=== PATIENT | male | born 1945 | race Caucasian/White ===

== ENCOUNTER 2017-07-06 18:38 | Inpatient (IN) | payer OTHER, MEDICARE ==
[~2017-07-06] VITALS: Ht 167.6 cm; Wt 49.0 kg
[~2017-07-06 18:38] MED LIST: ALBU25IPRN INH; CARV12.5 PO; ENAL2.5 PO; FURO20 PO; KCL20 PO; LEVA750T PO; MAGN400 PO; NEBUMIS6 INH; RIVA15 PO; THIA100T PO; Z.0.OXYGENDME NC
[2017-07-06 19:00] VITALS: BP 96/52; PULSE 116; RESP 20; TEMP 98.1; O2SAT 89
[2017-07-06] MEDS ORDERED: RESP: BUDESONIDE 0.5 MG/2 ML NEB NEB ONE (19:00)
[2017-07-06] MEDS ORDERED: SODIUM CHLORIDE 0.9% FLUSH 10 ML FLUSH IVF PRN (19:00)
[2017-07-06] MEDS ORDERED: RESP: ALBUTEROL 2.5 MG/IPRATROPIUM 0.5 MG NEB (SCH) INH ONE (19:00)
--- NOTE | 2017-07-06 19:01 | PD ---
HPI Chief Complaint: Respiratory Symptoms Time Seen by Provider: 18:51 Travel History International Travel<30 days: No Contact w/Intl Traveler<30days: No History of Present Illness HPI Patient is a 71-year-old male presenting to emergency department evaluation of shortness of breath. Patient states he's felt this way for approximately one week, he reports a productive cough with hemoptysis. He denies any fever, chills, nausea, vomiting, abdominal pain, chest pain. Patient reports a history of COPD and hypertension, congestive heart failure. Patient continues to smoke tobacco daily. He is not on any medications for COPD. He denies any pain at this time. Patient arrived to the emergency department via ENT exam as. He was given 2 albuterol nebulizer treatments as well as 125 mg of Solu- Medrol en route. [facility] Past Medical History Asthma: Yes ( CHILD) Cancer: No Cardiovascular Problems: No Congestive Heart Failure: Yes COPD: Yes Diminished Hearing: No Endocrine: No Genitourinary: No Hypertension: Yes Immune Disorder: No Musculoskeletal: No Neurologic: No Psychiatric: No Reproductive: No Social History Alcohol Use: No Tobacco Use: Yes (1.5PPD) Substance Use: Yes (MARIJUANA OCCASSIONALLY) Allergies-Medications (Allergen,Severity, Reaction): Coded Allergies: penicillin G (Unverified Allergy, Unknown, 04/14/17) Reported Meds & Prescriptions Reported Meds & Active Scripts Active Reported Methimazole 5 Mg Tab 10 Mg PO EVERY OTHER DAY Magnesium Oxide 400 Mg Tab 400 Mg PO DAILY Potassium Chloride ER (Potassium Chloride) 20 Meq Tab 20 Meq PO BID Coreg (Carvedilol) 12.5 Mg Tab 12.5 Mg PO BID Enalapril (Enalapril Maleate) 2.5 Mg Tab 2.5 Mg PO DAILY Lasix (Furosemide) 20 Mg Tab 20 Mg PO DAILY Xarelto (Rivaroxaban) 20 Mg Tab 20 Mg PO DAILY Review of Systems Except as stated in HPI: all other systems reviewed are Neg Cardiovascular: Positive: Tachycardia, Dyspnea on exertion Respiratory: Positive: Cough, Shortness of Breath, Wheezing, Orthopnea Gastrointestinal: No: Nausea, Abdominal Pain Musculoskeletal: No: Myalgias Neurologic: No: Weakness, Dizziness, Syncope Physical Exam Narrative GENERAL: Cachectic, alert male. Resting in no acute distress. SKIN: Warm and dry. HEAD: Atraumatic. Normocephalic. EYES: Pupils equal and round. No scleral icterus. No injection or drainage. ENT: No nasal bleeding or discharge. Mucous membranes pink and moist. NECK: Trachea midline. No JVD. CARDIOVASCULAR: Tachycardic RESPIRATORY: Tachypneic, coarse breath sounds throughout. GASTROINTESTINAL: Abdomen soft, non-tender, nondistended. Hepatic and splenic margins not palpable. MUSCULOSKELETAL: Extremities without clubbing, cyanosis, or edema. No obvious deformities. NEUROLOGICAL: Awake and alert. No obvious cranial nerve deficits. Motor grossly within normal limits. Five out of 5 muscle strength in the arms and legs. Normal speech. PSYCHIATRIC: Appropriate mood and affect; insight and judgment normal. Data Data Last Documented VS Vital Signs Date Time Temp Pulse Resp B/P (MAP) Pulse Ox O2 Delivery O2 Flow Rate FiO2 07/06/17 22:13 107 22 120/57 (78) 96 BiPAP 50 07/06/17 19:09 5.00 07/06/17 19:00 98.1 Orders Orders Complete Blood Count With Diff (07/06/17 18:51) Comprehensive Metabolic Panel (07/06/17 18:51) B-Type Natriuretic Peptide (07/06/17 18:51) Magnesium (Mg) (07/06/17 18:51) Ckmb (Isoenzyme) Profile (07/06/17 18:51) Troponin I (07/06/17 18:51) Arterial Blood Gas (Abg) (07/06/17 18:51) Iv Access Insert/Monitor (07/06/17 18:51) Electrocardiogram (07/06/17 18:51) Ecg Monitoring (07/06/17 18:51) Oximetry (07/06/17 18:51) Oxygen Administration (07/06/17 18:51) Chest, Single Ap (07/06/17 18:51) Sodium Chloride 0.9% Flush (Ns Flush) (07/06/17 19:00) Albuterol-Ipratropium Neb (Duoneb Neb) (07/06/17 19:00) Budesonide Neb (Pulmicort Respule Neb) (07/06/17 19:00) Resp Bipap / Cpap Non Invas Vt (07/06/17 ) Ct Pulmonary Angiogram (07/06/17 ) Iohexol 350 Inj (Omnipaque 350 Inj) (07/06/17 20:41) Aztreonam Inj (Azactam Inj) (07/06/17 21:36) Levofloxacin 750 Mg Premix Inj (Levaquin (07/06/17 21:36) Lactic Acid (07/06/17 21:36) Blood Culture (07/06/17 21:36) Sodium Chlorid 0.9% 500 Ml Inj (Ns 500 M (07/06/17 21:45) Admit Order (Ed Use Only) (07/06/17 22:33) Labs Laboratory Tests Test 07/06/17 19:20 07/06/17 21:40 07/06/17 21:53 White Blood Count 11.7 TH/MM3 Red Blood Count 3.51 MIL/MM3 Hemoglobin 10.5 GM/DL Hematocrit 32.3 % Mean Corpuscular Volume 92.0 FL Mean Corpuscular Hemoglobin 30.0 PG Mean Corpuscular Hemoglobin Concent 32.6 % Red Cell Distribution Width 15.0 % Platelet Count 471 TH/MM3 Mean Platelet Volume 8.1 FL Neutrophils (%) (Auto) 83.2 % Lymphocytes (%) (Auto) 13.3 % Monocytes (%) (Auto) 3.1 % Eosinophils (%) (Auto) 0.1 % Basophils (%) (Auto) 0.3 % Neutrophils # (Auto) 9.7 TH/MM3 Lymphocytes # (Auto) 1.6 TH/MM3 Monocytes # (Auto) 0.4 TH/MM3 Eosinophils # (Auto) 0.0 TH/MM3 Basophils # (Auto) 0.0 TH/MM3 CBC Comment DIFF FINAL Differential Comment Blood Urea Nitrogen 40 MG/DL Creatinine 1.03 MG/DL Random Glucose 185 MG/DL Total Protein 7.5 GM/DL Albumin 1.5 GM/DL Calcium Level 8.7 MG/DL Magnesium Level 2.1 MG/DL Alkaline Phosphatase 165 U/L Aspartate Amino Transf (AST/SGOT) 21 U/L Alanine Aminotransferase (ALT/SGPT) 27 U/L Total Bilirubin 0.4 MG/DL Sodium Level 132 MEQ/L Potassium Level 4.6 MEQ/L Chloride Level 94 MEQ/L Carbon Dioxide Level 29.6 MEQ/L Anion Gap 8 MEQ/L Estimat Glomerular Filtration Rate 71 ML/MIN Total Creatine Kinase 21 U/L Troponin I LESS THAN 0.02 NG/ML B-Type Natriuretic Peptide 62 PG/ML Blood Gas Puncture Site RT BRACHIAL Blood Gas Patient Temperature 98.6 Blood Gas HCO3 30 mmol/L Blood Gas Base Excess 6.5 mmol/L Blood Gas Oxygen Saturation 94 % Arterial Blood pH 7.47 Arterial Blood Partial Pressure CO2 42 mmHg Arterial Blood Partial Pressure O2 76 mmHG Arterial Blood Oxygen Content 13.6 Vol % Arterial Blood Carboxyhemoglobin 1.7 % Arterial Blood Methemoglobin 0.4 % Blood Gas Hemoglobin 10.3 G/DL Oxygen Delivery Device BIPAP Blood Gas Ventilator Setting IPAP10 EPAP5 Blood Gas Inspired Oxygen 50 % Lactic Acid Level 1.6 mmol/L MDM Medical Decision Making Medical Screen Exam Complete: Yes Emergency Medical Condition: Yes Interpretation(s) Last Impressions Chest X-Ray 07/06/17 1851 Signed Impressions: Service Date/Time: Thursday, July 06, 2017 18:53 - CONCLUSION: Volume loss in the left lung with left basilar opacity, possibly representing left lower lobe collapse. Holden Myers MD CT Angiography 07/06/17 0000 Signed Impressions: Service Date/Time: Thursday, July 06, 2017 20:36 - CONCLUSION: 1. No PE is identified. 2. As expected from the chest x-ray there is a pleural-parenchymal process for the cause of the shortness of breath and cough. There are findings indicating aspiration with partially cavitary consolidation in the left lower lobe. There is a moderate size loculated left pleural effusion with adjacent compressive atelectasis. Holden Myers MD Laboratory Tests Test 07/06/17 19:20 07/06/17 21:40 07/06/17 21:53 White Blood Count 11.7 TH/MM3 Red Blood Count 3.51 MIL/MM3 Hemoglobin 10.5 GM/DL Hematocrit 32.3 % Mean Corpuscular Volume 92.0 FL Mean Corpuscular Hemoglobin 30.0 PG Mean Corpuscular Hemoglobin Concent 32.6 % Red Cell Distribution Width 15.0 % Platelet Count 471 TH/MM3 Mean Platelet Volume 8.1 FL Neutrophils (%) (Auto) 83.2 % Lymphocytes (%) (Auto) 13.3 % Monocytes (%) (Auto) 3.1 % Eosinophils (%) (Auto) 0.1 % Basophils (%) (Auto) 0.3 % Neutrophils # (Auto) 9.7 TH/MM3 Lymphocytes # (Auto) 1.6 TH/MM3 Monocytes # (Auto) 0.4 TH/MM3 Eosinophils # (Auto) 0.0 TH/MM3 Basophils # (Auto) 0.0 TH/MM3 CBC Comment DIFF FINAL Differential Comment Blood Urea Nitrogen 40 MG/DL Creatinine 1.03 MG/DL Random Glucose 185 MG/DL Total Protein 7.5 GM/DL Albumin 1.5 GM/DL Calcium Level 8.7 MG/DL Magnesium Level 2.1 MG/DL Alkaline Phosphatase 165 U/L Aspartate Amino Transf (AST/SGOT) 21 U/L Alanine Aminotransferase (ALT/SGPT) 27 U/L Total Bilirubin 0.4 MG/DL Sodium Level 132 MEQ/L Potassium Level 4.6 MEQ/L Chloride Level 94 MEQ/L Carbon Dioxide Level 29.6 MEQ/L Anion Gap 8 MEQ/L Estimat Glomerular Filtration Rate 71 ML/MIN Total Creatine Kinase 21 U/L Troponin I LESS THAN 0.02 NG/ML B-Type Natriuretic Peptide 62 PG/ML Blood Gas Puncture Site RT BRACHIAL Blood Gas Patient Temperature 98.6 Blood Gas HCO3 30 mmol/L Blood Gas Base Excess 6.5 mmol/L Blood Gas Oxygen Saturation 94 % Arterial Blood pH 7.47 Arterial Blood Partial Pressure CO2 42 mmHg Arterial Blood Partial Pressure O2 76 mmHG Arterial Blood Oxygen Content 13.6 Vol % Arterial Blood Carboxyhemoglobin 1.7 % Arterial Blood Methemoglobin 0.4 % Blood Gas Hemoglobin 10.3 G/DL Oxygen Delivery Device BIPAP Blood Gas Ventilator Setting IPAP10 EPAP5 Blood Gas Inspired Oxygen 50 % Lactic Acid Level 1.6 mmol/L Vital Signs Date Time Temp Pulse Resp B/P (MAP) Pulse Ox O2 Delivery O2 Flow Rate FiO2 07/06/17 19:09 89 Nasal Cannula 5.00 07/06/17 19:09 20 89 Nasal Cannula 20.00 07/06/17 19:07 111 20 89 Nasal Cannula 5.00 07/06/17 19:00 98.1 116 20 96/52 (06) 86 Differential Diagnosis COPD exacerbation versus pneumonia versus bronchitis versus CHF versus metabolic abnormality versus other Narrative Course Patient's 71-year-old male presenting to the emergency department evaluation shortness of breath. Patient oxygen saturation was in the low 80s on EMS arrival, he trended up to 88-89% on 4 L and after administration of albuterol nebulizer. Patient is tachypneic on arrival, sats continued to be in the mid upper 80s. Labs and imaging ordered and pending. Patient placed on electronic device monitor and continuous pulse oximetry. IV access was established. Due to increased work of breathing patient placed on BiPAP. Chest x-ray which is read by radiologist shows volume loss in the left lung with left basilar opacity, possibly representing left lower lobe collapse. CT ordered. CBC with white count 11.7 with left shift Chemistry with a sodium of 132 and 40, cardiac enzymes negative 1 set. BNP 62 , lactic acid 1.6 CT pulmonary angiogram shows findings indicating aspiration a partial cavitary consolidation in the left lower lobe. Moderate size loculated left pleural effusion with adjacent compressive atelectasis. CT was read by the radiologist. Patient was given a 500 cc fluid bolus. Levaquin and Aztreonam ordered empirically after blood cultures are obtained. Discussed with Dr. Thurston, patient will be admitted to the ICU. Admitting orders placed with diagnosis of pneumonia, respiratory distress. Patient and girlfriend aware of plan. Vital signs have improved, heart rate is down to 107, blood pressure improved to 120/57. Diagnosis Primary Impression: Pneumonia Qualified Codes: J69.0 - Pneumonitis due to inhalation of food and vomit Additional Impressions: Hypoxia Respiratory distress determined by examination Pleural effusion Admitting Information Admitting Physician Requests: Admit Condition: Stable Rajani Campos Jul 06, 2017 19:00
[2017-07-06 19:09] VITALS: RESP 20; O2SAT 89
--- NOTE | 2017-07-06 19:16 | RADRPT ---
EXAM DATE/TIME: 07/06/2017 18:53 [facility] COMPARISON: CT PULMONARY ANGIOGRAM, December 12, 2015, 11:39. CHEST SINGLE AP, December 18, 2015, 8:36. INDICATIONS : Short of breath MEDICAL HISTORY : Congestive heart failure. SURGICAL HISTORY : None. ENCOUNTER: Initial ACUITY: 1 day PAIN SCORE: 0/10 LOCATION: chest FINDINGS: Portable AP view of the chest demonstrates a normal-sized cardiac silhouette. There is volume loss in the left hemithorax with elevation of the left hemidiaphragm. There is a left basilar opacity. No pn eumothorax is visualized. Right lung is hyperinflated. No pneumothorax is identified. Bones demonstra te no acute finding. CONCLUSION: Volume loss in the left lung with left basilar opacity, possibly representing left lower lobe collaps e. Holden Myers MD on July 06, 2017 at 19:12 Board Certified Radiologist. This report was verified electronically.
[2017-07-06] MEDS ORDERED: METH5TAB4 PO (19:17)
[2017-07-06] MEDS ORDERED: MAGN400T2 PO (19:17)
[2017-07-06] MEDS ORDERED: CARV12.5 PO (19:17)
[2017-07-06] MEDS ORDERED: ENAL2.5T PO (19:17)
[2017-07-06] MEDS ORDERED: FURO1TAB62 PO (19:17)
[2017-07-06] MEDS ORDERED: POTA-163 PO (19:17)
[2017-07-06] MEDS ORDERED: XARE20TA PO (19:17)
[2017-07-06 19:45] VITALS: O2SAT 94
[2017-07-06 19:53] LABS: AUTOMATED NEUTROPHIL # 9.7 TH/MM3 (1.8-7.7); BASOPHIL % 0.3 % (0.0-2.0); EOSINOPHIL % 0.1 % (0.0-4.0); HEMATOCRIT 32.3 % (39.0-51.0); HEMO FLAGS DIFF FINAL; LYMPH % 13.3 % (9.0-44.0); LYMPHOCYTE # 1.6 TH/MM3 (1.0-4.8); MEAN CORPUSCULAR HGB CONC 32.6 % (32.0-36.0); MONO % 3.1 % (0.0-8.0); NEUT % 83.2 % (16.0-70.0); PLATELET COUNT 471 TH/MM3 (150-450); RED BLOOD COUNT 3.51 MIL/MM3 (4.50-5.90); WHITE BLOOD COUNT 11.7 TH/MM3 (4.0-11.0)
[2017-07-06 20:15] LABS: ANION GAP 8 MEQ/L (5-15); AST (GOT) 21 U/L (15-37); BICARBONATE 29.6 MEQ/L (21.0-32.0); BLOOD UREA NITROGEN 40 MG/DL (7-18); CHLORIDE 94 MEQ/L (98-107); GLOMERULAR FILTRATION RATE 71 ML/MIN (>89); MAGNESIUM 2.1 MG/DL (1.5-2.5); POTASSIUM 4.6 MEQ/L (3.5-5.1); SODIUM (NA) 132 MEQ/L (136-145)
[2017-07-06 20:16] LABS: ALT (GPT) 27 U/L (12-78)
[2017-07-06 20:20] LABS: ALKALINE PHOSPHATASE 165 U/L (45-117); TOTAL BILIRUBIN ADULT 0.4 MG/DL (0.2-1.0)
[2017-07-06 20:25] LABS: CREATINE KINASE 21 U/L (39-308)
[2017-07-06] MEDS ORDERED: IOHEXOL 350 MG/ML 10 ML VIAL (for RAD DIAG) IVCONTRAST ONE (20:41)
--- NOTE | 2017-07-06 21:01 | RADRPT ---
EXAM DATE/TIME: 07/06/2017 20:36 [facility] COMPARISON: CHEST SINGLE AP, July 06, 2017, 18:53. CT PULMONARY ANGIOGRAM, December 12, 2015, 11:39. INDICATIONS : Short of breath with cough x1 week. IV CONTRAST: 50 cc Omnipaque 350 (iohexol) IV RADIATION DOSE: 17.62 CTDIvol (mGy) MEDICAL HISTORY : Chronic obstructive pulmonary disease. Hypertension. Congestive heart failure. SURGICAL HISTORY : None. ENCOUNTER: Initial ACUITY: 1 day PAIN SCALE: 3/10 LOCATION: chest TECHNIQUE: Volumetric scanning of the chest was performed using a pulmonary embolism protocol MIP images were re constructed. Using automated exposure control and adjustment of the mA and/or kV according to patien t size, radiation dose was kept as low as reasonably achievable to obtain optimal diagnostic quality images. DICOM format image data is available electronically for review and comparison. Follow-up recommendations for detected pulmonary nodules are based at a minimum on nodule size and pa tient risk factors according to Fleischner Society Guidelines. FINDINGS: PULMONARY ARTERIES: No filling defects are seen in the pulmonary arteries through the segmental level. LUNGS: There is fluid/secretions within the distal trachea and main bronchi, left greater than right. There is consolidation in the left lower lobe with partial cavitation of a segment. Compressive atelectasis is present in the left upper and left lower lobe secondary to the loculated pleural effusion. PLEURAE: There is a loculated moderate size left pleural effusion in the inferior left hemithorax. MEDIASTINUM: Heart and great vessels demonstrate no acute finding. There is atherosclerotic disease of the aorta. An enlarged subcarinal lymph node is present. MUSCULOSKELETAL: There are degenerative changes of the lumbar spine. MISCELLANEOUS: The visualized upper abdominal organs demonstrate no acute abnormality. CONCLUSION: 1. No PE is identified. 2. As expected from the chest x-ray there is a pleural-parenchymal process for the cause of the short ness of breath and cough. There are findings indicating aspiration with partially cavitary consolidat ion in the left lower lobe. There is a moderate size loculated left pleural effusion with adjacent co mpressive atelectasis. Holden Myers MD on July 06, 2017 at 20:53 Board Certified Radiologist. This report was verified electronically.
[2017-07-06] MEDS ORDERED: LEVOFLOXACIN 750 MG PREMIX INJ 150 ML IV STA (21:36)
[2017-07-06] MEDS ORDERED: AZTREONAM INJ 2,000 MG in SODIUM CHLORIDE 0.9% INJ 100 ML IV STA (21:36)
[2017-07-06] MEDS ORDERED: SODIUM CHLORID 0.9% 500 ML INJ 500 ML IV ONE (21:45)
[2017-07-06 21:51] LABS: BLOOD GAS BASE EXCESS 6.5 mmol/L (-2-2); BLOOD GAS CARBOXYHEMOGLOBIN 1.7 % (0-4); BLOOD GAS HCO3 30 mmol/L (22-26); BLOOD GAS METHEMOGLOBIN 0.4 % (0-2); BLOOD GAS O2 HGB SATURATION 94 % (90-100); BLOOD GAS OXYGEN CONTENT 13.6 Vol % (12.0-20.0); BLOOD GAS PCO2 42 mmHg (38-42); BLOOD GAS PO2 76 mmHG (61-120); BLOOD GAS TOTAL HGB 10.3 G/DL (12.0-16.0); CRITICAL VALUE NO; OXYGEN DEVICE BIPAP; TEMP CORR TO 98.6; VENT SETTINGS IPAP10 EPAP5
[2017-07-06 21:52] LABS: DRAW SITE RT BRACHIAL; FIO2 50 %; NUMBER OF ARTERIAL PUNCTURES 1; STAT NO
[2017-07-06 22:13] VITALS: BP 120/57; PULSE 107; RESP 22; O2SAT 96
[2017-07-06 22:40] VITALS: O2SAT 97
--- NOTE | 2017-07-06 23:55 | HHI.HP ---
[facility] Unknown Admission Diagnosis PNA, RESPIRATORY DISTRESS, COPD Diagnoses: Travel History International Travel<30 Days: No Contact w/Intl Traveler <30 Da: No Traveled to Known Affected Are: No History of Present Illness 71-year-old male with a past medical history significant for CHF, atrial fibrillation, COPD, hypertension and Graves' disease presents to the emergency department with a 5 day history of progressive shortness of breath. The patient reports that he initially had a fever that has since resolved. He states he has been having increasing dyspnea despite wearing his home oxygen. He endorses a productive cough. His friend was with him this evening when she noticed an episode of hemoptysis and increasing respiratory distress at which time she brought him to the emergency department. CTA was negative for PE but significant for a partially cavitary consolidation in the left lower lobe indicative of aspiration. There is also a moderate sized loculated left pleural effusion. The patient denies coughing with eating or drinking. He is currently on BiPAP with an ABG of 7.47/42/76/30. Review of Systems Fever 4 days ago Denies blurry vision, otorrhea, rhinorrhea Denies sore throat, productive cough with hemoptysis No chest pain, palpitations, positive shortness of breath No abdominal pain Denies constipation/diarrhea/nausea/vomiting Denies muscle pain/weakness No rashes Past Family Social History Past Medical History CHF COPD with intermittent home oxygen use Hypertension A. fib anticoagulated on Xarelto Graves' disease Past Surgical History None Reported Medications Reported Meds & Active Scripts Active Reported Methimazole 5 Mg Tab 10 Mg PO EVERY OTHER DAY Magnesium Oxide 400 Mg Tab 400 Mg PO DAILY Potassium Chloride ER (Potassium Chloride) 20 Meq Tab 20 Meq PO BID Coreg (Carvedilol) 12.5 Mg Tab 12.5 Mg PO BID Enalapril (Enalapril Maleate) 2.5 Mg Tab 2.5 Mg PO DAILY Lasix (Furosemide) 20 Mg Tab 20 Mg PO DAILY Xarelto (Rivaroxaban) 20 Mg Tab 20 Mg PO DAILY Allergies: Coded Allergies: penicillin G (Unverified Allergy, Unknown, 04/14/17) Family History Dad with CAD, mom at age 99 of an [place]. Social History Patient reports that he quit smoking 6 months ago however is still a daily cigarette smoker. He reports smoking for most of his life. Denies alcohol positive endorses occasional marijuana use. Denies all other illicit drugs. Physical Exam Vital Signs Vital Signs Date Time Temp Pulse Resp B/P (MAP) Pulse Ox O2 Delivery O2 Flow Rate FiO2 07/06/17 22:40 97 50 07/06/17 22:13 107 22 120/57 (78) 96 BiPAP 50 07/06/17 19:45 94 45 07/06/17 19:09 89 Nasal Cannula 5.00 07/06/17 19:09 20 89 Nasal Cannula 20.00 07/06/17 19:07 111 20 89 Nasal Cannula 5.00 07/06/17 19:00 98.1 116 20 96/52 (67) 89 Physical Exam GENERAL: Cachectic appearing male with BiPAP SKIN: No rashes, ecchymoses or lesions. Cool and dry. Tobacco stained fingers. HEAD: Atraumatic. Normocephalic. No temporal or scalp tenderness. EYES: Pupils equal round and reactive. Extraocular motions intact. No scleral icterus. No injection or drainage. ENT: Nose without bleeding, purulent drainage or septal hematoma. Throat without erythema, tonsillar hypertrophy or exudate. Uvula midline. Airway patent. NECK: Trachea midline. No JVD or lymphadenopathy. Supple, nontender, no meningeal signs. CARDIOVASCULAR: Regular rate and rhythm without murmurs, gallops, or rubs. RESPIRATORY: Pattern rhonchi throughout. Left lower lobe with absent breath sounds. GASTROINTESTINAL: Abdomen soft, non-tender, nondistended. No hepato-splenomegaly , or palpable masses. No guarding. MUSCULOSKELETAL: Extremities without clubbing, cyanosis, or edema. No joint tenderness, effusion, or edema noted. No calf tenderness. Negative Homans sign bilaterally. NEUROLOGICAL: Awake and alert. Cranial nerves II through XII intact. Motor and sensory grossly within normal limits. Normal speech. Laboratory Laboratory Tests Test 07/06/17 19:20 07/06/17 21:40 07/06/17 21:53 White Blood Count 11.7 Red Blood Count 3.51 Hemoglobin 10.5 Hematocrit 32.3 Mean Corpuscular Volume 92.0 Mean Corpuscular Hemoglobin 30.0 Mean Corpuscular Hemoglobin Concent 32.6 Red Cell Distribution Width 15.0 Platelet Count 471 Mean Platelet Volume 8.1 Neutrophils (%) (Auto) 83.2 Lymphocytes (%) (Auto) 13.3 Monocytes (%) (Auto) 3.1 Eosinophils (%) (Auto) 0.1 Basophils (%) (Auto) 0.3 Neutrophils # (Auto) 9.7 Lymphocytes # (Auto) 1.6 Monocytes # (Auto) 0.4 Eosinophils # (Auto) 0.0 Basophils # (Auto) 0.0 CBC Comment DIFF FINAL Differential Comment Blood Urea Nitrogen 40 Creatinine 1.03 Random Glucose 185 Total Protein 7.5 Albumin 1.5 Calcium Level 8.7 Magnesium Level 2.1 Alkaline Phosphatase 165 Aspartate Amino Transf (AST/SGOT) 21 Alanine Aminotransferase (ALT/SGPT) 27 Total Bilirubin 0.4 Sodium Level 132 Potassium Level 4.6 Chloride Level 94 Carbon Dioxide Level 29.6 Anion Gap 8 Estimat Glomerular Filtration Rate 71 Total Creatine Kinase 21 Troponin I LESS THAN 0.02 B-Type Natriuretic Peptide 62 Blood Gas Puncture Site RT BRACHIAL Blood Gas Patient Temperature 98.6 Blood Gas HCO3 30 Blood Gas Base Excess 6.5 Blood Gas Oxygen Saturation 94 Arterial Blood pH 7.47 Arterial Blood Partial Pressure CO2 42 Arterial Blood Partial Pressure O2 76 Arterial Blood Oxygen Content 13.6 Arterial Blood Carboxyhemoglobin 1.7 Arterial Blood Methemoglobin 0.4 Blood Gas Hemoglobin 10.3 Oxygen Delivery Device BIPAP Blood Gas Ventilator Setting [id number] [id number] Blood Gas Inspired Oxygen 50 Lactic Acid Level 1.6 Date/Time Source Procedure Growth Status 07/06/17 21:53 Blood Peripheral Aerobic Blood Culture Pending Received 07/06/17 21:53 Blood Peripheral Anaerobic Blood Culture Pending Received Result Diagram: 07/06/17191907/06/171919 Caprini VTE Risk Assessment Caprini VTE Risk Assessment: Mod/High Risk (score >= 2) Caprini Risk Assessment Model Point Value = 1 Point Value = 2 Point Value = 3 Point Value = 5 Age 41-60 Minor surgery BMI > 25 kg/m2 Swollen legs Varicose veins or History of unexplained or recurrent spontaneous Oral contraceptives or hormone replacement Sepsis (< 1 month) Serious lung disease, including pneumonia (< 1 month) Abnormal pulmonary function Acute myocardial infarction Congestive heart failure (< 1 month) History of inflammatory bowel disease Medical patient at bed rest Age 61-74 Arthroscopic surgery Major open surgery (> 45 min) Laparoscopic surgery (> 45 min) Malignancy Confined to bed (> 72 hours) Immobilizing plaster cast Central venous access Age >= 75 History of VTE Family history of VTE Factor V Leiden Prothrombin [id number] Lupus anticoagulant Anticardiolipin antibodies Elevated serum homocysteine Heparin-induced thrombocytopenia Other congenital or acquired thrombophilia Stroke (< 1 month) Elective arthroplasty Hip, pelvis, or leg fracture Acute spinal cord injury (< 1 month) Prophylaxis Regimen Total Risk Factor Score Risk Level Prophylaxis Regimen 0-1 Low Early ambulation 2 Moderate Order ONE of the following: *Sequential Compression Device (SCD) *Heparin 5000 units SQ BID 3-4 Higher Order ONE of the following medications: *Heparin 5000 units SQ TID *Enoxaparin/Lovenox 40 mg SQ daily (WT < 150 kg, CrCl > 30 mL/min) *Enoxaparin/Lovenox 30 mg SQ daily (WT < 150 kg, CrCl > 10-29 mL/min) *Enoxaparin/Lovenox 30 mg SQ BID (WT < 150 kg, CrCl > 30 mL/min) AND/OR *Sequential Compression Device (SCD) 5 or more Highest Order ONE of the following medications: *Heparin 5000 units SQ TID (Preferred with Epidurals) *Enoxaparin/Lovenox 40 mg SQ daily (WT < 150 kg, CrCl > 30 mL/min) *Enoxaparin/Lovenox 30 mg SQ daily (WT < 150 kg, CrCl > 10-29 mL/min) *Enoxaparin/Lovenox 30 mg SQ BID (WT < 150 kg, CrCl > 30 mL/min) AND *Sequential Compression Device (SCD) Assessment and Plan Assessment and Plan 78-year-old male with a past medical history significant for A. fib, hypertension, COPD, CHF and Graves' disease presents to the emergency department with a 5 day history of worsening dyspnea, productive cough and one episode of hemoptysis. 1. Aspiration pneumonia/Hypoxia CT of the chest revealed aspiration pneumonia with partially cavitary consolidation in left lower lobe and moderate sized loculated pleural effusion, images reviewed by me Broad spectrum antibiotic coverage with Levaquin and aztreonam Infectious disease consulted, appreciate assistance Interventional radiology consulted for possible drainage of loculated pleural effusion Patient currently requiring BiPAP Continuous pulse ox monitoring - ABG 7.47/42/76/30 Nothing by mouth until evaluated by speech therapy Lactic acid 1.6, mild leukocytosis of 11.7, blood cultures pending - monitor for signs of sepsis 2. CHF Monitor for signs of volume overload Continue Lasix Gentle fluid hydration 3. COPD Patient currently on BiPAP Duo nebs Does not take any home medications Patient is a lifelong smoker, continues to smoke daily 4. Atrial fibrillation Anticoagulated on Xarelto Hold Xarelto for possible thoracentesis 5. Hypertension Continue carvedilol, enalapril 6. Graves' disease Continue Methimazole Thyroid studies pending FEN: Nothing by mouth until evaluated by speech therapy NS at 50 cc/hour Electrolytes: Patient mildly hyponatremic at 132, fluids as above, monitor Holding pharmacologic anticoagulation for possible thoracentesis Case management consult Physician Certification 2 Midnight Certification Type: Admission for Inpatient Services Order for Inpatient Services The services are ordered in accordance with Medicare regulations or non- Medicare payer requirements, as applicable. In the case of services not specified as inpatient-only, they are appropriately provided as inpatient services in accordance with the 2-midnight benchmark. Estimated LOS (days): 2 2 days is the estimated time the patient will need to remain in the hospital, assuming treatment plan goals are met and no additional complications. Post-Hospital Plan: Not yet determined Camryn Thurston MD Jul 06, 2017 23:55
[2017-07-07] VITALS (51 sets, daily range): BP systolic 62–163; BP diastolic 41–95; PULSE 99–145; RESP 16–85; TEMP 97.5–98.4; O2SAT 82–100
[2017-07-07] MEDS ORDERED: SODIUM CHLORIDE 0.9% FLUSH 10 ML FLUSH IV FLUSH PRN ×2 (00:15→18:45)
[2017-07-07] MEDS ORDERED: ACETAMINOPHEN 325 MG TAB PO PRN (00:15)
[2017-07-07] MEDS ORDERED: NALOXONE HCL 0.4 MG/ML AMP IV PUSH PRN (00:15)
[2017-07-07] MEDS ORDERED: ONDANSETRON HCL 4 MG/2 ML VIAL IVP PRN (00:15)
[2017-07-07] MEDS ORDERED: LACTULOSE SYRUP 20 GM/30 ML CUP PO PRN (00:15)
[2017-07-07] MEDS ORDERED: BISACODYL 10 MG SUPP RECTAL PRN (00:15)
[2017-07-07] MEDS ORDERED: MAGNESIUM HYDROXIDE SUSP 30 ML CUP PO PRN (00:15)
[2017-07-07] MEDS ORDERED: SENNOSIDES 8.6 MG TAB PO PRN (00:15)
[2017-07-07] MEDS: SODIUM CHLOR 0.9% 1000 ML INJ 1,000 ML IV SCH (01:22)
[2017-07-07] MEDS: CHLORHEXIDINE GLUCONATE 2 % 1 PACK (2 CLOTHS)(taper/protocol) TOPICAL SCH (02:26)
[2017-07-07] MEDS ORDERED: CHLORHEXIDINE GLUCONATE 2 % 1 PACK (2 CLOTHS)(extra cloths) TOPICAL PRN (02:30)
[2017-07-07] MEDS: RESP: ALBUTEROL 2.5 MG/IPRATROPIUM 0.5 MG NEB (SCH) NEB ×5 (03:21→21:53)
[2017-07-07 04:24] LABS: AUTOMATED NEUTROPHIL # 10.9 TH/MM3 (1.8-7.7); BASOPHIL % 0.2 % (0.0-2.0); HEMATOCRIT 28.9 % (39.0-51.0); HEMO FLAGS DIFF FINAL; LYMPH % 9.3 % (9.0-44.0); LYMPHOCYTE # 1.1 TH/MM3 (1.0-4.8); MEAN CELL VOLUME 92.4 FL (80.0-100.0); MEAN CORPUSCULAR HGB CONC 32.4 % (32.0-36.0); NEUT % 88.5 % (16.0-70.0); PLATELET COUNT 421 TH/MM3 (150-450); RED BLOOD COUNT 3.13 MIL/MM3 (4.50-5.90); WHITE BLOOD COUNT 12.3 TH/MM3 (4.0-11.0)
[2017-07-07 04:54] LABS: ANION GAP 10 MEQ/L (5-15); AST (GOT) 19 U/L (15-37); BLOOD UREA NITROGEN 37 MG/DL (7-18); CHLORIDE 98 MEQ/L (98-107); GLOMERULAR FILTRATION RATE 108 ML/MIN (>89); POTASSIUM 4.3 MEQ/L (3.5-5.1); SODIUM (NA) 135 MEQ/L (136-145)
[2017-07-07 05:05] LABS: ALKALINE PHOSPHATASE 146 U/L (45-117); ALT (GPT) 24 U/L (12-78); FREE T4 2.24 NG/DL (0.76-1.46); TOTAL BILIRUBIN ADULT 0.3 MG/DL (0.2-1.0)
[2017-07-07] MEDS: AZTREONAM INJ 2,000 MG in SODIUM CHLORIDE 0.9% INJ 100 ML IV SCH ×2 (08:03→16:00)
[2017-07-07] MEDS: DOCUSATE SODIUM 50 MG/SENNA 8.6 MG TAB PO SCH ×2 (08:04→21:00)
[2017-07-07] MEDS: MAGNESIUM OXIDE 400 MG TAB PO SCH (08:04)
[2017-07-07] MEDS ORDERED: FUROSEMIDE 20 MG TAB PO SCH (09:00)
[2017-07-07] MEDS ORDERED: CARVEDILOL 12.5 MG TAB PO SCH (09:00)
[2017-07-07] MEDS: SODIUM CHLORIDE 0.9% FLUSH 10 ML FLUSH IV FLUSH SCH ×2 (09:00→21:12)
[2017-07-07] MEDS ORDERED: ENALAPRIL MALEATE 2.5 MG TAB PO SCH (09:00)
[2017-07-07] MEDS ORDERED: POTASSIUM CHLORIDE 20 MEQ CONTROLLED RELEASE TAB PO SCH (09:00)
[2017-07-07] MEDS: NICOTINE 14 MG/24 HR PATCH T-DERMAL SCH (10:35)
[2017-07-07] MEDS: REMOVE OLD PATCH T-DERMAL SCH (10:35)
[2017-07-07 12:03] LABS: INTERNATIONAL NORMALIZED RATIO 1.3 RATIO; PROTHROMBIN TIME - PATIENT 14.2 SEC (9.8-11.6)
[2017-07-07] MEDS ORDERED: LIDOCAINE 1%/EPINEPHrine 1:100,000 SOLN 20 ML VIAL ONE ×2 (13:38→14:37)
[2017-07-07] MEDS ORDERED: MIDAZOLAM HCL 2 MG/2 ML VIAL ONE (14:08)
--- NOTE | 2017-07-07 15:07 | PD.RAD ---
Post CT Procedure Prog Note Pre Procedure Diagnosis: (1) Pneumonia (2) Pleural effusion Post Procedure Diagnosis: (1) Pleural effusion (2) Pneumonia Procedure Date: Jul 07, 2017 Supervising Radiologist: Fernando Diaz Anesthesia: Conscious Sedation Plan of Activity Patient to Unit: Nursing Unit Patient Condition: Good See PACS Report for procedural detail/treatment Fernando Diaz MD Jul 07, 2017 15:07
--- NOTE | 2017-07-07 16:08 | RADRPT ---
EXAM DATE/TIME: 07/07/2017 14:24 INDICATIONS : History of pneumonia/sepsis with loculated pleural effusion and suspected empyema. Chest tube placeme nt has been requested. Anticipate separate chest replacement due to 2 significant loculation anterior ly which does not appear to communicate with the posterior collection. SEDATION TIME: 20 minutes MEDICATION(S): 1.) 2 mg midazolam (Versed) IV 2.) 100 mcg fentanyl (Sublimaze) IV DEVICE(S): 1.) 18 gauge Hernandez blunt needle 2.) 16 Fr Skater Total volume of240 cc of cloudy, green fluid was remoted. Fluid was sent for laboratory ordered studies. MEDICAL HISTORY : Congestive heart failure. Chronic obstructive pulmonary disease. Hypertension. SURGICAL HISTORY : None. ENCOUNTER: Initial ACUITY: 1 day PAIN SCORE: 09/09 LOCATION: Left chest PROCEDURE: PROCEDURE : 1. CT guided chest tube placement. 2. Conscious sedation with continuous EKG and oximetry monitoring. The risks, benefits and alternatives to the procedure were explained and verbal and written consent w as obtained. The site was prepped in sterile fashion. Full sterile technique was used, including ca p, mask, sterile gloves and gown and a large sterile sheet. Hand hygiene and 2% chlorhexidine and/or betadine/alcohol prep was utilized per protocol for cutaneous antisepsis. The skin and subcutaneous tissues were infiltrated with local anesthetic solution. Using automated exposure control and adjus tment of the mA and/or kV according to patient size, radiation dose was kept as low as reasonably ach ievable to obtain optimal diagnostic quality images. DICOM format image data is available electronic ally for review and comparison. CT examination was performed and the 2 loculations in the inferior left hemithorax anteriorly and pos teriorly where marked. 16 Azeri pigtail drainage catheters were placed separately into each collecti on utilizing al new sterile equipment for each chest tube. Purulent fluid was aspirated from the ante rior collection and serosanguineous pleural fluid was aspirated from the posterior collection. Both c hest tubes were connected to Pleur-evac suction and sutured into place. Conscious sedation was performed with the prescribed dosages and duration as above. The patient tino ated the procedure well and there were no complications. EKG and oximetry remained stable throughout the procedure. The patient was sent to post anesthesia recovery in stable condition. CONCLUSION: 1. Uncomplicated chest tube placement for loculated empyemas in the anterior and posterior inferior l eft hemithorax, as above. Fernando Diaz MD on July 07, 2017 at 16:03 Board Certified Radiologist. This report was verified electronically.
--- NOTE | 2017-07-07 16:10 | RADRPT ---
EXAM DATE/TIME: 07/07/2017 14:24 INDICATIONS : Suspected loculated left-sided empyemas. SEDATION TIME: 20 minutes MEDICATION(S): 1.) 2 mg midazolam (Versed) IV 2.) 100 mcg fentanyl (Sublimaze) IV DEVICE(S): 1.) 18 gauge Hernandez blunt needle 2.) 16 Fr Skater Total volume of240 cc of cloudy, red fluid was remoted. Fluid was sent for laboratory ordered studies. MEDICAL HISTORY : Chronic obstructive pulmonary disease. Hypertension. Congestive heart failure. SURGICAL HISTORY : None. ENCOUNTER: Initial ACUITY: 1 day PAIN SCORE: 09/09 LOCATION: Left chest PROCEDURE: PROCEDURE : 1. CT guided chest tube placement. 2. Conscious sedation with continuous EKG and oximetry monitoring. The risks, benefits and alternatives to the procedure were explained and verbal and written consent w as obtained. The site was prepped in sterile fashion. Full sterile technique was used, including ca p, mask, sterile gloves and gown and a large sterile sheet. Hand hygiene and 2% chlorhexidine and/or betadine/alcohol prep was utilized per protocol for cutaneous antisepsis. The skin and subcutaneous tissues were infiltrated with local anesthetic solution. Using automated exposure control and adjus tment of the mA and/or kV according to patient size, radiation dose was kept as low as reasonably ach ievable to obtain optimal diagnostic quality images. DICOM format image data is available electronic ally for review and comparison. With CT guidance chest tube was placed in the anterior and posterior loculated empyemas in the left i nferior hemithorax. Please see previous report for details. Conscious sedation was performed with the prescribed dosages and duration as above. The patient tino ated the procedure well and there were no complications. EKG and oximetry remained stable throughout the procedure. The patient was sent to post anesthesia recovery in stable condition. CONCLUSION: 1. Uncomplicated CT-guided placement of 16 Sinhala pigtail chest tubes for treatment of loculated empy emas in the anterior and posterior inferior left hemithorax. Please see prior CT report for additiona l srinivasan. Fernando Diaz MD on July 07, 2017 at 16:07 Board Certified Radiologist. This report was verified electronically.
--- NOTE | 2017-07-07 16:41 | HHI.PR ---
Subjective Remarks 71-year-old male with a past medical history significant for CHF, atrial fibrillation, COPD, hypertension and Graves' disease presents to the emergency department with a 5 day history of progressive shortness of breath. The patient reports that he initially had a fever that has since resolved. He states he has been having increasing dyspnea despite wearing his home oxygen. He endorses a productive cough. His friend was with him this evening when she noticed an episode of hemoptysis and increasing respiratory distress at which time she brought him to the emergency department. CTA was negative for PE but significant for a partially cavitary consolidation in the left lower lobe indicative of aspiration. There is also a moderate sized loculated left pleural effusion. The patient denies coughing with eating or drinking. He is currently on BiPAP with an ABG of 7.47/42/76/30. 11-7 SP CHEST TUBES ON THE LEFT BY INTERVENTIONAL RADIOLOGY STILL VERY SOB WILL NEED BIPAP AGAIN PULMONARY HAS BEEN CONSULTED- ST, OT, PT POSSIBLE ASPIRATION ISSUES WILL CONSULT SPEECH DW RN AND PT AND FAMILY Objective Vitals Vital Signs Date Time Temp Pulse Resp B/P (MAP) Pulse Ox O2 Delivery O2 Flow Rate FiO2 07/07/17 14:00 108 07/07/17 12:00 109 07/07/17 11:45 107 24 105/59 (74) 85 07/07/17 11:00 107 32 89 07/07/17 10:00 106 07/07/17 10:00 106 47 88 07/07/17 08:00 103 33 84 07/07/17 08:00 107 07/07/17 07:43 91 Nasal Cannula 3.00 07/07/17 06:00 99 07/07/17 04:00 100 07/07/17 03:22 94 Nasal Cannula 2.00 07/07/17 03:00 102 37 111/59 (76) 89 07/07/17 02:31 07/07/17 02:00 103 07/07/17 01:59 97.5 99 20 122/71 (88) 07/07/17 01:05 102 18 116/67 (83) 92 Nasal Cannula 3.00 07/07/17 00:45 94 Nasal Cannula 3.00 07/06/17 22:40 97 50 07/06/17 22:13 107 22 120/57 (78) 96 BiPAP 50 07/06/17 19:45 94 45 07/06/17 19:09 89 Nasal Cannula 5.00 07/06/17 19:09 20 89 Nasal Cannula 20.00 07/06/17 19:07 111 20 89 Nasal Cannula 5.00 07/06/17 19:00 98.1 116 20 96/52 (67) 89 I/O 07/06/17 07/06/17 07/06/17 07/07/17 07/07/17 07/07/17 07:00 15:00 23:00 07:00 15:00 23:00 Intake Total 750 ml Output Total 400 ml 200 ml Balance 350 ml -200 ml Intake Oral 0 ml IV Total 750 ml Output Urine Total 400 ml 200 ml # Bowel Movements 0 1 Result Diagram: 07/07/17 0330 07/07/17 0330 Other Results Laboratory Tests Test 07/06/17 19:20 07/06/17 21:40 07/06/17 21:53 07/07/17 02:19 White Blood Count 11.7 TH/MM3 Red Blood Count 3.51 MIL/MM3 Hemoglobin 10.5 GM/DL Hematocrit 32.3 % Mean Corpuscular Volume 92.0 FL Mean Corpuscular Hemoglobin 30.0 PG Mean Corpuscular Hemoglobin Concent 32.6 % Red Cell Distribution Width 15.0 % Platelet Count 471 TH/MM3 Mean Platelet Volume 8.1 FL Neutrophils (%) (Auto) 83.2 % Lymphocytes (%) (Auto) 13.3 % Monocytes (%) (Auto) 3.1 % Eosinophils (%) (Auto) 0.1 % Basophils (%) (Auto) 0.3 % Neutrophils # (Auto) 9.7 TH/MM3 Lymphocytes # (Auto) 1.6 TH/MM3 Monocytes # (Auto) 0.4 TH/MM3 Eosinophils # (Auto) 0.0 TH/MM3 Basophils # (Auto) 0.0 TH/MM3 CBC Comment DIFF FINAL Differential Comment Blood Urea Nitrogen 40 MG/DL Creatinine 1.03 MG/DL Random Glucose 185 MG/DL Total Protein 7.5 GM/DL Albumin 1.5 GM/DL Calcium Level 8.7 MG/DL Magnesium Level 2.1 MG/DL Alkaline Phosphatase 165 U/L Aspartate Amino Transf (AST/SGOT) 21 U/L Alanine Aminotransferase (ALT/SGPT) 27 U/L Total Bilirubin 0.4 MG/DL Sodium Level 132 MEQ/L Potassium Level 4.6 MEQ/L Chloride Level 94 MEQ/L Carbon Dioxide Level 29.6 MEQ/L Anion Gap 8 MEQ/L Estimat Glomerular Filtration Rate 71 ML/MIN Total Creatine Kinase 21 U/L Troponin I LESS THAN 0.02 NG/ML B-Type Natriuretic Peptide 62 PG/ML Blood Gas Puncture Site RT BRACHIAL Blood Gas Patient Temperature 98.6 Blood Gas HCO3 30 mmol/L Blood Gas Base Excess 6.5 mmol/L Blood Gas Oxygen Saturation 94 % Arterial Blood pH 7.47 Arterial Blood Partial Pressure CO2 42 mmHg Arterial Blood Partial Pressure O2 76 mmHG Arterial Blood Oxygen Content 13.6 Vol % Arterial Blood Carboxyhemoglobin 1.7 % Arterial Blood Methemoglobin 0.4 % Blood Gas Hemoglobin 10.3 G/DL Oxygen Delivery Device BIPAP Blood Gas Ventilator Setting [id number] Blood Gas Inspired Oxygen 50 % Lactic Acid Level 1.6 mmol/L Nasal Screen MRSA (PCR) MRSA DETECTED Test 07/07/17 03:30 07/07/17 10:50 White Blood Count 12.3 TH/MM3 Red Blood Count 3.13 MIL/MM3 Hemoglobin 9.4 GM/DL Hematocrit 28.9 % Mean Corpuscular Volume 92.4 FL Mean Corpuscular Hemoglobin 30.0 PG Mean Corpuscular Hemoglobin Concent 32.4 % Red Cell Distribution Width 15.0 % Platelet Count 421 TH/MM3 Mean Platelet Volume 8.2 FL Neutrophils (%) (Auto) 88.5 % Lymphocytes (%) (Auto) 9.3 % Monocytes (%) (Auto) 2.0 % Eosinophils (%) (Auto) 0.0 % Basophils (%) (Auto) 0.2 % Neutrophils # (Auto) 10.9 TH/MM3 Lymphocytes # (Auto) 1.1 TH/MM3 Monocytes # (Auto) 0.3 TH/MM3 Eosinophils # (Auto) 0.0 TH/MM3 Basophils # (Auto) 0.0 TH/MM3 CBC Comment DIFF FINAL Differential Comment Blood Urea Nitrogen 37 MG/DL Creatinine 0.72 MG/DL Random Glucose 98 MG/DL Total Protein 7.1 GM/DL Albumin 1.4 GM/DL Calcium Level 8.2 MG/DL Alkaline Phosphatase 146 U/L Aspartate Amino Transf (AST/SGOT) 19 U/L Alanine Aminotransferase (ALT/SGPT) 24 U/L Total Bilirubin 0.3 MG/DL Sodium Level 135 MEQ/L Potassium Level 4.3 MEQ/L Chloride Level 98 MEQ/L Carbon Dioxide Level 27.0 MEQ/L Anion Gap 10 MEQ/L Estimat Glomerular Filtration Rate 108 ML/MIN Free Thyroxine 2.24 NG/DL Free Triiodothyronine (T3) pg/dL 1.80 PG/ML Thyroid Stimulating Hormone 3rd Gen LESS THAN 0.005 uIU/ML Prothrombin Time 14.2 SEC Prothromb Time International Ratio 1.3 RATIO Imaging Last Impressions Chest Tube Insertion 07/07/17 0000 Signed Impressions: Service Date/Time: Friday, July 07, 2017 14:24 - CONCLUSION: 1. Uncomplicated CT-guided placement of 16 Lithuanian pigtail chest tubes for treatment of loculated empyemas in the anterior and posterior inferior left hemithorax. Please see prior CT report for additional details. Fernando Diaz MD Chest X-Ray 07/06/17 185 Signed Impressions: Service Date/Time: Thursday, July 06, 2017 18:53 - CONCLUSION: Volume loss in the left lung with left basilar opacity, possibly representing left lower lobe collapse. Holden Myers MD CT Angiography 07/06/17 0000 Signed Impressions: Service Date/Time: Thursday, July 06, 2017 20:36 - CONCLUSION: 1. No PE is identified. 2. As expected from the chest x-ray there is a pleural-parenchymal process for the cause of the shortness of breath and cough. There are findings indicating aspiration with partially cavitary consolidation in the left lower lobe. There is a moderate size loculated left pleural effusion with adjacent compressive atelectasis. Holden Myers MD Objective Remarks GENERAL: VERY CACHECTIC- SKIN AND BONES ONLY-IN SOME DISTRESS- NEEDS BIPAP SKIN: Warm and dry. HEAD: Atraumatic. Normocephalic. EYES: Pupils equal and round. No scleral icterus. No injection or drainage. EOMI ENT: No nasal bleeding or discharge. Mucous membranes pink and moist.TONGUE MIDLINE NECK: Trachea midline. No JVD. SUPPLE CARDIOVASCULAR: Regular rate and rhythm. S1,S2, NO S3 OR S4 RESPIRATORY: No accessory muscle use. Breath sounds equal bilaterally. COARSE BS BL LEFT SIDE CHEST TUBES GASTROINTESTINAL: Abdomen soft, non-tender, nondistended. Hepatic and splenic margins not palpable. MUSCULOSKELETAL: Extremities without clubbing, cyanosis, or edema. No obvious deformities. NEUROLOGICAL: Awake and alert. No obvious cranial nerve deficits. Motor grossly within normal limits. 4 out of 5 muscle strength in the arms and legs. Normal speech. PSYCHIATRIC: Appropriate mood and affect; insight and judgment normal. VERY THIN AND PALE AND CACHECTIC Procedures LEFT SIDE CHEST TUBES FOR EMPYEMA AND FLUID 07-07 Medications and IVs Current Medications Sodium Chloride (NS Flush) 2 ml UNSCH PRN IVF FLUSH AFTER USING IV ACCESS; Start 07/06/17 at 19:00; Stop 07/07/17 at 00:35; Status DC Albuterol/ Ipratropium (Duoneb Neb) 1 ampule ONCE ONCE INH Last administered on 07/06/17 19:49; Start 07/06/17 at 19:00; Stop 07/06/17 at 19:01; Status DC Budesonide (Pulmicort Respule Neb) 0.5 mg ONCE ONCE NEB Last administered on 07/06/17 19:49; Start 07/06/17 at 19:00; Stop 07/06/17 at 19:01; Status DC Iohexol (Omnipaque 350 Inj) 50 ml STK-MED ONCE IVCONTRAST Last administered on 07/06/17 20:41; Start 07/06/17 at 20:41; Stop 07/06/17 at 20:42; Status DC Aztreonam 2000 mg/ Sodium Chloride 100 ml @ 200 mls/hr ONCE STAT IV Last administered on 07/06/17 23:40; Start 07/06/17 at 21:36; Stop 07/06/17 at 22:05 ; Status DC Levofloxacin/ Dextrose 150 ml @ 100 mls/hr ONCE STAT IV Last administered on 07/06/17 22:12; Start 07/06/17 at 21:36; Stop 07/06/17 at 23:05; Status DC Sodium Chloride 500 ml @ 500 mls/hr BOLUS ONCE IV Last administered on 22:12; Start 07/06/17 at 21:45; Stop 07/06/17 at 22:44; Status DC Carvedilol (Coreg) 12.5 mg BID PO Last administered on 07/07/17 08:03; Start 07/07/17 at 09:00 Enalapril Maleate (Vasotec) 2.5 mg DAILY PO Last administered on 07/07/17 08: 03; Start 07/07/17 at 09:00 Furosemide (Lasix) 20 mg DAILY PO Last administered on 07/07/17 08:04; Start 07/07/17 at 09:00 Magnesium Oxide (Mag-Ox) 400 mg DAILY PO Last administered on 07/07/17 08:04; Start 07/07/17 at 09:00 Methimazole (Tapazole) 10 mg EVERY OTHER DAY PO ; Start 07/08/17 at 09:00 Potassium Chloride (KCl) 20 meq BID PO Last administered on 07/07/17 08:04; Start 07/07/17 at 09:00 Aztreonam 2000 mg/ Sodium Chloride 100 ml @ 200 mls/hr Q8H IV Last administered on 07/07/17 08:03; Start 07/07/17 at 08:00 Levofloxacin/ Dextrose 150 ml @ 100 mls/hr Q24H IV ; Start 07/07/17 at 22:00 Sodium Chloride 1,000 ml @ 50 mls/hr Q20H IV Last administered on 07/07/17 01 :22; Start 07/07/17 at 00:04 Sodium Chloride (NS Flush) 2 ml UNSCH PRN IV FLUSH FLUSH AFTER USING IV ACCESS ; Start 07/07/17 at 00:15 Sodium Chloride (NS Flush) 2 ml BID IV FLUSH Last administered on 07/07/17 09: 00; Start 07/07/17 at 09:00 Acetaminophen (Tylenol) 650 mg Q4H PRN PO TEMP > 100.4; Start 07/07/17 at 00:15 Ondansetron HCl (Zofran Inj) 4 mg Q6H PRN IVP NAUSEA OR VOMITING; Start at 00:15 Naloxone HCl (Narcan Inj) 0.4 mg UNSCH PRN IV PUSH SEE LABEL COMMENTS; Start 07/07/17 at 00:15 Senna/Docusate Sodium (Brenda-Colace) 1 tab BID PO Last administered on 08:04; Start 07/07/17 at 09:00 Magnesium Hydroxide (Milk Of Magnesia Liq) 30 ml Q12H PRN PO Mild constipation ; Start 07/07/17 at 00:15 Sennosides (Senokot) 17.2 mg Q12H PRN PO Moderate constipation; Start 07/07/17 at 00:15 Bisacodyl (Dulcolax Supp) 10 mg DAILY PRN RECTAL SEVERE CONSITIPATION; Start 07/07/17 at 00:15 Lactulose (Lactulose Liq) 30 ml DAILY PRN PO SEVERE CONSITIPATION; Start at 00:15 Albuterol/ Ipratropium (Duoneb Neb) 1 ampule Q4HR NEB NEB Last administered on 07/07/17 16:00; Start 07/07/17 at 04:00 Miscellaneous Information Patient in critical care unit? Ass... [id number] .[id number] ; Start 07/07/17 at 02:30 Chlorhexidine Gluconate (Chlorhexidine 2% Cloth) 3 pack DAILY@04 TOPICAL Last administered on 07/07/17 02:26; Start 07/07/17 at 04:00; Stop 07/11/17 at 04: 01 Chlorhexidine Gluconate (Chlorhexidine 2% Cloth) 3 pack UNSCH PRN TOPICAL HYGIENIC CARE; Start 07/07/17 at 02:30; Stop 07/12/17 at 02:18 Nicotine (Habitrol 14 Mg Patch.24 Hr) 1 patch DAILY T-DERMAL Last administered on 07/07/17 10:35; Start 07/07/17 at 10:00 Miscellaneous Information 1 DAILY T-DERMAL ; Start 07/08/17 at 09:00 Lidocaine/ Epinephrine (Xylocaine-Epi 1%-1:100,000 Inj) 20 ml STK-MED ONCE .ROUTE Last administered on 07/07/17 13:38; Start 07/07/17 at 13:38; Stop 07/07/17 at 13:39; Status DC Fentanyl Citrate (fentaNYL INJ) 200 mcg STK-MED ONCE .ROUTE ; Start 07/07/17 at 14:08; Stop 07/07/17 at 14:09; Status DC Midazolam HCl (Versed Inj) 2 mg STK-MED ONCE .ROUTE ; Start 07/07/17 at 14:08; Stop 07/07/17 at 14:09; Status DC Lidocaine/ Epinephrine (Xylocaine-Epi 1%-1:100,000 Inj) 20 ml STK-MED ONCE .ROUTE ; Start 07/07/17 at 14:37; Stop 07/07/17 at 14:38; Status DC A/P Assessment and Plan 78-year-old male with a past medical history significant for A. fib, hypertension, COPD, CHF and Graves' disease presents to the emergency department with a 5 day history of worsening dyspnea, productive cough and one episode of hemoptysis. 1. Aspiration pneumonia/Hypoxia CT of the chest revealed aspiration pneumonia with partially cavitary consolidation in left lower lobe and moderate sized loculated pleural effusion, images reviewed by me Broad spectrum antibiotic coverage with Levaquin and aztreonam Infectious disease consulted, appreciate assistance Interventional radiology consulted for possible drainage of loculated pleural effusion HAD LEFT SIDE CHEST TUBE PLACED 07-07 Patient currently requiring BiPAP Continuous pulse ox monitoring - ABG 7.47///30 Nothing by mouth until evaluated by speech therapy Lactic acid 1.6, mild leukocytosis of 11.7, blood cultures pending - monitor for signs of sepsis PLACE ON BIPAP HAS CHEST TUBES ON LEFT 2. CHF Monitor for signs of volume overload Continue Lasix Gentle fluid hydration 3. COPD Patient currently on BiPAP Duo nebs Does not take any home medications Patient is a lifelong smoker, continues to smoke daily 4. Atrial fibrillation Anticoagulated on Xarelto Hold Xarelto for possible thoracentesis 5. Hypertension Continue carvedilol, enalapril 6. Graves' disease Continue Methimazole Thyroid studies pending FEN: Nothing by mouth until evaluated by speech therapy- APPEARS TO BE ASPIRATING NS at 50 cc/hour Electrolytes: Patient mildly hyponatremic at 132, fluids as above, monitor Holding pharmacologic anticoagulation for possible thoracentesis Case management consult POSSIBLE ASPIRATION CONSULT SPEECH DW RN AND PT AND FAMILY Discharge Planning WILL NEED TO BREATH BETTER PRIOR TO DC KEEP IN ICU Williams Rey DO Jul 07, 2017 16:41
--- NOTE | 2017-07-07 17:09 | MB ---
cc: HARLEY SOUZA DATE OF CONSULTATION: 07/07/2017 REASON FOR CONSULTATION: Pneumonia. HISTORY OF PRESENT ILLNESS Mr. Alvarenga is a 71 year-old male with known history of COPD, atrial fibrillation, congestive heart failure, and Graves disease, with over a week history of fever, chills, poor appetite. He does have chronic respiratory failure normally on oxygen therapy, worsening shortness of breath, and developed hemoptysis after which he was brought to the emergency room. CT scan of the chest revealed pneumonia, left lower lung, associated effusion. Chest tubes were inserted this afternoon with evidence of empyema. PAST MEDICAL HISTORY: 1. COPD. 2. Chronic respiratory failure on oxygen therapy. 3. Congestive heart failure. 4. Hypertension. 5. Atrial fibrillation. 6. Graves disease. The patient has empyema. Chest tubes have been inserted. Obviously will need antibiotic therapy, oxygen therapy, bronchodilator therapy. The chest tubes will be left in place until complete drainage is obtained. Given the patient's hemoptysis one should be concerned of underlying malignancy, obviously could be simply pneumonia, cavitation, empyema. On the other hand underlying malignancy should be entertained. I do thank you for asking me to partake in Mr. Alvarenga's care. Will be happy to follow as needed. Harley Souza MD WWW/ANTHONY /4:09 PM /4:43 PM
--- NOTE | 2017-07-07 17:26 | RADRPT ---
EXAM DATE/TIME: 07/07/2017 17:02 [facility] COMPARISON: CT GUIDED CHEST TUBE PLACEMENT LEFT, July 07, 2017, 14:24. CT GUIDED CHEST TUBE PLACEMENT LEFT, July 07, 2017, 14:24. INDICATIONS : Chest tube placement. MEDICAL HISTORY : Congestive heart failure. SURGICAL HISTORY : None. ENCOUNTER: Subsequent ACUITY: 2 days PAIN SCORE: 0/10 LOCATION: Bilateral chest FINDINGS: Portable AP upright expiratory views of the chest demonstrate normal-sized cardiac silhouette with le ftward shift of the mediastinum. 2 chest tubes overlie the inferior left hemithorax and have been rec ently placed. No pneumothorax is identified. There is persistent airspace opacity/consolidation in th e left lower lung zone. Right lung demonstrates no acute finding. CONCLUSION: 1. 2 left chest tubes are present. No pneumothorax is visualized. 2. Persistent left lung volume loss with left lower lung zone airspace consolidation. Holden Myers MD on July 07, 2017 at 17:22 Board Certified Radiologist. This report was verified electronically.
[2017-07-07] MEDS ORDERED: ETOMIDATE 40 MG/20 ML VIAL ONE (17:38)
[2017-07-07] MEDS ORDERED: fentaNYL DRIP 250 ML IV PRN (17:45)
--- NOTE | 2017-07-07 18:09 | MB ---
cc: ELLEN SANCHEZ MD DATE OF CONSULTATION 07/07/[address] Thurston REASON FOR CONSULTATION Apparent aspiration pneumonia. Please assist with treatment. HISTORY OF THE PRESENT ILLNESS This is a 71-year-old white male who presented to the emergency department with respiratory symptoms. The patient developed shortness of breath and reportedly had productive cough with hemoptysis. The patient had a heart rate of 107 on presentation and white count of 11.7 and he had a PO2 of 76. He had a chest x-ray which showed volume loss in the left lung with left basilar opacity probably representing left lower lobe collapse. A CT scan of the chest was performed and reportedly the findings indicate aspiration with partial cavitary consolidation in the left lower lobe. The patient is currently on 100% FIO2 via BiPAP. He is in no acute distress currently. The patient went for a chest tube placement to the left lung. He now has two chest tubes on the left side. One has chylous appearing drainage. The other one has light brown drainage. PAST MEDICAL HISTORY 1. Chronic obstructive pulmonary disease. 2. Congestive heart failure. 3. Hypertension. 4. Graves disease. 5. Atrial fibrillation. ALLERGIES PENICILLIN. MEDICATIONS 1. Azactam. 2. Levaquin. 3. Coreg. 4. Vasotec. 5. Lasix. 6. Potassium. 7. Brenda-Colace. SOCIAL HISTORY Notable for tobacco use 1-1/2 packs a day. Occasional marijuana use. No alcohol. FAMILY HISTORY Noncontributory. REVIEW OF SYSTEMS Limited because of the patient being on the BiPAP machine at 100% FIO2. Prior review of symptoms has been noted. PHYSICAL EXAMINATION GENERAL: This is a cachectic, frail male who is in no acute distress. He is on oxygen via BiPAP mask. VITAL SIGNS: Include temperature of 97.8, blood pressure 100/56, respiratory rate 24, heart rate 119. HEENT: Head is atraumatic. Extraocular movements grossly intact. Pupils reactive to light. Oropharynx cannot be evaluated at this time because the patient has BiPAP mask in place. NECK: Supple without adenopathy. LUNGS: Has decreased breath sounds throughout. HEART: Normal S1-S2. No audible murmurs or rubs or gallops. ABDOMEN: Flat. Soft. Nontender. RECTAL: Not performed. EXTREMITIES: Diffuse muscle wasting. No clubbing or cyanosis or edema. LABORATORY DATA WBC 12.3, platelet count 421, 88% neutrophils. Hemoglobin 9.4. Creatinine 0.72. BUN 37. Sodium 135. Liver function tests are normal. IMPRESSION 1. Aspiration pneumonia. 2. Impending respiratory failure. 3. Cachexia. RECOMMENDATIONS 1. Continue aztreonam. 2. Continue Levaquin. 3. Obtain sputum culture if the patient eventually becomes intubated. 4. Monitor clinical status. The patient may also need bronchoscopy as well. Thank you for this consultation. I will monitor his progress. Ellen Sanchze MD FD/KK /5:23 PM /5:38 PM
[2017-07-07] MEDS ORDERED: TERBUTALINE INJ 1 MG/ML AMP SQ PRN (18:30)
[2017-07-07] MEDS ORDERED: PHENYLEPHRINE 40 MG in D5W 500 ML IV PRN (18:30)
[2017-07-07 18:36] LABS: GLUCOSE,PLEURAL FLUID 1 MG/DL
--- NOTE | 2017-07-07 18:37 | PD.CONS ---
[facility] Service Critical Care Medicine Consult [place] [facility] [place] Reason for Consult Acute hypercapnic hypoxemic respiratory failure Primary Care Physician Unknown History of Present Illness This is a 71-year-old male. Date of admission 07/06/2017. Date of consultation 07/07/2017. Past medical history includes chronic systolic heart failure ejection fraction 15%, moderate to severe pulmonary hypertension, ongoing tobaccoism, COPD, hypertension, Graves' disease on methimazole, chronic revaroxaban use. Patient is in the health source of breath. CT pulmonary angiography revealed a loculated left-sided pleural effusion. Patient has been in the hospital service with consultation to infectious disease and pulmonology. Today, patient had 2 chest tubes placed in the left lung for moderate empyema. Glucose is currently 1 and pleural fluid. Postprocedure, patient became more short of breath. Follow chest x-ray revealed no obvious pneumothorax on the left. In discussion with patient, stated that he needed to be intubated and he agreed at that time. Patient was intubated using 20 mg etomidate and 50 milligrams rocuronium and a central line was placed Review of Systems ROS Limitations: Altered Mental Status Past Family Social History Allergies: Coded Allergies: penicillin G (Unverified Allergy, Unknown, 04/14/17) Past Medical History Chronic systolic heart failure ejection fraction 15% Chronic rivaroxaban use Chronic atrial fibrillation COPD Hypertension Graves' disease Past Surgical History None Reported Medications Methimazole 5 Mg Tab 10 Mg PO EVERY OTHER DAY Magnesium Oxide 400 Mg Tab 400 Mg PO DAILY Potassium Chloride ER (Potassium Chloride) 20 Meq Tab 20 Meq PO BID Coreg (Carvedilol) 12.5 Mg Tab 12.5 Mg PO BID Enalapril (Enalapril Maleate) 2.5 Mg Tab 2.5 Mg PO DAILY Lasix (Furosemide) 20 Mg Tab 20 Mg PO DAILY Xarelto (Rivaroxaban) 20 Mg Tab 20 Mg PO DAILY Active Ordered Medications Reviewed in EMR Family History Mother age 99 from [place]. Father had coronary artery disease. Social History 0.5 pack years documented since childhood. No alcohol use. Occasional THC use. Physical Exam Vital Signs Vital Signs Date Time Temp Pulse Resp B/P (MAP) Pulse Ox O2 Delivery O2 Flow Rate FiO2 07/07/17 18:00 91 100 07/07/17 16:30 119 24 100/56 (71) 88 07/07/17 16:15 114 47 84 11/7/17 16:09 117 32 128/58 (81) 86 07/07/17 16:00 108 07/07/17 16:00 111 42 116/58 (77) 82 07/07/17 16:00 97.8 119 28 100/56 (71) 86 07/07/17 15:54 114 32 134/68 (90) 87 07/07/17 15:45 110 25 112/59 (76) 89 07/07/17 15:40 109 24 115/59 (77) 89 07/07/17 15:36 110 26 108/58 (75) 88 07/07/17 15:35 110 29 135/85 (102) 88 07/07/17 15:30 109 24 91 07/07/17 15:15 113 40 85 07/07/17 15:00 110 32 99 07/07/17 14:45 111 49 100 07/07/17 14:30 114 35 100 07/07/17 14:15 116 41 89 07/07/17 14:00 113 30 88 07/07/17 14:00 108 07/07/17 12:00 109 07/07/17 11:45 107 24 105/59 (74) 85 07/07/17 11:00 107 32 89 07/07/17 10:00 106 07/07/17 10:00 106 47 88 07/07/17 08:00 103 33 84 07/07/17 08:00 107 07/07/17 07:43 91 Nasal Cannula 3.00 07/07/17 06:00 99 07/07/17 04:00 100 07/07/17 03:22 94 Nasal Cannula 2.00 07/07/17 03:00 102 37 111/59 (76) 89 07/07/17 02:31 07/07/17 02:00 103 07/07/17 01:59 97.5 99 20 122/71 (88) 07/07/17 01:05 102 18 116/67 (83) 92 Nasal Cannula 3.00 07/07/17 00:45 94 Nasal Cannula 3.00 07/06/17 22:40 97 50 07/06/17 22:13 107 22 120/57 (78) 96 BiPAP 50 07/06/17 19:45 94 45 07/06/17 19:09 89 Nasal Cannula 5.00 07/06/17 19:09 20 89 Nasal Cannula 20.00 07/06/17 19:07 111 20 89 Nasal Cannula 5.00 07/06/17 19:00 98.1 116 20 96/52 (94) 89 Physical Exam GENERAL: 71-year-old male, resting in bed in moderate respiratory distress on BiPAP SKIN: Warm and dry. No rash HEAD: Atraumatic. Normocephalic. Large almanza EYES: Pupils equal and round about 3 mm bilaterally and reactive. No scleral icterus. No injection or drainage. ENT: No nasal bleeding or discharge. Mucous membranes pink and moist. NECK: Trachea midline. No JVD. CARDIOVASCULAR: Regular rate and rhythm. S1, S2. No S4. 2/6 pansystolic murmur RESPIRATORY: No accessory muscle use. Clear to auscultation. Breath sounds equal bilaterally. 2 chest left-sided -40 cm H2O minimal sinus output GASTROINTESTINAL: Abdomen soft, non-tender, nondistended. Hepatic and splenic margins not palpable. MUSCULOSKELETAL: Extremities with no peripheral edema NEUROLOGICAL: Currently orotracheally intubated. Intubation was following commands very anxious. Cranial nerve II through XII are most intact. Moves to command all 4 extremities spontaneously. Laboratory Laboratory Tests Test 07/06/17 19:20 07/06/17 21:40 07/06/17 21:53 07/07/17 02:19 White Blood Count 11.7 Red Blood Count 3.51 Hemoglobin 10.5 Hematocrit 32.3 Mean Corpuscular Volume 92.0 Mean Corpuscular Hemoglobin 30.0 Mean Corpuscular Hemoglobin Concent 32.6 Red Cell Distribution Width 15.0 Platelet Count 471 Mean Platelet Volume 8.1 Neutrophils (%) (Auto) 83.2 Lymphocytes (%) (Auto) 13.3 Monocytes (%) (Auto) 3.1 Eosinophils (%) (Auto) 0.1 Basophils (%) (Auto) 0.3 Neutrophils # (Auto) 9.7 Lymphocytes # (Auto) 1.6 Monocytes # (Auto) 0.4 Eosinophils # (Auto) 0.0 Basophils # (Auto) 0.0 CBC Comment DIFF FINAL Differential Comment Blood Urea Nitrogen 40 Creatinine 1.03 Random Glucose 185 Total Protein 7.5 Albumin 1.5 Calcium Level 8.7 Magnesium Level 2.1 Alkaline Phosphatase 165 Aspartate Amino Transf (AST/SGOT) 21 Alanine Aminotransferase (ALT/SGPT) 27 Total Bilirubin 0.4 Sodium Level 132 Potassium Level 4.6 Chloride Level 94 Carbon Dioxide Level 29.6 Anion Gap 8 Estimat Glomerular Filtration Rate 71 Total Creatine Kinase 21 Troponin I LESS THAN 0.02 B-Type Natriuretic Peptide 62 Blood Gas Puncture Site RT BRACHIAL Blood Gas Patient Temperature 98.6 Blood Gas HCO3 30 Blood Gas Base Excess 6.5 Blood Gas Oxygen Saturation 94 Arterial Blood pH 7.47 Arterial Blood Partial Pressure CO2 42 Arterial Blood Partial Pressure O2 76 Arterial Blood Oxygen Content 13.6 Arterial Blood Carboxyhemoglobin 1.7 Arterial Blood Methemoglobin 0.4 Blood Gas Hemoglobin 10.3 Oxygen Delivery Device BIPAP Blood Gas Ventilator Setting IPAP10 EPAP5 Blood Gas Inspired Oxygen 50 Lactic Acid Level 1.6 Nasal Screen MRSA (PCR) MRSA DETECTED Test 07/07/17 03:30 07/07/17 10:50 07/07/17 15:05 White Blood Count 12.3 Red Blood Count 3.13 Hemoglobin 9.4 Hematocrit 28.9 Mean Corpuscular Volume 92.4 Mean Corpuscular Hemoglobin 30.0 Mean Corpuscular Hemoglobin Concent 32.4 Red Cell Distribution Width 15.0 Platelet Count 421 Mean Platelet Volume 8.2 Neutrophils (%) (Auto) 88.5 Lymphocytes (%) (Auto) 9.3 Monocytes (%) (Auto) 2.0 Eosinophils (%) (Auto) 0.0 Basophils (%) (Auto) 0.2 Neutrophils # (Auto) 10.9 Lymphocytes # (Auto) 1.1 Monocytes # (Auto) 0.3 Eosinophils # (Auto) 0.0 Basophils # (Auto) 0.0 CBC Comment DIFF FINAL Differential Comment Blood Urea Nitrogen 37 Creatinine 0.72 Random Glucose 98 Total Protein 7.1 Albumin 1.4 Calcium Level 8.2 Alkaline Phosphatase 146 Aspartate Amino Transf (AST/SGOT) 19 Alanine Aminotransferase (ALT/SGPT) 24 Total Bilirubin 0.3 Sodium Level 135 Potassium Level 4.3 Chloride Level 98 Carbon Dioxide Level 27.0 Anion Gap 10 Estimat Glomerular Filtration Rate 108 Free Thyroxine 2.24 Free Triiodothyronine (T3) pg/dL 1.80 Thyroid Stimulating Hormone 3rd Gen LESS THAN 0.005 Prothrombin Time 14.2 Prothromb Time International Ratio 1.3 Pleural Fluid Glucose 1 Date/Time Source Procedure Growth Status 07/06/17 21:53 Blood Peripheral Aerobic Blood Culture - Preliminary NO GROWTH IN 1 DAY Resulted 07/06/17 21:53 Blood Peripheral Anaerobic Blood Culture - Preliminary NO GROWTH IN 1 DAY Resulted 07/07/17 15:05 Fluid Pleural Fluid Fungal Smear Pending Received 07/07/17 15:05 Fluid Pleural Fluid Fungal Culture Pending Received Result Diagram: 07/07/17 0330 07/07/17 0330 Imaging Last Impressions Chest X-Ray 07/07/17 0000 Signed Impressions: Service Date/Time: Friday, July 07, 2017 17:02 - CONCLUSION: 1. 2 left chest tubes are present. No pneumothorax is visualized. 2. Persistent left lung volume loss with left lower lung zone airspace consolidation. Holden Myers MD Chest Tube Insertion 07/07/17 0000 Signed Impressions: Service Date/Time: Friday, July 07, 2017 14:24 - CONCLUSION: 1. Uncomplicated CT-guided placement of 16 Nigerien pigtail chest tubes for treatment of loculated empyemas in the anterior and posterior inferior left hemithorax. Please see prior CT report for additional details. Fernando Diaz MD CT Angiography 07/06/17 0000 Signed Impressions: Service Date/Time: Thursday, July 06, 2017 20:36 - CONCLUSION: 1. No PE is identified. 2. As expected from the chest x-ray there is a pleural-parenchymal process for the cause of the shortness of breath and cough. There are findings indicating aspiration with partially cavitary consolidation in the left lower lobe. There is a moderate size loculated left pleural effusion with adjacent compressive atelectasis. Holden Myers MD Assessment and Plan Assessment and Plan Neuro/Psych: Patient is currently on propofol/fentanyl drips for sedation/analgesia while intubated Goal of RA SS -2 Daily sedation vacation CV: History of atrial fibrillation currently normal sinus rhythm Congestive heart failure/chronic systolic ejection fraction 15% 2016 Hypertension Patient is currently on phenylephrine drip at 40 per minute to maintain mean arterial pressure 65 Home medications include carvedilol 12.5 mg twice a day Home medications furosemide 20 mg daily will be held. Resp: Acute hypoxemic respiratory failure COPD Left empyema PRVC 20/500/ Ventilator bundle Albuterol/ipratropium aerosol every 4 hours with albuterol aerosols every 2 hours. Dyspnea Follow-up chest x-ray and ABG post intubation Add budesonide 0.5/2 1 inhalation twice a day Pulmonary and ID following for empyema Maintain chest tubes is -40 cm H2O GI: Hypoalbuminemia NGT to LIWS Pantoprazole for GI prophylaxis Docusate sodium/senna for bowel regimen : Norton will be placed for accurate I's and O's in a critically ill patient Endo: Graves' disease/hyperthyroidism Continue methimazole 10 mg daily. TSH 0.005. T3 and T4 both elevated. Sliding-scale insulin with Accu-Cheks to maintain euglycemia Renal: Creatinine currently within normal limits Monitor urine output Accurate I's and O's Heme: Leukocytosis Normocytic anemia Chronic rivaroxaban use Anticoagulation currently on hold. Recent chest 2. Resume when clinically indicated Monitor CBC daily. Follow trends ID: Blood cultures 07/06 no growth Cultures from left empyema currently pending Infectious disease following Currently on levofloxacin and aztreonam day #1 MSK: PT evaluate and treat FEN: Hyponatremia Replace electrolytes as clinically indicated Access - Right IJ CVL day 1 placed 07/07 Prophylaxis - GI - pantoprazole - DVT - SCD/pharmacological prophylaxis likely resume in a.m. Critical Care: The total critical care time was 35 minutes. Time to perform other separately billable procedures was not included in the critical care time. Code Status Full code full code Discussed Condition With [facility] RN. Patient prior to intubation. No family available. Care plan discussed and all questions answered. Alejandro Telles MD Jul 07, 2017 18:37
--- NOTE | 2017-07-07 18:39 | PD.PROCEDR ---
Central Line Procedure REASON FOR PROCEDURE Central venous access PROCEDURE PERFORMED Central line placement: Right IJ CVL CONSENT Informed consent for procedure was not obtained due to emergent hemodynamic instability ANESTHESIA Local injection of 1% Lidocaine DESCRIPTION OF THE PROCEDURE The patient was placed in supine, mild Trendelenburg position. The area was exposed and cleansed with ChloraPrep, times two. Large sterile drape was used to cover the patient, with the site exposed, under sterile conditions including cap, face mask, sterile gown, and sterile gloves. On single attempt, the introducer needle was inserted with negative pressure in syringe and venous flash was obtained. The guide wire was then advanced without any restriction and the needle was removed. The dilator was used without any complications. Using Seldinger technique the antibiotic-coated triple-lumen catheter was advanced over the guide wire to a depth of 15 centimeters. The guide wire was removed. All ports were aspirated with dark venous blood return and flushed easily with sterile saline. All ports were capped. Antibiotic disc was placed around central line at puncture site. The central line was secured to the skin with two interrupted 2.0 silk sutures. The area was bandaged with sterile see- through central line bandage. RADIOLOGICAL DATA Ultrasound guidance was used to locate right internal jugular vein. Doppler/ color flow was used to confirm venous flow. COMPLICATIONS: No apparent complications ESTIMATED BLOOD LOSS: Less than 1 cc. Alejandro Telles MD Jul 07, 2017 18:39
--- NOTE | 2017-07-07 18:40 | PD.PROCEDR ---
Procedure Note Procedure DATE: 07/07/2017 PROCEDURE: Orotracheal intubation INDICATION: Acute hypoxemic respiratory failure DETAILS OF PROCEDURE The patient was placed in optimal position and preoxygenated with 100% FiO2 via bag valve mask. At the start oxygen saturation was 95%. The patient was administered 20 mg etomidate IV and 50 mg rocuronium IV. I entered the oropharynx with a size 4 GVL glidescope blade and obtained a grade 3 view of the airway. On single attempt a size 8.0 cuffed endotracheal tube was passed through the vocal cords. Correct tube location was confirmed with end tidal CO2 detector and by auscultating over bilateral lung xiao. The endotracheal tube was secured with adhesive tape at a depth of 24 cm at the lips. The patient was connected to the ventilator. The patient tolerated the procedure well without any apparent complications. Oxygen saturations were maintained greater than 85% all times. STAT chest x-ray pending at time of dictation. Alejandro Telles MD Jul 07, 2017 18:40
--- NOTE | 2017-07-07 18:55 | EKG ---
Date Performed: 07/06/2017 Time Performed: 19:17:14 PTAGE: 71 years EKG: SINUS TACHYCARDIA ANTEROSEPTAL MYOCARDIAL INFARCTION ABNORMAL ECG Compared to prior tracing no significant change PREVIOUS TRACING : 12/12/2015 10.32.17 DOCTOR: Mariaelena Tucker Interpretating Date/Time 07/07/2017 18:54:44
--- NOTE | 2017-07-07 19:16 | RADRPT ---
EXAM DATE/TIME: 07/07/2017 18:49 [facility] COMPARISON: CHEST EXPIRATION ONLY, July 07, 2017, 17:02. CHEST SINGLE AP, July 06, 2017, 18:53. INDICATIONS : Central line placement. MEDICAL HISTORY : Congestive heart failure. SURGICAL HISTORY : None. ENCOUNTER: Subsequent ACUITY: 1 day PAIN SCORE: Non-responsive. LOCATION: Bilateral chest FINDINGS: 2 portable frontal views of the chest show 2 small caliber thoracostomy tubes within the left lung ba se. An endotracheal tube is seen with the tip 7 cm cephalad to the nils. Right sided central line n oted. No pneumothorax. Volume loss involving the left hemithorax is unchanged. Developing consolidati on within the left upper lobe. This is new from the prior study. Consolidation within the left lower lobe is unchanged. CONCLUSION: 1. Lines and tubes without pneumothorax. 2. Worsening consolidation involving the left lung as detailed above. Mohan Portillo Jr., MD on July 07, 2017 at 19:12 Board Certified Radiologist. This report was verified electronically.
[2017-07-07 19:17] LABS: TOTAL PROTEIN,PLEURAL FLUID 2.1 GM/DL
[2017-07-07] MEDS ORDERED: RESP: ALBUTEROL 2.5 MG/3 ML NEB (PRN) NEB (19:30)
[2017-07-07 19:35] LABS: BLOOD GAS BASE EXCESS -1.7 mmol/L (-2-2); BLOOD GAS CARBOXYHEMOGLOBIN 0.3 % (0-4); BLOOD GAS HCO3 23 mmol/L (22-26); BLOOD GAS METHEMOGLOBIN 1.1 % (0-2); BLOOD GAS O2 HGB SATURATION 83 % (90-100); BLOOD GAS OXYGEN CONTENT 20.2 Vol % (12.0-20.0); BLOOD GAS PCO2 40 mmHg (38-42); BLOOD GAS PO2 55 mmHg (61-120); BLOOD GAS TOTAL HGB 17.3 G/DL (12.0-16.0); CRITICAL VALUE YES; DRAW SITE RT RADIAL; FIO2 100 %; NUMBER OF ARTERIAL PUNCTURES 1; OXYGEN DEVICE VENTILATOR; TEMP CORR TO 98.6; ULNAR PULSE PRESENT; VENT SETTINGS 20/500/IT1.0/8PEEP
[2017-07-07 19:36] LABS: STAT YES
[2017-07-07 19:36] LABS: BLOOD GAS VENOUS HCO3 24 mmol/L (22-26); BLOOD GAS VENOUS O2 CONTENT 7.9 Vol % (9.0-17.0); BLOOD GAS VENOUS O2 HGB SAT 56 % (70-76); BLOOD GAS VENOUS PCO2 45 mmHg (44-48); BLOOD GAS VENOUS PO2 36 mmHg (35-40); BLOOD GAS VENOUS pH 7.35 (7.360-7.400); CRITICAL VALUE NO; DRAW SITE CENTRAL LINE; FIO2 100 %; OXYGEN DEVICE VENTILATOR; STAT NO; TEMP CORR TO 98.6; VENT SETTINGS 20/500/IT1.0/8PEEP
[2017-07-07] MEDS: PROPOFOL 1000 MG/100 ML INJ 100 ML IV PRN (19:58)
[2017-07-07] MEDS: fentaNYL 2,500 MCG/NS 250 ML IV PRN (19:59)
[2017-07-07] MEDS: CHLORHEXIDINE 0.12% (ORAL KIT) 15 ML CUP MT SCH (20:00)
[2017-07-07] MEDS ORDERED: ROCURONIUM INJ 50 MG/5 ML VIAL IV ONE (20:15)
[2017-07-07] MEDS ORDERED: MIDAZOLAM HCL 5 MG/ML VIAL (1 ML) ONE (20:26)
[2017-07-07] MEDS: EPOPROSTENOL NEB SOLUTION 50 NG/KG/MIN 100 ML NEB SCH ×2 (21:00)
--- NOTE | 2017-07-07 21:06 | PD.PROCEDR ---
Procedure Note Procedure Procedure DATE: 07/07/2017 Bronchoscopy INDICATION: Fiberoptic bronchoscopy CONSENT Informed consent for procedure was obtained. DESCRIPTION OF THE PROCEDURE The patient was placed in supine position. Patient placed on ACV ventilation at 100%. On propofol at 50 mg/kg per minute, fentanyl and 50 mg an hour. Received 2 mg Versed and 50 mg rocuronium. Saturations were started at 89%. I entered into 8.0 ET tube with fiberoptic bronchoscopy. The nils was sharp. Left main bronchus, large thrombus is noted extending to the left lower lobe. This was suctioned to clear with copious amounts of sterile saline. The remainder of the lung was examined with blood clots noted in the lingula/left lower lobes. Mucosa was normal. No masses. A repeat examination with no obvious source of bleeding was identified. The right upper middle lower lobe were examined as well were suctioned clear with no obvious source of bleeding. Follow-up chest x-ray is pending. ESTIMATED BLOOD LOSS: Minimal COMPLICATIONS: No apparent complications. STAT chest x-ray pending at time of dictation Alejandro Telles MD Jul 07, 2017 21:06
--- NOTE | 2017-07-07 21:32 | RADRPT ---
EXAM DATE/TIME: 07/07/2017 21:15 [facility] COMPARISON: CHEST SINGLE AP, July 07, 2017, 18:49. INDICATIONS : Post bronchoscopy. MEDICAL HISTORY : Congestive heart failure. SURGICAL HISTORY : None. ENCOUNTER: Initial ACUITY: 1 day PAIN SCORE: Non-responsive. LOCATION: Bilateral chest FINDINGS: A single portable frontal view of the chest shows an endotracheal tube with the tip approximately 5 c m from the nils. Right-sided central line. 2 small caliber thoracostomy tubes within the left base. Better aeration seen involving the left lung relative to the prior study. Still some volume loss as well as scattered parenchymal opacities particularly involving the left lower lobe. No discernible pn eumothorax. The patient is obliqued towards the left. Right lung is clear. Heart is normal in size. CONCLUSION: 1. Better aeration involving the left lung with persistent consolidation involving the lower lobe. Vo lume loss involving the left hemithorax remains but is less pronounced. Mohan Portillo Jr., MD on July 07, 2017 at 21:28 Board Certified Radiologist. This report was verified electronically.
[2017-07-07] MEDS: RESP: BUDESONIDE 0.5 MG/2 ML NEB NEB SCH (21:53)
[2017-07-07] MEDS: PHENYLEPHRINE 40 MG in D5W 500 ML IV PRN (22:57)
[2017-07-07] MEDS: methylPREDNISolone SOD SUCC 40 MG/1 ML VIAL IV PUSH SCH (23:48)
[2017-07-07] MEDS: LEVOFLOXACIN 750 MG PREMIX INJ 150 ML IV SCH (23:49)
[2017-07-08] VITALS (130 sets, daily range): BP systolic 52–117; BP diastolic 32–67; PULSE 110–137; RESP 13–25; TEMP 98.5–99.5; O2SAT 89–100
[2017-07-08] MEDS ORDERED: TERBUTALINE INJ 1 MG/ML AMP SQ PRN
[2017-07-08] MEDS: RESP: ALBUTEROL 2.5 MG/IPRATROPIUM 0.5 MG NEB (SCH) NEB ×6 (00:04→19:58)
[2017-07-08] MEDS ORDERED: DEXTROSE 50% IN WATER 50 ML VIAL(D50) IV PUSH PRN ×2 (00:15→11:00)
[2017-07-08] MEDS ORDERED: MISC INFORMATION OTHER ONE (00:15)
[2017-07-08] MEDS ORDERED: INSULIN REGULAR (IV INFUSION) 100 UNITS in SODIUM CHLORIDE 0.9% INJ 99 ML IV PRN (00:15)
[2017-07-08] MEDS: AZTREONAM INJ 2,000 MG in SODIUM CHLORIDE 0.9% INJ 100 ML IV SCH ×3 (00:24→14:35)
[2017-07-08] MEDS: NOREPINEPHRINE-DEXTROSE DRIP 250 ML IV PRN ×4 (01:07→23:45)
[2017-07-08] MEDS: PHENYLEPHRINE 40 MG in D5W 500 ML IV PRN ×3 (01:09→20:54)
[2017-07-08] MEDS: EPOPROSTENOL NEB SOLUTION 50 NG/KG/MIN 100 ML NEB SCH ×2 (03:52)
[2017-07-08] MEDS: CHLORHEXIDINE GLUCONATE 2 % 1 PACK (2 CLOTHS)(taper/protocol) TOPICAL SCH (04:00)
[2017-07-08 04:46] LABS: APTT (PATIENT) 26.4 SEC (24.3-30.1); INTERNATIONAL NORMALIZED RATIO 1.1 RATIO
[2017-07-08] MEDS: PROPOFOL 1000 MG/100 ML INJ 100 ML IV PRN (04:56)
[2017-07-08] MEDS: fentaNYL 2,500 MCG/NS 250 ML IV PRN (04:57)
[2017-07-08] MEDS: methylPREDNISolone SOD SUCC 40 MG/1 ML VIAL IV PUSH SCH ×3 (05:22→22:16)
[2017-07-08 06:59] LABS: AUTOMATED NEUTROPHIL # 14.5 TH/MM3 (1.8-7.7); BASOPHIL % 0.1 % (0.0-2.0); HEMATOCRIT 27.5 % (39.0-51.0); HEMO FLAGS DIFF FINAL; LYMPH % 7.9 % (9.0-44.0); LYMPHOCYTE # 1.3 TH/MM3 (1.0-4.8); MEAN CELL VOLUME 93.2 FL (80.0-100.0); MEAN CORPUSCULAR HEMOGLOBIN 30.1 PG (27.0-34.0); MEAN CORPUSCULAR HGB CONC 32.2 % (32.0-36.0); PLATELET COUNT 539 TH/MM3 (150-450); RED BLOOD COUNT 2.95 MIL/MM3 (4.50-5.90); RED CELL DISTRIBUTION WIDTH 15.2 % (11.6-17.2); WHITE BLOOD COUNT 16.2 TH/MM3 (4.0-11.0)
[2017-07-08] MEDS: RESP: BUDESONIDE 0.5 MG/2 ML NEB NEB SCH ×2 (07:49→19:58)
[2017-07-08] MEDS: SODIUM CHLORIDE 0.9% FLUSH 10 ML FLUSH IV FLUSH SCH ×3 (09:00→20:18)
[2017-07-08] MEDS: MAGNESIUM OXIDE 400 MG TAB PO SCH (09:00)
[2017-07-08] MEDS: DOCUSATE SODIUM 50 MG/SENNA 8.6 MG TAB PO SCH ×2 (09:00→20:18)
[2017-07-08] MEDS ORDERED: METHIMAZOLE 5 MG TAB PO SCH (09:00)
[2017-07-08] MEDS: DEXMEDETOMIDINE INJ 200 MCG in SODIUM CHLORIDE 0.9% INJ 50 ML IV PRN (09:22)
[2017-07-08 09:36] LABS: AMYLASE 37 U/L (25-115); ANION GAP 6 MEQ/L (5-15); BLOOD UREA NITROGEN 30 MG/DL (7-18); CHLORIDE 102 MEQ/L (98-107); MAGNESIUM 1.9 MG/DL (1.5-2.5); SODIUM (NA) 133 MEQ/L (136-145)
[2017-07-08 09:45] LABS: ALKALINE PHOSPHATASE 117 U/L (45-117); ALT (GPT) 21 U/L (12-78); AST (GOT) 27 U/L (15-37); FREE T4 1.52 NG/DL (0.76-1.46); GLOMERULAR FILTRATION RATE 106 ML/MIN (>89); TOTAL BILIRUBIN ADULT 0.2 MG/DL (0.2-1.0)
[2017-07-08 09:53] LABS: CREATINE KINASE 60 U/L (39-308)
--- NOTE | 2017-07-08 10:09 | RADRPT ---
EXAM DATE/TIME: 07/08/2017 09:23 [facility] COMPARISON: CT PULMONARY ANGIOGRAM, July 06, 2017, 20:36. CHEST EXPIRATION ONLY, July 07, 2017, 17:02. INDICATIONS : Pneumothorax MEDICAL HISTORY : Congestive heart failure. Chronic obstructive pulmonary disease. Hypertension. SURGICAL HISTORY : None. ENCOUNTER: Initial ACUITY: 2 days PAIN SCORE: Non-responsive. LOCATION: Bilateral chest FINDINGS: Patient has been intubated with ET tube approximately 5 cm above the nils. Interval placement of ri ght IJ central line with tip in the SVC. No pneumothorax on the right. The 2 chest tubes are noted in the inferior left hemithorax. Significant interval improvement in loculated left pleural effusion wi th residual airspace disease in the left lower lobe. Cavitary lesion noted in the left lower lobe on CT is not as well-demonstrated. Cardiomediastinal contours are within normal limits. Remainder of the exam is unchanged. CONCLUSION: 1. ETT in good position. Right IJ central line in good position. No significant pneumothorax. 2. 2 left-sided chest tubes in place with significant interval improvement in loculated left pleural effusion 3. Residual airspace consolidation in the left lower lobe. Fernando Diaz MD on July 08, 2017 at 10:03 Board Certified Radiologist. This report was verified electronically.
--- NOTE | 2017-07-08 10:33 | HHI.CCPN ---
Subjective Remarks/Hospital Course This is a 71-year-old male. Date of admission 07/06/2017. Date of consultation 07/07/2017. Past medical history includes chronic systolic heart failure ejection fraction 15%, moderate to severe pulmonary hypertension, ongoing tobaccoism, COPD, hypertension, Graves' disease on methimazole, chronic rivaroxaban use. Patient is in the [facility] source of breath. CT pulmonary angiography revealed a loculated left-sided pleural effusion. Patient has been in the hospital service with consultation to infectious disease and pulmonology. Today, patient had 2 chest tubes placed in the left lung for moderate empyema. Glucose is currently 1 and LDH greater than 10,000 in sample pleural fluid. Postprocedure, patient became more short of breath. Follow chest x-ray revealed no obvious pneumothorax on the left. In discussion with patient, stated that he needed to be intubated and he agreed at that time. Patient was intubated using 20 mg etomidate and 50 milligrams rocuronium and a central line was placed Subjective 07/08: Remains on the ventilator and tachycardic. Noted elevated troponin. Not a candidate for anticoagulation due to large clots removed from left main bronchus overnight. We'll start on baby aspirin events see if tolerates. EKG follow-up pending. Noted Q waves in anteroseptal leads on admission. Repeat pending. Objective Vital Signs Date Time Temp Pulse Resp B/P (MAP) Pulse Ox O2 Delivery O2 Flow Rate FiO2 07/08/17 09:04 127 07/08/17 07:49 100 100 07/08/17 04:59 96/57 07/08/17 04:00 98.6 16 07/07/17 07:43 Nasal Cannula 3.00 Intake and Output 07/08/17 07/08/17 07/09/17 08:00 16:00 00:00 Intake Total 0 ml Output Total 440 ml Balance -440 ml Result Diagram: 07/08/17 0549 07/08/17 0800 Other Results Microbiology Date/Time Source Procedure Growth Status 07/06/17 21:53 Blood Peripheral Aerobic Blood Culture - Preliminary NO GROWTH IN 1 DAY Resulted 07/06/17 21:53 Blood Peripheral Anaerobic Blood Culture - Preliminary NO GROWTH IN 1 DAY Resulted 07/07/17 15:05 Fluid Pleural Fluid Fungal Smear Pending Received 07/07/17 15:05 Fluid Pleural Fluid Fungal Culture Pending Received Imaging Last Impressions Chest X-Ray 07/08/17 0000 Signed Impressions: Service Date/Time: Saturday, July 08, 2017 09:23 - CONCLUSION: 1. ETT in good position. Right IJ central line in good position. No significant pneumothorax. 2. 2 left-sided chest tubes in place with significant interval improvement in loculated left pleural effusion 3. Residual airspace consolidation in the left lower lobe. Fernando Diaz MD Chest Tube Insertion 07/07/17 0000 Signed Impressions: Service Date/Time: Friday, July 07, 2017 14:24 - CONCLUSION: 1. Uncomplicated CT-guided placement of 16 Japanese pigtail chest tubes for treatment of loculated empyemas in the anterior and posterior inferior left hemithorax. Please see prior CT report for additional details. Fernando Diaz MD CT Angiography 07/06/17 0000 Signed Impressions: Service Date/Time: Thursday, July 06, 2017 20:36 - CONCLUSION: 1. No PE is identified. 2. As expected from the chest x-ray there is a pleural-parenchymal process for the cause of the shortness of breath and cough. There are findings indicating aspiration with partially cavitary consolidation in the left lower lobe. There is a moderate size loculated left pleural effusion with adjacent compressive atelectasis. Holden Myers MD Objective Remarks GENERAL: 71-year-old male, resting in bed in currently orotracheally intubated SKIN: Warm and dry. No rash HEAD: Atraumatic. Normocephalic. Large almanza EYES: Pupils equal and round about 3 mm bilaterally and reactive. No scleral icterus. No injection or drainage. ENT: No nasal bleeding or discharge. Mucous membranes pink and moist. NECK: Trachea midline. No JVD. CARDIOVASCULAR: Tachycardic, RR.. S1, S2. No S4. 2/6 pansystolic murmur RESPIRATORY: Diminished breath sounds left lower lobe.. 2 chest left-sided - 40 cm H2O minimal sinus output GASTROINTESTINAL: Abdomen soft, non-tender, nondistended. Cachectic. MUSCULOSKELETAL: Extremities with no peripheral edema NEUROLOGICAL: Currently orotracheally intubated. Prior to intubation was following commands very anxious. Cranial nerve II through XII are most intact. Moves to command all 4 extremities spontaneously. Procedures LEFT SIDE CHEST TUBES FOR EMPYEMA AND FLUID 07-07 A/P Assessment and Plan Neuro/Psych: Patient is currently on propofol/fentanyl drips for sedation/analgesia while intubated. We'll change to dexmedetomidine drip Goal of RASS -2 Daily sedation vacation CV: History of atrial fibrillation currently normal sinus rhythm Congestive heart failure/chronic systolic ejection fraction 15% 2016 Hypertension Elevated troponin Patient is currently on phenylephrine drip at 40 per minute and norepinephrine drip at 4 g per minute to maintain mean arterial pressure 65 Home medications include carvedilol 12.5 mg twice a day currently on hold Home medications furosemide 20 mg daily will be held. EKG admission revealed Q waves in anteroseptal leads. Will repeat check EKG today. Routine 2-D echocardiogram ordered. Cycle troponins. Consulted Dr. Munoz's, cardiology. Initiate baby aspirin 81 mg daily. Not a chronic for systemic anticoagulation due to large thrombus/clot in left main bronchus removed yesterday Resp: Acute hypoxemic respiratory failure COPD Left empyema PRVC 20/500/09/07/49 Ventilator bundle Albuterol/ipratropium aerosol every 4 hours with albuterol aerosols every 2 hours. Dyspnea Follow-up chest x-ray and ABG post intubation Add budesonide 0.5/2 1 inhalation twice a day Pulmonary and ID following for empyema Maintain chest tubes is -40 cm H2O GI: Hypoalbuminemia NGT to LIWS Pantoprazole for GI prophylaxis Docusate sodium/senna for bowel regimen : Norton will be placed for accurate I's and O's in a critically ill patient Endo: Graves' disease/hyperthyroidism Continue methimazole 10 mg daily. TSH 0.005. T3 and T4 both elevated. Sliding-scale insulin with Accu-Cheks to maintain euglycemia Renal: Creatinine currently within normal limits Monitor urine output Accurate I's and O's Heme: Leukocytosis Normocytic anemia Chronic rivaroxaban use Anticoagulation currently on hold. Recent chest 2. Resume when clinically indicated Monitor CBC daily. Follow trends ID: Blood cultures 07/06 no growth Cultures from left empyema currently pending Infectious disease following Currently on levofloxacin and aztreonam day #1 MSK: PT evaluate and treat FEN: Hyponatremia Replace electrolytes as clinically indicated Access - Right IJ CVL day 1 placed 07/07 Prophylaxis - GI - pantoprazole - DVT - SCD/pharmacological prophylaxis likely resume in a.m. Critical Care: The total critical care time was 35 minutes. Time to perform other separately billable procedures was not included in the critical care time. Alejandro Telles MD Jul 08, 2017 10:33
[2017-07-08] MEDS ORDERED: GLUCAGON 1 MG/ML VIAL OTHER PRN (11:00)
[2017-07-08 11:27] LABS: HDL CHOLESTEROL 29.4 MG/DL (40.0-60.0)
[2017-07-08] MEDS ORDERED: ASPIRIN 81 MG CHEW TAB CHEW ONE (11:45)
--- NOTE | 2017-07-08 11:49 | PD.CONS ---
Consult Service Palliative Care Consult Requested By Dr. Telles . Primary Care Physician Unknown . Reason for Consultation a. To assist with evaluation and management of symptoms including: Dyspnea , pain b. To assist medical decision maker(s) with: better understanding of current medical conditions; weighing benefits/burdens of medical treatment options; making medical treatment decisions. . HPI History of Present Illness This 71-year-old male, with a past history of COPD, CHF, and chronic atrial fibrillation, has been declining over the past 1.5 years. In November 2015, the patient was admitted with shortness of breath and new onset CHF. He had some underlying COPD noted at that time, and also was found to have bilateral pleural effusions, BNP 3816, albumin 3.0, and a scan consistent with multiple small pulmonary emboli. An echocardiogram revealed an ejection fraction of 15- 20% at that time, and he was sent home with supplemental oxygen. The patient's longtime girlfriend does not believe that he followed up with a doctor after that. He gradually became weaker over that past year or so, losing some weight , eating less, and having more difficulty with shortness of breath and dyspnea with even exertion involving a couple steps. Over the past 2 weeks, the patient has become weaker and more dyspneic, and he was able to only take a step or 2 with assistance prior to being brought to the hospital on 07/06/17. He had been having a worsening cough and dyspnea, and had developed hemoptysis in the couple days prior to this admission. The patient's girlfriend said he had temp of 101.52 days prior to the admission. When the paramedics picked him up, his oxygen saturations were in the low 80s, and he was brought to the hospital. Findings in the emergency department included: * Moderate dyspnea, cachexia, alert * Temp 98.1, pulse 107, respirations about 30, blood pressure 100/57, initial oxygen saturation in the 80s at home, then 96% on BiPAP in the ED * White count 11.7, hemoglobin 10.5 * Sodium 132, creatinine 1.03, albumin 1.5 * Lactic acid 1.6, troponin 0.03 * BNP 62 * CT angiography of the chest did not reveal obvious pulmonary emboli, but did have findings consistent with aspiration, and there were loculated effusions and some cavitary consolidation on the left. Cultures were obtained, antibiotics were initiated, and the patient was admitted. Over the subsequent 24 hours, the patient's dyspnea worsened, and he was INTUBATED on 07/07/17. He was brought to interventional radiology where 2 chest tubes were placed into the loculations, one returning chylous/purulent material and the other returning brown fluid. Bronchoscopy was undertaken in the intensive medical care unit, and multiple areas of clot were found in the airways. No obvious sources of bleeding were found. On 07/08/17, the date of this consultation, his white count is 16.2, hemoglobin 8.9, and the troponin is 2.22. His albumin now is down to 1.3. The patient's longtime girlfriend Lidia tells me that the patient had discussions with her within the past month about his health, realizing that he was declining rapidly, and telling her that he would not want to be kept alive on machines or life support, asking her to let him go peacefully. Palliative Care was consulted to assist with symptom management, and to enter into discussions with the patient and family/friends regarding the current illnesses, prognosis, and the benefits and burdens of the various treatment choices. . Function/Cognitive Trajectory The patient has been declining for more than a year, and in the past couple weeks was so weak that he could only take a couple steps. His dyspnea was also worsening and he was becoming hypoxic at the time of this admission. He was eating very little, and had apparently lost weight, but the girlfriend says he had remained cognitively sharp until his further decline here at the hospital. . Review of Systems ROS Limitations: Clinical Condition (unresponsive, critically ill, history per girlfriend Lidia), Intubated Constitutional: COMPLAINS OF: Fever (in recent days) Endocrine: DENIES: Polyuria Eyes: DENIES: Eye inflammation Ears, nose, mouth, throat: DENIES: Epistaxis Respiratory: COMPLAINS OF: Cough, Hemoptysis, Shortness of breath Cardiovascular: COMPLAINS OF: Dyspnea on Exertion, DENIES: Chest pain, Lower Extremity Edema Gastrointestinal: DENIES: Black stools, Bloody stools, Diarrhea, Vomiting, Vomiting blood Genitourinary: DENIES: Hematuria Integumentary: DENIES: Rash Hematologic/Lymphatics: DENIES: Bruising Immunologic/Allergic: DENIES: Urticaria Neurologic: DENIES: Seizures Psychiatric: DENIES: Confusion, Hallucinations, Agitation Past Family Social History Coded Allergies: penicillin G (Unverified Allergy, Unknown, 04/14/17) Past Medical History * CHF, first diagnosed November 2015 * Ejection fraction 15-20% in November 2015 * COPD with intermittent home oxygen use * History of Hypertension * Chronic A. fib, anticoagulated on Xarelto * History of Graves' disease * Anemia Past Surgical History Recent bronchoscopy No reported prior surgeries . Current Medications Medications (Trade) Dose Ordered Sig/Jessi Route Start Time Stop Time Status Last Admin (Coreg) 12.5 mg BID PO 07/07/17 09:00 Future Hold 07/07/17 08:03 (Vasotec) 2.5 mg DAILY PO 07/07/17 09:00 Future Hold 07/07/17 08:03 (Lasix) 20 mg DAILY PO 07/07/17 09:00 Future Hold 07/07/17 08:04 (Mag-Ox) 400 mg DAILY PO 07/07/17 09:00 07/07/17 08:04 (KCl) 20 meq BID PO 07/07/17 09:00 Future Hold 07/07/17 08:04 Aztreonam 2000 mg/ Sodium Chloride 100 ml @ 200 mls/hr Q8H IV 07/07/17 08:00 07/08/17 09:03 Levofloxacin/ Dextrose 150 ml @ 100 mls/hr Q24H IV 07/07/17 22:00 07/07/17 23:49 Sodium Chloride 1,000 ml @ 50 mls/hr Q20H IV 07/07/17 00:04 07/07/17 01:22 (NS Flush) 2 ml UNSCH PRN IV FLUSH 07/07/17 00:15 (NS Flush) 2 ml BID IV FLUSH 07/07/17 09:00 07/07/17 21:12 (Tylenol) 650 mg Q4H PRN PO 07/07/17 00:15 (Zofran Inj) 4 mg Q6H PRN IVP 07/07/17 00:15 (Narcan Inj) 0.4 mg UNSCH PRN IV PUSH 07/07/17 00:15 (Brenda-Colace) 1 tab BID PO 07/07/17 09:00 07/07/17 08:04 (Milk Of Magnesia Liq) 30 ml Q12H PRN PO 07/07/17 00:15 (Senokot) 17.2 mg Q12H PRN PO 07/07/17 00:15 (Dulcolax Supp) 10 mg DAILY PRN RECTAL 07/07/17 00:15 (Lactulose Liq) 30 ml DAILY PRN PO 07/07/17 00:15 (Duoneb Neb) 1 ampule Q4HR NEB NEB 07/07/17 04:00 07/08/17 11:09 Miscellaneous Information Patient in critical care unit? Ass... [id number] .XX 07/07/17 02:30 (Chlorhexidine 2% Cloth) 3 pack DAILY@04 TOPICAL 07/07/17 04:00 07/11/17 04:01 07/08/17 04:00 (Chlorhexidine 2% Cloth) 3 pack UNSCH PRN TOPICAL 07/07/17 02:30 07/12/17 02:18 (Habitrol 14 Mg Patch.24 Hr) 1 patch DAILY T-DERMAL 07/07/17 10:00 07/07/17 10:35 Miscellaneous Information 1 DAILY T-DERMAL 07/08/17 09:00 (Peridex 0.12% Liq) 15 ml BID@08,20 MT 07/07/17 20:00 Fentanyl Citrate 250 ml @ 5 mls/hr TITRATE PRN IV 07/07/17 18:30 07/08/17 04:57 (Brethine Inj) 1 mg UNSCH PRN SQ 07/07/17 18:30 (NS Flush) DAILY IV FLUSH 07/08/17 09:00 (NS Flush) UNSCH PRN IV FLUSH 07/07/17 18:45 (Albuterol Neb) 2.5 mg Q2HR NEB PRN NEB 07/07/17 19:30 (Pulmicort Respule Neb) 0.5 mg Q12HR NEB NEB 07/07/17 20:00 07/08/17 07:49 (SoluMEDROL INJ) 40 mg Q8HR IV PUSH 07/07/17 22:00 07/08/17 05:22 Phenylephrine HCl 40 mg/Dextrose 500 ml @ 30 mls/hr TITRATE PRN IV 07/07/17 20:45 07/08/17 04:59 Norepinephrine Bitartrate 250 ml @ 7.5 mls/hr TITRATE PRN IV 07/08/17 00:00 07/08/17 09:04 (Brethine Inj) 1 mg UNSCH PRN SQ 07/08/17 00:00 (D50w (Vial) Inj) 50 ml UNSCH PRN IV PUSH 07/08/17 00:15 Dexmedetomidine HCl 200 mcg/ Sodium Chloride 52 ml @ 2.1 mls/hr TITRATE PRN IV 07/08/17 08:45 07/08/17 09:22 (Tapazole) 10 mg DAILY PO 07/09/17 09:00 (Aspirin Chew) 81 mg ONCE ONCE CHEW 07/08/17 11:45 07/08/17 11:46 (Aspirin Chew) 81 mg DAILY CHEW 07/09/17 09:00 (Tears Naturale Opth Soln) 1 drop Q8HR EACH EYE 07/08/17 14:00 (Beneprotein Powder) 1 pack TID G-TUBE 07/08/17 13:00 (D50w (Vial) Inj) 50 ml UNSCH PRN IV PUSH 07/08/17 11:00 (Glucagon Inj) 1 mg UNSCH PRN OTHER 07/08/17 11:00 (NovoLIN R SUPPLEMENTAL SCALE) 1 Q4HR SQ 07/08/17 12:00 Family History Dad with CAD, mom at age 99 of an [place]. Substance Use Tobacco: Alcohol: Prescription med abuse: Illicits: Psychosocial History The patient was originally from [place], but has lived in [place] for many years. He has lived with his girlfriend Lidia His girlfriend says she thinks he worked with the [employer] when he was younger, but he has been on disability since he was in his 40s. She believes that disability is due to his COPD. Living Will: Copy in medical record Health Care Surrogate: Copy in medical record Date completed: 07/04/17 . Health Care Surrogate(s): Longtime girlfriend Lidia Cowan . Documented care wishes: The patient's living will that he executed last week says that he would not want to be kept alive artificially if he had a terminal or end-stage condition, and that he would not want artificial nutrition and hydration in that situation. . Family/friends goals: The patient's longtime girlfriend Lidia (who is the healthcare surrogate) tells me that the patient had discussions with her within the past month about his health, realizing that he was declining rapidly, and telling her that he would not want to be kept alive on machines or life support, asking her to let him go peacefully. However, Lidia tells me that she wants to postpone possible withdrawal of life support, allowing time for a miracle to occur. . Ethical and Legal Issues There are no ethical issues that would impact her care or decision-making at this time. The patient lacks capacity for decision-making, and it is very unlikely that he will regain capacity. He has designated his longtime girlfriend Lidia as healthcare surrogate in a living will and HCS form that appears to be properly executed about a week ago. . Physical Exam Vital Signs Date Time Temp Pulse Resp B/P (MAP) Pulse Ox O2 Delivery O2 Flow Rate FiO2 07/08/17 11:11 99 50 07/08/17 09:04 127 07/08/17 07:49 100 100 07/08/17 06:37 91 100 07/08/17 06:00 125 07/08/17 04:59 128 96/57 07/08/17 04:15 94 50 07/08/17 04:00 98.6 120 16 113/67 (82) 97 07/08/17 04:00 50 07/08/17 04:00 120 07/08/17 02:00 116 07/08/17 01:09 114 116/70 07/08/17 01:07 113 115/99 07/08/17 00:00 110 16 117/63 (81) 99 07/08/17 00:00 80 07/08/17 00:00 110 07/07/17 23:00 98.4 116 16 112/61 (78) 99 07/07/17 22:57 118 110/62 07/07/17 22:00 133 07/07/17 21:54 100 100 07/07/17 20:00 118 07/07/17 20:00 100 99 07/07/17 19:00 131 21 131/65 (87) 89 07/07/17 18:13 141 20 163/81 (108) 89 07/07/17 18:10 141 23 158/89 (112) 90 07/07/17 18:07 145 36 163/90 (114) 93 07/07/17 18:05 145 54 162/95 (117) 91 07/07/17 18:03 145 85 139/71 (93) 87 07/07/17 18:00 91 100 07/07/17 18:00 122 21 96/52 (67) 83 07/07/17 18:00 137 07/07/17 17:58 120 23 62/41 (48) 07/07/17 17:54 123 56 79/42 (54) 07/07/17 17:50 126 32 117/58 (77) 96 07/07/17 17:48 123 40 122/58 (79) 97 07/07/17 17:45 124 38 96 07/07/17 17:30 124 37 91 07/07/17 17:30 124 37 91 07/07/17 17:15 122 35 91 07/07/17 17:15 122 35 91 07/07/17 17:00 119 31 105/56 (72) 89 07/07/17 17:00 119 31 105/56 (72) 89 07/07/17 16:45 120 36 85 07/07/17 16:45 120 36 85 07/07/17 16:30 119 24 100/56 (71) 88 07/07/17 16:30 119 24 100/56 (71) 88 07/07/17 16:30 119 24 100/56 (71) 88 07/07/17 16:15 114 47 84 07/07/17 16:15 114 47 84 07/07/17 16:15 114 47 84 07/07/17 16:09 117 32 128/58 (81) 86 07/07/17 16:09 117 32 128/58 (81) 86 07/07/17 16:09 117 32 128/58 (81) 86 07/07/17 16:00 108 07/07/17 16:00 111 42 116/58 (77) 82 07/07/17 16:00 111 42 116/58 (77) 82 07/07/17 16:00 97.8 119 28 100/56 (71) 86 07/07/17 16:00 111 42 116/58 (77) 82 07/07/17 15:54 114 32 134/68 (90) 87 07/07/17 15:54 114 32 134/68 (90) 87 07/07/17 15:45 110 25 112/59 (76) 89 07/07/17 15:45 110 25 112/59 (76) 89 07/07/17 15:40 109 24 115/59 (77) 89 07/07/17 15:40 109 24 115/59 (77) 89 07/07/17 15:36 110 26 108/58 (75) 88 07/07/17 15:36 110 26 108/58 (75) 88 07/07/17 15:35 110 29 135/85 (102) 88 07/07/17 15:35 110 29 135/85 (102) 88 07/07/17 15:30 109 24 91 07/07/17 15:30 109 24 91 07/07/17 15:15 113 40 85 07/07/17 15:15 113 40 85 07/07/17 15:00 110 32 99 07/07/17 15:00 110 32 99 07/07/17 14:45 111 49 100 07/07/17 14:45 111 49 100 07/07/17 14:30 114 35 100 07/07/17 14:30 114 35 100 07/07/17 14:15 116 41 89 07/07/17 14:15 116 41 89 07/07/17 14:00 113 30 88 07/07/17 14:00 113 30 88 07/07/17 14:00 108 07/07/17 12:00 109 07/07/17 11:45 107 24 105/59 (74) 85 Exam CONSTITUTIONAL/GENERAL: This is a weak, cachectic patient, in no apparent distress. TUBES/LINES/DRAINS: ET tube, right IJ line, Norton catheter, chest tubes from the left chest SKIN: No jaundice, rashes, or lesions. Ecchymoses on upper extremities. No wounds seen anteriorly. Skin temperature appropriate. Not diaphoretic. HEAD: Atraumatic. Normocephalic. EYES: Pupils equal and round and reactive. No scleral icterus. No injection or drainage. Fundi not examined. ENT: Hearing grossly normal. Nose without bleeding or purulent drainage. NECK: Trachea midline. Supple, nontender. No palpable thyroid enlargement or nodularity. CARDIOVASCULAR: Irregular rhythm, without murmurs, gallops, or rubs. No JVD. Peripheral pulses quite diminished. RESPIRATORY/CHEST: Symmetric, unlabored respirations on the ventilator. Diminished breath sounds on the left, scattered rhonchi. GASTROINTESTINAL: Abdomen soft, non-tender, nondistended. No hepato-splenomegaly , or palpable masses. No guarding. Bowel sounds present. GENITOURINARY: Without palpable bladder distension. Norton catheter in place. MUSCULOSKELETAL: Extremities without clubbing, cyanosis, or edema. No joint tenderness or effusion noted. No calf tenderness. No mottling or clubbing. LYMPHATICS: No palpable cervical or supraclavicular adenopathy. NEUROLOGICAL: Opens eyes when stimulated, does not follow simple commands PSYCHIATRIC: Appears fearful when he opens his eyes, and he becomes somewhat restless when . Diagnostic Tests Laboratory Laboratory Tests Test 07/06/17 19:20 07/06/17 21:40 07/06/17 21:53 07/07/17 02:19 White Blood Count 11.7 TH/MM3 (4.0-11.0) Red Blood Count 3.51 MIL/MM3 (4.50-5.90) Hemoglobin 10.5 GM/DL (13.0-17.0) Hematocrit 32.3 % (39.0-51.0) Mean Corpuscular Volume 92.0 FL (80.0-100.0) Mean Corpuscular Hemoglobin 30.0 PG (27.0-34.0) Mean Corpuscular Hemoglobin Concent 32.6 % (32.0-36.0) Red Cell Distribution Width 15.0 % (11.6-17.2) Platelet Count 471 TH/MM3 (150-450) Mean Platelet Volume 8.1 FL (7.0-11.0) Neutrophils (%) (Auto) 83.2 % (16.0-70.0) Lymphocytes (%) (Auto) 13.3 % (9.0-44.0) Monocytes (%) (Auto) 3.1 % (0.0-8.0) Eosinophils (%) (Auto) 0.1 % (0.0-4.0) Basophils (%) (Auto) 0.3 % (0.0-2.0) Neutrophils # (Auto) 9.7 TH/MM3 (1.8-7.7) Lymphocytes # (Auto) 1.6 TH/MM3 (1.0-4.8) Monocytes # (Auto) 0.4 TH/MM3 (0-0.9) Eosinophils # (Auto) 0.0 TH/MM3 (0-0.4) Basophils # (Auto) 0.0 TH/MM3 (0-0.2) CBC Comment DIFF FINAL Differential Comment Blood Urea Nitrogen 40 MG/DL (7-18) Creatinine 1.03 MG/DL (0.60-1.30) Random Glucose 185 MG/DL (74-106) Total Protein 7.5 GM/DL (6.4-8.2) Albumin 1.5 GM/DL (3.4-5.0) Calcium Level 8.7 MG/DL (8.5-10.1) Magnesium Level 2.1 MG/DL (1.5-2.5) Alkaline Phosphatase 165 U/L (45-117) Aspartate Amino Transf (AST/SGOT) 21 U/L (15-37) Alanine Aminotransferase (ALT/SGPT) 27 U/L (12-78) Total Bilirubin 0.4 MG/DL (0.2-1.0) Sodium Level 132 MEQ/L (136-145) Potassium Level 4.6 MEQ/L (3.5-5.1) Chloride Level 94 MEQ/L (98-107) Carbon Dioxide Level 29.6 MEQ/L (21.0-32.0) Anion Gap 8 MEQ/L (5-15) Estimat Glomerular Filtration Rate 71 ML/MIN (>89) Total Creatine Kinase 21 U/L (39-308) Troponin I LESS THAN 0.02 NG/ML B-Type Natriuretic Peptide 62 PG/ML (0-100) Blood Gas Puncture Site RT BRACHIAL Blood Gas Patient Temperature 98.6 Blood Gas HCO3 30 mmol/L (22-26) Blood Gas Base Excess 6.5 mmol/L (-2-2) Blood Gas Oxygen Saturation 94 % (90-100) Arterial Blood pH 7.47 (7.380-7.420) Arterial Blood Partial Pressure CO2 42 mmHg (38-42) Arterial Blood Partial Pressure O2 76 mmHG (61-120) Arterial Blood Oxygen Content 13.6 Vol % (12.0-20.0) Arterial Blood Carboxyhemoglobin 1.7 % (0-4) Arterial Blood Methemoglobin 0.4 % (0-2) Blood Gas Hemoglobin 10.3 G/DL (12.0-16.0) Oxygen Delivery Device BIPAP Blood Gas Ventilator Setting IPAP10 [id number] Blood Gas Inspired Oxygen 50 % Lactic Acid Level 1.6 mmol/L (0.4-2.0) Nasal Screen MRSA (PCR) MRSA DETECTED (NOT DETECT) Test 07/07/17 03:30 07/07/17 10:50 07/07/17 15:05 07/07/17 19:20 White Blood Count 12.3 TH/MM3 (4.0-11.0) Red Blood Count 3.13 MIL/MM3 (4.50-5.90) Hemoglobin 9.4 GM/DL (13.0-17.0) Hematocrit 28.9 % (39.0-51.0) Mean Corpuscular Volume 92.4 FL (80.0-100.0) Mean Corpuscular Hemoglobin 30.0 PG (27.0-34.0) Mean Corpuscular Hemoglobin Concent 32.4 % (32.0-36.0) Red Cell Distribution Width 15.0 % (11.6-17.2) Platelet Count 421 TH/MM3 (150-450) Mean Platelet Volume 8.2 FL (7.0-11.0) Neutrophils (%) (Auto) 88.5 % (16.0-70.0) Lymphocytes (%) (Auto) 9.3 % (9.0-44.0) Monocytes (%) (Auto) 2.0 % (0.0-8.0) Eosinophils (%) (Auto) 0.0 % (0.0-4.0) Basophils (%) (Auto) 0.2 % (0.0-2.0) Neutrophils # (Auto) 10.9 TH/MM3 (1.8-7.7) Lymphocytes # (Auto) 1.1 TH/MM3 (1.0-4.8) Monocytes # (Auto) 0.3 TH/MM3 (0-0.9) Eosinophils # (Auto) 0.0 TH/MM3 (0-0.4) Basophils # (Auto) 0.0 TH/MM3 (0-0.2) CBC Comment DIFF FINAL Differential Comment Blood Urea Nitrogen 37 MG/DL (7-18) Creatinine 0.72 MG/DL (0.60-1.30) Random Glucose 98 MG/DL (74-106) Total Protein 7.1 GM/DL (6.4-8.2) Albumin 1.4 GM/DL (3.4-5.0) Calcium Level 8.2 MG/DL (8.5-10.1) Alkaline Phosphatase 146 U/L (45-117) Aspartate Amino Transf (AST/SGOT) 19 U/L (15-37) Alanine Aminotransferase (ALT/SGPT) 24 U/L (12-78) Total Bilirubin 0.3 MG/DL (0.2-1.0) Sodium Level 135 MEQ/L (136-145) Potassium Level 4.3 MEQ/L (3.5-5.1) Chloride Level 98 MEQ/L (98-107) Carbon Dioxide Level 27.0 MEQ/L (21.0-32.0) Anion Gap 10 MEQ/L (5-15) Estimat Glomerular Filtration Rate 108 ML/MIN (>89) Free Thyroxine 2.24 NG/DL (0.76-1.46) Free Triiodothyronine (T3) pg/dL 1.80 PG/ML (2.18-3.98) Thyroid Stimulating Hormone 3rd Gen LESS THAN 0.005 uIU/ML Prothrombin Time 14.2 SEC (9.8-11.6) Prothromb Time International Ratio 1.3 RATIO Pleural Fluid pH 8.0 Pleural Fluid WBC 162631 /MM3 (0-10) Pleural Fluid RBC 064749 /MM3 (0-0) Pleural Fluid Neutrophils 100 % Pleural Fluid Total Protein 2.1 GM/DL Pleural Fluid LDH GREATER THAN 57784 U/L Pleural Fluid Glucose 1 MG/DL Blood Gas Puncture Site RT RADIAL Blood Gas Patient Temperature 98.6 Blood Gas HCO3 23 mmol/L (22-26) Blood Gas Base Excess -1.7 mmol/L (-2-2) Blood Gas Oxygen Saturation 83 % (90-100) Arterial Blood pH 7.38 (7.380-7.420) Arterial Blood Partial Pressure CO2 40 mmHg (38-42) Arterial Blood Partial Pressure O2 55 mmHg (61-120) Arterial Blood Oxygen Content 20.2 Vol % (12.0-20.0) Arterial Blood Carboxyhemoglobin 0.3 % (0-4) Arterial Blood Methemoglobin 1.1 % (0-2) Blood Gas Hemoglobin 17.3 G/DL (12.0-16.0) Oxygen Delivery Device VENTILATOR Blood Gas Ventilator Setting 20/500/IT1.0/8PEEP Blood Gas Inspired Oxygen 100 % Test 07/07/17 19:25 07/08/17 04:15 07/08/17 05:49 07/08/17 08:00 Blood Gas Puncture Site CENTRAL LINE Blood Gas Patient Temperature 98.6 Venous Blood pH 7.35 (7.360-7.400) Venous Blood Partial Pressure CO2 45 mmHg (44-48) Venous Blood Partial Pressure O2 36 mmHg (35-40) Venous Blood HCO3 24 mmol/L (22-26) Venous Blood Oxygen Saturation 56 % (70-76) Venous Blood Oxygen Content 7.9 Vol % (9.0-17.0) Venous Blood Base Excess -1.0 mmol/L (-2-2) Oxygen Delivery Device VENTILATOR Blood Gas Ventilator Setting 20/500/IT1.0/8PEEP Blood Gas Inspired Oxygen 100 % Prothrombin Time 12.0 SEC (9.8-11.6) Prothromb Time International Ratio 1.1 RATIO Activated Partial Thromboplast Time 26.4 SEC (24.3-30.1) Fibrinogen 123 mg/dL (227-377) Lactic Acid Level 1.1 mmol/L (0.4-2.0) Ammonia 13 MCMOL/L (11-32) White Blood Count 16.2 TH/MM3 (4.0-11.0) Red Blood Count 2.95 MIL/MM3 (4.50-5.90) Hemoglobin 8.9 GM/DL (13.0-17.0) Hematocrit 27.5 % (39.0-51.0) Mean Corpuscular Volume 93.2 FL (80.0-100.0) Mean Corpuscular Hemoglobin 30.1 PG (27.0-34.0) Mean Corpuscular Hemoglobin Concent 32.2 % (32.0-36.0) Red Cell Distribution Width 15.2 % (11.6-17.2) Platelet Count 539 TH/MM3 (150-450) Mean Platelet Volume 8.4 FL (7.0-11.0) Neutrophils (%) (Auto) 89.0 % (16.0-70.0) Lymphocytes (%) (Auto) 7.9 % (9.0-44.0) Monocytes (%) (Auto) 3.0 % (0.0-8.0) Eosinophils (%) (Auto) 0.0 % (0.0-4.0) Basophils (%) (Auto) 0.1 % (0.0-2.0) Neutrophils # (Auto) 14.5 TH/MM3 (1.8-7.7) Lymphocytes # (Auto) 1.3 TH/MM3 (1.0-4.8) Monocytes # (Auto) 0.5 TH/MM3 (0-0.9) Eosinophils # (Auto) 0.0 TH/MM3 (0-0.4) Basophils # (Auto) 0.0 TH/MM3 (0-0.2) CBC Comment DIFF FINAL Differential Comment Blood Urea Nitrogen MG/DL (7-18) 30 MG/DL (7-18) Creatinine MG/DL (0.60-1.30) 0.73 MG/DL (0.60-1.30) Random Glucose MG/DL (74-106) 80 MG/DL (74-106) Total Protein GM/DL (6.4-8.2) 6.2 GM/DL (6.4-8.2) Albumin GM/DL (3.4-5.0) 1.3 GM/DL (3.4-5.0) Calcium Level MG/DL (8.5-10.1) 7.8 MG/DL (8.5-10.1) Phosphorus Level MG/DL (2.5-4.9) 2.5 MG/DL (2.5-4.9) Magnesium Level MG/DL (1.5-2.5) 1.9 MG/DL (1.5-2.5) Alkaline Phosphatase U/L (45-117) 117 U/L (45-117) Aspartate Amino Transf (AST/SGOT) U/L (15-37) 27 U/L (15-37) Alanine Aminotransferase (ALT/SGPT) U/L (12-78) 21 U/L (12-78) Total Bilirubin MG/DL (0.2-1.0) 0.2 MG/DL (0.2-1.0) Direct Bilirubin MG/DL (0.0-0.2) 0.2 MG/DL (0.0-0.2) Sodium Level MEQ/L (136-145) 133 MEQ/L (136-145) Potassium Level MEQ/L (3.5-5.1) 4.0 MEQ/L (3.5-5.1) Chloride Level MEQ/L (98-107) 102 MEQ/L (98-107) Carbon Dioxide Level MEQ/L (21.0-32.0) 25.0 MEQ/L (21.0-32.0) Anion Gap MEQ/L (5-15) 6 MEQ/L (5-15) Estimat Glomerular Filtration Rate ML/MIN (>89) 106 ML/MIN (>89) Total Creatine Kinase U/L (39-308) 60 U/L (39-308) Troponin I NG/ML (0.02-0.05) 2.22 NG/ML (0.02-0.05) Amylase Level 12 U/L (25-115) 37 U/L (25-115) Lipase 61 U/L (73-393) 87 U/L (73-393) Free Thyroxine 0.84 NG/DL (0.76-1.46) 1.52 NG/DL (0.76-1.46) Thyroid Stimulating Hormone 3rd Gen 2.050 uIU/ML (0.358-3.740) LESS THAN 0.005 uIU/ML Triglycerides Level 125 MG/DL (42-150) Cholesterol Level 81 MG/DL (120-200) LDL Cholesterol 27 MG/DL (0-99) HDL Cholesterol 29.4 MG/DL (40.0-60.0) Cholesterol/HDL Ratio 2.75 RATIO Result Diagram: 07/08/17 0549 07/08/17 0800 Microbiology Microbiology Date/Time Source Procedure Growth Status 07/06/17 21:53 Blood Peripheral Aerobic Blood Culture - Preliminary NO GROWTH IN 2 DAYS Resulted 07/06/17 21:53 Blood Peripheral Anaerobic Blood Culture - Preliminary NO GROWTH IN 2 DAYS Resulted 07/06/17 21:47 Blood Peripheral Aerobic Blood Culture - Preliminary NO GROWTH IN 2 DAYS Resulted 07/06/17 21:47 Blood Peripheral Anaerobic Blood Culture - Preliminary NO GROWTH IN 2 DAYS Resulted 07/07/17 15:05 Fluid Pleural Fluid Fungal Smear Pending Received 07/07/17 15:05 Fluid Pleural Fluid Fungal Culture Pending Received 07/07/17 15:05 Fluid Pleural Fluid Acid Fast Stain Pending Received 07/07/17 15:05 Fluid Pleural Fluid Mycobacterial Culture Pending Received 07/07/17 15:05 Fluid Pleural Fluid Gram Stain - Final Resulted 07/07/17 15:05 Fluid Pleural Fluid Body Fluid Culture Pending Resulted Imaging Last Impressions Chest X-Ray 07/08/17 0000 Signed Impressions: Service Date/Time: Saturday, July 08, 2017 09:23 - CONCLUSION: 1. ETT in good position. Right IJ central line in good position. No significant pneumothorax. 2. 2 left-sided chest tubes in place with significant interval improvement in loculated left pleural effusion 3. Residual airspace consolidation in the left lower lobe. Fernando Diaz MD Chest Tube Insertion 07/07/17 0000 Signed Impressions: Service Date/Time: Friday, July 07, 2017 14:24 - CONCLUSION: 1. Uncomplicated CT-guided placement of 16 [place] pigtail chest tubes for treatment of loculated empyemas in the anterior and posterior inferior left hemithorax. Please see prior CT report for additional details. Fernando Diaz MD CT Angiography 07/06/17 0000 Signed Impressions: Service Date/Time: Thursday, July 06, 2017 20:36 - CONCLUSION: 1. No PE is identified. 2. As expected from the chest x-ray there is a pleural-parenchymal process for the cause of the shortness of breath and cough. There are findings indicating aspiration with partially cavitary consolidation in the left lower lobe. There is a moderate size loculated left pleural effusion with adjacent compressive atelectasis. Holden Myers MD Procedures BiPAP 07/06/17 INTUBATION 07/07/17 Right IJ line 07/07/17 Bronchoscopy 07/07/17 . Patient/Family Conference Present at Family Conference: Patient's longtime girlfriend Lidia in the conference room, and patient's brother Jac by telephone . Family Conference Time (mins): 58 Family Conference Location: Bedside, Consult Room, Telephone Issues Discussed: * Palliative care role, purpose, approach * Hospice care role, purpose, approach * Additional medical, psychosocial, and spiritual history * Patients general health, functional status, and cognitive changes in the months leading up to the current hospitalization * Patient/family understanding of the current medical problems * Patient/family understanding of prognosis * Patients goals of care as best understood from advance directives and/or conversations and/or values * Current medical treatment options and benefits/burdens of those options * Likely scenarios comparing ongoing aggressive care with a transition to comfort measures only * Questions answered to the best of my ability * Palliative care contact information provided The patient's longtime girlfriend Lidia (who is the healthcare surrogate) tells me that the patient had discussions with her within the past month about his health, realizing that he was declining rapidly, and telling her that he would not want to be kept alive on machines or life support, asking her to let him go peacefully; he then executed a living will just a few days prior to this hospitalization. However, Lidia tells me that she wants to postpone possible withdrawal of life support, allowing time for a miracle to occur, and she wants to continue aggressive care for now.. The patient's brother Jac Alvarenga tells me by telephone that he would withdraw life support and allow the patient to peacefully and comfortably. . Assessment and Plan Disease Oriented Problem List: (1) respiratory failure (2) end-stage COPD (3) cachexia/malnutrition (4) CHF, with EF 15-20% in November 2015 (5) s/p suctioning of clots from bronchi 07/07/17 (6) empyema left chest (7) chronic atrial fibrillation, anticoagulated on Route of (8) history of Graves' disease (9) anemia (10) hypertension Symptom Scale: (1) pain 0-10 Scale: Unable to quantify (2) dyspnea 0-10 Scale: Unable to quantify Pertinent Non-Medical Issues Psychosocial: Never , disabled for 30 years due to COPD, girlfriend Lidia 9 years, 2 children that he has not seen since they were very young, and he has had no knowledge of their names or locations. Spiritual: He has not been spiritual or episcopal, the girlfriend would like a service and repair supervisor to visit Legal: The patient lacks capacity for decision-making, and it is very unlikely that he will regain capacity. He has designated his longtime girlfriend Lidia as healthcare surrogate in a living will and HCS form that appears to be properly executed about a week ago. Ethical issues impacting care: None . Important Contacts HCS/girlfriend Lidia Cowan [phone], and [phone] Brother: Jac Alvarenga: Home [phone], cell: [phone] . Prognosis This patient is terminal. He has underlying end-stage heart and end-stage lung conditions in the face of cachexia/malnutrition, and now with pneumonia, respiratory failure, and empyema/sepsis. He is appropriate for hospice services if the goals become comfort oriented. . Code Status: Full Code Plan * FULL CODE * DECISION-MAKING: The patient lacks capacity for decision-making, and it is very unlikely that he will regain capacity. He has designated his longtime girlfriend Lidia as healthcare surrogate in a living will and HCS form that appears to be properly executed about a week ago. * GOALS: The patient's longtime girlfriend Lidia (who is the healthcare surrogate ) tells me that the patient had discussions with her within the past month about his health, realizing that he was declining rapidly, and telling her that he would not want to be kept alive on machines or life support, asking her to let him go peacefully; he then executed a living will just a few days prior to this hospitalization. However, Lidia tells me that she wants to postpone possible withdrawal of life support, allowing time for a miracle to occur, and she wants to continue aggressive care for now.. The patient's brother Jac Alvarenga tells me by telephone that he would withdraw life support and allow the patient to peacefully and comfortably. * SYMPTOMS: Patient's dyspnea has been fairly profound, and he is now mechanically ventilated and on some fentanyl. He does still seem to have some fearfulness Center restlessness when he is disturbed and opens his eyes, and it would be helpful for him if the fentanyl and Precedex can be titrated up. * Cheesemaking Laborer visit requested. * Palliative Care will continue to follow the patient during this hospitalization. . Time Spent Total Floor Time (mins): 95 Face to Face Time (mins): 26 >50% Counseling/Coord of Care: Yes (d/w RN and with Drs. Telles and Alejandra) Thank you for the opportunity to participate in the care of Mr. Alvarenga. Attestation To help prompt me to consider important information that might be impacting today's encounter and assessment, information from prior notes written by myself or my colleagues may have been "brought forward" into today's note. My signature on this note, however, is an attestation that I personally performed the exam, history, and/or decision-making noted today, and, unless otherwise indicated, the interactions with patient, family, and staff as well as the review of records all occurred today. I also attest that the listed assessment and stated plan reflect my best clinical judgment today based on the combination of historical information, prior notes, and today's exam/ interactions. When time spent is documented, it refers only to time spent today by the signer, or if indicated, combined time spent today by collaborating physician/nurse practitioner. Effie Harvey MD Jul 08, 2017 11:49
[2017-07-08] MEDS ORDERED: SODIUM CHLORIDE 0.9% 10 ML VIAL ONE (12:30)
[2017-07-08] MEDS: BENEPROTEIN POWDER 1 PACK G-TUBE SCH ×2 (13:00→16:53)
--- NOTE | 2017-07-08 13:15 | EKG ---
Date Performed: 07/08/2017 Time Performed: 12:49:56 PTAGE: 71 years EKG: Baseline artifact present SINUS TACHYCARDIA LOW QRS VOLTAGE IN PRECORDIAL LEADS ANTEROSEPTA L MYOCARDIAL INFARCTION , OF INDETERMINATE AGE ABNORMAL ECG No significant change from prior electroc ardiogram. PREVIOUS TRACING : 07/06/2017 19.17 DOCTOR: Pineda Celis Interpretating Date/Time 07/08/2017 13:14:53
--- NOTE | 2017-07-08 13:32 | HHI.IDPN ---
Note Infectious Disease Note Patient is on the vent. On sedation. On Levophed high dose. SBP 113. Presented to the emergency department with respiratory symptoms. The patient developed shortness of breath and reportedly had productive cough with hemoptysis. PAST MEDICAL HISTORY 1. Chronic obstructive pulmonary disease. 2. Congestive heart failure. 3. Hypertension. 4. Graves disease. 5. Atrial fibrillation. ALLERGIES PENICILLIN. MEDICATIONS 1. Azactam. 2. Levaquin. SOCIAL HISTORY Notable for tobacco use 1-1/2 packs a day. Occasional marijuana use. No alcohol. FAMILY HISTORY Noncontributory. OBJECTIVE: Vital Signs Date Time Temp Pulse Resp B/P (MAP) Pulse Ox O2 Delivery O2 Flow Rate FiO2 07/08/17 11:11 99 50 07/08/17 09:04 127 07/08/17 08:44 128 07/08/17 08:42 129 07/08/17 08:42 129 16 88/54 (65) 89 07/08/17 08:40 130 16 86/53 (64) 90 07/08/17 08:40 130 07/08/17 08:38 130 16 89/58 (68) 91 07/08/17 08:38 130 07/08/17 08:36 134 16 105/63 (77) 92 07/08/17 08:36 134 07/08/17 08:34 134 07/08/17 08:34 134 15 102/60 (74) 92 07/08/17 08:32 132 07/08/17 08:32 132 16 100/57 (71) 92 07/08/17 08:30 132 16 98/56 (70) 93 07/08/17 08:30 132 07/08/17 08:28 129 07/08/17 08:28 129 16 97/55 (69) 93 07/08/17 08:26 129 16 97/53 (68) 93 07/08/17 08:26 129 07/08/17 08:24 129 07/08/17 08:24 129 16 95/50 (65) 94 07/08/17 08:22 129 16 93/52 (66) 94 07/08/17 08:22 129 07/08/17 08:20 128 16 92/57 (69) 95 07/08/17 08:20 128 07/08/17 08:18 127 16 93/57 (69) 96 07/08/17 08:18 127 07/08/17 08:09 126 07/08/17 08:09 126 16 86/52 (63) 99 07/08/17 08:08 119 07/08/17 08:08 119 16 52/32 (39) 97 07/08/17 08:06 124 16 60/41 (47) 98 07/08/17 08:06 124 07/08/17 08:04 123 16 93/55 (68) 100 07/08/17 08:04 123 07/08/17 08:02 124 16 91/56 (68) 99 07/08/17 08:02 124 07/08/17 08:00 124 07/08/17 08:00 100 07/08/17 08:00 124 16 90/56 (67) 100 07/08/17 07:49 100 100 07/08/17 06:37 91 100 07/08/17 06:00 125 07/08/17 04:59 128 96/57 07/08/17 04:15 94 50 07/08/17 04:00 98.6 120 16 113/67 (82) 97 07/08/17 04:00 50 07/08/17 04:00 120 07/08/17 02:00 116 07/08/17 01:09 114 116/70 07/08/17 01:07 113 115/99 07/08/17 00:00 110 16 117/63 (81) 99 07/08/17 00:00 80 07/08/17 00:00 110 07/07/17 23:00 98.4 116 16 112/61 (78) 99 07/07/17 22:57 118 110/62 07/07/17 22:00 133 07/07/17 21:54 100 100 07/07/17 20:00 118 07/07/17 20:00 100 99 07/07/17 19:00 131 21 131/65 (87) 89 07/07/17 18:13 141 20 163/81 (108) 89 07/07/17 18:10 141 23 158/89 (112) 90 07/07/17 18:07 145 36 163/90 (114) 93 07/07/17 18:05 145 54 162/95 (117) 91 07/07/17 18:03 145 85 139/71 (93) 87 07/07/17 18:00 91 100 07/07/17 18:00 122 21 96/52 (67) 83 07/07/17 18:00 137 07/07/17 17:58 120 23 62/41 (48) 07/07/17 17:54 123 56 79/42 (54) 07/07/17 17:50 126 32 117/58 (77) 96 07/07/17 17:48 123 40 122/58 (79) 97 07/07/17 17:45 124 38 96 07/07/17 17:30 124 37 91 07/07/17 17:30 124 37 91 07/07/17 17:15 122 35 91 07/07/17 17:15 122 35 91 07/07/17 17:00 119 31 105/56 (72) 89 07/07/17 17:00 119 31 105/56 (72) 89 07/07/17 16:45 120 36 85 07/07/17 16:45 120 36 85 07/07/17 16:30 119 24 100/56 (71) 88 07/07/17 16:30 119 24 100/56 (71) 88 07/07/17 16:30 119 24 100/56 (71) 88 07/07/17 16:15 114 47 84 07/07/17 16:15 114 47 84 07/07/17 16:15 114 47 84 07/07/17 16:09 117 32 128/58 (81) 86 07/07/17 16:09 117 32 128/58 (81) 86 07/07/17 16:09 117 32 128/58 (81) 86 07/07/17 16:00 108 07/07/17 16:00 111 42 116/58 (77) 82 07/07/17 16:00 111 42 116/58 (77) 82 07/07/17 16:00 97.8 119 28 100/56 (71) 86 07/07/17 16:00 111 42 116/58 (77) 82 07/07/17 15:54 114 32 134/68 (90) 87 07/07/17 15:54 114 32 134/68 (90) 87 07/07/17 15:45 110 25 112/59 (76) 89 07/07/17 15:45 110 25 112/59 (76) 89 07/07/17 15:40 109 24 115/59 (77) 89 07/07/17 15:40 109 24 115/59 (77) 89 07/07/17 15:36 110 26 108/58 (75) 88 07/07/17 15:36 110 26 108/58 (75) 88 07/07/17 15:35 110 29 135/85 (102) 88 07/07/17 15:35 110 29 135/85 (102) 88 07/07/17 15:30 109 24 91 07/07/17 15:30 109 24 91 07/07/17 15:15 113 40 85 07/07/17 15:15 113 40 85 07/07/17 15:00 110 32 99 07/07/17 15:00 110 32 99 07/07/17 14:45 111 49 100 07/07/17 14:45 111 49 100 07/07/17 14:30 114 35 100 07/07/17 14:30 114 35 100 07/07/17 14:15 116 41 89 07/07/17 14:15 116 41 89 07/07/17 14:00 113 30 88 07/07/17 14:00 113 30 88 07/07/17 14:00 108 Laboratory Tests Test 07/06/17 19:20 07/07/17 03:30 07/08/17 05:49 White Blood Count 11.7 TH/MM3 12.3 TH/MM3 16.2 TH/MM3 Red Blood Count 3.51 MIL/MM3 3.13 MIL/MM3 2.95 MIL/MM3 Hemoglobin 10.5 GM/DL 9.4 GM/DL 8.9 GM/DL Hematocrit 32.3 % 28.9 % 27.5 % Mean Corpuscular Volume 92.0 FL 92.4 FL 93.2 FL Mean Corpuscular Hemoglobin 30.0 PG 30.0 PG 30.1 PG Mean Corpuscular Hemoglobin Concent 32.6 % 32.4 % 32.2 % Red Cell Distribution Width 15.0 % 15.0 % 15.2 % Platelet Count 471 TH/MM3 421 TH/MM3 539 TH/MM3 Mean Platelet Volume 8.1 FL 8.2 FL 8.4 FL Neutrophils (%) (Auto) 83.2 % 88.5 % 89.0 % Lymphocytes (%) (Auto) 13.3 % 9.3 % 7.9 % Monocytes (%) (Auto) 3.1 % 2.0 % 3.0 % Eosinophils (%) (Auto) 0.1 % 0.0 % 0.0 % Basophils (%) (Auto) 0.3 % 0.2 % 0.1 % Neutrophils # (Auto) 9.7 TH/MM3 10.9 TH/MM3 14.5 TH/MM3 Lymphocytes # (Auto) 1.6 TH/MM3 1.1 TH/MM3 1.3 TH/MM3 Monocytes # (Auto) 0.4 TH/MM3 0.3 TH/MM3 0.5 TH/MM3 Eosinophils # (Auto) 0.0 TH/MM3 0.0 TH/MM3 0.0 TH/MM3 Basophils # (Auto) 0.0 TH/MM3 0.0 TH/MM3 0.0 TH/MM3 CBC Comment DIFF FINAL DIFF FINAL DIFF FINAL Differential Comment Laboratory Tests Test 07/06/17 19:20 07/06/17 21:53 07/07/17 03:30 07/08/17 04:15 Blood Urea Nitrogen 40 MG/DL 37 MG/DL Creatinine 1.03 MG/DL 0.72 MG/DL Random Glucose 185 MG/DL 98 MG/DL Total Protein 7.5 GM/DL 7.1 GM/DL Albumin 1.5 GM/DL 1.4 GM/DL Calcium Level 8.7 MG/DL 8.2 MG/DL Magnesium Level 2.1 MG/DL Alkaline Phosphatase 165 U/L 146 U/L Aspartate Amino Transf (AST/SGOT) 21 U/L 19 U/L Alanine Aminotransferase (ALT/SGPT) 27 U/L 24 U/L Total Bilirubin 0.4 MG/DL 0.3 MG/DL Sodium Level 132 MEQ/L 135 MEQ/L Potassium Level 4.6 MEQ/L 4.3 MEQ/L Chloride Level 94 MEQ/L 98 MEQ/L Carbon Dioxide Level 29.6 MEQ/L 27.0 MEQ/L Anion Gap 8 MEQ/L 10 MEQ/L Estimat Glomerular Filtration Rate 71 ML/MIN 108 ML/MIN Total Creatine Kinase 21 U/L Troponin I LESS THAN 0.02 NG/ML B-Type Natriuretic Peptide 62 PG/ML Lactic Acid Level 1.6 mmol/L 1.1 mmol/L Free Thyroxine 2.24 NG/DL Free Triiodothyronine (T3) pg/dL 1.80 PG/ML Thyroid Stimulating Hormone 3rd Gen LESS THAN 0.005 uIU/ML Ammonia 13 MCMOL/L Test 07/08/17 05:49 07/08/17 08:00 Blood Urea Nitrogen MG/DL 30 MG/DL Creatinine MG/DL 0.73 MG/DL Random Glucose MG/DL 80 MG/DL Total Protein GM/DL 6.2 GM/DL Albumin GM/DL 1.3 GM/DL Calcium Level MG/DL 7.8 MG/DL Phosphorus Level MG/DL 2.5 MG/DL Magnesium Level MG/DL 1.9 MG/DL Alkaline Phosphatase U/L 117 U/L Aspartate Amino Transf (AST/SGOT) U/L 27 U/L Alanine Aminotransferase (ALT/SGPT) U/L 21 U/L Total Bilirubin MG/DL 0.2 MG/DL Direct Bilirubin MG/DL 0.2 MG/DL Sodium Level MEQ/L 133 MEQ/L Potassium Level MEQ/L 4.0 MEQ/L Chloride Level MEQ/L 102 MEQ/L Carbon Dioxide Level MEQ/L 25.0 MEQ/L Anion Gap MEQ/L 6 MEQ/L Estimat Glomerular Filtration Rate ML/MIN 106 ML/MIN Total Creatine Kinase U/L 60 U/L Troponin I NG/ML 2.22 NG/ML Amylase Level 12 U/L 37 U/L Lipase 61 U/L 87 U/L Free Thyroxine 0.84 NG/DL 1.52 NG/DL Thyroid Stimulating Hormone 3rd Gen 2.050 uIU/ML LESS THAN 0.005 uIU/ML Triglycerides Level 125 MG/DL Cholesterol Level 81 MG/DL LDL Cholesterol 27 MG/DL HDL Cholesterol 29.4 MG/DL Cholesterol/HDL Ratio 2.75 RATIO Microbiology Date/Time Source Procedure Growth Status 07/06/17 21:53 Blood Peripheral Aerobic Blood Culture - Preliminary NO GROWTH IN 2 DAYS Resulted 07/06/17 21:53 Blood Peripheral Anaerobic Blood Culture - Preliminary NO GROWTH IN 2 DAYS Resulted 07/06/17 21:47 Blood Peripheral Aerobic Blood Culture - Preliminary NO GROWTH IN 2 DAYS Resulted 07/06/17 21:47 Blood Peripheral Anaerobic Blood Culture - Preliminary NO GROWTH IN 2 DAYS Resulted 07/07/17 15:05 Fluid Pleural Fluid Fungal Smear - Final NO FUNGAL ELEMENTS SEEN. Resulted 07/07/17 15:05 Fluid Pleural Fluid Fungal Culture Pending Resulted 07/07/17 15:05 Fluid Pleural Fluid Acid Fast Stain Pending Received 07/07/17 15:05 Fluid Pleural Fluid Mycobacterial Culture Pending Received 07/07/17 15:05 Fluid Pleural Fluid Gram Stain - Final Resulted 07/07/17 15:05 Fluid Pleural Fluid Body Fluid Culture Pending Resulted PHYSICAL EXAMINATION GENERAL: On the vent. HEENT: Head is atraumatic. Extraocular movements grossly intact. Pupils reactive to light. NECK: Supple without adenopathy. LUNGS: Bilateral rhonchi. HEART: Normal S1-S2. No audible murmurs or rubs or gallops. ABDOMEN: Soft. Nontender. EXTREMITIES: Diffuse muscle wasting. No clubbing or cyanosis or edema. SKIN: No rash. IMPRESSION 1. Aspiration pneumonia. culture pending. 2. Acute Respiratory failure. 3. Cachexia. RECOMMENDATIONS 1. Continue aztreonam. 2. Continue Levaquin. 3. Add Vancomycin. 4. Monitor pleural fluid culture. 5. Monitor clinical status. Koby Roberts MD Jul 08, 2017 13:32
[2017-07-08] MEDS: NICOTINE 14 MG/24 HR PATCH T-DERMAL SCH (14:23)
[2017-07-08] MEDS: CHLORHEXIDINE 0.12% (ORAL KIT) 15 ML CUP MT SCH ×2 (14:23→20:18)
[2017-07-08] MEDS: ARTIFICIAL TEARS OPTH SOLN 15 ML BTL EACH EYE SCH ×2 (14:34→22:14)
[2017-07-08] MEDS: INSULIN NovoLIN REGULAR SUPPLEMENTAL SCALE SQ SCH ×2 (14:35→20:00)
[2017-07-08] MEDS ORDERED: Vancomycin Consult Pharmacy 1 EA OTHER SCH (15:00)
[2017-07-08] MEDS: SODIUM CHLOR 0.9% 1000 ML INJ 1,000 ML IV SCH ×2 (16:04→17:55)
--- NOTE | 2017-07-08 16:10 | HHI.CCPN ---
Subjective Remarks/Hospital Course This is a 71-year-old male. Date of admission 07/06/2017. Date of consultation 07/07/2017. Past medical history includes chronic systolic heart failure ejection fraction 15%, moderate to severe pulmonary hypertension, ongoing tobaccoism, COPD, hypertension, Graves' disease on methimazole, chronic rivaroxaban use. Patient is in the health source of breath. CT pulmonary angiography revealed a loculated left-sided pleural effusion. Patient has been in the hospital service with consultation to infectious disease and pulmonology. Today, patient had 2 chest tubes placed in the left lung for moderate empyema. Glucose is currently 1 and LDH greater than 10,000 in sample pleural fluid. Postprocedure, patient became more short of breath. Follow chest x-ray revealed no obvious pneumothorax on the left. In discussion with patient, stated that he needed to be intubated and he agreed at that time. Patient was intubated using 20 mg etomidate and 50 milligrams rocuronium and a central line was placed Subjective 07/08: Remains on the ventilator and tachycardic. Noted elevated troponin. Not a candidate for anticoagulation due to large clots removed from left main bronchus overnight. We'll start on baby aspirin events see if tolerates. EKG follow-up pending. Noted Q waves in anteroseptal leads on admission. Repeat pending. Objective Vital Signs Date Time Temp Pulse Resp B/P (MAP) Pulse Ox O2 Delivery O2 Flow Rate FiO2 07/08/17 14:34 128 07/08/17 11:11 99 50 07/08/17 09:22 106/60 07/08/17 08:42 16 07/08/17 04:00 98.6 07/07/17 07:43 Nasal Cannula 3.00 Intake and Output 07/08/17 07/08/17 07/09/17 08:00 16:00 00:00 Intake Total 0 ml Output Total 440 ml Balance -440 ml Result Diagram: 07/08/17 0549 07/08/17 0800 Other Results Laboratory Tests Test 07/07/17 19:20 07/07/17 19:25 Blood Gas Puncture Site RT RADIAL CENTRAL LINE Blood Gas Patient Temperature 98.6 98.6 Blood Gas HCO3 23 mmol/L (22-26) Blood Gas Base Excess -1.7 mmol/L (-2-2) Blood Gas Oxygen Saturation 83 % (90-100) Arterial Blood pH 7.38 (7.380-7.420) Arterial Blood Partial Pressure CO2 40 mmHg (38-42) Arterial Blood Partial Pressure O2 55 mmHg (61-120) Arterial Blood Oxygen Content 20.2 Vol % (12.0-20.0) Arterial Blood Carboxyhemoglobin 0.3 % (0-4) Arterial Blood Methemoglobin 1.1 % (0-2) Blood Gas Hemoglobin 17.3 G/DL (12.0-16.0) Oxygen Delivery Device VENTILATOR VENTILATOR Blood Gas Ventilator Setting 20/500/IT1.0/8PEEP 20/500/IT1.0/8PEEP Blood Gas Inspired Oxygen 100 % 100 % Venous Blood pH 7.35 (7.360-7.400) Venous Blood Partial Pressure CO2 45 mmHg (44-48) Venous Blood Partial Pressure O2 36 mmHg (35-40) Venous Blood HCO3 24 mmol/L (22-26) Venous Blood Oxygen Saturation 56 % (70-76) Venous Blood Oxygen Content 7.9 Vol % (9.0-17.0) Venous Blood Base Excess -1.0 mmol/L (-2-2) Imaging Last Impressions Chest X-Ray 07/08/17 0000 Signed Impressions: Service Date/Time: Saturday, July 08, 2017 09:23 - CONCLUSION: 1. ETT in good position. Right IJ central line in good position. No significant pneumothorax. 2. 2 left-sided chest tubes in place with significant interval improvement in loculated left pleural effusion 3. Residual airspace consolidation in the left lower lobe. Fernando Diaz MD Chest Tube Insertion 07/07/17 0000 Signed Impressions: Service Date/Time: Friday, July 07, 2017 14:24 - CONCLUSION: 1. Uncomplicated CT-guided placement of 16 [place] pigtail chest tubes for treatment of loculated empyemas in the anterior and posterior inferior left hemithorax. Please see prior CT report for additional details. Fernando Diaz MD CT Angiography 07/06/17 0000 Signed Impressions: Service Date/Time: Thursday, July 06, 2017 20:36 - CONCLUSION: 1. No PE is identified. 2. As expected from the chest x-ray there is a pleural-parenchymal process for the cause of the shortness of breath and cough. There are findings indicating aspiration with partially cavitary consolidation in the left lower lobe. There is a moderate size loculated left pleural effusion with adjacent compressive atelectasis. Holden Myers MD Objective Remarks GENERAL: 71-year-old male, resting in bed in currently orotracheally intubated SKIN: Warm and dry. No rash HEAD: Atraumatic. Normocephalic. Large almanza EYES: Pupils equal and round about 3 mm bilaterally and reactive. No scleral icterus. No injection or drainage. ENT: No nasal bleeding or discharge. Mucous membranes pink and moist. NECK: Trachea midline. No JVD. CARDIOVASCULAR: Tachycardic, RR.. S1, S2. No S4. 2/6 pansystolic murmur RESPIRATORY: Diminished breath sounds left lower lobe.. 2 chest left-sided - 40 cm H2O minimal sinus output GASTROINTESTINAL: Abdomen soft, non-tender, nondistended. Cachectic. MUSCULOSKELETAL: Extremities with no peripheral edema NEUROLOGICAL: Currently orotracheally intubated. Prior to intubation was following commands very anxious. Cranial nerve II through XII are most intact. Moves to command all 4 extremities spontaneously. Procedures LEFT SIDE CHEST TUBES FOR EMPYEMA AND FLUID 11-7 A/P Assessment and Plan Neuro/Psych: Patient is currently on propofol/fentanyl drips for sedation/analgesia while intubated. We'll change to dexmedetomidine drip Goal of RASS -2 Daily sedation vacation CV: History of atrial fibrillation currently normal sinus rhythm Congestive heart failure/chronic systolic ejection fraction 15% 2016 Hypertension Elevated troponin Patient is currently on phenylephrine drip at 40 per minute and norepinephrine drip at 4 g per minute to maintain mean arterial pressure 65 Home medications include carvedilol 12.5 mg twice a day currently on hold Home medications furosemide 20 mg daily will be held. EKG admission revealed Q waves in anteroseptal leads. Will repeat check EKG today. Routine 2-D echocardiogram ordered. Cycle troponins. Consulted Dr. Mottas, cardiology. Initiate baby aspirin 81 mg daily. Not a chronic for systemic anticoagulation due to large thrombus/clot in left main bronchus removed yesterday Resp: Acute hypoxemic respiratory failure COPD Left empyema PRVC 20/500/09/07/49 Ventilator bundle Albuterol/ipratropium aerosol every 4 hours with albuterol aerosols every 2 hours. Dyspnea Follow-up chest x-ray and ABG post intubation Add budesonide 0.5/2 1 inhalation twice a day Pulmonary and ID following for empyema Maintain chest tubes is -40 cm H2O GI: Hypoalbuminemia NGT to LIWS Pantoprazole for GI prophylaxis Docusate sodium/senna for bowel regimen : [place] will be placed for accurate I's and O's in a critically ill patient Endo: Graves' disease/hyperthyroidism Continue methimazole 10 mg daily. TSH 0.005. T3 and T4 both elevated. Sliding-scale insulin with Accu-Cheks to maintain euglycemia Renal: Creatinine currently within normal limits Monitor urine output Accurate I's and O's Heme: Leukocytosis Normocytic anemia Chronic rivaroxaban use Anticoagulation currently on hold. Recent chest 2. Resume when clinically indicated Monitor CBC daily. Follow trends ID: Blood cultures 07/06 no growth Cultures from left empyema currently pending Infectious disease following Currently on levofloxacin and aztreonam day #1 MSK: PT evaluate and treat FEN: Hyponatremia Replace electrolytes as clinically indicated Access - Right IJ CVL day 1 placed 07/07 Prophylaxis - GI - pantoprazole - DVT - SCD/pharmacological prophylaxis likely resume in a.m. Critical Care: The total critical care time was 35 minutes. Time to perform other separately billable procedures was not included in the critical care time. Alejandro Telles MD Jul 08, 2017 16:10
--- NOTE | 2017-07-08 16:11 | PD.PROCEDR ---
Central Line Procedure REASON FOR PROCEDURE Central venous access PROCEDURE PERFORMED Central line placement: Right IJ CVL CONSENT Informed consent for procedure was obtained. The risks and benefits of the procedure were discussed to include but limited to bleeding, clot formation, infection, and even . ANESTHESIA Local injection of 1% Lidocaine DESCRIPTION OF THE PROCEDURE The patient was placed in supine, mild Trendelenburg position. The area was exposed and cleansed with ChloraPrep, times two. Large sterile drape was used to cover the patient, with the site exposed, under sterile conditions including cap, face mask, sterile gown, and sterile gloves. On single attempt, the introducer needle was inserted with negative pressure in syringe and venous flash was obtained. The guide wire was then advanced without any restriction and the needle was removed. The dilator was used without any complications. Using Seldinger technique the antibiotic triple lumen catheter was advanced over the guide wire to a depth of 15 centimeters. The guide wire was removed. All ports were aspirated with dark venous blood return and flushed easily with sterile saline. All ports were capped. Antibiotic disc was placed around central line at puncture site. The central line was secured to the skin with two interrupted 2.0 silk sutures. The area was bandaged with sterile see- through central line bandage. RADIOLOGICAL DATA Ultrasound guidance was used to locate the right internal jugular vein. Doppler /color flow was used to confirm venous flow. COMPLICATIONS: No apparent complications ESTIMATED BLOOD LOSS: Less than 1 cc. Alejandro Telles MD Jul 08, 2017 16:11
[2017-07-08] MEDS ORDERED: SODIUM CHLORIDE 0.9% FLUSH 10 ML FLUSH IV FLUSH PRN (16:15)
[2017-07-08] MEDS: VANCOMYCIN INJ 750 MG in SODIUM CHLOR 0.9% 250 ML INJ 250 ML IV SCH (16:53)
--- NOTE | 2017-07-08 16:55 | MB ---
cc: RAY CARPENTER M.D. DATE OF CONSULTATION: 07/08/2017 REASON FOR CONSULTATION: Severe cardiomyopathy, respiratory failure. HISTORY OF PRESENT ILLNESS History is obtained from the electronic medical records. The patient is currently intubated and sedated. He is a 71-year-old white male with a history of severe dilated cardiomyopathy initially diagnosed November 2015, although with improvement of the cardiomyopathy over the next few months, history of bilateral pulmonary emboli November 2015 who presented to the hospital with increasing shortness of breath. Apparently he has also been having hemoptysis. The patient subsequently has been intubated and placed on mechanical ventilation. Echocardiogram is currently pending but reportedly shows severely reduced ejection fraction. PAST MEDICAL HISTORY 1. Severe dilated cardiomyopathy initially diagnosed November 2015 at which time his ejection fraction was 15-20% by echo. He did have another echo June 11, 2016 showing improvement in his ejection fraction of 50%. 2. History of bilateral small pulmonary emboli November 2015. 3. COPD. CARDIAC MEDICATIONS AT HOME: 1. Xarelto 20 mg daily. 2. Lasix 20 mg daily. 3. Enalapril 2.5 mg daily. 4. Carvedilol 12.5 mg b.i.d. 5. Potassium chloride 20 milliequivalents b.i.d. 6. Magnesium oxide 400 mg daily. ALLERGIES Penicillin FAMILY HISTORY Noncontributory. SOCIAL HISTORY The patient smokes about a [id number] of cigarettes per day. There is no history of alcohol abuse. REVIEW OF SYSTEMS Currently unobtainable. PHYSICAL EXAMINATION: On physical examination his blood pressure is 106/60 with a pulse of 130, respirations 16. GENERAL: the patient is a well-developed, emaciated white male currently intubated and sedated. HEENT: Jugular venous pressure is hard to assess, it appears to be normal. Carotid pulses are 2+ bilaterally. CHEST: Examination of the chest reveals clear lung xiao anteriorly. CARDIAC: On cardiac examination he has a tachycardiac regular rhythm without S3-S4 or murmur. ABDOMEN: On abdominal examination he has a soft abdomen. Bowel sounds are present. There is no definite hepatosplenomegaly. EXTREMITIES: Examination of the extremities reveals no clubbing, cyanosis or edema. LABORATORY DATA: Laboratory data includes WBC 16.2, hemoglobin 8.9, platelets 539, potassium 4.0, BUN 30, creatinine 0.73, CK 60, troponin 2.22, total cholesterol 81, LDL 27, HDL 29, triglycerides 125. IMPRESSION Pneumonia, respiratory failure in this 71-year-old white male with a history of COPD, pulmonary emboli, dilated cardiomyopathy which had for the most part resolved last year, initially with an ejection fraction of 20% in November and then 50% in May of last year. At this time echocardiogram report is pending. His blood pressures are low, necessitating pressor support. There is no definitive evidence for acute congestive heart failure. His respiratory failure appears to be more pulmonary and infectious in etiology. The Xarelto he had been taking at home was not being used for cardiac purposes. He has no documented history of atrial fibrillation. He was on Xarelto for history of pulmonary emboli. RECOMMENDATIONS 1. Continue ventilatory support and pulmonary therapy. 2. Will await his 2-D echo. 3. When his blood pressures have improved would resume his usual home cardiac medications. MD FLORES Kellogg/ANTHONY /3:48 PM /4:44 PM KIM
--- NOTE | 2017-07-08 17:25 | RADRPT ---
EXAM DATE/TIME: 07/08/2017 16:47 [facility] COMPARISON: CHEST SINGLE AP, July 07, 2017, 21:15. INDICATIONS : Central line placement. MEDICAL HISTORY : Hypertension. Congestive heart failure. Chronic obstructive pulmonary disease. SURGICAL HISTORY : None. ENCOUNTER: Initial ACUITY: 1 day PAIN SCORE: Non-responsive. LOCATION: Bilateral chest FINDINGS: There is a right IJ central line with tip in the proximal SVC. There is a stable ETT. Interval placem ent of nasogastric catheter with tip just within the stomach. Stable chest tubes in the left lower he mithorax with stable airspace consolidation and loculated pneumothoraces in the inferior left hemitho rax. Cardiomediastinal are stable. Remainder of the exam is unchanged. CONCLUSION: 1. Right IJ central line in the SVC. No pneumothorax. 2. ETT in good position. NGT just within the stomach. 3. Stable left-sided chest tubes. 4. Remainder of the exam is unchanged. Fernando Diaz MD on July 08, 2017 at 17:22 Board Certified Radiologist. This report was verified electronically.
[2017-07-08 17:53] LABS: HEMOGLOBIN A1a 0.9 %; HEMOGLOBIN A1b 2.2 %; HEMOGLOBIN Ao 82.8 %; HEMOGLOBIN LA1C 2.4 %; HEMOGLOBIN P3 6.4 %
--- NOTE | 2017-07-08 18:45 | HHI.PR ---
Subjective Remarks worsening respiratory failure now on vent support left chest tubes in place Objective Laboratory Tests Test 07/06/17 19:20 07/06/17 21:40 07/06/17 21:53 07/07/17 02:19 White Blood Count 11.7 TH/MM3 (4.0-11.0) Red Blood Count 3.51 MIL/MM3 (4.50-5.90) Hemoglobin 10.5 GM/DL (13.0-17.0) Hematocrit 32.3 % (39.0-51.0) Platelet Count 471 TH/MM3 (150-450) Neutrophils (%) (Auto) 83.2 % (16.0-70.0) Neutrophils # (Auto) 9.7 TH/MM3 (1.8-7.7) Blood Urea Nitrogen 40 MG/DL (7-18) Random Glucose 185 MG/DL (74-106) Albumin 1.5 GM/DL (3.4-5.0) Alkaline Phosphatase 165 U/L (45-117) Sodium Level 132 MEQ/L (136-145) Chloride Level 94 MEQ/L (98-107) Estimat Glomerular Filtration Rate 71 ML/MIN (>89) Total Creatine Kinase 21 U/L (39-308) Troponin I LESS THAN 0.02 NG/ML Blood Gas HCO3 30 mmol/L (22-26) Blood Gas Base Excess 6.5 mmol/L (-2-2) Arterial Blood pH 7.47 (7.380-7.420) Blood Gas Hemoglobin 10.3 G/DL (12.0-16.0) Test 07/07/17 03:30 07/07/17 10:50 07/07/17 15:05 07/07/17 19:20 White Blood Count 12.3 TH/MM3 (4.0-11.0) Red Blood Count 3.13 MIL/MM3 (4.50-5.90) Hemoglobin 9.4 GM/DL (13.0-17.0) Hematocrit 28.9 % (39.0-51.0) Neutrophils (%) (Auto) 88.5 % (16.0-70.0) Neutrophils # (Auto) 10.9 TH/MM3 (1.8-7.7) Blood Urea Nitrogen 37 MG/DL (7-18) Albumin 1.4 GM/DL (3.4-5.0) Calcium Level 8.2 MG/DL (8.5-10.1) Alkaline Phosphatase 146 U/L (45-117) Sodium Level 135 MEQ/L (136-145) Free Thyroxine 2.24 NG/DL (0.76-1.46) Free Triiodothyronine (T3) pg/dL 1.80 PG/ML (2.18-3.98) Thyroid Stimulating Hormone 3rd Gen LESS THAN 0.005 uIU/ML Prothrombin Time 14.2 SEC (9.8-11.6) Pleural Fluid WBC 625352 /MM3 (0-10) Pleural Fluid RBC 783102 /MM3 (0-0) Blood Gas Oxygen Saturation 83 % (90-100) Arterial Blood Partial Pressure O2 55 mmHg (61-120) Arterial Blood Oxygen Content 20.2 Vol % (12.0-20.0) Blood Gas Hemoglobin 17.3 G/DL (12.0-16.0) Test 07/07/17 19:25 07/08/17 04:15 07/08/17 05:49 07/08/17 08:00 Venous Blood pH 7.35 (7.360-7.400) Venous Blood Oxygen Saturation 56 % (70-76) Venous Blood Oxygen Content 7.9 Vol % (9.0-17.0) Prothrombin Time 12.0 SEC (9.8-11.6) Fibrinogen 123 mg/dL (227-377) White Blood Count 16.2 TH/MM3 (4.0-11.0) Red Blood Count 2.95 MIL/MM3 (4.50-5.90) Hemoglobin 8.9 GM/DL (13.0-17.0) Hematocrit 27.5 % (39.0-51.0) Platelet Count 539 TH/MM3 (150-450) Neutrophils (%) (Auto) 89.0 % (16.0-70.0) Lymphocytes (%) (Auto) 7.9 % (9.0-44.0) Neutrophils # (Auto) 14.5 TH/MM3 (1.8-7.7) Blood Urea Nitrogen 30 MG/DL (7-18) Total Protein 6.2 GM/DL (6.4-8.2) Albumin 1.3 GM/DL (3.4-5.0) Calcium Level 7.8 MG/DL (8.5-10.1) Sodium Level 133 MEQ/L (136-145) Troponin I 2.22 NG/ML (0.02-0.05) Cholesterol Level 81 MG/DL (120-200) HDL Cholesterol 29.4 MG/DL (40.0-60.0) Free Thyroxine 1.52 NG/DL (0.76-1.46) Thyroid Stimulating Hormone 3rd Gen LESS THAN 0.005 uIU/ML Vital Signs Date Time Temp Pulse Resp B/P (MAP) Pulse Ox O2 Delivery O2 Flow Rate FiO2 07/08/17 18:26 123 07/08/17 18:24 123 07/08/17 18:22 124 07/08/17 18:20 123 07/08/17 18:18 125 07/08/17 18:16 125 07/08/17 18:14 124 07/08/17 18:12 126 07/08/17 18:10 127 07/08/17 18:08 128 07/08/17 18:06 130 07/08/17 18:04 133 07/08/17 18:02 135 07/08/17 18:00 125 07/08/17 17:10 98 50 07/08/17 16:38 121 07/08/17 16:38 121 13 100/57 (71) 97 07/08/17 16:36 122 07/08/17 16:36 122 15 98/54 (69) 97 07/08/17 16:34 121 07/08/17 16:34 121 14 95/54 (68) 97 07/08/17 16:32 122 07/08/17 16:32 122 19 90/52 (65) 97 07/08/17 16:30 122 18 95/52 (66) 97 07/08/17 16:30 122 07/08/17 16:28 124 07/08/17 16:28 124 19 90/53 (65) 96 07/08/17 16:26 125 07/08/17 16:26 125 17 90/53 (65) 96 07/08/17 16:24 124 19 88/50 (63) 96 07/08/17 16:24 124 07/08/17 16:22 126 07/08/17 16:22 126 19 87/52 (64) 96 07/08/17 16:20 128 07/08/17 16:20 128 18 96/57 (70) 96 07/08/17 16:18 129 07/08/17 16:18 129 19 104/65 (78) 98 07/08/17 16:16 127 17 100/59 (73) 97 07/08/17 16:16 127 07/08/17 16:14 127 07/08/17 16:14 127 16 99/59 (72) 97 07/08/17 16:12 127 16 98/54 (69) 97 07/08/17 16:12 127 07/08/17 16:10 125 07/08/17 16:10 125 18 97/55 (69) 98 07/08/17 16:08 124 16 99/57 (71) 98 07/08/17 16:08 124 07/08/17 16:06 127 17 96/55 (69) 97 07/08/17 16:06 127 07/08/17 16:04 125 07/08/17 16:04 125 25 100/59 (73) 97 07/08/17 16:02 125 07/08/17 16:02 125 19 100/60 (73) 97 07/08/17 16:00 125 18 91/54 (66) 97 07/08/17 16:00 125 07/08/17 16:00 50 07/08/17 14:34 128 07/08/17 14:00 133 07/08/17 12:39 135 07/08/17 12:36 137 07/08/17 12:34 125 07/08/17 12:32 123 07/08/17 12:30 123 07/08/17 12:28 124 07/08/17 12:26 124 07/08/17 12:24 123 07/08/17 12:22 123 07/08/17 12:20 124 07/08/17 12:18 123 07/08/17 12:16 123 07/08/17 12:14 123 07/08/17 12:12 123 07/08/17 12:10 125 07/08/17 12:08 124 07/08/17 12:06 124 07/08/17 12:04 125 07/08/17 12:02 124 07/08/17 12:00 124 07/08/17 12:00 98.5 07/08/17 12:00 50 07/08/17 11:11 99 50 07/08/17 10:38 126 07/08/17 10:36 126 07/08/17 10:34 127 07/08/17 10:32 125 07/08/17 10:30 125 07/08/17 10:28 126 07/08/17 10:26 126 07/08/17 10:24 126 07/08/17 10:22 127 07/08/17 10:20 128 07/08/17 10:18 128 07/08/17 10:16 128 07/08/17 10:14 129 07/08/17 10:12 130 07/08/17 10:10 133 07/08/17 10:08 134 07/08/17 10:06 134 07/08/17 10:04 134 07/08/17 10:02 134 07/08/17 10:00 134 07/08/17 09:22 133 106/60 07/08/17 09:22 133 106/60 07/08/17 09:04 127 07/08/17 08:44 128 07/08/17 08:42 129 07/08/17 08:42 129 16 88/54 (65) 89 07/08/17 08:40 130 16 86/53 (64) 90 07/08/17 08:40 130 07/08/17 08:38 130 16 89/58 (68) 91 07/08/17 08:38 130 07/08/17 08:36 134 16 105/63 (77) 92 07/08/17 08:36 134 07/08/17 08:34 134 07/08/17 08:34 134 15 102/60 (74) 92 07/08/17 08:32 132 07/08/17 08:32 132 16 100/57 (71) 92 07/08/17 08:30 132 16 98/56 (70) 93 07/08/17 08:30 132 07/08/17 08:28 129 07/08/17 08:28 129 16 97/55 (69) 93 07/08/17 08:26 129 16 97/53 (68) 93 07/08/17 08:26 129 07/08/17 08:24 129 07/08/17 08:24 129 16 95/50 (65) 94 07/08/17 08:22 129 16 93/52 (66) 94 07/08/17 08:22 129 07/08/17 08:20 128 16 92/57 (69) 95 07/08/17 08:20 128 07/08/17 08:18 127 16 93/57 (69) 96 07/08/17 08:18 127 07/08/17 08:09 126 07/08/17 08:09 126 16 86/52 (63) 99 07/08/17 08:08 119 07/08/17 08:08 119 16 52/32 (39) 97 07/08/17 08:06 124 16 60/41 (47) 98 07/08/17 08:06 124 07/08/17 08:04 123 16 93/55 (68) 100 07/08/17 08:04 123 07/08/17 08:02 124 16 91/56 (68) 99 07/08/17 08:02 124 07/08/17 08:00 124 07/08/17 08:00 100 07/08/17 08:00 124 16 90/56 (67) 100 07/08/17 07:49 100 100 07/08/17 06:37 91 100 07/08/17 06:00 125 07/08/17 04:59 128 96/57 07/08/17 04:15 94 50 07/08/17 04:00 98.6 120 16 113/67 (82) 97 07/08/17 04:00 50 07/08/17 04:00 120 07/08/17 02:00 116 07/08/17 01:09 114 116/70 07/08/17 01:07 113 115/99 07/08/17 00:00 110 16 117/63 (81) 99 07/08/17 00:00 80 07/08/17 00:00 110 07/07/17 23:00 98.4 116 16 112/61 (78) 99 07/07/17 22:57 118 110/62 07/07/17 22:00 133 07/07/17 21:54 100 100 07/07/17 20:00 118 07/07/17 20:00 100 99 07/07/17 19:00 131 21 131/65 (87) 89 I/O 07/07/17 07/07/17 07/07/17 07/08/17 07/08/17 07/08/17 07:00 15:00 23:00 07:00 15:00 23:00 Intake Total 750 ml 100 ml 0 ml 1219 ml Output Total 400 ml 200 ml 902 ml 440 ml 263 ml Balance 350 ml -200 ml -802 ml -440 ml 956 ml Intake Oral 0 ml 0 ml 0 ml IV Total 750 ml 100 ml 990 ml Tube Feeding 109 ml Other 120 ml Output Urine Total 400 ml 200 ml 900 ml 400 ml 3 ml Stool Total 2 ml 0 ml Chest Tube Drainage Total 40 ml 260 ml # Bowel Movements 0 1 Result Diagram: 07/08/17 0549 07/08/17 0800 Assessment and Plan Assessment and Plan respiratory failure empyema chf ef 15% severe cachexia plan VENT SUPPORT ANTIBIOTICS THERAPY FOR CHF CT DRAINAGE OUTLOOK POOR Harley Souza MD Jul 08, 2017 18:45
--- NOTE | 2017-07-08 18:48 | ECHRPT ---
Indication: EF assessment of CHF CONCLUSIONS Normal left ventricular size. Wall thickness is normal. The left ventricular systolic function is severely reduced with an estimated ejection fraction less than 20%. There is diffuse global hypokinesis. BP: 113 / 67 HR: Rhythm: Sinus MEASUREMENTS (Male / Female) Normal Values Technical Quality:Poor 2D ECHO LV Diastolic Diameter PLAX 4.9 cm 4.2 - 5.9 / 3.9 - 5.3 cm LV Systolic Diameter PLAX 4.7 cm IVS Diastolic Thickness 0.6 cm 0.6 - 1.0 / 0.6 - 0.9 cm LVPW Diastolic Thickness 0.6 cm 0.6 - 1.0 / 0.6 - 0.9 cm LV Relative Wall Thickness 0.2 LVOT Diameter 2.0 cm Aortic Root Diameter 3.0 cm LA Systolic Diameter LX 2.3 cm 3.0 - 4.0 / 2.7 - 3.8 cm M-MODE AV Cusp Separation MM 1.8 cm DOPPLER LV E' Lateral Velocity 9.9 cm/s LV E' Septal Velocity 5.2 cm/s FINDINGS LEFT VENTRICLE Normal left ventricular size. Wall thickness is normal. The left ventricular systolic function is severely reduced with an estimated ejection fraction less than 20%. There is diffuse global hypokinesis. Brittney Kovacs MD, FACC (Electronically Signed) Final Date:08 July 2017 18:48
[2017-07-08] MEDS: LEVOFLOXACIN 750 MG PREMIX INJ 150 ML IV SCH (22:15)
[2017-07-09] VITALS (45 sets, daily range): BP systolic 69–121; BP diastolic 46–70; PULSE 93–152; RESP 15–26; TEMP 98.1–99.3; O2SAT 91–97
[2017-07-09] MEDS: RESP: ALBUTEROL 2.5 MG/IPRATROPIUM 0.5 MG NEB (SCH) NEB ×7 (00:15→23:42)
[2017-07-09] MEDS: AZTREONAM INJ 2,000 MG in SODIUM CHLORIDE 0.9% INJ 100 ML IV SCH ×4 (00:24→23:51)
[2017-07-09] MEDS: fentaNYL 2,500 MCG/NS 250 ML IV PRN ×2 (01:50→14:00)
[2017-07-09] MEDS: DEXMEDETOMIDINE INJ 200 MCG in SODIUM CHLORIDE 0.9% INJ 50 ML IV PRN (02:49)
[2017-07-09] MEDS: CHLORHEXIDINE GLUCONATE 2 % 1 PACK (2 CLOTHS)(taper/protocol) TOPICAL SCH (04:00)
[2017-07-09] MEDS: INSULIN NovoLIN REGULAR SUPPLEMENTAL SCALE SQ SCH ×7 (04:00→23:51)
[2017-07-09 04:20] LABS: AUTOMATED NEUTROPHIL # 20.3 TH/MM3 (1.8-7.7); BASOPHIL % 0.1 % (0.0-2.0); HEMATOCRIT 28.1 % (39.0-51.0); LYMPH % 6.7 % (9.0-44.0); LYMPHOCYTE # 1.5 TH/MM3 (1.0-4.8); MEAN CELL VOLUME 91.4 FL (80.0-100.0); MEAN CORPUSCULAR HEMOGLOBIN 30.7 PG (27.0-34.0); MEAN CORPUSCULAR HGB CONC 33.7 % (32.0-36.0); MONO % 2.4 % (0.0-8.0); NEUT % 90.8 % (16.0-70.0); PLATELET COUNT 486 TH/MM3 (150-450); RED BLOOD COUNT 3.07 MIL/MM3 (4.50-5.90); WHITE BLOOD COUNT 22.4 TH/MM3 (4.0-11.0)
[2017-07-09 04:21] LABS: HEMO FLAGS AUTO DIFF
[2017-07-09 04:31] LABS: ANION GAP 9 MEQ/L (5-15); AST (GOT) 23 U/L (15-37); BICARBONATE 22.4 MEQ/L (21.0-32.0); BLOOD UREA NITROGEN 37 MG/DL (7-18); CHLORIDE 96 MEQ/L (98-107); GLOMERULAR FILTRATION RATE 79 ML/MIN (>89); MAGNESIUM 1.6 MG/DL (1.5-2.5); SODIUM (NA) 127 MEQ/L (136-145)
[2017-07-09 04:37] LABS: ALKALINE PHOSPHATASE 110 U/L (45-117); ALT (GPT) 22 U/L (12-78); TOTAL BILIRUBIN ADULT 0.2 MG/DL (0.2-1.0)
--- NOTE | 2017-07-09 06:04 | RADRPT ---
EXAM DATE/TIME: 07/09/2017 03:50 [facility] COMPARISON: CHEST SINGLE AP, July 08, 2017, 16:47. INDICATIONS : Shortness of breath, possible pulmonary disease. MEDICAL HISTORY : Hypertension. Congestive heart failure. Chronic obstructive pulmonary disease. SURGICAL HISTORY : None. ENCOUNTER: Subsequent ACUITY: 3 days PAIN SCORE: Non-responsive. LOCATION: Bilateral chest FINDINGS: The cardiac silhouette is enlarged in transverse diameter. The right lung is free of acute parenchyma l opacity. There is patchy alveolar disease on the left compatible with edema or pneumonia. 2 left-si ded chest tubes are in place. There is no evidence of pneumothorax. CONCLUSION: 1. Left-sided edema versus pneumonia. There has been no significant change when compared to the prior exam. 2. Nasogastric tube at the gastroesophageal junction this could be advanced 5-10 cm Alessio Singh MD on July 09, 2017 at 6:01 Board Certified Radiologist. This report was verified electronically.
[2017-07-09] MEDS: methylPREDNISolone SOD SUCC 40 MG/1 ML VIAL IV PUSH SCH (06:11)
[2017-07-09] MEDS: VANCOMYCIN INJ 750 MG in SODIUM CHLOR 0.9% 250 ML INJ 250 ML IV SCH ×2 (06:11→18:25)
[2017-07-09] MEDS: ARTIFICIAL TEARS OPTH SOLN 15 ML BTL EACH EYE SCH ×3 (06:12→22:07)
[2017-07-09] MEDS: PHENYLEPHRINE 40 MG in D5W 500 ML IV PRN (06:14)
[2017-07-09 07:03] LABS: BANDS 15 % (0-6); NEUTROPHIL # MANUAL DIFF 19.3 TH/MM3 (1.8-7.7); PLATELET ESTIMATE SMEAR HIGH (NORMAL); PLATELET MORPHOLOGY NORMAL (NORMAL); POLYS (SEG NEUTROPHILS) 71 % (16-70); SCAN/DIFF FINAL DIFF MANUAL; WBC DIFF SAMPLE 100
[2017-07-09 07:04] LABS: TOXIC GRANULATION 1+ (NORMAL)
--- NOTE | 2017-07-09 08:07 | PD.CARD.PN ---
Subjective Subjective Remarks Intubated. Sedated. Objective Medications Item Value Date Time Aspirin 81 mg 07/09/17 0900 (Aspirin Chew) DAILY/CHEW Norepinephrine 250 ml @ 7.5 mls/hr 07/08/17 0000 Bitartrate TITRATE PRN/IV 07/08/17 2345 Phenylephrine HCl 500 ml @ 30 mls/hr 07/07/17 2045 40 mg/Dextrose TITRATE PRN/IV 07/09/17 0614 Current Medications Medications (Trade) Dose Ordered Sig/Jessi Route Start Time Stop Time Status Last Admin (Coreg) 12.5 mg BID PO 07/07/17 09:00 Future Hold 07/07/17 08:03 (Vasotec) 2.5 mg DAILY PO 07/07/17 09:00 Future Hold 07/07/17 08:03 (Lasix) 20 mg DAILY PO 07/07/17 09:00 Future Hold 07/07/17 08:04 (Mag-Ox) 400 mg DAILY PO 07/07/17 09:00 07/07/17 08:04 (KCl) 20 meq BID PO 07/07/17 09:00 Future Hold 07/07/17 08:04 Aztreonam 2000 mg/ Sodium Chloride 100 ml @ 200 mls/hr Q8H IV 07/07/17 08:00 07/09/17 00:24 Levofloxacin/ Dextrose 150 ml @ 100 mls/hr Q24H IV 07/07/17 22:00 07/08/17 22:15 Sodium Chloride 1,000 ml @ 50 mls/hr Q20H IV 07/07/17 00:04 07/08/17 17:55 (NS Flush) 2 ml UNSCH PRN IV FLUSH 07/07/17 00:15 (NS Flush) 2 ml BID IV FLUSH 07/07/17 09:00 07/08/17 20:18 (Tylenol) 650 mg Q4H PRN PO 07/07/17 00:15 (Zofran Inj) 4 mg Q6H PRN IVP 07/07/17 00:15 (Narcan Inj) 0.4 mg UNSCH PRN IV PUSH 07/07/17 00:15 (Brenda-Colace) 1 tab BID PO 07/07/17 09:00 07/08/17 20:18 (Milk Of Magnesia Liq) 30 ml Q12H PRN PO 07/07/17 00:15 (Senokot) 17.2 mg Q12H PRN PO 07/07/17 00:15 (Dulcolax Supp) 10 mg DAILY PRN RECTAL 07/07/17 00:15 (Lactulose Liq) 30 ml DAILY PRN PO 07/07/17 00:15 (Duoneb Neb) 1 ampule Q4HR NEB NEB 07/07/17 04:00 07/09/17 04:03 Miscellaneous Information Patient in critical care unit? Ass... Q361D .XX 07/07/17 02:30 (Chlorhexidine 2% Cloth) 3 pack DAILY@04 TOPICAL 07/07/17 04:00 07/11/17 04:01 07/09/17 04:00 (Chlorhexidine 2% Cloth) 3 pack UNSCH PRN TOPICAL 07/07/17 02:30 07/12/17 02:18 (Habitrol 14 Mg Patch.24 Hr) 1 patch DAILY T-DERMAL 07/07/17 10:00 07/08/17 14:23 Miscellaneous Information 1 DAILY T-DERMAL 07/08/17 09:00 (Peridex 0.12% Liq) 15 ml BID@08,20 MT 07/07/17 20:00 07/08/17 20:18 Fentanyl Citrate 250 ml @ 5 mls/hr TITRATE PRN IV 07/07/17 18:30 07/09/17 01:50 (Brethine Inj) 1 mg UNSCH PRN SQ 07/07/17 18:30 (NS Flush) DAILY IV FLUSH 07/08/17 09:00 (NS Flush) UNSCH PRN IV FLUSH 07/07/17 18:45 (Albuterol Neb) 2.5 mg Q2HR NEB PRN NEB 07/07/17 19:30 (Pulmicort Respule Neb) 0.5 mg Q12HR NEB NEB 07/07/17 20:00 07/08/17 19:58 (SoluMEDROL INJ) 40 mg Q8HR IV PUSH 07/07/17 22:00 07/09/17 06:11 Phenylephrine HCl 40 mg/Dextrose 500 ml @ 30 mls/hr TITRATE PRN IV 07/07/17 20:45 07/09/17 06:14 Norepinephrine Bitartrate 250 ml @ 7.5 mls/hr TITRATE PRN IV 07/08/17 00:00 07/08/17 23:45 (Brethine Inj) 1 mg UNSCH PRN SQ 07/08/17 00:00 Dexmedetomidine HCl 200 mcg/ Sodium Chloride 52 ml @ 2.1 mls/hr TITRATE PRN IV 07/08/17 08:45 07/09/17 02:49 (Tapazole) 10 mg DAILY PO 07/09/17 09:00 (Aspirin Chew) 81 mg DAILY CHEW 07/09/17 09:00 (Tears Naturale Opth Soln) 1 drop Q8HR EACH EYE 07/08/17 14:00 07/09/17 06:12 (Beneprotein Powder) 1 pack TID G-TUBE 07/08/17 13:00 07/08/17 16:53 (D50w (Vial) Inj) 50 ml UNSCH PRN IV PUSH 07/08/17 11:00 (Glucagon Inj) 1 mg UNSCH PRN OTHER 07/08/17 11:00 (NovoLIN R SUPPLEMENTAL SCALE) 1 Q4HR SQ 07/08/17 12:00 07/09/17 04:00 Pharmacy Profile Note 0 ml @ 0 mls/hr UNSCH OTHER 07/08/17 15:00 Vancomycin HCl 750 mg/Sodium Chloride 257.5 ml @ 250 mls/hr Q12H IV 07/08/17 18:00 07/09/17 06:11 Miscellaneous Information SPECIFIC LAB TO BE DRAWN:VANCOMYCIN TROUGH DATE TO... ONCE ONCE .XX 07/10/17 05:45 07/10/17 05:46 Vital Signs / I&O Vital Signs Date Time Temp Pulse Resp B/P (MAP) Pulse Ox O2 Delivery O2 Flow Rate FiO2 07/09/17 06:14 108 99/58 07/09/17 06:00 109 07/09/17 04:03 97 40 07/09/17 04:00 126 07/09/17 04:00 40 07/09/17 04:00 98.1 126 16 119/65 (83) 97 07/09/17 02:00 120 07/09/17 01:07 125 103/62 07/09/17 00:06 96 40 07/09/17 00:00 99.3 125 16 87/54 (65) 95 07/09/17 00:00 125 07/09/17 00:00 40 07/08/17 23:45 123 86/57 07/08/17 23:00 125 17 90/54 (66) 93 07/08/17 22:17 96 40 07/08/17 22:00 99.5 126 17 88/52 (64) 97 07/08/17 22:00 126 07/08/17 21:00 122 17 106/57 (73) 97 07/08/17 20:54 122 89/52 07/08/17 20:38 117 07/08/17 20:36 118 07/08/17 20:34 118 07/08/17 20:32 121 07/08/17 20:30 118 07/08/17 20:28 119 07/08/17 20:26 116 07/08/17 20:24 119 07/08/17 20:22 120 07/08/17 20:20 121 07/08/17 20:18 119 07/08/17 20:16 116 07/08/17 20:14 117 07/08/17 20:12 116 07/08/17 20:10 116 07/08/17 20:08 117 07/08/17 20:06 117 07/08/17 20:04 118 07/08/17 20:02 118 07/08/17 20:00 40 07/08/17 20:00 121 17 91/53 (66) 94 07/08/17 20:00 121 07/08/17 19:50 100 50 07/08/17 19:15 112 80/52 07/08/17 19:00 116 17 98/55 (69) 98 07/08/17 19:00 116 98/55 07/08/17 18:26 123 07/08/17 18:24 123 07/08/17 18:22 124 07/08/17 18:20 123 07/08/17 18:18 125 07/08/17 18:16 125 07/08/17 18:14 124 07/08/17 18:12 126 07/08/17 18:10 127 07/08/17 18:08 128 07/08/17 18:06 130 07/08/17 18:04 133 07/08/17 18:02 135 07/08/17 18:00 125 07/08/17 17:10 98 50 07/08/17 16:38 121 07/08/17 16:38 121 13 100/57 (71) 97 07/08/17 16:36 122 07/08/17 16:36 122 15 98/54 (69) 97 07/08/17 16:34 121 07/08/17 16:34 121 14 95/54 (68) 97 07/08/17 16:32 122 07/08/17 16:32 122 19 90/52 (65) 97 07/08/17 16:30 122 18 95/52 (66) 97 07/08/17 16:30 122 07/08/17 16:28 124 07/08/17 16:28 124 19 90/53 (65) 96 07/08/17 16:26 125 07/08/17 16:26 125 17 90/53 (65) 96 07/08/17 16:24 124 19 88/50 (63) 96 07/08/17 16:24 124 07/08/17 16:22 126 07/08/17 16:22 126 19 87/52 (64) 96 07/08/17 16:20 128 07/08/17 16:20 128 18 96/57 (70) 96 07/08/17 16:18 129 07/08/17 16:18 129 19 104/65 (78) 98 07/08/17 16:16 127 17 100/59 (73) 97 07/08/17 16:16 127 07/08/17 16:14 127 07/08/17 16:14 127 16 99/59 (72) 97 07/08/17 16:12 127 16 98/54 (69) 97 07/08/17 16:12 127 07/08/17 16:10 125 07/08/17 16:10 125 18 97/55 (69) 98 07/08/17 16:08 124 16 99/57 (71) 98 07/08/17 16:08 124 07/08/17 16:06 127 17 96/55 (69) 97 07/08/17 16:06 127 07/08/17 16:04 125 07/08/17 16:04 125 25 100/59 (73) 97 07/08/17 16:02 125 07/08/17 16:02 125 19 100/60 (73) 97 07/08/17 16:00 125 18 91/54 (66) 97 07/08/17 16:00 125 07/08/17 16:00 50 07/08/17 14:34 128 07/08/17 14:00 133 07/08/17 12:39 135 07/08/17 12:36 137 07/08/17 12:34 125 07/08/17 12:32 123 07/08/17 12:30 123 07/08/17 12:28 124 07/08/17 12:26 124 07/08/17 12:24 123 07/08/17 12:22 123 07/08/17 12:20 124 07/08/17 12:18 123 07/08/17 12:16 123 07/08/17 12:14 123 07/08/17 12:12 123 07/08/17 12:10 125 07/08/17 12:08 124 07/08/17 12:06 124 07/08/17 12:04 125 07/08/17 12:02 124 07/08/17 12:00 124 07/08/17 12:00 98.5 07/08/17 12:00 50 07/08/17 11:11 99 50 07/08/17 10:38 126 07/08/17 10:36 126 07/08/17 10:34 127 07/08/17 10:32 125 07/08/17 10:30 125 07/08/17 10:28 126 07/08/17 10:26 126 07/08/17 10:24 126 07/08/17 10:22 127 07/08/17 10:20 128 07/08/17 10:18 128 07/08/17 10:16 128 07/08/17 10:14 129 07/08/17 10:12 130 07/08/17 10:10 133 07/08/17 10:08 134 07/08/17 10:06 134 07/08/17 10:04 134 07/08/17 10:02 134 07/08/17 10:00 134 07/08/17 09:22 133 106/60 07/08/17 09:22 133 106/60 07/08/17 09:04 127 07/08/17 08:44 128 07/08/17 08:42 129 07/08/17 08:42 129 16 88/54 (65) 89 07/08/17 08:40 130 16 86/53 (64) 90 07/08/17 08:40 130 07/08/17 08:38 130 16 89/58 (68) 91 07/08/17 08:38 130 07/08/17 08:36 134 16 105/63 (77) 92 07/08/17 08:36 134 07/08/17 08:34 134 07/08/17 08:34 134 15 102/60 (74) 92 07/08/17 08:32 132 07/08/17 08:32 132 16 100/57 (71) 92 07/08/17 08:30 132 16 98/56 (70) 93 07/08/17 08:30 132 07/08/17 08:28 129 07/08/17 08:28 129 16 97/55 (69) 93 07/08/17 08:26 129 16 97/53 (68) 93 07/08/17 08:26 129 07/08/17 08:24 129 07/08/17 08:24 129 16 95/50 (65) 94 07/08/17 08:22 129 16 93/52 (66) 94 07/08/17 08:22 129 07/08/17 08:20 128 16 92/57 (69) 95 07/08/17 08:20 128 07/08/17 08:18 127 16 93/57 (69) 96 07/08/17 08:18 127 07/08/17 08:09 126 07/08/17 08:09 126 16 86/52 (63) 99 07/08/17 08:08 119 07/08/17 08:08 119 16 52/32 (39) 97 07/08/17 08:06 124 16 60/41 (47) 98 07/08/17 08:06 124 07/08/17 08:04 123 16 93/55 (68) 100 07/08/17 08:04 123 07/08/17 08:02 124 16 91/56 (68) 99 07/08/17 08:02 124 I/O 07/08/17 07/08/17 07/08/17 07/09/17 07/09/17 07/09/17 07:00 15:00 23:00 07:00 15:00 23:00 Intake Total 0 ml 1219 ml 2263 ml Output Total 440 ml 263 ml 70 ml Balance -440 ml 956 ml 2193 ml Intake Oral 0 ml 0 ml 0 ml IV Total 990 ml 1764 ml Tube Feeding 109 ml 409 ml Tube Irrigant 90 ml Other 120 ml Output Urine Total 400 ml 3 ml Stool Total 0 ml 0 ml Chest Tube Drainage Total 40 ml 260 ml 70 ml # Voids 4 Physical Exam GENERAL: Well developed, very thin. Intubated. Sedated. HEENT: Jugular venous pressure is normal. CHEST: Lungs clear to auscultation anteriorly. CARDIAC: Regular rate and rhythm without S3, S4, or murmur. ABDOMEN: Soft, no hepatosplenomegaly. Bowel sounds present. EXTREMITIES: No clubbing, cyanosis, or edema. Laboratory Laboratory Tests Test 07/08/17 23:42 07/09/17 03:52 Troponin I 1.98 NG/ML 1.79 NG/ML White Blood Count 22.4 TH/MM3 Red Blood Count 3.07 MIL/MM3 Hemoglobin 9.4 GM/DL Hematocrit 28.1 % Mean Corpuscular Volume 91.4 FL Mean Corpuscular Hemoglobin 30.7 PG Mean Corpuscular Hemoglobin Concent 33.7 % Red Cell Distribution Width 15.0 % Platelet Count 486 TH/MM3 Mean Platelet Volume 8.4 FL Neutrophils (%) (Auto) 90.8 % Lymphocytes (%) (Auto) 6.7 % Monocytes (%) (Auto) 2.4 % Eosinophils (%) (Auto) 0.0 % Basophils (%) (Auto) 0.1 % Neutrophils # (Auto) 20.3 TH/MM3 Lymphocytes # (Auto) 1.5 TH/MM3 Monocytes # (Auto) 0.5 TH/MM3 Eosinophils # (Auto) 0.0 TH/MM3 Basophils # (Auto) 0.0 TH/MM3 CBC Comment AUTO DIFF Differential Total Cells Counted 100 Neutrophils % (Manual) 71 % Band Neutrophils % 15 % Lymphocytes % 8 % Monocytes % 6 % Neutrophils # (Manual) 19.3 TH/MM3 Differential Comment FINAL DIFF MANUAL Toxic Granulation 1+ Platelet Estimate HIGH Platelet Morphology Comment NORMAL Blood Urea Nitrogen 37 MG/DL Creatinine 0.94 MG/DL Random Glucose 168 MG/DL Total Protein 5.8 GM/DL Albumin 1.1 GM/DL Calcium Level 8.0 MG/DL Phosphorus Level 2.3 MG/DL Magnesium Level 1.6 MG/DL Alkaline Phosphatase 110 U/L Aspartate Amino Transf (AST/SGOT) 23 U/L Alanine Aminotransferase (ALT/SGPT) 22 U/L Total Bilirubin 0.2 MG/DL Sodium Level 127 MEQ/L Potassium Level 4.0 MEQ/L Chloride Level 96 MEQ/L Carbon Dioxide Level 22.4 MEQ/L Anion Gap 9 MEQ/L Estimat Glomerular Filtration Rate 79 ML/MIN Ammonia 31 MCMOL/L Imaging Last 24 hours Impressions Chest X-Ray 07/09/17 0600 Signed Impressions: Service Date/Time: July 03:50 - CONCLUSION: 1. Left-sided edema versus pneumonia. There has been no significant change when compared to the prior exam. 2. Nasogastric tube at the gastroesophageal junction this could be advanced 5-10 cm Alessio Singh MD Chest X-Ray 07/08/17 1609 Signed Impressions: Service Date/Time: Saturday, July 08, 2017 16:47 - CONCLUSION: 1. Right IJ central line in the SVC. No pneumothorax. 2. ETT in good position. NGT just within the stomach. 3. Stable left-sided chest tubes. 4. Remainder of the exam is unchanged. Fernando Diaz MD Assessment and Plan Problem List: (1) Dilated cardiomyopathy ICD Codes: I42.0 - Dilated cardiomyopathy Status: Acute Plan: EF on echo back down to 15-20% with global hypokinesis. EF had improved to 50% last year. Suspect etiology of his recurrent cardiomyopathy is non-ischemic. Respiratory failure appears more due to pneumonia than CHF. REC continue pressor support resume beta quynh, OLIVER-I when hemodynamically stable continue daily aspirin (2) Elevated troponin ICD Codes: R74.8 - Abnormal levels of other serum enzymes Status: Acute Plan: Small rises in troponin. Overall doubt due to severe CAD, but difficult to rule out. Patient seen in office recently, without any angina-like complaints. No acute ST/T changes on EKG. REC consider nuclear stress test when pulmonary/hemodynamic status stabilized continue daily aspirin Code Status full code Tima Lanza MD Jul 09, 2017 08:07
[2017-07-09] MEDS: NICOTINE 14 MG/24 HR PATCH T-DERMAL SCH (08:41)
--- NOTE | 2017-07-09 08:47 | HHI.CCPN ---
Subjective Remarks/Hospital Course This is a 71-year-old male. Date of admission 07/06/2017. Date of consultation 07/07/2017. Past medical history includes chronic systolic heart failure ejection fraction 15%, moderate to severe pulmonary hypertension, ongoing tobaccoism, COPD, hypertension, Graves' disease on methimazole, chronic rivaroxaban use. Patient is in the [facility] source of breath. CT pulmonary angiography revealed a loculated left-sided pleural effusion. Patient has been in the hospital service with consultation to infectious disease and pulmonology. Today, patient had 2 chest tubes placed in the left lung for moderate empyema. Glucose is currently 1 and LDH greater than 10,000 in sample pleural fluid. Postprocedure, patient became more short of breath. Follow chest x-ray revealed no obvious pneumothorax on the left. In discussion with patient, stated that he needed to be intubated and he agreed at that time. Patient was intubated using 20 mg etomidate and 50 milligrams rocuronium and a central line was placed 07/08: Remains on the ventilator and tachycardic. Noted elevated troponin. Not a candidate for anticoagulation due to large clots removed from left main bronchus overnight. We'll start on baby aspirin events see if tolerates. EKG follow-up pending. Noted Q waves in anteroseptal leads on admission. Repeat pending. Subjective 07/09: Remains on the ventilator. Currently full code. Tolerating tube feeds. Remains tachycardic. Switch methimazole to propylthiouracil and added hydrocortisone. Not a candidate for propranolol secondary to EF of 10%. Objective Vital Signs Date Time Temp Pulse Resp B/P (MAP) Pulse Ox O2 Delivery O2 Flow Rate FiO2 07/09/17 06:14 108 99/58 07/09/17 04:03 97 40 07/09/17 04:00 98.1 16 07/07/17 07:43 Nasal Cannula 3.00 Intake and Output 07/09/17 07/09/17 07/10/17 08:00 16:00 00:00 Intake Total 1863 ml Output Total 70 ml Balance 1793 ml Result Diagram: 07/09/17 0352 07/09/17 0352 Other Results Microbiology Date/Time Source Procedure Growth Status 07/06/17 21:53 Blood Peripheral Aerobic Blood Culture - Preliminary NO GROWTH IN 2 DAYS Resulted 07/06/17 21:53 Blood Peripheral Anaerobic Blood Culture - Preliminary NO GROWTH IN 2 DAYS Resulted 07/07/17 15:05 Fluid Pleural Fluid Fungal Smear - Final NO FUNGAL ELEMENTS SEEN. Resulted 07/07/17 15:05 Fluid Pleural Fluid Fungal Culture Pending Resulted Imaging Last Impressions Chest X-Ray 07/09/17 0600 Signed Impressions: Service Date/Time: July 03:50 - CONCLUSION: 1. Left-sided edema versus pneumonia. There has been no significant change when compared to the prior exam. 2. Nasogastric tube at the gastroesophageal junction this could be advanced 5-10 cm Alessio Singh MD Chest Tube Insertion 07/07/17 0000 Signed Impressions: Service Date/Time: Friday, July 07, 2017 14:24 - CONCLUSION: 1. Uncomplicated CT-guided placement of 16 Hebrew pigtail chest tubes for treatment of loculated empyemas in the anterior and posterior inferior left hemithorax. Please see prior CT report for additional details. Fernando Diaz MD CT Angiography 07/06/17 0000 Signed Impressions: Service Date/Time: Thursday, July 06, 2017 20:36 - CONCLUSION: 1. No PE is identified. 2. As expected from the chest x-ray there is a pleural-parenchymal process for the cause of the shortness of breath and cough. There are findings indicating aspiration with partially cavitary consolidation in the left lower lobe. There is a moderate size loculated left pleural effusion with adjacent compressive atelectasis. Holden Myers MD Objective Remarks GENERAL: 71-year-old male, resting in bed in currently orotracheally intubated SKIN: Warm and dry. No rash HEAD: Atraumatic. Normocephalic. Large almanza EYES: Pupils equal and round about 3 mm bilaterally and reactive. No scleral icterus. No injection or drainage. ENT: No nasal bleeding or discharge. Mucous membranes pink and moist. NECK: Trachea midline. No JVD. CARDIOVASCULAR: Tachycardic, RR.. S1, S2. No S4. 2/6 pansystolic murmur RESPIRATORY: Diminished breath sounds left lower lobe.. 2 chest left-sided - 40 cm H2O minimal sinus output GASTROINTESTINAL: Abdomen soft, non-tender, nondistended. Cachectic. MUSCULOSKELETAL: Extremities with no peripheral edema NEUROLOGICAL: Currently orotracheally intubated. Prior to intubation was following commands very anxious. Cranial nerve II through XII are most intact. Moves to command all 4 extremities spontaneously. Procedures LEFT SIDE CHEST TUBES FOR EMPYEMA AND FLUID 11- Vascular Central Line Catheter: Yes Assessment to: Continue Date of Insertion: Jul 08, 2017 Line: Central Venous Catheter Side: Right Location: Internal, Jugular A/P Assessment and Plan Neuro/Psych: Patient is currently on dexmedetomidine at 0.6 g per kilo per hour/fentanyl drips at 150 mg an hour for sedation/analgesia while intubated. Goal of RASS -2 Daily sedation vacation CV: History of atrial fibrillation currently normal sinus rhythm Congestive heart failure/chronic systolic ejection fraction 15% 2015 Hypertension Elevated troponin Patient is currently on phenylephrine drip at 80 per minute and norepinephrine drip at 12 g per minute to maintain mean arterial pressure 65 Home medications include carvedilol 12.5 mg twice a day currently on hold Home medications furosemide 20 mg daily will be held. EKG admission revealed Q waves in anteroseptal leads. Will repeat check EKG today. 07/08 2-D echocardiogram EF less than 20%. Global hypokinesis. Cycle troponins. Consulted Dr. Munoz's, cardiology. Appreciate Initiate baby aspirin 81 mg daily. Not a chronic for systemic anticoagulation due to large thrombus/clot in left main bronchus removed yesterday Resp: Acute hypoxemic respiratory failure COPD Left empyema PRVC 20/500///50 Ventilator bundle Albuterol/ipratropium aerosol every 4 hours with albuterol aerosols every 2 hours. Dyspnea Follow-up chest x-ray and ABG post intubation Continue budesonide 0.5/2 1 inhalation twice a day Pulmonary and ID following for empyema - gram-positive cocci Maintain chest tubes is -40 cm H2O GI: Hypoalbuminemia Started on tube feedings Jevity 1.5 goal 50 cc an hour Pantoprazole for GI prophylaxis Docusate sodium/senna for bowel regimen : Norton will be placed for accurate I's and O's in a critically ill patient Endo: Graves' disease/hyperthyroidism - early thyroid storm? Switch methimazole 10 mg daily. Propylthiouracil 100 mg every 4 hours daily and add HC 100 mg every 8 hours. - Not a candidate for propranolol secondary to EF of around 10% TSH 0.005. T3 and T4 both elevated. Sliding-scale insulin with Accu-Cheks to maintain euglycemia Renal: Creatinine currently within normal limits Monitor urine output Accurate I's and O's Heme: Leukocytosis Normocytic anemia Chronic rivaroxaban use Anticoagulation currently on hold. Recent chest 2. Resume when clinically indicated Monitor CBC daily. Follow trends ID: Blood cultures 07/06 no growth Cultures from left empyema gram-positive cocci Infectious disease following Currently on levofloxacin and aztreonam day #3 vancomycin day #2 MSK: PT evaluate and treat FEN: Hyponatremia Replace electrolytes as clinically indicated Access - Right IJ CVL day 2 placed 07/08 Prophylaxis - GI - pantoprazole - DVT - SCD/pharmacological prophylaxis held secondary to bleeding Critical Care: The total critical care time was 35 minutes. Time to perform other separately billable procedures was not included in the critical care time. Alejandro Tellse MD Jul 09, 2017 08:47
[2017-07-09] MEDS: RESP: BUDESONIDE 0.5 MG/2 ML NEB NEB SCH ×2 (08:52→20:01)
[2017-07-09] MEDS ORDERED: MAGNESIUM SULFATE 1 GM PREMIX 100 ML IV SCH (09:00)
[2017-07-09] MEDS: BENEPROTEIN POWDER 1 PACK G-TUBE SCH ×3 (09:00→17:54)
[2017-07-09] MEDS ORDERED: SODIUM CHLORIDE 0.9% FLUSH 10 ML FLUSH IV FLUSH SCH (09:00)
[2017-07-09] MEDS ORDERED: METHIMAZOLE 5 MG TAB PO SCH ×2 (09:00→12:00)
[2017-07-09] MEDS: REMOVE OLD PATCH T-DERMAL SCH (09:00)
[2017-07-09] MEDS ORDERED: SODIUM CHLORIDE 1 GRAM TAB PO ONE (09:00)
[2017-07-09] MEDS: SODIUM CHLORIDE 0.9% FLUSH 10 ML FLUSH IV FLUSH SCH ×3 (09:19→20:04)
[2017-07-09] MEDS: DOCUSATE SODIUM 50 MG/SENNA 8.6 MG TAB PO SCH ×2 (09:20→20:17)
[2017-07-09] MEDS: CHLORHEXIDINE 0.12% (ORAL KIT) 15 ML CUP MT SCH ×2 (09:20→20:03)
[2017-07-09] MEDS: MAGNESIUM OXIDE 400 MG TAB PO SCH (09:20)
[2017-07-09] MEDS: ASPIRIN 81 MG CHEW TAB CHEW SCH (09:21)
[2017-07-09] MEDS ORDERED: SODIUM PHOSPHATE INJ 15 MMOL in SODIUM CHLORIDE 0.9% INJ 150 ML IV ONE (10:00)
--- NOTE | 2017-07-09 10:41 | HHI.IDPN ---
Note Infectious Disease Note Patient is on the vent. Sedation. (+) secretions. On Levophed. Also on Neosynephrine. Has warming blanket in place. Opens eyes. Pleural fluid culture has strep viridans. Presented to the emergency department with respiratory symptoms. The patient developed shortness of breath and reportedly had productive cough with hemoptysis. PAST MEDICAL HISTORY 1. Chronic obstructive pulmonary disease. 2. Congestive heart failure. 3. Hypertension. 4. Graves disease. 5. Atrial fibrillation. ALLERGIES PENICILLIN. MEDICATIONS 1. Azactam. 2. Levaquin. 3. vancomycin. SOCIAL HISTORY Notable for tobacco use 1-1/2 packs a day. Occasional marijuana use. No alcohol. FAMILY HISTORY Noncontributory. OBJECTIVE: Vital Signs Date Time Temp Pulse Resp B/P (MAP) Pulse Ox O2 Delivery O2 Flow Rate FiO2 07/09/17 09:14 Nasal Cannula 4.00 07/09/17 08:54 96 40 07/09/17 06:14 108 99/58 07/09/17 06:00 109 07/09/17 04:03 97 40 07/09/17 04:00 126 07/09/17 04:00 40 07/09/17 04:00 98.1 126 16 119/65 (83) 97 07/09/17 02:00 120 07/09/17 01:07 125 103/62 07/09/17 00:06 96 40 07/09/17 00:00 99.3 125 16 87/54 (65) 95 07/09/17 00:00 125 07/09/17 00:00 40 07/08/17 23:45 123 86/57 07/08/17 23:00 125 17 90/54 (66) 93 07/08/17 22:17 96 40 07/08/17 22:00 99.5 126 17 88/52 (64) 97 07/08/17 22:00 126 07/08/17 21:00 122 17 106/57 (73) 97 07/08/17 20:54 122 89/52 07/08/17 20:38 117 07/08/17 20:36 118 07/08/17 20:34 118 07/08/17 20:32 121 07/08/17 20:30 118 07/08/17 20:28 119 07/08/17 20:26 116 07/08/17 20:24 119 07/08/17 20:22 120 07/08/17 20:20 121 07/08/17 20:18 119 07/08/17 20:16 116 07/08/17 20:14 117 07/08/17 20:12 116 07/08/17 20:10 116 07/08/17 20:08 117 07/08/17 20:06 117 07/08/17 20:04 118 07/08/17 20:02 118 07/08/17 20:00 40 07/08/17 20:00 121 17 91/53 (66) 94 07/08/17 20:00 121 07/08/17 19:50 100 50 07/08/17 19:15 112 80/52 07/08/17 19:00 116 17 98/55 (69) 98 07/08/17 19:00 116 98/55 07/08/17 18:26 123 07/08/17 18:24 123 07/08/17 18:22 124 07/08/17 18:20 123 07/08/17 18:18 125 07/08/17 18:16 125 07/08/17 18:14 124 07/08/17 18:12 126 07/08/17 18:10 127 07/08/17 18:08 128 07/08/17 18:06 130 07/08/17 18:04 133 07/08/17 18:02 135 07/08/17 18:00 125 07/08/17 17:10 98 50 07/08/17 16:38 121 07/08/17 16:38 121 13 100/57 (71) 97 07/08/17 16:36 122 07/08/17 16:36 122 15 98/54 (69) 97 07/08/17 16:34 121 07/08/17 16:34 121 14 95/54 (68) 97 07/08/17 16:32 122 07/08/17 16:32 122 19 90/52 (65) 97 07/08/17 16:30 122 18 95/52 (66) 97 07/08/17 16:30 122 07/08/17 16:28 124 07/08/17 16:28 124 19 90/53 (65) 96 07/08/17 16:26 125 07/08/17 16:26 125 17 90/53 (65) 96 07/08/17 16:24 124 19 88/50 (63) 96 07/08/17 16:24 124 07/08/17 16:22 126 07/08/17 16:22 126 19 87/52 (64) 96 07/08/17 16:20 128 07/08/17 16:20 128 18 96/57 (70) 96 07/08/17 16:18 129 07/08/17 16:18 129 19 104/65 (78) 98 07/08/17 16:16 127 17 100/59 (73) 97 07/08/17 16:16 127 07/08/17 16:14 127 07/08/17 16:14 127 16 99/59 (72) 97 07/08/17 16:12 127 16 98/54 (69) 97 07/08/17 16:12 127 07/08/17 16:10 125 07/08/17 16:10 125 18 97/55 (69) 98 07/08/17 16:08 124 16 99/57 (71) 98 07/08/17 16:08 124 07/08/17 16:06 127 17 96/55 (69) 97 07/08/17 16:06 127 07/08/17 16:04 125 07/08/17 16:04 125 25 100/59 (73) 97 07/08/17 16:02 125 07/08/17 16:02 125 19 100/60 (73) 97 07/08/17 16:00 125 18 91/54 (66) 97 07/08/17 16:00 125 07/08/17 16:00 50 07/08/17 14:34 128 07/08/17 14:00 133 07/08/17 12:39 135 07/08/17 12:36 137 07/08/17 12:34 125 07/08/17 12:32 123 07/08/17 12:30 123 07/08/17 12:28 124 07/08/17 12:26 124 07/08/17 12:24 123 07/08/17 12:22 123 07/08/17 12:20 124 07/08/17 12:18 123 07/08/17 12:16 123 07/08/17 12:14 123 07/08/17 12:12 123 07/08/17 12:10 125 07/08/17 12:08 124 07/08/17 12:06 124 07/08/17 12:04 125 07/08/17 12:02 124 07/08/17 12:00 124 07/08/17 12:00 98.5 07/08/17 12:00 50 07/08/17 11:11 99 50 07/08/17 10:38 126 07/08/17 10:36 126 07/08/17 10:34 127 Laboratory Tests Test 07/08/17 05:49 07/09/17 03:52 White Blood Count 16.2 TH/MM3 22.4 TH/MM3 Red Blood Count 2.95 MIL/MM3 3.07 MIL/MM3 Hemoglobin 8.9 GM/DL 9.4 GM/DL Hematocrit 27.5 % 28.1 % Mean Corpuscular Volume 93.2 FL 91.4 FL Mean Corpuscular Hemoglobin 30.1 PG 30.7 PG Mean Corpuscular Hemoglobin Concent 32.2 % 33.7 % Red Cell Distribution Width 15.2 % 15.0 % Platelet Count 539 TH/MM3 486 TH/MM3 Mean Platelet Volume 8.4 FL 8.4 FL Neutrophils (%) (Auto) 89.0 % 90.8 % Lymphocytes (%) (Auto) 7.9 % 6.7 % Monocytes (%) (Auto) 3.0 % 2.4 % Eosinophils (%) (Auto) 0.0 % 0.0 % Basophils (%) (Auto) 0.1 % 0.1 % Neutrophils # (Auto) 14.5 TH/MM3 20.3 TH/MM3 Lymphocytes # (Auto) 1.3 TH/MM3 1.5 TH/MM3 Monocytes # (Auto) 0.5 TH/MM3 0.5 TH/MM3 Eosinophils # (Auto) 0.0 TH/MM3 0.0 TH/MM3 Basophils # (Auto) 0.0 TH/MM3 0.0 TH/MM3 CBC Comment DIFF FINAL AUTO DIFF Differential Comment FINAL DIFF MANUAL Differential Total Cells Counted 100 Neutrophils % (Manual) 71 % Band Neutrophils % 15 % Lymphocytes % 8 % Monocytes % 6 % Neutrophils # (Manual) 19.3 TH/MM3 Toxic Granulation 1+ Platelet Estimate HIGH Platelet Morphology Comment NORMAL Laboratory Tests Test 07/08/17 04:15 07/08/17 05:49 07/08/17 08:00 07/08/17 23:42 Lactic Acid Level 1.1 mmol/L Ammonia 13 MCMOL/L Blood Urea Nitrogen MG/DL 30 MG/DL Creatinine MG/DL 0.73 MG/DL Random Glucose MG/DL 80 MG/DL Total Protein GM/DL 6.2 GM/DL Albumin GM/DL 1.3 GM/DL Calcium Level MG/DL 7.8 MG/DL Phosphorus Level MG/DL 2.5 MG/DL Magnesium Level MG/DL 1.9 MG/DL Alkaline Phosphatase U/L 117 U/L Aspartate Amino Transf (AST/SGOT) U/L 27 U/L Alanine Aminotransferase (ALT/SGPT) U/L 21 U/L Total Bilirubin MG/DL 0.2 MG/DL Direct Bilirubin MG/DL 0.2 MG/DL Sodium Level MEQ/L 133 MEQ/L Potassium Level MEQ/L 4.0 MEQ/L Chloride Level MEQ/L 102 MEQ/L Carbon Dioxide Level MEQ/L 25.0 MEQ/L Anion Gap MEQ/L 6 MEQ/L Estimat Glomerular Filtration Rate ML/MIN 106 ML/MIN Hemoglobin A1c 6.1 % Total Creatine Kinase U/L 60 U/L Troponin I NG/ML 2.22 NG/ML 1.98 NG/ML Amylase Level U/L 37 U/L Lipase U/L 87 U/L Free Thyroxine NG/DL 1.52 NG/DL Thyroid Stimulating Hormone 3rd Gen uIU/ML LESS THAN 0.005 uIU/ML Triglycerides Level 125 MG/DL Cholesterol Level 81 MG/DL LDL Cholesterol 27 MG/DL HDL Cholesterol 29.4 MG/DL Cholesterol/HDL Ratio 2.75 RATIO Test 07/09/17 03:52 Blood Urea Nitrogen 37 MG/DL Creatinine 0.94 MG/DL Random Glucose 168 MG/DL Total Protein 5.8 GM/DL Albumin 1.1 GM/DL Calcium Level 8.0 MG/DL Phosphorus Level 2.3 MG/DL Magnesium Level 1.6 MG/DL Alkaline Phosphatase 110 U/L Aspartate Amino Transf (AST/SGOT) 23 U/L Alanine Aminotransferase (ALT/SGPT) 22 U/L Total Bilirubin 0.2 MG/DL Sodium Level 127 MEQ/L Potassium Level 4.0 MEQ/L Chloride Level 96 MEQ/L Carbon Dioxide Level 22.4 MEQ/L Anion Gap 9 MEQ/L Estimat Glomerular Filtration Rate 79 ML/MIN Ammonia 31 MCMOL/L Troponin I 1.79 NG/ML Microbiology Date/Time Source Procedure Growth Status 07/06/17 21:53 Blood Peripheral Aerobic Blood Culture - Preliminary NO GROWTH IN 2 DAYS Resulted 07/06/17 21:53 Blood Peripheral Anaerobic Blood Culture - Preliminary NO GROWTH IN 2 DAYS Resulted 07/06/17 21:47 Blood Peripheral Aerobic Blood Culture - Preliminary NO GROWTH IN 2 DAYS Resulted 07/06/17 21:47 Blood Peripheral Anaerobic Blood Culture - Preliminary NO GROWTH IN 2 DAYS Resulted 07/07/17 15:05 Fluid Pleural Fluid Fungal Smear - Final NO FUNGAL ELEMENTS SEEN. Resulted 07/07/17 15:05 Fluid Pleural Fluid Fungal Culture Pending Resulted 07/07/17 15:05 Fluid Pleural Fluid Acid Fast Stain - Final NO ACID FAST BACILLI SEEN Resulted 07/07/17 15:05 Fluid Pleural Fluid Mycobacterial Culture Pending Resulted 07/07/17 15:05 Fluid Pleural Fluid Gram Stain - Final Resulted 07/07/17 15:05 Body Fluid Culture - Preliminary Viridans Streptococcus Grp Resulted IMAGING: Chest X-Ray 07/09/17 0600 Signed Impressions: Service Date/Time: July 03:50 - CONCLUSION: 1. Left-sided edema versus pneumonia. There has been no significant change when compared to the prior exam. 2. Nasogastric tube at the gastroesophageal junction this could be advanced 5-10 cm Alessio Singh MD Chest Tube Insertion 07/07/17 0000 Signed Impressions: Service Date/Time: Friday, July 07, 2017 14:24 - CONCLUSION: 1. Uncomplicated CT-guided placement of 16 Turkish pigtail chest tubes for treatment of loculated empyemas in the anterior and posterior inferior left hemithorax. Please see prior CT report for additional details. Fernando Diaz MD CT Angiography 07/06/17 0000 Signed Impressions: Service Date/Time: Thursday, July 06, 2017 20:36 - CONCLUSION: 1. No PE is identified. 2. As expected from the chest x-ray there is a pleural-parenchymal process for the cause of the shortness of breath and cough. There are findings indicating aspiration with partially cavitary consolidation in the left lower lobe. There is a moderate size loculated left pleural effusion with adjacent compressive atelectasis. Holden Myers MD PHYSICAL EXAMINATION GENERAL: On the vent. HEENT: Head is atraumatic. Pupils reactive to light. No icterus. NECK: Supple without adenopathy. LUNGS: Coarse bilateral rhonchi. HEART: Normal S1-S2. No audible murmurs or rubs or gallops. ABDOMEN: Soft. Nontender. EXTREMITIES: Diffuse muscle wasting. No clubbing or cyanosis or edema. SKIN: No rash. Warm and dry. PSYCH: Unable to asses. IMPRESSION 1. Aspiration pneumonia/ Empyema. Strep viridans group. 2. Acute Respiratory failure. 3. Cachexia. RECOMMENDATIONS 1. Stop aztreonam. 2. Continue Levaquin. 3. Continue Vancomycin. 4. Follow blood cultures. 5. Monitor clinical status. Koby Roberts MD Jul 09, 2017 10:41
--- NOTE | 2017-07-09 10:58 | RADRPT ---
EXAM DATE/TIME: 07/09/2017 10:35 [facility] COMPARISON: No previous studies available for comparison. INDICATIONS : Dobhoff placement. MEDICAL HISTORY : Hypertension. Chronic obstructive pulmonary disease. Congestive heart failure. SURGICAL HISTORY : None. ENCOUNTER: Initial ACUITY: 3 days PAIN SCORE: Non-responsive. LOCATION: Bilateral chest FINDINGS: Weighted feeding tube extends into the right lower lobe airways pigtail tubes are seen in the left omari ng base. CONCLUSION: Weighted feeding tube extends into right lower lobe airways. Holden Bob MD on July 09, 2017 at 10:56 Board Certified Radiologist. This report was verified electronically.
[2017-07-09] MEDS ORDERED: PHENYLEPHRINE INJ 40 MG in SODIUM CHLORID 0.9% 500 ML INJ 496 ML IV PRN (12:00)
[2017-07-09] MEDS ORDERED: NOREPINEPHRINE INJ 4 MG in SODIUM CHLOR 0.9% 250 ML INJ 246 ML IV PRN (12:00)
[2017-07-09] MEDS ORDERED: NOREPINEPHRINE INJ 4 MG in SODIUM CHLOR 0.9% 250 ML INJ 250 ML IV PRN (12:00)
[2017-07-09] MEDS: PROPYLTHIOURACIL 50 MG TAB PO SCH ×5 (12:00→23:51)
--- NOTE | 2017-07-09 12:04 | RADRPT ---
EXAM DATE/TIME: 07/09/2017 11:00 [facility] COMPARISON: CHEST SINGLE AP, July 09, 2017, 10:35. INDICATIONS : Verify dobhoff tube placement. MEDICAL HISTORY : Congestive heart failure. SURGICAL HISTORY : None. ENCOUNTER: Subsequent ACUITY: 4 - 6 days PAIN SCORE: Non-responsive. LOCATION: Bilateral chest FINDINGS: Portable AP views of the chest demonstrate a normal-sized cardiac silhouette. Endotracheal tube and r ight IJ line remain present. The feeding tube now extends into the left lower lobe airway with distal tip overlying the left lower lung zone. No pneumothorax is identified. There is airspace consolidati on at the left lung base and to left chest tubes are present. CONCLUSION: 1. Feeding tube should be removed and repositioned. It extends into the left lower lobe airway and omari ng. 2. Stable left lung base consolidation and left chest tubes. The above findings concerning feeding tube location [place] [facility] [place] Holden Myers MD on July 09, 2017 at 12:00 Board Certified Radiologist. This report was verified electronically.
[2017-07-09] MEDS ORDERED: METOPROLOL TARTRATE 5 MG/5 ML VIAL IV PUSH ONE (13:00)
[2017-07-09] MEDS: HYDROCORTISONE SOD SUCCINATE 100 MG VIAL IV PUSH SCH ×2 (13:30→22:08)
[2017-07-09] MEDS: PROPRANOLOL HCL 10 MG TAB PO SCH ×2 (14:00→22:00)
--- NOTE | 2017-07-09 14:56 | HHI.HCPN ---
Reason for visit a. To assist with evaluation and management of symptoms including: Dyspnea , pain b. To assist medical decision maker(s) with: better understanding of current medical conditions; weighing benefits/burdens of medical treatment options; making medical treatment decisions. . Subjective/Interval History INTERVAL NOTE: The patient remains tachycardic, hypotensive, requiring increasing doses of fentanyl for comfort. White count is up to 22. S.O. Lidia has been present much of the day, and I have met with her twice, see below. . Family/friend interactions I met with the patient's long time significant other Lidia once this morning and again this afternoon. She has struggled with trying to honor the wishes that the patient has expressed to her and to other friends over the past month, particularly that he did not want to be on life support machines, and that he wanted to at home peacefully. We have consulted hospice to see if it may be possible to get this patient home on the vent for a withdrawal to allow natural there. . Advance Directives Living Will: Copy in medical record Health Care Surrogate: Copy in medical record Advance Directive Specifics Date completed: 07/04/17 . Health Care Surrogate(s): Longtime girlfriend Lidia Cowan . Documented care wishes: The patient's living will that he executed last week says that he would not want to be kept alive artificially if he had a terminal or end-stage condition, and that he would not want artificial nutrition and hydration in that situation. . Significant change in goals: Lidia does not want us to resuscitate him when his heart stops, and she is planning withdrawal of life support; it is just a matter of whether we can get him home with hospice to do it there or whether it will be done here. . Objective Vital Signs Date Time Temp Pulse Resp B/P (MAP) Pulse Ox O2 Delivery O2 Flow Rate FiO2 07/09/17 14:00 152 117/70 07/09/17 11:22 96 50 07/09/17 09:14 Nasal Cannula 4.00 07/09/17 08:54 96 40 07/09/17 08:40 125 07/09/17 06:14 108 99/58 07/09/17 06:00 109 07/09/17 04:03 97 40 07/09/17 04:00 126 07/09/17 04:00 40 07/09/17 04:00 98.1 126 16 119/65 (83) 97 07/09/17 02:00 120 07/09/17 01:07 125 103/62 07/09/17 00:06 96 40 07/09/17 00:00 99.3 125 16 87/54 (65) 95 07/09/17 00:00 125 07/09/17 00:00 40 07/08/17 23:45 123 86/57 07/08/17 23:00 125 17 90/54 (66) 93 07/08/17 22:17 96 40 07/08/17 22:00 99.5 126 17 88/52 (64) 97 07/08/17 22:00 126 07/08/17 21:00 122 17 106/57 (73) 97 07/08/17 20:54 122 89/52 07/08/17 20:38 117 07/08/17 20:36 118 07/08/17 20:34 118 07/08/17 20:32 121 07/08/17 20:30 118 07/08/17 20:28 119 07/08/17 20:26 116 07/08/17 20:24 119 07/08/17 20:22 120 07/08/17 20:20 121 07/08/17 20:18 119 07/08/17 20:16 116 07/08/17 20:14 117 07/08/17 20:12 116 07/08/17 20:10 116 07/08/17 20:08 117 07/08/17 20:06 117 07/08/17 20:04 118 07/08/17 20:02 118 07/08/17 20:00 40 07/08/17 20:00 121 17 91/53 (66) 94 07/08/17 20:00 121 07/08/17 19:50 100 50 07/08/17 19:15 112 80/52 07/08/17 19:00 116 17 98/55 (69) 98 07/08/17 19:00 116 98/55 07/08/17 18:26 123 07/08/17 18:24 123 07/08/17 18:22 124 07/08/17 18:20 123 07/08/17 18:18 125 07/08/17 18:16 125 07/08/17 18:14 124 07/08/17 18:12 126 07/08/17 18:10 127 07/08/17 18:08 128 07/08/17 18:06 130 07/08/17 18:04 133 07/08/17 18:02 135 07/08/17 18:00 125 07/08/17 17:10 98 50 07/08/17 16:38 121 07/08/17 16:38 121 13 100/57 (71) 97 07/08/17 16:36 122 07/08/17 16:36 122 15 98/54 (69) 97 07/08/17 16:34 121 07/08/17 16:34 121 14 95/54 (68) 97 07/08/17 16:32 122 07/08/17 16:32 122 19 90/52 (65) 97 07/08/17 16:30 122 18 95/52 (66) 97 07/08/17 16:30 122 07/08/17 16:28 124 07/08/17 16:28 124 19 90/53 (65) 96 07/08/17 16:26 125 07/08/17 16:26 125 17 90/53 (65) 96 07/08/17 16:24 124 19 88/50 (63) 96 07/08/17 16:24 124 07/08/17 16:22 126 07/08/17 16:22 126 19 87/52 (64) 96 07/08/17 16:20 128 07/08/17 16:20 128 18 96/57 (70) 96 07/08/17 16:18 129 07/08/17 16:18 129 19 104/65 (78) 98 07/08/17 16:16 127 17 100/59 (73) 97 07/08/17 16:16 127 07/08/17 16:14 127 07/08/17 16:14 127 16 99/59 (72) 97 07/08/17 16:12 127 16 98/54 (69) 97 07/08/17 16:12 127 07/08/17 16:10 125 07/08/17 16:10 125 18 97/55 (69) 98 07/08/17 16:08 124 16 99/57 (71) 98 07/08/17 16:08 124 07/08/17 16:06 127 17 96/55 (69) 97 07/08/17 16:06 127 07/08/17 16:04 125 07/08/17 16:04 125 25 100/59 (73) 97 07/08/17 16:02 125 07/08/17 16:02 125 19 100/60 (73) 97 07/08/17 16:00 125 18 91/54 (66) 97 07/08/17 16:00 125 07/08/17 16:00 50 Intake & Output 07/09/17 07/09/17 07:00 19:00 Intake Total 2263 ml 500 ml Output Total 70 ml Balance 2193 ml 500 ml Intake Oral 0 ml IV Total 1764 ml 500 ml Tube Feeding 409 ml Tube Irrigant 90 ml Stool Total 0 ml Chest Tube Drainage Total 70 ml # Voids 4 Physical Exam CONSTITUTIONAL/GENERAL: This is a weak, cachectic patient, in no apparent distress. TUBES/LINES/DRAINS: ET tube, right IJ line, Norton catheter, chest tubes from the left chest SKIN: No jaundice, rashes, or lesions. Ecchymoses on upper extremities. No wounds seen anteriorly. Skin temperature appropriate. Not diaphoretic. NECK: Trachea midline. Supple, nontender. No palpable thyroid enlargement or nodularity. CARDIOVASCULAR: Irregular rhythm, without murmurs, gallops, or rubs. No JVD. Peripheral pulses quite diminished. RESPIRATORY/CHEST: Symmetric, unlabored respirations on the ventilator. Diminished breath sounds on the left, scattered rhonchi. GASTROINTESTINAL: Abdomen soft, non-tender, nondistended. No hepato-splenomegaly , or palpable masses. No guarding. Bowel sounds present. MUSCULOSKELETAL: Extremities without clubbing, cyanosis, or edema. No joint tenderness or effusion noted. No calf tenderness. No mottling or clubbing. LYMPHATICS: No palpable cervical or supraclavicular adenopathy. NEUROLOGICAL: Minimally responsive PSYCHIATRIC: Appears fearful when he opens his eyes . Diagnostic Tests Laboratory Laboratory Tests Test 07/06/17 19:20 07/06/17 21:40 07/06/17 21:53 07/07/17 02:19 White Blood Count 11.7 TH/MM3 (4.0-11.0) Red Blood Count 3.51 MIL/MM3 (4.50-5.90) Hemoglobin 10.5 GM/DL (13.0-17.0) Hematocrit 32.3 % (39.0-51.0) Mean Corpuscular Volume 92.0 FL (80.0-100.0) Mean Corpuscular Hemoglobin 30.0 PG (27.0-34.0) Mean Corpuscular Hemoglobin Concent 32.6 % (32.0-36.0) Red Cell Distribution Width 15.0 % (11.6-17.2) Platelet Count 471 TH/MM3 (150-450) Mean Platelet Volume 8.1 FL (7.0-11.0) Neutrophils (%) (Auto) 83.2 % (16.0-70.0) Lymphocytes (%) (Auto) 13.3 % (9.0-44.0) Monocytes (%) (Auto) 3.1 % (0.0-8.0) Eosinophils (%) (Auto) 0.1 % (0.0-4.0) Basophils (%) (Auto) 0.3 % (0.0-2.0) Neutrophils # (Auto) 9.7 TH/MM3 (1.8-7.7) Lymphocytes # (Auto) 1.6 TH/MM3 (1.0-4.8) Monocytes # (Auto) 0.4 TH/MM3 (0-0.9) Eosinophils # (Auto) 0.0 TH/MM3 (0-0.4) Basophils # (Auto) 0.0 TH/MM3 (0-0.2) CBC Comment DIFF FINAL Differential Comment Blood Urea Nitrogen 40 MG/DL (7-18) Creatinine 1.03 MG/DL (0.60-1.30) Random Glucose 185 MG/DL (74-106) Total Protein 7.5 GM/DL (6.4-8.2) Albumin 1.5 GM/DL (3.4-5.0) Calcium Level 8.7 MG/DL (8.5-10.1) Magnesium Level 2.1 MG/DL (1.5-2.5) Alkaline Phosphatase 165 U/L (45-117) Aspartate Amino Transf (AST/SGOT) 21 U/L (15-37) Alanine Aminotransferase (ALT/SGPT) 27 U/L (12-78) Total Bilirubin 0.4 MG/DL (0.2-1.0) Sodium Level 132 MEQ/L (136-145) Potassium Level 4.6 MEQ/L (3.5-5.1) Chloride Level 94 MEQ/L (98-107) Carbon Dioxide Level 29.6 MEQ/L (21.0-32.0) Anion Gap 8 MEQ/L (5-15) Estimat Glomerular Filtration Rate 71 ML/MIN (>89) Total Creatine Kinase 21 U/L (39-308) Troponin I LESS THAN 0.02 NG/ML B-Type Natriuretic Peptide 62 PG/ML (0-100) Blood Gas Puncture Site RT BRACHIAL Blood Gas Patient Temperature 98.6 Blood Gas HCO3 30 mmol/L (22-26) Blood Gas Base Excess 6.5 mmol/L (-2-2) Blood Gas Oxygen Saturation 94 % (90-100) Arterial Blood pH 7.47 (7.380-7.420) Arterial Blood Partial Pressure CO2 42 mmHg (38-42) Arterial Blood Partial Pressure O2 76 mmHG (61-120) Arterial Blood Oxygen Content 13.6 Vol % (12.0-20.0) Arterial Blood Carboxyhemoglobin 1.7 % (0-4) Arterial Blood Methemoglobin 0.4 % (0-2) Blood Gas Hemoglobin 10.3 G/DL (12.0-16.0) Oxygen Delivery Device BIPAP Blood Gas Ventilator Setting IPAP10 [id number] Blood Gas Inspired Oxygen 50 % Lactic Acid Level 1.6 mmol/L (0.4-2.0) Nasal Screen MRSA (PCR) MRSA DETECTED (NOT DETECT) Test 07/07/17 03:30 07/07/17 10:50 07/07/17 15:05 07/07/17 19:20 White Blood Count 12.3 TH/MM3 (4.0-11.0) Red Blood Count 3.13 MIL/MM3 (4.50-5.90) Hemoglobin 9.4 GM/DL (13.0-17.0) Hematocrit 28.9 % (39.0-51.0) Mean Corpuscular Volume 92.4 FL (80.0-100.0) Mean Corpuscular Hemoglobin 30.0 PG (27.0-34.0) Mean Corpuscular Hemoglobin Concent 32.4 % (32.0-36.0) Red Cell Distribution Width 15.0 % (11.6-17.2) Platelet Count 421 TH/MM3 (150-450) Mean Platelet Volume 8.2 FL (7.0-11.0) Neutrophils (%) (Auto) 88.5 % (16.0-70.0) Lymphocytes (%) (Auto) 9.3 % (9.0-44.0) Monocytes (%) (Auto) 2.0 % (0.0-8.0) Eosinophils (%) (Auto) 0.0 % (0.0-4.0) Basophils (%) (Auto) 0.2 % (0.0-2.0) Neutrophils # (Auto) 10.9 TH/MM3 (1.8-7.7) Lymphocytes # (Auto) 1.1 TH/MM3 (1.0-4.8) Monocytes # (Auto) 0.3 TH/MM3 (0-0.9) Eosinophils # (Auto) 0.0 TH/MM3 (0-0.4) Basophils # (Auto) 0.0 TH/MM3 (0-0.2) CBC Comment DIFF FINAL Differential Comment Blood Urea Nitrogen 37 MG/DL (7-18) Creatinine 0.72 MG/DL (0.60-1.30) Random Glucose 98 MG/DL (74-106) Total Protein 7.1 GM/DL (6.4-8.2) Albumin 1.4 GM/DL (3.4-5.0) Calcium Level 8.2 MG/DL (8.5-10.1) Alkaline Phosphatase 146 U/L (45-117) Aspartate Amino Transf (AST/SGOT) 19 U/L (15-37) Alanine Aminotransferase (ALT/SGPT) 24 U/L (12-78) Total Bilirubin 0.3 MG/DL (0.2-1.0) Sodium Level 135 MEQ/L (136-145) Potassium Level 4.3 MEQ/L (3.5-5.1) Chloride Level 98 MEQ/L (98-107) Carbon Dioxide Level 27.0 MEQ/L (21.0-32.0) Anion Gap 10 MEQ/L (5-15) Estimat Glomerular Filtration Rate 108 ML/MIN (>89) Free Thyroxine 2.24 NG/DL (0.76-1.46) Free Triiodothyronine (T3) pg/dL 1.80 PG/ML (2.18-3.98) Thyroid Stimulating Hormone 3rd Gen LESS THAN 0.005 uIU/ML Prothrombin Time 14.2 SEC (9.8-11.6) Prothromb Time International Ratio 1.3 RATIO Pleural Fluid pH 8.0 Pleural Fluid WBC 251392 /MM3 (0-10) Pleural Fluid RBC 265852 /MM3 (0-0) Pleural Fluid Neutrophils 100 % Pleural Fluid Total Protein 2.1 GM/DL Pleural Fluid LDH GREATER THAN 09924 U/L Pleural Fluid Glucose 1 MG/DL Blood Gas Puncture Site RT RADIAL Blood Gas Patient Temperature 98.6 Blood Gas HCO3 23 mmol/L (22-26) Blood Gas Base Excess -1.7 mmol/L (-2-2) Blood Gas Oxygen Saturation 83 % (90-100) Arterial Blood pH 7.38 (7.380-7.420) Arterial Blood Partial Pressure CO2 40 mmHg (38-42) Arterial Blood Partial Pressure O2 55 mmHg (61-120) Arterial Blood Oxygen Content 20.2 Vol % (12.0-20.0) Arterial Blood Carboxyhemoglobin 0.3 % (0-4) Arterial Blood Methemoglobin 1.1 % (0-2) Blood Gas Hemoglobin 17.3 G/DL (12.0-16.0) Oxygen Delivery Device VENTILATOR Blood Gas Ventilator Setting 20/500/IT1.0/8PEEP Blood Gas Inspired Oxygen 100 % Test 07/07/17 19:25 07/08/17 04:15 07/08/17 05:49 07/08/17 08:00 Blood Gas Puncture Site CENTRAL LINE Blood Gas Patient Temperature 98.6 Venous Blood pH 7.35 (7.360-7.400) Venous Blood Partial Pressure CO2 45 mmHg (44-48) Venous Blood Partial Pressure O2 36 mmHg (35-40) Venous Blood HCO3 24 mmol/L (22-26) Venous Blood Oxygen Saturation 56 % (70-76) Venous Blood Oxygen Content 7.9 Vol % (9.0-17.0) Venous Blood Base Excess -1.0 mmol/L (-2-2) Oxygen Delivery Device VENTILATOR Blood Gas Ventilator Setting 20/500/IT1.0/8PEEP Blood Gas Inspired Oxygen 100 % Prothrombin Time 12.0 SEC (9.8-11.6) Prothromb Time International Ratio 1.1 RATIO Activated Partial Thromboplast Time 26.4 SEC (24.3-30.1) Fibrinogen 123 mg/dL (227-377) Lactic Acid Level 1.1 mmol/L (0.4-2.0) Ammonia 13 MCMOL/L (11-32) White Blood Count 16.2 TH/MM3 (4.0-11.0) Red Blood Count 2.95 MIL/MM3 (4.50-5.90) Hemoglobin 8.9 GM/DL (13.0-17.0) Hematocrit 27.5 % (39.0-51.0) Mean Corpuscular Volume 93.2 FL (80.0-100.0) Mean Corpuscular Hemoglobin 30.1 PG (27.0-34.0) Mean Corpuscular Hemoglobin Concent 32.2 % (32.0-36.0) Red Cell Distribution Width 15.2 % (11.6-17.2) Platelet Count 539 TH/MM3 (150-450) Mean Platelet Volume 8.4 FL (7.0-11.0) Neutrophils (%) (Auto) 89.0 % (16.0-70.0) Lymphocytes (%) (Auto) 7.9 % (9.0-44.0) Monocytes (%) (Auto) 3.0 % (0.0-8.0) Eosinophils (%) (Auto) 0.0 % (0.0-4.0) Basophils (%) (Auto) 0.1 % (0.0-2.0) Neutrophils # (Auto) 14.5 TH/MM3 (1.8-7.7) Lymphocytes # (Auto) 1.3 TH/MM3 (1.0-4.8) Monocytes # (Auto) 0.5 TH/MM3 (0-0.9) Eosinophils # (Auto) 0.0 TH/MM3 (0-0.4) Basophils # (Auto) 0.0 TH/MM3 (0-0.2) CBC Comment DIFF FINAL Differential Comment Blood Urea Nitrogen MG/DL (7-18) 30 MG/DL (7-18) Creatinine MG/DL (0.60-1.30) 0.73 MG/DL (0.60-1.30) Random Glucose MG/DL (74-106) 80 MG/DL (74-106) Total Protein GM/DL (6.4-8.2) 6.2 GM/DL (6.4-8.2) Albumin GM/DL (3.4-5.0) 1.3 GM/DL (3.4-5.0) Calcium Level MG/DL (8.5-10.1) 7.8 MG/DL (8.5-10.1) Phosphorus Level MG/DL (2.5-4.9) 2.5 MG/DL (2.5-4.9) Magnesium Level MG/DL (1.5-2.5) 1.9 MG/DL (1.5-2.5) Alkaline Phosphatase U/L (45-117) 117 U/L (45-117) Aspartate Amino Transf (AST/SGOT) U/L (15-37) 27 U/L (15-37) Alanine Aminotransferase (ALT/SGPT) U/L (12-78) 21 U/L (12-78) Total Bilirubin MG/DL (0.2-1.0) 0.2 MG/DL (0.2-1.0) Direct Bilirubin MG/DL (0.0-0.2) 0.2 MG/DL (0.0-0.2) Sodium Level MEQ/L (136-145) 133 MEQ/L (136-145) Potassium Level MEQ/L (3.5-5.1) 4.0 MEQ/L (3.5-5.1) Chloride Level MEQ/L (98-107) 102 MEQ/L (98-107) Carbon Dioxide Level MEQ/L (21.0-32.0) 25.0 MEQ/L (21.0-32.0) Anion Gap MEQ/L (5-15) 6 MEQ/L (5-15) Estimat Glomerular Filtration Rate ML/MIN (>89) 106 ML/MIN (>89) Hemoglobin A1c 6.1 % (4.3-6.0) Total Creatine Kinase U/L (39-308) 60 U/L (39-308) Troponin I NG/ML (0.02-0.05) 2.22 NG/ML (0.02-0.05) Amylase Level U/L (25-115) 37 U/L (25-115) Lipase U/L (73-393) 87 U/L (73-393) Free Thyroxine NG/DL (0.76-1.46) 1.52 NG/DL (0.76-1.46) Thyroid Stimulating Hormone 3rd Gen uIU/ML (0.358-3.740) LESS THAN 0.005 uIU/ML Triglycerides Level 125 MG/DL (42-150) Cholesterol Level 81 MG/DL (120-200) LDL Cholesterol 27 MG/DL (0-99) HDL Cholesterol 29.4 MG/DL (40.0-60.0) Cholesterol/HDL Ratio 2.75 RATIO Test 07/08/17 23:42 07/09/17 03:52 07/09/17 10:40 Troponin I 1.98 NG/ML (0.02-0.05) 1.79 NG/ML (0.02-0.05) White Blood Count 22.4 TH/MM3 (4.0-11.0) Red Blood Count 3.07 MIL/MM3 (4.50-5.90) Hemoglobin 9.4 GM/DL (13.0-17.0) Hematocrit 28.1 % (39.0-51.0) Mean Corpuscular Volume 91.4 FL (80.0-100.0) Mean Corpuscular Hemoglobin 30.7 PG (27.0-34.0) Mean Corpuscular Hemoglobin Concent 33.7 % (32.0-36.0) Red Cell Distribution Width 15.0 % (11.6-17.2) Platelet Count 486 TH/MM3 (150-450) Mean Platelet Volume 8.4 FL (7.0-11.0) Neutrophils (%) (Auto) 90.8 % (16.0-70.0) Lymphocytes (%) (Auto) 6.7 % (9.0-44.0) Monocytes (%) (Auto) 2.4 % (0.0-8.0) Eosinophils (%) (Auto) 0.0 % (0.0-4.0) Basophils (%) (Auto) 0.1 % (0.0-2.0) Neutrophils # (Auto) 20.3 TH/MM3 (1.8-7.7) Lymphocytes # (Auto) 1.5 TH/MM3 (1.0-4.8) Monocytes # (Auto) 0.5 TH/MM3 (0-0.9) Eosinophils # (Auto) 0.0 TH/MM3 (0-0.4) Basophils # (Auto) 0.0 TH/MM3 (0-0.2) CBC Comment AUTO DIFF Differential Total Cells Counted 100 Neutrophils % (Manual) 71 % (16-70) Band Neutrophils % 15 % (0-6) Lymphocytes % 8 % (9-44) Monocytes % 6 % (0-8) Neutrophils # (Manual) 19.3 TH/MM3 (1.8-7.7) Differential Comment FINAL DIFF MANUAL Toxic Granulation 1+ (NORMAL) Platelet Estimate HIGH (NORMAL) Platelet Morphology Comment NORMAL (NORMAL) Blood Urea Nitrogen 37 MG/DL (7-18) Creatinine 0.94 MG/DL (0.60-1.30) Random Glucose 168 MG/DL (74-106) Total Protein 5.8 GM/DL (6.4-8.2) Albumin 1.1 GM/DL (3.4-5.0) Calcium Level 8.0 MG/DL (8.5-10.1) Phosphorus Level 2.3 MG/DL (2.5-4.9) Magnesium Level 1.6 MG/DL (1.5-2.5) Alkaline Phosphatase 110 U/L (45-117) Aspartate Amino Transf (AST/SGOT) 23 U/L (15-37) Alanine Aminotransferase (ALT/SGPT) 22 U/L (12-78) Total Bilirubin 0.2 MG/DL (0.2-1.0) Sodium Level 127 MEQ/L (136-145) Potassium Level 4.0 MEQ/L (3.5-5.1) Chloride Level 96 MEQ/L (98-107) Carbon Dioxide Level 22.4 MEQ/L (21.0-32.0) Anion Gap 9 MEQ/L (5-15) Estimat Glomerular Filtration Rate 79 ML/MIN (>89) Ammonia 31 MCMOL/L (11-32) Serum Osmolality 284 MOSM/KG (275-295) Uric Acid 4.7 MG/DL (2.6-7.2) Random Cortisol 32.2 MCG/DL Result Diagram: 07/09/1735107/09/17351 Microbiology Microbiology Date/Time Source Procedure Growth Status 07/06/17 21:53 Blood Peripheral Aerobic Blood Culture - Preliminary NO GROWTH IN 3 DAYS Resulted 07/06/17 21:53 Blood Peripheral Anaerobic Blood Culture - Preliminary NO GROWTH IN 3 DAYS Resulted 07/06/17 21:47 Blood Peripheral Aerobic Blood Culture - Preliminary NO GROWTH IN 3 DAYS Resulted 07/06/17 21:47 Blood Peripheral Anaerobic Blood Culture - Preliminary NO GROWTH IN 3 DAYS Resulted 07/07/17 15:05 Fluid Pleural Fluid Fungal Smear - Final NO FUNGAL ELEMENTS SEEN. Resulted 07/07/17 15:05 Fluid Pleural Fluid Fungal Culture Pending Resulted 07/07/17 15:05 Fluid Pleural Fluid Acid Fast Stain - Final NO ACID FAST BACILLI SEEN Resulted 07/07/17 15:05 Fluid Pleural Fluid Mycobacterial Culture Pending Resulted 07/07/17 15:05 Fluid Pleural Fluid Gram Stain - Final Resulted 07/07/17 15:05 Body Fluid Culture - Preliminary Viridans Streptococcus Grp Resulted Imaging Last Impressions Chest X-Ray 07/09/17 0600 Signed Impressions: Service Date/Time: July 03:50 - CONCLUSION: 1. Left-sided edema versus pneumonia. There has been no significant change when compared to the prior exam. 2. Nasogastric tube at the gastroesophageal junction this could be advanced 5-10 cm Alessio Singh MD Chest Tube Insertion 07/07/17 0000 Signed Impressions: Service Date/Time: Friday, July 07, 2017 14:24 - CONCLUSION: 1. Uncomplicated CT-guided placement of 16 Yi pigtail chest tubes for treatment of loculated empyemas in the anterior and posterior inferior left hemithorax. Please see prior CT report for additional details. Fernando Diaz MD CT Angiography 07/06/17 0000 Signed Impressions: Service Date/Time: Thursday, July 06, 2017 20:36 - CONCLUSION: 1. No PE is identified. 2. As expected from the chest x-ray there is a pleural-parenchymal process for the cause of the shortness of breath and cough. There are findings indicating aspiration with partially cavitary consolidation in the left lower lobe. There is a moderate size loculated left pleural effusion with adjacent compressive atelectasis. Holden Myers MD Procedures BiPAP 07/06/17 INTUBATION 07/07/17 Right IJ line 07/07/17 Bronchoscopy 07/07/17 . Assessment and Plan Disease Oriented Problem List: (1) respiratory failure (2) end-stage COPD (3) cachexia/malnutrition (4) CHF, with EF 15-20% in November 2015 (5) s/p suctioning of clots from bronchi 07/07/17 (6) empyema left chest (7) chronic atrial fibrillation, anticoagulated on Route of (8) history of Graves' disease (9) anemia (10) hypertension Symptom Scale: (1) pain 0-10 Scale: Unable to quantify (2) dyspnea 0-10 Scale: Unable to quantify Pertinent Non-Medical Issues Psychosocial: Never , disabled for 30 years due to COPD, girlfriend Lidia 9 years, 2 children that he has not seen since they were very young, and he has had no knowledge of their names or locations. Spiritual: He has not been spiritual or alevism, the girlfriend would like a director radio to visit Legal: The patient lacks capacity for decision-making, and it is very unlikely that he will regain capacity. He has designated his longtime girlfriend Lidia as healthcare surrogate in a living will and HCS form that appears to be properly executed about a week ago. Ethical issues impacting care: None . Important Contacts [facility]/girlfriend Lidia Cowan [phone], and [phone] Brother: Jac Alvarenga: Home [phone], cell: [phone] . Prognosis This patient is terminal. He has underlying end-stage heart and end-stage lung conditions in the face of cachexia/malnutrition, and now with pneumonia, respiratory failure, and empyema/sepsis. He is appropriate for hospice services if the goals become comfort oriented. . Code Status: Alternative Code (intubation only) Plan * ALTERNATE CODE - intubation only * DECISION-MAKING: The patient lacks capacity for decision-making, and he will not regain capacity. He has designated his longtime girlfriend Lidia as healthcare surrogate in a living will and HCS form that appears to be properly executed about a week ago. * GOALS: The patient's longtime girlfriend Lidia (who is the healthcare surrogate ) tells me that the patient had discussions with her within the past month about his health, realizing that he was declining rapidly, and telling her that he would not want to be kept alive on machines or life support, asking her to let him go peacefully; he then executed a living will just a few days prior to this hospitalization. The patient's brother Jac Alvarenga previously told me by telephone that he would withdraw life support and allow the patient to peacefully and comfortably. Now, Lidia wants to withdraw the life support and allow the patient to peacefully, but she is still hoping that hospice may be able to move him home prior to the withdrawal and allow him to there. * SYMPTOMS: Patient's dyspnea has been fairly profound, and he is now mechanically ventilated and on some fentanyl. With adequate doses of fentanyl and Precedex, the patient does not seem to be suffering as much. * Palliative Care will continue to follow the patient during this hospitalization. . Time Spent Total Floor Time (mins): 44 Face to Face Time (mins): 13 >50% Counseling/Coord of Care: Yes (d/w Dr. Telles and with RN) Attestation To help prompt me to consider important information that might be impacting today's encounter and assessment, information from prior notes written by myself or my colleagues may have been "brought forward" into today's note. My signature on this note, however, is an attestation that I personally performed the exam, history, and/or decision-making noted today, and, unless otherwise indicated, the interactions with patient, family, and staff as well as the review of records all occurred today. I also attest that the listed assessment and stated plan reflect my best clinical judgment today based on the combination of historical information, prior notes, and today's exam/ interactions. When time spent is documented, it refers only to time spent today by the signer, or if indicated, combined time spent today by collaborating physician/nurse practitioner. Effie Harvey MD Jul 09, 2017 14:56
[2017-07-09] MEDS: LEVOFLOXACIN 750 MG PREMIX INJ 150 ML IV SCH (22:08)
[2017-07-10] VITALS (30 sets, daily range): BP systolic 86–104; BP diastolic 50–60; PULSE 93–127; RESP 16–22; TEMP 97.8–99.1; O2SAT 92–100
[2017-07-10] MEDS: DEXMEDETOMIDINE INJ 200 MCG in SODIUM CHLORIDE 0.9% INJ 50 ML IV PRN ×4 (00:22→19:40)
[2017-07-10] MEDS: fentaNYL 2,500 MCG/NS 250 ML IV PRN ×3 (00:53→20:38)
[2017-07-10] MEDS: INSULIN NovoLIN REGULAR SUPPLEMENTAL SCALE SQ SCH ×5 (03:54→19:25)
[2017-07-10] MEDS: PROPYLTHIOURACIL 50 MG TAB PO SCH ×5 (03:54→20:00)
[2017-07-10] MEDS: CHLORHEXIDINE GLUCONATE 2 % 1 PACK (2 CLOTHS)(taper/protocol) TOPICAL SCH (03:54)
[2017-07-10 04:42] LABS: AUTOMATED NEUTROPHIL # 15.4 TH/MM3 (1.8-7.7); HEMATOCRIT 25.4 % (39.0-51.0); LYMPH % 4.7 % (9.0-44.0); LYMPHOCYTE # 0.8 TH/MM3 (1.0-4.8); MEAN CELL VOLUME 91.9 FL (80.0-100.0); MEAN CORPUSCULAR HEMOGLOBIN 30.1 PG (27.0-34.0); MEAN CORPUSCULAR HGB CONC 32.8 % (32.0-36.0); MONO % 2.5 % (0.0-8.0); NEUT % 92.8 % (16.0-70.0); PLATELET COUNT 394 TH/MM3 (150-450); RED BLOOD COUNT 2.77 MIL/MM3 (4.50-5.90); RED CELL DISTRIBUTION WIDTH 14.9 % (11.6-17.2); WHITE BLOOD COUNT 16.6 TH/MM3 (4.0-11.0)
[2017-07-10 04:48] LABS: HEMO FLAGS AUTO DIFF
[2017-07-10] MEDS: RESP: ALBUTEROL 2.5 MG/IPRATROPIUM 0.5 MG NEB (SCH) NEB ×6 (04:52→23:37)
[2017-07-10 05:11] LABS: ANION GAP 9 MEQ/L (5-15); BICARBONATE 22.3 MEQ/L (21.0-32.0); BLOOD UREA NITROGEN 33 MG/DL (7-18); CHLORIDE 102 MEQ/L (98-107); GLOMERULAR FILTRATION RATE 94 ML/MIN (>89); MAGNESIUM 1.6 MG/DL (1.5-2.5); POTASSIUM 3.9 MEQ/L (3.5-5.1); SODIUM (NA) 133 MEQ/L (136-145)
[2017-07-10 05:12] LABS: AST (GOT) 16 U/L (15-37)
[2017-07-10 05:21] LABS: ALKALINE PHOSPHATASE 103 U/L (45-117); ALT (GPT) 19 U/L (12-78); FREE T3 0.89 PG/ML (2.18-3.98); FREE T4 1.06 NG/DL (0.76-1.46); TOTAL BILIRUBIN ADULT 0.2 MG/DL (0.2-1.0)
[2017-07-10] MEDS: HYDROCORTISONE SOD SUCCINATE 100 MG VIAL IV PUSH SCH ×3 (05:37→22:59)
[2017-07-10] MEDS: PROPRANOLOL HCL 10 MG TAB PO SCH ×3 (05:38→22:00)
[2017-07-10] MEDS: VANCOMYCIN INJ 750 MG in SODIUM CHLOR 0.9% 250 ML INJ 250 ML IV SCH (05:38)
[2017-07-10] MEDS: ARTIFICIAL TEARS OPTH SOLN 15 ML BTL EACH EYE SCH ×3 (05:38→22:00)
[2017-07-10] MEDS ORDERED: PHARMACY ORDERED LAB ONE (05:45)
--- NOTE | 2017-07-10 05:45 | RADRPT ---
EXAM DATE/TIME: 07/10/2017 04:27 [facility] COMPARISON: CHEST SINGLE AP, July 09, 2017, 11:00. INDICATIONS : Evaluate for Plueral Effusion. MEDICAL HISTORY : Congestive heart failure. SURGICAL HISTORY : None. ENCOUNTER: Subsequent ACUITY: 4 - 6 days PAIN SCORE: Non-responsive. LOCATION: Bilateral chest FINDINGS: The cardiac silhouette is normal in transverse diameter. 2 left-sided chest tubes are in place. There is patchy alveolar disease on the left compatible with edema or pneumonia. The right lung is free of acute parenchymal opacity. Support lines and tubes are in satisfactory position. CONCLUSION: 1. There is no evidence of pneumothorax. 2. Increasing left-sided edema versus pneumonia Alessio Singh MD on July 10, 2017 at 5:42 Board Certified Radiologist. This report was verified electronically.
[2017-07-10] MEDS: RESP: BUDESONIDE 0.5 MG/2 ML NEB NEB SCH ×2 (07:37→20:00)
[2017-07-10 07:48] LABS: BANDS 4 % (0-6); NEUTROPHIL # MANUAL DIFF 16.1 TH/MM3 (1.8-7.7); PLATELET ESTIMATE SMEAR NORMAL (NORMAL); PLATELET MORPHOLOGY NORMAL (NORMAL); POLYS (SEG NEUTROPHILS) 93 % (16-70); SCAN/DIFF FINAL DIFF MANUAL; WBC DIFF SAMPLE 100
--- NOTE | 2017-07-10 07:49 | PD.CARD.PN ---
Subjective Subjective Remarks Intubated. Sedated. Objective Medications Item Value Date Time Propranolol HCl 10 mg 07/09/17 1400 (Inderal) Q8HR/PO Aspirin 81 mg 07/09/17 0900 (Aspirin Chew) DAILY/CHEW 07/09/17 0921 Current Medications Medications (Trade) Dose Ordered Sig/Jessi Route Start Time Stop Time Status Last Admin (Coreg) 12.5 mg BID PO 07/07/17 09:00 Future Hold 07/07/17 08:03 (Vasotec) 2.5 mg DAILY PO 07/07/17 09:00 Future Hold 07/07/17 08:03 (Lasix) 20 mg DAILY PO 07/07/17 09:00 Future Hold 07/07/17 08:04 (Mag-Ox) 400 mg DAILY PO 07/07/17 09:00 07/09/17 09:20 (KCl) 20 meq BID PO 07/07/17 09:00 Future Hold 07/07/17 08:04 Aztreonam 2000 mg/ Sodium Chloride 100 ml @ 200 mls/hr Q8H IV 07/07/17 08:00 07/09/17 23:51 Levofloxacin/ Dextrose 150 ml @ 100 mls/hr Q24H IV 07/07/17 22:00 07/09/17 22:08 (NS Flush) 2 ml UNSCH PRN IV FLUSH 07/07/17 00:15 (NS Flush) 2 ml BID IV FLUSH 07/07/17 09:00 07/09/17 20:04 (Tylenol) 650 mg Q4H PRN PO 07/07/17 00:15 (Zofran Inj) 4 mg Q6H PRN IVP 07/07/17 00:15 (Narcan Inj) 0.4 mg UNSCH PRN IV PUSH 07/07/17 00:15 (Brenda-Colace) 1 tab BID PO 07/07/17 09:00 07/09/17 09:20 (Milk Of Magnesia Liq) 30 ml Q12H PRN PO 07/07/17 00:15 (Senokot) 17.2 mg Q12H PRN PO 07/07/17 00:15 (Dulcolax Supp) 10 mg DAILY PRN RECTAL 07/07/17 00:15 (Lactulose Liq) 30 ml DAILY PRN PO 07/07/17 00:15 (Duoneb Neb) 1 ampule Q4HR NEB NEB 07/07/17 04:00 07/10/17 07:37 Miscellaneous Information Patient in critical care unit? Ass... [id number] .XX 07/07/17 02:30 (Chlorhexidine 2% Cloth) 3 pack DAILY@04 TOPICAL 07/07/17 04:00 07/11/17 04:01 07/10/17 03:54 (Chlorhexidine 2% Cloth) 3 pack UNSCH PRN TOPICAL 07/07/17 02:30 07/12/17 02:18 (Habitrol 14 Mg Patch.24 Hr) 1 patch DAILY T-DERMAL 07/07/17 10:00 07/09/17 08:41 Miscellaneous Information 1 DAILY T-DERMAL 07/08/17 09:00 07/09/17 09:00 (Peridex 0.12% Liq) 15 ml BID@08,20 MT 07/07/17 20:00 07/09/17 20:03 Fentanyl Citrate 250 ml @ 5 mls/hr TITRATE PRN IV 07/07/17 18:30 07/10/17 00:53 (Brethine Inj) 1 mg UNSCH PRN SQ 07/07/17 18:30 (NS Flush) DAILY IV FLUSH 07/08/17 09:00 07/09/17 09:19 (NS Flush) UNSCH PRN IV FLUSH 07/07/17 18:45 (Albuterol Neb) 2.5 mg Q2HR NEB PRN NEB 07/07/17 19:30 (Pulmicort Respule Neb) 0.5 mg Q12HR NEB NEB 07/07/17 20:00 07/10/17 07:37 (Brethine Inj) 1 mg UNSCH PRN SQ 07/08/17 00:00 Dexmedetomidine HCl 200 mcg/ Sodium Chloride 52 ml @ 2.1 mls/hr TITRATE PRN IV 07/08/17 08:45 07/10/17 00:22 (Aspirin Chew) 81 mg DAILY CHEW 07/09/17 09:00 07/09/17 09:21 (Tears Naturale Opth Soln) 1 drop Q8HR EACH EYE 07/08/17 14:00 07/10/17 05:38 (Beneprotein Powder) 1 pack TID G-TUBE 07/08/17 13:00 07/09/17 09:00 (D50w (Vial) Inj) 50 ml UNSCH PRN IV PUSH 07/08/17 11:00 (Glucagon Inj) 1 mg UNSCH PRN OTHER 07/08/17 11:00 (NovoLIN R SUPPLEMENTAL SCALE) 1 Q4HR SQ 07/08/17 12:00 07/09/17 04:00 Pharmacy Profile Note 0 ml @ 0 mls/hr UNSCH OTHER 07/08/17 15:00 Vancomycin HCl 750 mg/Sodium Chloride 257.5 ml @ 250 mls/hr Q12H IV 07/08/17 18:00 07/10/17 05:38 (SoluCORTEF INJ) 100 mg Q8HR IV PUSH 07/09/17 09:00 07/10/17 05:37 (Ptu) 100 mg Q4HR PO 07/09/17 12:00 Norepinephrine Bitartrate 4 mg/ Sodium Chloride 250 ml @ 7.5 mls/hr TITRATE PRN IV 07/09/17 12:00 (Inderal) 10 mg Q8HR PO 07/09/17 14:00 Vital Signs / I&O Vital Signs Date Time Temp Pulse Resp B/P (MAP) Pulse Ox O2 Delivery O2 Flow Rate FiO2 07/10/17 07:38 94 50 07/10/17 06:00 100 07/10/17 05:57 100 91/51 07/10/17 04:58 95 07/10/17 04:54 95 50 07/10/17 04:00 93 07/10/17 04:00 97.8 93 18 86/54 (65) 92 07/10/17 04:00 50 07/10/17 02:59 95 92/51 07/10/17 02:18 106 96/55 07/10/17 02:00 98 07/10/17 00:00 99 07/10/17 00:00 98.4 99 22 88/50 (63) 92 07/10/17 00:00 50 07/09/17 23:45 94 50 07/09/17 22:51 98 94/50 07/09/17 22:00 93 07/09/17 20:00 94 07/09/17 20:00 93 Ventilator 07/09/17 20:00 50 07/09/17 20:00 98.6 94 16 94/55 (68) 93 07/09/17 19:55 93 50 07/09/17 18:30 96 19 86/50 (62) 92 07/09/17 18:30 96 07/09/17 18:15 96 07/09/17 18:15 96 17 87/50 (62) 92 07/09/17 18:00 100 20 87/50 (62) 92 07/09/17 18:00 100 07/09/17 17:45 96 07/09/17 17:45 96 17 86/51 (63) 92 07/09/17 17:30 96 07/09/17 17:30 96 18 91/53 (66) 92 07/09/17 17:15 100 17 93/54 (67) 93 07/09/17 17:15 100 07/09/17 17:00 106 07/09/17 17:00 106 20 90/54 (66) 93 07/09/17 16:45 100 18 88/52 (64) 93 07/09/17 16:45 100 07/09/17 16:30 100 16 83/53 (63) 94 07/09/17 16:30 100 07/09/17 16:15 104 07/09/17 16:15 104 16 71/46 (54) 94 07/09/17 16:00 116 15 81/52 (62) 93 07/09/17 16:00 50 07/09/17 16:00 116 07/09/17 14:52 94 50 07/09/17 14:00 152 07/09/17 14:00 152 117/70 07/09/17 12:00 50 07/09/17 12:00 128 15 69/47 (54) 93 07/09/17 12:00 128 07/09/17 11:56 144 16 109/58 (75) 96 07/09/17 11:56 144 07/09/17 11:55 146 07/09/17 11:55 146 18 114/60 (78) 95 07/09/17 11:45 126 07/09/17 11:45 126 16 116/66 (83) 96 07/09/17 11:30 117 16 106/63 (77) 93 07/09/17 11:30 117 07/09/17 11:22 96 50 07/09/17 11:15 113 07/09/17 11:15 113 16 106/65 (79) 96 07/09/17 11:00 116 18 103/64 (77) 94 07/09/17 11:00 116 07/09/17 10:45 113 07/09/17 10:45 113 23 100/58 (72) 94 07/09/17 10:30 111 16 100/58 (72) 94 07/09/17 10:30 111 07/09/17 10:15 109 17 98/53 (68) 93 07/09/17 10:15 109 07/09/17 10:00 111 07/09/17 10:00 111 16 100/55 (70) 93 07/09/17 09:45 113 16 102/60 (74) 92 07/09/17 09:45 113 07/09/17 09:30 116 07/09/17 09:30 116 16 104/62 (76) 91 07/09/17 09:15 114 17 98/61 (73) 92 07/09/17 09:15 114 07/09/17 09:14 Nasal Cannula 4.00 07/09/17 09:00 113 07/09/17 09:00 113 17 106/58 (74) 94 07/09/17 08:54 96 40 07/09/17 08:45 115 16 105/55 (72) 96 07/09/17 08:45 115 07/09/17 08:40 125 07/09/17 08:30 131 18 110/51 (70) 91 07/09/17 08:30 131 07/09/17 08:28 129 07/09/17 08:28 129 21 101/63 (76) 91 07/09/17 08:15 138 26 121/70 (87) 92 07/09/17 08:15 138 07/09/17 08:00 40 07/09/17 08:00 117 15 106/58 (74) 96 07/09/17 08:00 117 I/O 07/09/17 07/09/17 07/09/17 07/10/17 07/10/17 07/10/17 07:00 15:00 23:00 07:00 15:00 23:00 Intake Total 2263 ml 500 ml 847.5 ml 882.9 ml 250 ml Output Total 70 ml 1800 ml 660 ml Balance 2193 ml 500 ml -952.5 ml 222.9 ml 250 ml Intake Oral 0 ml 0 ml IV Total 1764 ml 500 ml 847.5 ml 882.9 ml 250 ml Tube Feeding 409 ml Tube Irrigant 90 ml Output Urine Total 1800 ml 550 ml Stool Total 0 ml Chest Tube Drainage Total 70 ml 110 ml # Voids 4 3 Physical Exam GENERAL: Well developed, very thin. Intubated. Sedated. HEENT: Jugular venous pressure is normal. CHEST: Lungs clear to auscultation anteriorly. CARDIAC: Regular rate and rhythm without S3, S4, or murmur. ABDOMEN: Soft, no hepatosplenomegaly. Bowel sounds present. EXTREMITIES: No clubbing, cyanosis, or edema. Laboratory Laboratory Tests Test 07/09/17 10:40 07/10/17 03:45 Serum Osmolality 284 MOSM/KG Uric Acid 4.7 MG/DL Random Cortisol 32.2 MCG/DL White Blood Count 16.6 TH/MM3 Red Blood Count 2.77 MIL/MM3 Hemoglobin 8.3 GM/DL Hematocrit 25.4 % Mean Corpuscular Volume 91.9 FL Mean Corpuscular Hemoglobin 30.1 PG Mean Corpuscular Hemoglobin Concent 32.8 % Red Cell Distribution Width 14.9 % Platelet Count 394 TH/MM3 Mean Platelet Volume 8.2 FL Neutrophils (%) (Auto) 92.8 % Lymphocytes (%) (Auto) 4.7 % Monocytes (%) (Auto) 2.5 % Eosinophils (%) (Auto) 0.0 % Basophils (%) (Auto) 0.0 % Neutrophils # (Auto) 15.4 TH/MM3 Lymphocytes # (Auto) 0.8 TH/MM3 Monocytes # (Auto) 0.4 TH/MM3 Eosinophils # (Auto) 0.0 TH/MM3 Basophils # (Auto) 0.0 TH/MM3 CBC Comment AUTO DIFF Blood Urea Nitrogen 33 MG/DL Creatinine 0.81 MG/DL Random Glucose 97 MG/DL Total Protein 5.1 GM/DL Albumin 1.0 GM/DL Calcium Level 7.5 MG/DL Phosphorus Level 2.6 MG/DL Magnesium Level 1.6 MG/DL Alkaline Phosphatase 103 U/L Aspartate Amino Transf (AST/SGOT) 16 U/L Alanine Aminotransferase (ALT/SGPT) 19 U/L Total Bilirubin 0.2 MG/DL Sodium Level 133 MEQ/L Potassium Level 3.9 MEQ/L Chloride Level 102 MEQ/L Carbon Dioxide Level 22.3 MEQ/L Anion Gap 9 MEQ/L Estimat Glomerular Filtration Rate 94 ML/MIN Free Thyroxine 1.06 NG/DL Free Triiodothyronine (T3) pg/dL 0.89 PG/ML Thyroid Stimulating Hormone 3rd Gen LESS THAN 0.005 uIU/ML Imaging Last 24 hours Impressions Chest X-Ray 07/10/17 0600 Signed Impressions: Service Date/Time: Monday, July 10, 2017 04:27 - CONCLUSION: 1. There is no evidence of pneumothorax. 2. Increasing left-sided edema versus pneumonia Alessio Singh MD Assessment and Plan Problem List: (1) Dilated cardiomyopathy ICD Codes: I42.0 - Dilated cardiomyopathy Status: Acute Plan: EF on echo back down to 15-20% with global hypokinesis. EF had improved to 50% on May echo last year. Suspect etiology of his recurrent cardiomyopathy is non-ischemic. Respiratory failure appears more due to pneumonia than CHF. REC no new recommendations, will f/u periodically (2) Elevated troponin ICD Codes: R74.8 - Abnormal levels of other serum enzymes Status: Acute Plan: Small rises in troponin. Overall doubt due to severe CAD, but difficult to rule out. Patient seen in office recently, without any angina-like complaints. No acute ST/T changes on EKG. REC consider nuclear stress test when pulmonary/hemodynamic status stabilized continue daily aspirin Code Status alternative code Tima Lanza MD Jul 10, 2017 07:49
[2017-07-10] MEDS: AZTREONAM INJ 2,000 MG in SODIUM CHLORIDE 0.9% INJ 100 ML IV SCH (08:00)
--- NOTE | 2017-07-10 08:16 | MB ---
cc: GLENYS MORE DATE OF CONSULTATION 07/09/17 DATE OF 1945 HISTORY OF PRESENT ILLNESS An unfortunate male with a longstanding history of COPD, CHF, chronic atrial fibrillation. Health has been declining over the past year and a half, was admitted on 07/06/2017 for weakness, dyspnea, was unable to take a couple of steps without having to have assistance. Worsening cough and also some hemoptysis, fever. Upon arrival the paramedics checked his saturation was the low 80s. CT chest revealed aspiration, loculated effusion, also some cavitary consolidation on the left. Cultures were obtained. In less 24 hours his dyspnea worsened. He was intubated on the and he went to interventional radiology where he had two pigtail catheters placed in the loculations which one showed chylous purulent material and the other ___ material. He also underwent bronchoscopy and had multiple areas of clot found in the airways. The patient has been seen by palliative care and apparently his health has been rapidly declining and that he told her that he did not want to be kept on machines or life support. PAST MEDICAL HISTORY Includes chronic systolic heart failure with ejection fraction of 15%, chronic atrial fibrillation on Rivaroxaban. COPD, hypertension, Grave's disease. PAST SURGICAL HISTORY No past surgical history noted. ALLERGIES INCLUDE PENICILLIN. MEDICATIONS home meds include: 1. Xarelto. 2. Coreg. 3. Enalapril. 4. Potassium. 5. Lasix. 6. Mag oxide. 7. Methimazole. FAMILY HISTORY Noncontributory. SOCIAL HISTORY Positive for one and a half packs of cigarettes per day. Occasional marijuana. No alcohol. REVIEW OF SYSTEMS Are unobtainable since the patient is intubated. PHYSICAL EXAMINATION GENERAL: On exam the patient is very cachectic, frail. VITAL SIGNS: Blood pressure 117/70, heart rate 128, O2 sat 94 on 50% FIO2. The patient will open his eyes, follow simple commands. Again, he is very cachectic. SKIN: Warm and dry with no rashes or lesions. HEAD: Normocephalic. He has a very large almanza, unkempt. Pupils are equal, reactive. No sclerae icterus. No injection or drainage. NECK: Supple. No JVD. HEART: Heart sounds S1-S2, tachycardiac, 2/6 pansystolic murmur. LUNGS: Very coarse breath sounds. Two left-sided chest tubes at 40 cm suction, one has the chylous serous drainage and the other has some brownish drainage. ABDOMEN: Abdomen is soft, nontender. No masses or organomegaly. EXTREMITIES: With very trace edema. NEUROLOGICALLY: He is somewhat anxious, however, follows and moves all commands. LABORATORY DATA Lab work shows hemoglobin 9, hematocrit of 28, white cell count of 22, platelet count 486, sodium 127, potassium 4.0, BUN of 37, creatinine 0.94. Blood cultures are negative x2 days. Pleural fluid pending. No fungal elements in the initial pleural fluid. IMAGING STUDIES Chest x-ray today showed left side edema versus pneumonia. CT angiography findings were indicating aspiration with partial cavitary. Consolidation left lower lobe, moderate sized left loculated effusion. IMPRESSION 1. The patient with history of atrial fibrillation, congestive heart failure with ejection fraction of 15%, elevated troponin, currently hypotensive on Pan-Synephrine drip. Coreg on hold. 2. Acute hypoxic respiratory failure with left empyema. We have been consulted to evaluate for possible video-assisted thoracoscopy, decortication, however, at this time palliative care has remet with the patient's significant other. The concern was that they wanted him to peacefully at home. They have consulted hospice to see if the patient can be home on the vent ___ withdraw and allow natural there. He is requiring fentanyl for comfort care measures. The patient is an alternative code, only for intubation, no CPR. He is very frail, cachectic, very poor prognosis. Patient would at this time not tolerate any surgical intervention or further anesthesia and recommend the following: follow-up with palliative care and hospice. Dictated by: SEYMOUR Santos Glenys MD PETERSON Hodges/MONICA /4:11 PM /8:13 AM
[2017-07-10] MEDS: NICOTINE 14 MG/24 HR PATCH T-DERMAL SCH (08:33)
[2017-07-10] MEDS: CHLORHEXIDINE 0.12% (ORAL KIT) 15 ML CUP MT SCH ×2 (08:35→19:51)
[2017-07-10] MEDS: REMOVE OLD PATCH T-DERMAL SCH (08:35)
[2017-07-10] MEDS: SODIUM CHLORIDE 0.9% FLUSH 10 ML FLUSH IV FLUSH SCH ×3 (08:36→19:52)
[2017-07-10] MEDS: MAGNESIUM OXIDE 400 MG TAB PO SCH (09:00)
[2017-07-10] MEDS: DOCUSATE SODIUM 50 MG/SENNA 8.6 MG TAB PO SCH ×2 (09:00→19:52)
[2017-07-10] MEDS: ASPIRIN 81 MG CHEW TAB CHEW SCH (09:00)
[2017-07-10] MEDS: BENEPROTEIN POWDER 1 PACK G-TUBE SCH ×3 (09:00→17:36)
[2017-07-10] MEDS ORDERED: PHENYLEPHRINE INJ 40 MG in SODIUM CHLORID 0.9% 500 ML INJ 496 ML IV PRN (09:15)
--- NOTE | 2017-07-10 10:06 | HHI.IDPN ---
Note Infectious Disease Note Patient is on the vent. Sedated. remains on Levophed. Also on Neosynephrine. No longer has warming blanket. Noted by RN to follow commands. Still has 2 chest tubes on left. Pleural fluid culture has strep viridans. Presented to the emergency department with respiratory symptoms. The patient developed shortness of breath and reportedly had productive cough with hemoptysis. PAST MEDICAL HISTORY 1. Chronic obstructive pulmonary disease. 2. Congestive heart failure. 3. Hypertension. 4. Graves disease. 5. Atrial fibrillation. ALLERGIES PENICILLIN. MEDICATIONS 1. Azactam. 2. Levaquin. 3. vancomycin. SOCIAL HISTORY Notable for tobacco use 1-1/2 packs a day. Occasional marijuana use. No alcohol. FAMILY HISTORY Noncontributory. OBJECTIVE: Vital Signs Date Time Temp Pulse Resp B/P (MAP) Pulse Ox O2 Delivery O2 Flow Rate FiO2 07/10/17 08:00 99.1 127 20 102/59 (73) 93 07/10/17 07:38 94 50 07/10/17 06:00 100 07/10/17 05:57 100 91/51 07/10/17 04:58 95 07/10/17 04:54 95 50 07/10/17 04:00 93 07/10/17 04:00 97.8 93 18 86/54 (65) 92 07/10/17 04:00 50 07/10/17 02:59 95 92/51 07/10/17 02:18 106 96/55 07/10/17 02:00 98 07/10/17 00:00 99 07/10/17 00:00 98.4 99 22 88/50 (63) 92 07/10/17 00:00 50 07/09/17 23:45 94 50 07/09/17 22:51 98 94/50 07/09/17 22:00 93 07/09/17 20:00 94 07/09/17 20:00 93 Ventilator 07/09/17 20:00 50 07/09/17 20:00 98.6 94 16 94/55 (68) 93 07/09/17 19:55 93 50 07/09/17 18:30 96 19 86/50 (62) 92 07/09/17 18:30 96 07/09/17 18:15 96 07/09/17 18:15 96 17 87/50 (62) 92 07/09/17 18:00 100 20 87/50 (62) 92 07/09/17 18:00 100 07/09/17 17:45 96 07/09/17 17:45 96 17 86/51 (63) 92 07/09/17 17:30 96 07/09/17 17:30 96 18 91/53 (66) 92 07/09/17 17:15 100 17 93/54 (67) 93 07/09/17 17:15 100 07/09/17 17:00 106 07/09/17 17:00 106 20 90/54 (66) 93 07/09/17 16:45 100 18 88/52 (64) 93 07/09/17 16:45 100 07/09/17 16:30 100 16 83/53 (63) 94 07/09/17 16:30 100 07/09/17 16:15 104 07/09/17 16:15 104 16 71/46 (54) 94 07/09/17 16:00 116 15 81/52 (62) 93 07/09/17 16:00 50 07/09/17 16:00 116 07/09/17 14:52 94 50 07/09/17 14:00 152 07/09/17 14:00 152 117/70 07/09/17 12:00 50 07/09/17 12:00 128 15 69/47 (54) 93 07/09/17 12:00 128 07/09/17 11:56 144 16 109/58 (75) 96 07/09/17 11:56 144 07/09/17 11:55 146 07/09/17 11:55 146 18 114/60 (78) 95 07/09/17 11:45 126 07/09/17 11:45 126 16 116/66 (83) 96 07/09/17 11:30 117 16 106/63 (77) 93 07/09/17 11:30 117 07/09/17 11:22 96 50 07/09/17 11:15 113 07/09/17 11:15 113 16 106/65 (79) 96 07/09/17 11:00 116 18 103/64 (77) 94 07/09/17 11:00 116 07/09/17 10:45 113 07/09/17 10:45 113 23 100/58 (72) 94 07/09/17 10:30 111 16 100/58 (72) 94 07/09/17 10:30 111 07/09/17 10:15 109 17 98/53 (68) 93 07/09/17 10:15 109 Laboratory Tests Test 07/09/17 03:52 07/10/17 03:45 White Blood Count 22.4 TH/MM3 16.6 TH/MM3 Red Blood Count 3.07 MIL/MM3 2.77 MIL/MM3 Hemoglobin 9.4 GM/DL 8.3 GM/DL Hematocrit 28.1 % 25.4 % Mean Corpuscular Volume 91.4 FL 91.9 FL Mean Corpuscular Hemoglobin 30.7 PG 30.1 PG Mean Corpuscular Hemoglobin Concent 33.7 % 32.8 % Red Cell Distribution Width 15.0 % 14.9 % Platelet Count 486 TH/MM3 394 TH/MM3 Mean Platelet Volume 8.4 FL 8.2 FL Neutrophils (%) (Auto) 90.8 % 92.8 % Lymphocytes (%) (Auto) 6.7 % 4.7 % Monocytes (%) (Auto) 2.4 % 2.5 % Eosinophils (%) (Auto) 0.0 % 0.0 % Basophils (%) (Auto) 0.1 % 0.0 % Neutrophils # (Auto) 20.3 TH/MM3 15.4 TH/MM3 Lymphocytes # (Auto) 1.5 TH/MM3 0.8 TH/MM3 Monocytes # (Auto) 0.5 TH/MM3 0.4 TH/MM3 Eosinophils # (Auto) 0.0 TH/MM3 0.0 TH/MM3 Basophils # (Auto) 0.0 TH/MM3 0.0 TH/MM3 CBC Comment AUTO DIFF AUTO DIFF Differential Total Cells Counted 100 100 Neutrophils % (Manual) 71 % 93 % Band Neutrophils % 15 % 4 % Lymphocytes % 8 % 2 % Monocytes % 6 % 1 % Neutrophils # (Manual) 19.3 TH/MM3 16.1 TH/MM3 Differential Comment FINAL DIFF MANUAL FINAL DIFF MANUAL Toxic Granulation 1+ Platelet Estimate HIGH NORMAL Platelet Morphology Comment NORMAL NORMAL Laboratory Tests Test 07/08/17 23:42 07/09/17 03:52 07/09/17 10:40 07/10/17 03:45 Troponin I 1.98 NG/ML 1.79 NG/ML Blood Urea Nitrogen 37 MG/DL 33 MG/DL Creatinine 0.94 MG/DL 0.81 MG/DL Random Glucose 168 MG/DL 97 MG/DL Total Protein 5.8 GM/DL 5.1 GM/DL Albumin 1.1 GM/DL 1.0 GM/DL Calcium Level 8.0 MG/DL 7.5 MG/DL Phosphorus Level 2.3 MG/DL 2.6 MG/DL Magnesium Level 1.6 MG/DL 1.6 MG/DL Alkaline Phosphatase 110 U/L 103 U/L Aspartate Amino Transf (AST/SGOT) 23 U/L 16 U/L Alanine Aminotransferase (ALT/SGPT) 22 U/L 19 U/L Total Bilirubin 0.2 MG/DL 0.2 MG/DL Sodium Level 127 MEQ/L 133 MEQ/L Potassium Level 4.0 MEQ/L 3.9 MEQ/L Chloride Level 96 MEQ/L 102 MEQ/L Carbon Dioxide Level 22.4 MEQ/L 22.3 MEQ/L Anion Gap 9 MEQ/L 9 MEQ/L Estimat Glomerular Filtration Rate 79 ML/MIN 94 ML/MIN Ammonia 31 MCMOL/L Serum Osmolality 284 MOSM/KG Uric Acid 4.7 MG/DL Random Cortisol 32.2 MCG/DL Free Thyroxine 1.06 NG/DL Free Triiodothyronine (T3) pg/dL 0.89 PG/ML Thyroid Stimulating Hormone 3rd Gen LESS THAN 0.005 uIU/ML Microbiology Date/Time Source Procedure Growth Status 07/07/17 15:05 Fluid Pleural Fluid Fungal Smear - Final NO FUNGAL ELEMENTS SEEN. Resulted 07/07/17 15:05 Fluid Pleural Fluid Fungal Culture Pending Resulted 07/07/17 15:05 Fluid Pleural Fluid Acid Fast Stain - Final NO ACID FAST BACILLI SEEN Resulted 07/07/17 15:05 Fluid Pleural Fluid Mycobacterial Culture Pending Resulted 07/07/17 15:05 Fluid Pleural Fluid Gram Stain - Final Complete 07/07/17 15:05 Body Fluid Culture - Final Viridans Streptococcus Grp Complete IMAGING: Chest X-Ray [id number]/[id number] Signed Impressions: Service Date/Time: Monday, July 10, 2017 04:27 - CONCLUSION: 1. There is no evidence of pneumothorax. 2. Increasing left-sided edema versus pneumonia Alessio Singh MD Chest X-Ray [id number]/09/17599 Signed Impressions: Service Date/Time: July 03:50 - CONCLUSION: 1. Left-sided edema versus pneumonia. There has been no significant change when compared to the prior exam. 2. Nasogastric tube at the gastroesophageal junction this could be advanced 5-10 cm Alessio Singh MD Chest Tube Insertion 07/07/17 0000 Signed Impressions: Service Date/Time: Friday, July 07, 2017 14:24 - CONCLUSION: 1. Uncomplicated CT-guided placement of 16 [place]ian pigtail chest tubes for treatment of loculated empyemas in the anterior and posterior inferior left hemithorax. Please see prior CT report for additional details. Fernando Diaz MD CT Angiography 07/06/17 0000 Signed Impressions: Service Date/Time: Thursday, July 06, 2017 20:36 - CONCLUSION: 1. No PE is identified. 2. As expected from the chest x-ray there is a pleural-parenchymal process for the cause of the shortness of breath and cough. There are findings indicating aspiration with partially cavitary consolidation in the left lower lobe. There is a moderate size loculated left pleural effusion with adjacent compressive atelectasis. Holden Myers MD PHYSICAL EXAMINATION GENERAL: On the vent. HEENT: Head is atraumatic. Pupils reactive to light. No icterus. NECK: Supple without adenopathy. LUNGS: Basilar rhonchi on the left and clear on the right. HEART: Normal S1-S2. No audible murmurs or rubs or gallops. ABDOMEN: Soft. Nontender. (+) BS. EXTREMITIES: Diffuse muscle wasting. No clubbing or cyanosis or edema. SKIN: No rash. Warm and dry. PSYCH: Unable to asses. IMPRESSION 1. Aspiration pneumonia/ Empyema. Strep viridans group. 2. Acute Respiratory failure. 3. Cachexia. RECOMMENDATIONS 1. Continue Levaquin. 2. Stop Vancomycin. 3. Stop Aztreonam. 4. Monitor clinical status. Made aware of plans to withdraw life support via hospice at home. Koby Roberts MD Jul 10, 2017 10:06
--- NOTE | 2017-07-10 12:17 | HHI.CCPN ---
Subjective Remarks/Hospital Course This is a 71-year-old male. Date of admission 07/06/2017. Date of consultation 07/07/2017. Past medical history includes chronic systolic heart failure ejection fraction 15%, moderate to severe pulmonary hypertension, ongoing tobaccoism, COPD, hypertension, Graves' disease on methimazole, chronic rivaroxaban use. Patient is in the health source of breath. CT pulmonary angiography revealed a loculated left-sided pleural effusion. Patient has been in the hospital service with consultation to infectious disease and pulmonology. Today, patient had 2 chest tubes placed in the left lung for moderate empyema. Glucose is currently 1 and LDH greater than 10,000 in sample pleural fluid. Postprocedure, patient became more short of breath. Follow chest x-ray revealed no obvious pneumothorax on the left. In discussion with patient, stated that he needed to be intubated and he agreed at that time. Patient was intubated using 20 mg etomidate and 50 milligrams rocuronium and a central line was placed 07/08: Remains on the ventilator and tachycardic. Noted elevated troponin. Not a candidate for anticoagulation due to large clots removed from left main bronchus overnight. We'll start on baby aspirin events see if tolerates. EKG follow-up pending. Noted Q waves in anteroseptal leads on admission. Repeat pending. 07/09: Remains on the ventilator. Currently full code. Tolerating tube feeds. Remains tachycardic. Switch methimazole to propylthiouracil and added hydrocortisone. Not a candidate for propranolol secondary to EF of 10%. Subjective 07/10: Plan is to withdrawal care patient to be sent home on hospice with chest tube placement on vasopressors to pass at home. With hospice. Objective Vital Signs Date Time Temp Pulse Resp B/P (MAP) Pulse Ox O2 Delivery O2 Flow Rate FiO2 07/10/17 10:56 93 50 07/10/17 08:00 99.1 127 20 102/59 (73) 07/09/17 20:00 Ventilator 07/09/17 09:14 4.00 Intake and Output 07/10/17 07/10/17 07/11/17 08:00 16:00 00:00 Intake Total 982.9 ml 100 ml Output Total 660 ml Balance 322.9 ml 100 ml Result Diagram: 07/10/17 0345 07/10/17 0345 Other Results Microbiology Date/Time Source Procedure Growth Status 07/06/17 21:53 Blood Peripheral Aerobic Blood Culture - Preliminary NO GROWTH IN 4 DAYS Resulted 07/06/17 21:53 Blood Peripheral Anaerobic Blood Culture - Preliminary NO GROWTH IN 4 DAYS Resulted 07/07/17 15:05 Fluid Pleural Fluid Fungal Smear - Final NO FUNGAL ELEMENTS SEEN. Resulted 07/07/17 15:05 Fluid Pleural Fluid Fungal Culture Pending Resulted Imaging Last Impressions Chest X-Ray 07/10/17 0600 Signed Impressions: Service Date/Time: Monday, July 10, 2017 04:27 - CONCLUSION: 1. There is no evidence of pneumothorax. 2. Increasing left-sided edema versus pneumonia Alessio Singh MD Chest Tube Insertion 07/07/17 0000 Signed Impressions: Service Date/Time: Friday, July 07, 2017 14:24 - CONCLUSION: 1. Uncomplicated CT-guided placement of 16 Swedish pigtail chest tubes for treatment of loculated empyemas in the anterior and posterior inferior left hemithorax. Please see prior CT report for additional details. Fernando Diaz MD CT Angiography 07/06/17 0000 Signed Impressions: Service Date/Time: Thursday, July 06, 2017 20:36 - CONCLUSION: 1. No PE is identified. 2. As expected from the chest x-ray there is a pleural-parenchymal process for the cause of the shortness of breath and cough. There are findings indicating aspiration with partially cavitary consolidation in the left lower lobe. There is a moderate size loculated left pleural effusion with adjacent compressive atelectasis. Holden Myers MD Objective Remarks GENERAL: 71-year-old male, resting in bed in currently orotracheally intubated SKIN: Warm and dry. No rash HEAD: Atraumatic. Normocephalic. Large almanza EYES: Pupils equal and round about 3 mm bilaterally and reactive. No scleral icterus. No injection or drainage. ENT: No nasal bleeding or discharge. Mucous membranes pink and moist. NECK: Trachea midline. No JVD. CARDIOVASCULAR: Tachycardic, RR.. S1, S2. No S4. 2/6 pansystolic murmur RESPIRATORY: Diminished breath sounds left lower lobe.. 2 chest left-sided - 40 cm H2O -70 cc white pus/-40 cc serosanguineous output GASTROINTESTINAL: Abdomen soft, non-tender, nondistended. Cachectic. MUSCULOSKELETAL: Extremities with no peripheral edema NEUROLOGICAL: Currently orotracheally intubated. Arousable on sedation reduced. Cranial nerve II through XII are most intact. Moves to command all 4 extremities spontaneously. Procedures LEFT SIDE CHEST TUBES FOR EMPYEMA AND FLUID - Vascular Central Line Catheter: Yes Assessment to: Continue Date of Insertion: Jul 08, 2017 Line: Central Venous Catheter Side: Right Location: Internal, Jugular A/P Assessment and Plan Neuro/Psych: Patient is currently on dexmedetomidine at 0.6 g per kilo per hour/fentanyl drips at 150 mg an hour for sedation/analgesia while intubated. Goal of RASS -2 Daily sedation vacation CV: History of atrial fibrillation currently normal sinus rhythm Congestive heart failure/chronic systolic ejection fraction 15% 2015 Hypertension Elevated troponin Patient is currently on phenylephrine drip at 80 per minute and norepinephrine drip at 12 g per minute to maintain mean arterial pressure 65 Home medications include carvedilol 12.5 mg twice a day currently on hold Home medications furosemide 20 mg daily will be held. EKG admission revealed Q waves in anteroseptal leads. Will repeat check EKG today. 07/08 2-D echocardiogram EF less than 20%. Global hypokinesis. Cycle troponins. Consulted Dr. Munoz's, cardiology. Appreciate Initiate baby aspirin 81 mg daily. Not a chronic for systemic anticoagulation due to large thrombus/clot in left main bronchus removed yesterday Resp: Acute hypoxemic respiratory failure COPD Left empyema PRVC 20/500///50 Ventilator bundle Albuterol/ipratropium aerosol every 4 hours with albuterol aerosols every 2 hours. Dyspnea Follow-up chest x-ray and ABG post intubation Continue budesonide 0.5/2 1 inhalation twice a day Pulmonary and ID following for empyema - gram-positive cocci Maintain chest tubes is -40 cm H2O GI: Hypoalbuminemia Started on tube feedings Jevity 1.5 goal 50 cc an hour. This is on hold due to removal of NG tube unable to replace Pantoprazole for GI prophylaxis Docusate sodium/senna for bowel regimen : Norton will be placed for accurate I's and O's in a critically ill patient Endo: Graves' disease/hyperthyroidism - early thyroid storm? Switch methimazole 10 mg every other day propylthiouracil 100 mg every 4 hours daily and add HC 100 mg every 8 hours. Unable to give PTU secondary unable to place NG tube - Not a candidate for propranolol secondary to EF of around 10% TSH 0.005. T3 and T4 both elevated. Sliding-scale insulin with Accu-Cheks to maintain euglycemia Renal: Creatinine currently within normal limits Monitor urine output Accurate I's and O's Heme: Leukocytosis Normocytic anemia Chronic rivaroxaban use Anticoagulation currently on hold. Resume when clinically indicated Monitor CBC daily. Follow trends ID: Blood cultures 07/06 no growth Cultures from left empyema gram-positive cocci - strep meridian/ Infectious disease following Currently on levofloxacin day #4 aztreonam discontinued MSK: PT evaluate and treat FEN: Hyponatremia Replace electrolytes as clinically indicated Access - Right IJ CVL day 3 placed 07/08 Prophylaxis - GI - pantoprazole - DVT - SCD/pharmacological prophylaxis held secondary to bleeding Critical Care: The total critical care time was 35 minutes. Time to perform other separately billable procedures was not included in the critical care time. Alejandro Telles MD Jul 10, 2017 12:17
--- NOTE | 2017-07-10 12:39 | HHI.HCPN ---
Reason for visit a. To assist with evaluation and management of symptoms including: Dyspnea , pain b. To assist medical decision maker(s) with: better understanding of current medical conditions; weighing benefits/burdens of medical treatment options; making medical treatment decisions. . Subjective/Interval History INTERVAL NOTE: The patient remains tachycardic, hypotensive, still on 250 mcg fentanyl. White count is now 16, and albumin is 1.0. Chest x-ray looks worse on the left. All of the plans were made for transitioning the patient to home on the ventilator and then with hospice support to withdraw life support there and allow natural . However, Lidia may have to go see her back surgeon today so the timing of this is uncertain. . . Family/friend interactions Lengthy discussion with Lidia via telephone. She missed her follow-up with her surgeon from her back surgery that she had last week, and so she is trying to get in to see the surgeon today. She is speaking with hospice directly and they are trying to arrange a time frame that works for everyone. Lidia does reiterate that she is sure she doesn't want to let him "suffer like this too long." . Advance Directives Living Will: Copy in medical record Health Care Surrogate: Copy in medical record Advance Directive Specifics Date completed: 07/04/17 . Health Care Surrogate(s): Longtime girlfriend Lidia Cowan . Documented care wishes: The patient's living will that he executed last week says that he would not want to be kept alive artificially if he had a terminal or end-stage condition, and that he would not want artificial nutrition and hydration in that situation. . Objective Vital Signs Date Time Temp Pulse Resp B/P (MAP) Pulse Ox O2 Delivery O2 Flow Rate FiO2 07/10/17 10:56 93 50 07/10/17 08:00 99.1 127 20 102/59 (73) 93 07/10/17 07:38 94 50 07/10/17 06:00 100 07/10/17 05:57 100 91/51 07/10/17 04:58 95 07/10/17 04:54 95 50 07/10/17 04:00 93 07/10/17 04:00 97.8 93 18 86/54 (65) 92 07/10/17 04:00 50 07/10/17 02:59 95 92/51 07/10/17 02:18 106 96/55 07/10/17 02:00 98 07/10/17 00:00 99 07/10/17 00:00 98.4 99 22 88/50 (63) 92 07/10/17 00:00 50 07/09/17 23:45 94 50 07/09/17 22:51 98 94/50 07/09/17 22:00 93 07/09/17 20:00 94 07/09/17 20:00 93 Ventilator 07/09/17 20:00 50 07/09/17 20:00 98.6 94 16 94/55 (68) 93 07/09/17 19:55 93 50 07/09/17 18:30 96 19 86/50 (62) 92 07/09/17 18:30 96 07/09/17 18:15 96 07/09/17 18:15 96 17 87/50 (62) 92 07/09/17 18:00 100 20 87/50 (62) 92 07/09/17 18:00 100 07/09/17 17:45 96 07/09/17 17:45 96 17 86/51 (63) 92 07/09/17 17:30 96 07/09/17 17:30 96 18 91/53 (66) 92 07/09/17 17:15 100 17 93/54 (67) 93 07/09/17 17:15 100 07/09/17 17:00 106 07/09/17 17:00 106 20 90/54 (66) 93 07/09/17 16:45 100 18 88/52 (64) 93 07/09/17 16:45 100 07/09/17 16:30 100 16 83/53 (63) 94 07/09/17 16:30 100 07/09/17 16:15 104 07/09/17 16:15 104 16 71/46 (54) 94 07/09/17 16:00 116 15 81/52 (62) 93 07/09/17 16:00 50 07/09/17 16:00 116 07/09/17 14:52 94 50 07/09/17 14:00 152 07/09/17 14:00 152 117/70 Intake & Output 07/10/17 07/10/17 07:00 19:00 Intake Total 1580.4 ml 350 ml Output Total 660 ml Balance 920.4 ml 350 ml Intake Oral 0 ml IV Total 1580.4 ml 350 ml Output Urine Total 550 ml Chest Tube Drainage Total 110 ml Physical Exam CONSTITUTIONAL/GENERAL: This is a weak, cachectic patient, mechanically ventilated, in no apparent distress. TUBES/LINES/DRAINS: ET tube, right IJ line, Norton catheter, 2 chest tubes from the left chest SKIN: No jaundice, rashes, or lesions. Ecchymoses on upper extremities. No wounds seen anteriorly. Skin temperature appropriate. Not diaphoretic. NECK: Trachea midline. Supple, nontender. No palpable thyroid enlargement or nodularity. CARDIOVASCULAR: Irregular rhythm, without murmurs, gallops, or rubs. No JVD. Peripheral pulses quite diminished. RESPIRATORY/CHEST: Symmetric, unlabored respirations on the ventilator. Diminished breath sounds on the left, scattered rhonchi. GASTROINTESTINAL: Abdomen soft, non-tender, nondistended. No hepato-splenomegaly , or palpable masses. No guarding. Bowel sounds present. MUSCULOSKELETAL: Extremities without clubbing, cyanosis, or edema. No joint tenderness or effusion noted. No calf tenderness. No mottling or clubbing. NEUROLOGICAL: Occasionally opens eyes when stimulated PSYCHIATRIC: Appears fearful when he opens his eyes . Diagnostic Tests Laboratory Laboratory Tests Test 07/07/17 15:05 07/07/17 19:20 07/07/17 19:25 07/08/17 04:15 Pleural Fluid pH 8.0 Pleural Fluid WBC 114972 /MM3 (0-10) Pleural Fluid RBC 988933 /MM3 (0-0) Pleural Fluid Neutrophils 100 % Pleural Fluid Total Protein 2.1 GM/DL Pleural Fluid LDH GREATER THAN 03666 U/L Pleural Fluid Glucose 1 MG/DL Blood Gas Puncture Site RT RADIAL CENTRAL LINE Blood Gas Patient Temperature 98.6 98.6 Blood Gas HCO3 23 mmol/L (22-26) Blood Gas Base Excess -1.7 mmol/L (-2-2) Blood Gas Oxygen Saturation 83 % (90-100) Arterial Blood pH 7.38 (7.380-7.420) Arterial Blood Partial Pressure CO2 40 mmHg (38-42) Arterial Blood Partial Pressure O2 55 mmHg (61-120) Arterial Blood Oxygen Content 20.2 Vol % (12.0-20.0) Arterial Blood Carboxyhemoglobin 0.3 % (0-4) Arterial Blood Methemoglobin 1.1 % (0-2) Blood Gas Hemoglobin 17.3 G/DL (12.0-16.0) Oxygen Delivery Device VENTILATOR VENTILATOR Blood Gas Ventilator Setting 20/500/IT1.0/8PEEP 20/500/IT1.0/8PEEP Blood Gas Inspired Oxygen 100 % 100 % Venous Blood pH 7.35 (7.360-7.400) Venous Blood Partial Pressure CO2 45 mmHg (44-48) Venous Blood Partial Pressure O2 36 mmHg (35-40) Venous Blood HCO3 24 mmol/L (22-26) Venous Blood Oxygen Saturation 56 % (70-76) Venous Blood Oxygen Content 7.9 Vol % (9.0-17.0) Venous Blood Base Excess -1.0 mmol/L (-2-2) Prothrombin Time 12.0 SEC (9.8-11.6) Prothromb Time International Ratio 1.1 RATIO Activated Partial Thromboplast Time 26.4 SEC (24.3-30.1) Fibrinogen 123 mg/dL (227-377) Lactic Acid Level 1.1 mmol/L (0.4-2.0) Ammonia 13 MCMOL/L (11-32) Test 07/08/17 05:49 07/08/17 08:00 07/08/17 23:42 07/09/17 03:52 White Blood Count 16.2 TH/MM3 (4.0-11.0) 22.4 TH/MM3 (4.0-11.0) Red Blood Count 2.95 MIL/MM3 (4.50-5.90) 3.07 MIL/MM3 (4.50-5.90) Hemoglobin 8.9 GM/DL (13.0-17.0) 9.4 GM/DL (13.0-17.0) Hematocrit 27.5 % (39.0-51.0) 28.1 % (39.0-51.0) Mean Corpuscular Volume 93.2 FL (80.0-100.0) 91.4 FL (80.0-100.0) Mean Corpuscular Hemoglobin 30.1 PG (27.0-34.0) 30.7 PG (27.0-34.0) Mean Corpuscular Hemoglobin Concent 32.2 % (32.0-36.0) 33.7 % (32.0-36.0) Red Cell Distribution Width 15.2 % (11.6-17.2) 15.0 % (11.6-17.2) Platelet Count 539 TH/MM3 (150-450) 486 TH/MM3 (150-450) Mean Platelet Volume 8.4 FL (7.0-11.0) 8.4 FL (7.0-11.0) Neutrophils (%) (Auto) 89.0 % (16.0-70.0) 90.8 % (16.0-70.0) Lymphocytes (%) (Auto) 7.9 % (9.0-44.0) 6.7 % (9.0-44.0) Monocytes (%) (Auto) 3.0 % (0.0-8.0) 2.4 % (0.0-8.0) Eosinophils (%) (Auto) 0.0 % (0.0-4.0) 0.0 % (0.0-4.0) Basophils (%) (Auto) 0.1 % (0.0-2.0) 0.1 % (0.0-2.0) Neutrophils # (Auto) 14.5 TH/MM3 (1.8-7.7) 20.3 TH/MM3 (1.8-7.7) Lymphocytes # (Auto) 1.3 TH/MM3 (1.0-4.8) 1.5 TH/MM3 (1.0-4.8) Monocytes # (Auto) 0.5 TH/MM3 (0-0.9) 0.5 TH/MM3 (0-0.9) Eosinophils # (Auto) 0.0 TH/MM3 (0-0.4) 0.0 TH/MM3 (0-0.4) Basophils # (Auto) 0.0 TH/MM3 (0-0.2) 0.0 TH/MM3 (0-0.2) CBC Comment DIFF FINAL AUTO DIFF Differential Comment FINAL DIFF MANUAL Blood Urea Nitrogen MG/DL (7-18) 30 MG/DL (7-18) 37 MG/DL (7-18) Creatinine MG/DL (0.60-1.30) 0.73 MG/DL (0.60-1.30) 0.94 MG/DL (0.60-1.30) Random Glucose MG/DL (74-106) 80 MG/DL (74-106) 168 MG/DL (74-106) Total Protein GM/DL (6.4-8.2) 6.2 GM/DL (6.4-8.2) 5.8 GM/DL (6.4-8.2) Albumin GM/DL (3.4-5.0) 1.3 GM/DL (3.4-5.0) 1.1 GM/DL (3.4-5.0) Calcium Level MG/DL (8.5-10.1) 7.8 MG/DL (8.5-10.1) 8.0 MG/DL (8.5-10.1) Phosphorus Level MG/DL (2.5-4.9) 2.5 MG/DL (2.5-4.9) 2.3 MG/DL (2.5-4.9) Magnesium Level MG/DL (1.5-2.5) 1.9 MG/DL (1.5-2.5) 1.6 MG/DL (1.5-2.5) Alkaline Phosphatase U/L (45-117) 117 U/L (45-117) 110 U/L (45-117) Aspartate Amino Transf (AST/SGOT) U/L (15-37) 27 U/L (15-37) 23 U/L (15-37) Alanine Aminotransferase (ALT/SGPT) U/L (12-78) 21 U/L (12-78) 22 U/L (12-78) Total Bilirubin MG/DL (0.2-1.0) 0.2 MG/DL (0.2-1.0) 0.2 MG/DL (0.2-1.0) Direct Bilirubin MG/DL (0.0-0.2) 0.2 MG/DL (0.0-0.2) Sodium Level MEQ/L (136-145) 133 MEQ/L (136-145) 127 MEQ/L (136-145) Potassium Level MEQ/L (3.5-5.1) 4.0 MEQ/L (3.5-5.1) 4.0 MEQ/L (3.5-5.1) Chloride Level MEQ/L (98-107) 102 MEQ/L (98-107) 96 MEQ/L (98-107) Carbon Dioxide Level MEQ/L (21.0-32.0) 25.0 MEQ/L (21.0-32.0) 22.4 MEQ/L (21.0-32.0) Anion Gap MEQ/L (5-15) 6 MEQ/L (5-15) 9 MEQ/L (5-15) Estimat Glomerular Filtration Rate ML/MIN (>89) 106 ML/MIN (>89) 79 ML/MIN (>89) Hemoglobin A1c 6.1 % (4.3-6.0) Total Creatine Kinase U/L (39-308) 60 U/L (39-308) Troponin I NG/ML (0.02-0.05) 2.22 NG/ML (0.02-0.05) 1.98 NG/ML (0.02-0.05) 1.79 NG/ML (0.02-0.05) Amylase Level U/L (25-115) 37 U/L (25-115) Lipase U/L (73-393) 87 U/L (73-393) Free Thyroxine NG/DL (0.76-1.46) 1.52 NG/DL (0.76-1.46) Thyroid Stimulating Hormone 3rd Gen uIU/ML (0.358-3.740) LESS THAN 0.005 uIU/ML Triglycerides Level 125 MG/DL (42-150) Cholesterol Level 81 MG/DL (120-200) LDL Cholesterol 27 MG/DL (0-99) HDL Cholesterol 29.4 MG/DL (40.0-60.0) Cholesterol/HDL Ratio 2.75 RATIO Differential Total Cells Counted 100 Neutrophils % (Manual) 71 % (16-70) Band Neutrophils % 15 % (0-6) Lymphocytes % 8 % (9-44) Monocytes % 6 % (0-8) Neutrophils # (Manual) 19.3 TH/MM3 (1.8-7.7) Toxic Granulation 1+ (NORMAL) Platelet Estimate HIGH (NORMAL) Platelet Morphology Comment NORMAL (NORMAL) Ammonia 31 MCMOL/L (11-32) Test 07/09/17 10:40 07/10/17 03:45 Serum Osmolality 284 MOSM/KG (275-295) Uric Acid 4.7 MG/DL (2.6-7.2) Random Cortisol 32.2 MCG/DL White Blood Count 16.6 TH/MM3 (4.0-11.0) Red Blood Count 2.77 MIL/MM3 (4.50-5.90) Hemoglobin 8.3 GM/DL (13.0-17.0) Hematocrit 25.4 % (39.0-51.0) Mean Corpuscular Volume 91.9 FL (80.0-100.0) Mean Corpuscular Hemoglobin 30.1 PG (27.0-34.0) Mean Corpuscular Hemoglobin Concent 32.8 % (32.0-36.0) Red Cell Distribution Width 14.9 % (11.6-17.2) Platelet Count 394 TH/MM3 (150-450) Mean Platelet Volume 8.2 FL (7.0-11.0) Neutrophils (%) (Auto) 92.8 % (16.0-70.0) Lymphocytes (%) (Auto) 4.7 % (9.0-44.0) Monocytes (%) (Auto) 2.5 % (0.0-8.0) Eosinophils (%) (Auto) 0.0 % (0.0-4.0) Basophils (%) (Auto) 0.0 % (0.0-2.0) Neutrophils # (Auto) 15.4 TH/MM3 (1.8-7.7) Lymphocytes # (Auto) 0.8 TH/MM3 (1.0-4.8) Monocytes # (Auto) 0.4 TH/MM3 (0-0.9) Eosinophils # (Auto) 0.0 TH/MM3 (0-0.4) Basophils # (Auto) 0.0 TH/MM3 (0-0.2) CBC Comment AUTO DIFF Differential Total Cells Counted 100 Neutrophils % (Manual) 93 % (16-70) Band Neutrophils % 4 % (0-6) Lymphocytes % 2 % (9-44) Monocytes % 1 % (0-8) Neutrophils # (Manual) 16.1 TH/MM3 (1.8-7.7) Differential Comment FINAL DIFF MANUAL Platelet Estimate NORMAL (NORMAL) Platelet Morphology Comment NORMAL (NORMAL) Blood Urea Nitrogen 33 MG/DL (7-18) Creatinine 0.81 MG/DL (0.60-1.30) Random Glucose 97 MG/DL (74-106) Total Protein 5.1 GM/DL (6.4-8.2) Albumin 1.0 GM/DL (3.4-5.0) Calcium Level 7.5 MG/DL (8.5-10.1) Phosphorus Level 2.6 MG/DL (2.5-4.9) Magnesium Level 1.6 MG/DL (1.5-2.5) Alkaline Phosphatase 103 U/L (45-117) Aspartate Amino Transf (AST/SGOT) 16 U/L (15-37) Alanine Aminotransferase (ALT/SGPT) 19 U/L (12-78) Total Bilirubin 0.2 MG/DL (0.2-1.0) Sodium Level 133 MEQ/L (136-145) Potassium Level 3.9 MEQ/L (3.5-5.1) Chloride Level 102 MEQ/L (98-107) Carbon Dioxide Level 22.3 MEQ/L (21.0-32.0) Anion Gap 9 MEQ/L (5-15) Estimat Glomerular Filtration Rate 94 ML/MIN (>89) Free Thyroxine 1.06 NG/DL (0.76-1.46) Free Triiodothyronine (T3) pg/dL 0.89 PG/ML (2.18-3.98) Thyroid Stimulating Hormone 3rd Gen LESS THAN 0.005 uIU/ML Result Diagram: 07/10/17 0345 07/10/17 0345 Microbiology Microbiology Date/Time Source Procedure Growth Status 07/07/17 15:05 Fluid Pleural Fluid Fungal Smear - Final NO FUNGAL ELEMENTS SEEN. Resulted 07/07/17 15:05 Fluid Pleural Fluid Fungal Culture Pending Resulted 07/07/17 15:05 Fluid Pleural Fluid Acid Fast Stain - Final NO ACID FAST BACILLI SEEN Resulted 07/07/17 15:05 Fluid Pleural Fluid Mycobacterial Culture Pending Resulted 07/07/17 15:05 Fluid Pleural Fluid Gram Stain - Final Complete 07/07/17 15:05 Body Fluid Culture - Final Viridans Streptococcus Grp Complete Imaging Last Impressions Chest X-Ray 07/10/17 0600 Signed Impressions: Service Date/Time: Monday, July 10, 2017 04:27 - CONCLUSION: 1. There is no evidence of pneumothorax. 2. Increasing left-sided edema versus pneumonia Alessio Singh MD Chest Tube Insertion 07/07/17 0000 Signed Impressions: Service Date/Time: Friday, July 07, 2017 14:24 - CONCLUSION: 1. Uncomplicated CT-guided placement of 16 [place] pigtail chest tubes for treatment of loculated empyemas in the anterior and posterior inferior left hemithorax. Please see prior CT report for additional details. Fernando Diaz MD CT Angiography 07/06/17 0000 Signed Impressions: Service Date/Time: Thursday, July 06, 2017 20:36 - CONCLUSION: 1. No PE is identified. 2. As expected from the chest x-ray there is a pleural-parenchymal process for the cause of the shortness of breath and cough. There are findings indicating aspiration with partially cavitary consolidation in the left lower lobe. There is a moderate size loculated left pleural effusion with adjacent compressive atelectasis. Holden Myers MD Procedures BiPAP 07/06/17 INTUBATION 07/07/17 Right IJ line 07/07/17 Bronchoscopy 07/07/17 . Assessment and Plan Disease Oriented Problem List: (1) respiratory failure (2) end-stage COPD (3) cachexia/malnutrition (4) CHF, with EF 15-20% in November 2015 (5) s/p suctioning of clots from bronchi 07/07/17 (6) empyema left chest (7) chronic atrial fibrillation, anticoagulated on Route of (8) history of Graves' disease (9) anemia (10) hypertension Symptom Scale: (1) pain 0-10 Scale: Unable to quantify (2) dyspnea 0-10 Scale: Unable to quantify Pertinent Non-Medical Issues Psychosocial: Never , disabled for 30 years due to COPD, girlfriend Lidia 9 years, 2 children that he has not seen since they were very young, and he has had no knowledge of their names or locations. Spiritual: He has not been spiritual or druze, the girlfriend would like a licensed clinical psychologist to visit Legal: The patient lacks capacity for decision-making, and it is very unlikely that he will regain capacity. He has designated his longtime girlfriend Lidia as healthcare surrogate in a living will and HCS form that appears to be properly executed about a week ago. Ethical issues impacting care: None . Important Contacts HCS/girlfriend Lidia Cowan [phone], and [phone] Brother: Jac Alvarenga: Home [phone], cell: [phone] . Prognosis This patient is terminal. He has underlying end-stage heart and end-stage lung conditions in the face of cachexia/malnutrition, and now with pneumonia, respiratory failure, and empyema/sepsis. He is appropriate for hospice services if the goals become comfort oriented. . Code Status: Alternative Code (intubation only) Plan * ALTERNATE CODE - intubation only * DECISION-MAKING: The patient lacks capacity for decision-making, and he will not regain capacity. He has designated his longtime girlfriend Lidia as healthcare surrogate in a living will and HCS form that appears to be properly executed about a week ago. * GOALS: The patient's longtime girlfriend Lidia (who is the healthcare surrogate ) tells me that the patient had discussions with her within the past month about his health, realizing that he was declining rapidly, and telling her that he would not want to be kept alive on machines or life support, asking her to let him go peacefully; he then executed a living will just a few days prior to this hospitalization. The patient's brother Jca Alvarenga previously told me by telephone that he would withdraw life support and allow the patient to peacefully and comfortably. Lidia wants to have the patient transition home with hospice, and then withdraw the life support and allow the patient to peacefully, but Lidia had recent surgery and must see her surgeon today, so the timeframe here is uncertain at this time. * SYMPTOMS: Patient's dyspnea has been fairly profound, and he is now mechanically ventilated and on some fentanyl. With adequate doses of fentanyl and Precedex, the patient does not seem to be suffering as much. * Palliative Care will continue to follow the patient during this hospitalization. . Time Spent Total Floor Time (mins): 44 Face to Face Time (mins): 16 >50% Counseling/Coord of Care: Yes (d/w RNs) Attestation To help prompt me to consider important information that might be impacting today's encounter and assessment, information from prior notes written by myself or my colleagues may have been "brought forward" into today's note. My signature on this note, however, is an attestation that I personally performed the exam, history, and/or decision-making noted today, and, unless otherwise indicated, the interactions with patient, family, and staff as well as the review of records all occurred today. I also attest that the listed assessment and stated plan reflect my best clinical judgment today based on the combination of historical information, prior notes, and today's exam/ interactions. When time spent is documented, it refers only to time spent today by the signer, or if indicated, combined time spent today by collaborating physician/nurse practitioner. Effie Harvey MD Jul 10, 2017 12:39
[2017-07-10] MEDS ORDERED: RESP: ALBUTEROL 2.5 MG/IPRATROPIUM 0.5 MG NEB (SCH) NEB (16:00)
--- NOTE | 2017-07-10 16:17 | HHI.PR ---
Subjective Remarks on ventilator left chest tubes in place Objective Vital Signs Date Time Temp Pulse Resp B/P (MAP) Pulse Ox O2 Delivery O2 Flow Rate FiO2 07/10/17 16:00 105 07/10/17 15:06 93 50 07/10/17 14:00 101 07/10/17 12:00 98.9 104 17 96/56 (69) 96 07/10/17 12:00 50 07/10/17 12:00 104 07/10/17 10:56 93 50 07/10/17 10:00 105 07/10/17 08:00 50 07/10/17 08:00 99.1 127 20 102/59 (73) 93 07/10/17 07:38 94 50 07/10/17 07:18 96 07/10/17 06:00 100 07/10/17 05:57 100 91/51 07/10/17 04:58 95 07/10/17 04:54 95 50 07/10/17 04:00 93 07/10/17 04:00 97.8 93 18 86/54 (65) 92 07/10/17 04:00 50 07/10/17 02:59 95 92/51 07/10/17 02:18 106 96/55 07/10/17 02:00 98 07/10/17 00:00 99 07/10/17 00:00 98.4 99 22 88/50 (63) 92 07/10/17 00:00 50 07/09/17 23:45 94 50 07/09/17 22:51 98 94/50 07/09/17 22:00 93 07/09/17 20:00 94 07/09/17 20:00 93 Ventilator 07/09/17 20:00 50 07/09/17 20:00 98.6 94 16 94/55 (68) 93 07/09/17 19:55 93 50 07/09/17 18:30 96 19 86/50 (62) 92 07/09/17 18:30 96 07/09/17 18:15 96 07/09/17 18:15 96 17 87/50 (62) 92 07/09/17 18:00 100 20 87/50 (62) 92 07/09/17 18:00 100 07/09/17 17:45 96 07/09/17 17:45 96 17 86/51 (63) 92 07/09/17 17:30 96 07/09/17 17:30 96 18 91/53 (66) 92 07/09/17 17:15 100 17 93/54 (67) 93 07/09/17 17:15 100 07/09/17 17:00 106 07/09/17 17:00 106 20 90/54 (66) 93 07/09/17 16:45 100 18 88/52 (64) 93 07/09/17 16:45 100 07/09/17 16:30 100 16 83/53 (63) 94 07/09/17 16:30 100 I/O 07/09/17 07/09/17 07/09/17 07/10/17 07/10/17 07/10/17 07:00 15:00 23:00 07:00 15:00 23:00 Intake Total 2263 ml 500 ml 847.5 ml 882.9 ml 350 ml Output Total 70 ml 1800 ml 660 ml Balance 2193 ml 500 ml -952.5 ml 222.9 ml 350 ml Intake Oral 0 ml 0 ml IV Total 1764 ml 500 ml 847.5 ml 882.9 ml 350 ml Tube Feeding 409 ml Tube Irrigant 90 ml Output Urine Total 1800 ml 550 ml Stool Total 0 ml Chest Tube Drainage Total 70 ml 110 ml # Voids 4 3 Result Diagram: 07/10/1734407/10/17344 Objective Remarks GENERAL: SKIN: Warm and dry.on ventilator HEAD: Atraumatic. Normocephalic. EYES: Pupils equal and round. No scleral icterus. No injection or drainage. ENT: No nasal bleeding or discharge. Mucous membranes pink and moist. NECK: Trachea midline. No JVD. CARDIOVASCULAR: Regular rate and rhythm. RESPIRATORY: No accessory muscle use. Clear to auscultation. Breath sounds equal bilaterally. GASTROINTESTINAL: Abdomen soft, non-tender, nondistended. Hepatic and splenic margins not palpable. MUSCULOSKELETAL: Extremities without clubbing, cyanosis, or edema. No obvious deformities. NEUROLOGICAL: Awake and alert. No obvious cranial nerve deficits. Motor grossly within normal limits. Five out of 5 muscle strength in the arms and legs. Normal speech. PSYCHIATRIC: Appropriate mood and affect; insight and judgment normal. Assessment and Plan Assessment and Plan respiratory failure empyema chf ef 15% severe cachexia plan VENT SUPPORT ANTIBIOTICS THERAPY FOR CHF CT DRAINAGE OUTLOOK POOR Harley Souza MD Jul 10, 2017 16:17
[2017-07-10] MEDS: LEVOFLOXACIN 750 MG PREMIX INJ 150 ML IV SCH (22:59)
[2017-07-11] VITALS (159 sets, daily range): BP systolic 76–125; BP diastolic 48–70; PULSE 102–166; RESP 15–32; TEMP 97.9–101.7; O2SAT 85–99
[2017-07-11] MEDS: DEXMEDETOMIDINE INJ 200 MCG in SODIUM CHLORIDE 0.9% INJ 50 ML IV PRN ×6 (00:44→21:23)
[2017-07-11] MEDS ORDERED: TERBUTALINE INJ 1 MG/ML AMP SQ PRN (02:15)
[2017-07-11] MEDS ORDERED: DILTIAZEM HCL 25 MG/5 ML VIAL IV PUSH ONE (02:30)
[2017-07-11] MEDS ORDERED: DILTIAZEM INJ 125 MG in SODIUM CHLORIDE 0.9% INJ 100 ML IV PRN (02:30)
[2017-07-11] MEDS: PHENYLEPHRINE INJ 160 MG in DEXTROSE 5% IN WATE 500 ML INJ 484 ML IV PRN ×2 (02:45)
[2017-07-11] MEDS: RESP: ALBUTEROL 2.5 MG/IPRATROPIUM 0.5 MG NEB (SCH) NEB ×5 (03:29→20:49)
[2017-07-11] MEDS: INSULIN NovoLIN REGULAR SUPPLEMENTAL SCALE SQ SCH ×6 (04:00→20:00)
[2017-07-11] MEDS: PROPYLTHIOURACIL 50 MG TAB PO SCH ×6 (04:00→20:00)
[2017-07-11] MEDS: CHLORHEXIDINE GLUCONATE 2 % 1 PACK (2 CLOTHS)(taper/protocol) TOPICAL SCH (04:00)
[2017-07-11] MEDS: fentaNYL 2,500 MCG/NS 250 ML IV PRN ×2 (05:01→13:58)
[2017-07-11] MEDS: PROPRANOLOL HCL 10 MG TAB PO SCH ×3 (06:00→20:04)
[2017-07-11] MEDS: ARTIFICIAL TEARS OPTH SOLN 15 ML BTL EACH EYE SCH ×3 (06:00→20:03)
[2017-07-11] MEDS: HYDROCORTISONE SOD SUCCINATE 100 MG VIAL IV PUSH SCH ×3 (06:20→20:02)
[2017-07-11] MEDS: RESP: BUDESONIDE 0.5 MG/2 ML NEB NEB SCH ×3 (08:00→20:49)
[2017-07-11] MEDS: CHLORHEXIDINE 0.12% (ORAL KIT) 15 ML CUP MT SCH ×2 (08:10→20:03)
[2017-07-11] MEDS: NICOTINE 14 MG/24 HR PATCH T-DERMAL SCH (08:11)
[2017-07-11] MEDS: REMOVE OLD PATCH T-DERMAL SCH (08:11)
[2017-07-11] MEDS: MAGNESIUM OXIDE 400 MG TAB PO SCH (08:12)
[2017-07-11] MEDS: DOCUSATE SODIUM 50 MG/SENNA 8.6 MG TAB PO SCH ×2 (08:12→20:03)
[2017-07-11] MEDS: SODIUM CHLORIDE 0.9% FLUSH 10 ML FLUSH IV FLUSH SCH ×3 (08:12→20:02)
[2017-07-11] MEDS: ASPIRIN 81 MG CHEW TAB CHEW SCH (08:13)
[2017-07-11] MEDS: BENEPROTEIN POWDER 1 PACK G-TUBE SCH ×3 (08:13→12:41)
--- NOTE | 2017-07-11 10:49 | HHI.CCPN ---
Subjective Remarks/Hospital Course This is a 71-year-old male. Date of admission 07/06/2017. Date of consultation 07/07/2017. Past medical history includes chronic systolic heart failure ejection fraction 15%, moderate to severe pulmonary hypertension, ongoing tobaccoism, COPD, hypertension, Graves' disease on methimazole, chronic rivaroxaban use. Patient is in the health source of breath. CT pulmonary angiography revealed a loculated left-sided pleural effusion. Patient has been in the hospital service with consultation to infectious disease and pulmonology. Today, patient had 2 chest tubes placed in the left lung for moderate empyema. Glucose is currently 1 and LDH greater than 10,000 in sample pleural fluid. Postprocedure, patient became more short of breath. Follow chest x-ray revealed no obvious pneumothorax on the left. In discussion with patient, stated that he needed to be intubated and he agreed at that time. Patient was intubated using 20 mg etomidate and 50 milligrams rocuronium and a central line was placed 07/08: Remains on the ventilator and tachycardic. Noted elevated troponin. Not a candidate for anticoagulation due to large clots removed from left main bronchus overnight. We'll start on baby aspirin events see if tolerates. EKG follow-up pending. Noted Q waves in anteroseptal leads on admission. Repeat pending. 07/09: Remains on the ventilator. Currently full code. Tolerating tube feeds. Remains tachycardic. Switch methimazole to propylthiouracil and added hydrocortisone. Not a candidate for propranolol secondary to EF of 10%. 07/10: Plan is to withdrawal care patient to be sent home on hospice with chest tube placement on vasopressors to pass at home. With hospice. Subjective 07/11: No temperature taken overnight. Minimal output from chest tubes. Patient did not go home with hospice yesterday. Remains alternate code intubation only. No tube feeding. Objective Vital Signs Date Time Temp Pulse Resp B/P (MAP) Pulse Ox O2 Delivery O2 Flow Rate FiO2 07/11/17 10:10 104 16 100/57 (71) 96 07/11/17 08:34 40 07/11/17 07:00 99.9 07/11/17 03:35 Ventilator 07/09/17 09:14 4.00 Intake and Output 07/11/17 07/11/17 07/12/17 08:00 16:00 00:00 Intake Total 500 ml Output Total 450 ml Balance 50 ml Result Diagram: 07/10/17 0345 07/10/17 0345 Other Results Microbiology Date/Time Source Procedure Growth Status 07/06/17 21:53 Blood Peripheral Aerobic Blood Culture - Preliminary NO GROWTH IN 4 DAYS Resulted 07/06/17 21:53 Blood Peripheral Anaerobic Blood Culture - Preliminary NO GROWTH IN 4 DAYS Resulted 07/07/17 15:05 Fluid Pleural Fluid Fungal Smear - Final NO FUNGAL ELEMENTS SEEN. Resulted 07/07/17 15:05 Fluid Pleural Fluid Fungal Culture Pending Resulted Imaging Last Impressions Chest X-Ray 07/10/17 0600 Signed Impressions: Service Date/Time: Monday, July 10, 2017 04:27 - CONCLUSION: 1. There is no evidence of pneumothorax. 2. Increasing left-sided edema versus pneumonia Alessio Singh MD Chest Tube Insertion 07/07/17 0000 Signed Impressions: Service Date/Time: Friday, July 07, 2017 14:24 - CONCLUSION: 1. Uncomplicated CT-guided placement of 16 Swedish pigtail chest tubes for treatment of loculated empyemas in the anterior and posterior inferior left hemithorax. Please see prior CT report for additional details. Fernando Diaz MD CT Angiography 07/06/17 0000 Signed Impressions: Service Date/Time: Thursday, July 06, 2017 20:36 - CONCLUSION: 1. No PE is identified. 2. As expected from the chest x-ray there is a pleural-parenchymal process for the cause of the shortness of breath and cough. There are findings indicating aspiration with partially cavitary consolidation in the left lower lobe. There is a moderate size loculated left pleural effusion with adjacent compressive atelectasis. Holden Myers MD Objective Remarks GENERAL: 71-year-old male, resting in bed in currently orotracheally intubated SKIN: Warm and dry. No rash HEAD: Atraumatic. Normocephalic. Large almanza EYES: Pupils equal and round about 3 mm bilaterally and reactive. No scleral icterus. No injection or drainage. ENT: No nasal bleeding or discharge. Mucous membranes pink and moist. NECK: Trachea midline. No JVD. CARDIOVASCULAR: Tachycardic, RR.. S1, S2. No S4. 2/6 pansystolic murmur RESPIRATORY: Diminished breath sounds left lower lobe.. 2 chest left-sided - 40 cm H2O -3 cc white pus/-2 cc serosanguineous output GASTROINTESTINAL: Abdomen soft, non-tender, nondistended. Cachectic. MUSCULOSKELETAL: Extremities with no peripheral edema NEUROLOGICAL: Currently orotracheally intubated. Arousable on sedation reduced. Cranial nerve II through XII are most intact. Moves to command all 4 extremities spontaneously. Procedures LEFT SIDE CHEST TUBES FOR EMPYEMA AND FLUID 07-07 Urinary Catheter: Yes Assessment to: Continue Norton insert reason: Prolonged Immobilization Vascular Central Line Catheter: Yes Assessment to: Continue Date of Insertion: Jul 08, 2017 Line: Central Venous Catheter Side: Right Location: Internal, Jugular A/P Assessment and Plan Neuro/Psych: Patient is currently on dexmedetomidine at 1.2 g per kilo per hour/fentanyl drips at 200 mg an hour for sedation/analgesia while intubated. Goal of RASS -2 Daily sedation vacation CV: History of atrial fibrillation currently normal sinus rhythm Congestive heart failure/chronic systolic ejection fraction 15% 2015 Hypertension Elevated troponin Patient is currently on phenylephrine drip at 20 per minute to maintain mean arterial pressure 65 Home medications include carvedilol 12.5 mg twice a day currently on hold Home medications furosemide 20 mg daily will be held. EKG admission revealed Q waves in anteroseptal leads. Will repeat check EKG today. 07/08 2-D echocardiogram EF less than 20%. Global hypokinesis. Cycle troponins. Consulted Dr. Lanza, cardiology. Appreciate recommendations Initiate baby aspirin 81 mg daily. Not a chronic for systemic anticoagulation due to large thrombus/clot in left main bronchus removed 07/07 Resp: Acute hypoxemic respiratory failure COPD Left empyema PRVC 20/500/09/05/49 Ventilator bundle Albuterol/ipratropium aerosol every 4 hours with albuterol aerosols every 2 hours. Dyspnea Follow-up chest x-ray and ABG post intubation Continue budesonide 0.5/2 1 inhalation twice a day Pulmonary and ID following for empyema - gram-positive cocci Maintain chest tubes is -40 cm H2O. Minimal output from chest tubes GI: Hypoalbuminemia Started on tube feedings Jevity 1.5 goal 50 cc an hour. This is on hold due to removal of NG tube unable to replace Pantoprazole for GI prophylaxis Docusate sodium/senna for bowel regimen : Norton will be placed for accurate I's and O's in a critically ill patient Endo: Graves' disease/hyperthyroidism - early thyroid storm? Switch methimazole 10 mg every other day propylthiouracil 100 mg every 4 hours daily and add HC 100 mg every 8 hours. Unable to give PTU secondary unable to place NG tube - Not a candidate for propranolol secondary to EF of around 10% TSH 0.005. T3 and T4 both elevated. Sliding-scale insulin with Accu-Cheks to maintain euglycemia Renal: Creatinine currently within normal limits Monitor urine output Accurate I's and O's Heme: Leukocytosis Normocytic anemia Chronic rivaroxaban use Anticoagulation currently on hold. Resume when clinically indicated Monitor CBC daily. Follow trends ID: Blood cultures 07/06 no growth Cultures from left empyema gram-positive cocci - strep viridian Infectious disease following Currently on levofloxacin day #5 aztreonam discontinued MSK: PT evaluate and treat FEN: Hyponatremia Replace electrolytes as clinically indicated Access - Right IJ CVL day 4 placed 07/08 Prophylaxis - GI - pantoprazole - DVT - SCD/pharmacological prophylaxis held secondary to bleeding Critical Care: The total critical care time was 35 minutes. Time to perform other separately billable procedures was not included in the critical care time. Alejandro Telles MD Jul 11, 2017 10:49
[2017-07-11] MEDS ORDERED: GLYCERIN ADULT 2 GM SUPP RECTAL PRN (11:00)
[2017-07-11 11:32] LABS: AUTOMATED NEUTROPHIL # 14.1 TH/MM3 (1.8-7.7); BASOPHIL % 0.1 % (0.0-2.0); HEMATOCRIT 26.2 % (39.0-51.0); LYMPH % 7.1 % (9.0-44.0); LYMPHOCYTE # 1.1 TH/MM3 (1.0-4.8); MEAN CELL VOLUME 90.6 FL (80.0-100.0); MEAN CORPUSCULAR HEMOGLOBIN 29.6 PG (27.0-34.0); MEAN CORPUSCULAR HGB CONC 32.7 % (32.0-36.0); MONO % 1.5 % (0.0-8.0); NEUT % 91.3 % (16.0-70.0); PLATELET COUNT 389 TH/MM3 (150-450); RED BLOOD COUNT 2.89 MIL/MM3 (4.50-5.90); RED CELL DISTRIBUTION WIDTH 15.2 % (11.6-17.2); WHITE BLOOD COUNT 15.5 TH/MM3 (4.0-11.0)
[2017-07-11 11:33] LABS: HEMO FLAGS AUTO DIFF
[2017-07-11 12:06] LABS: ALT (GPT) 17 U/L (12-78); ANION GAP 8 MEQ/L (5-15); AST (GOT) 17 U/L (15-37); BICARBONATE 22.7 MEQ/L (21.0-32.0); BLOOD UREA NITROGEN 28 MG/DL (7-18); CHLORIDE 106 MEQ/L (98-107); GLOMERULAR FILTRATION RATE 141 ML/MIN (>89); MAGNESIUM 1.5 MG/DL (1.5-2.5); PLATELET ESTIMATE SMEAR NORMAL (NORMAL); PLATELET MORPHOLOGY NORMAL (NORMAL); POTASSIUM 3.8 MEQ/L (3.5-5.1); SCAN/DIFF AUTO DIFF CONFIRMED; SODIUM (NA) 137 MEQ/L (136-145)
[2017-07-11 12:08] LABS: ALKALINE PHOSPHATASE 88 U/L (45-117); TOTAL BILIRUBIN ADULT 0.2 MG/DL (0.2-1.0)
[2017-07-11] MEDS ORDERED: VANCOMYCIN INJ 1,000 MG in SODIUM CHLOR 0.9% 250 ML INJ 250 ML IV ONE (13:30)
[2017-07-11] MEDS: SODIUM CHLOR 0.9% 1000 ML INJ 1,000 ML IV SCH (13:40)
[2017-07-11] MEDS: ACETAMINOPHEN 1000 MG/100 ML 100 ML IV PRN ×2 (13:46→20:02)
[2017-07-11 16:48] LABS: BACTERIA, URINE FEW /hpf; BLOOD, URINE MOD (NEG); COMMENT (UR) CATH-CULTURE IND; CULTURE IF INDICATED CATH CULTURE IND; GLUCOSE,URINE NEG (NEG); HYALINE CAST, URINE 20 /lpf (RARE); KETONE, URINE TRACE mg/dL (NEG); MUCUS URINE FEW /lpf (OCC); NITRITE,URINE NEG (NEG); PH, URINE 5.5 (5.0-8.5); SQUAMOUS EPITHELIAL CELL URINE 2 /hpf (0-5); URINE COLOR YELLOW (YELLW/STRAW)
--- NOTE | 2017-07-11 19:34 | HHI.PR ---
Subjective Remarks on ventilator left chest tubes in place Objective Vital Signs Date Time Temp Pulse Resp B/P (MAP) Pulse Ox O2 Delivery O2 Flow Rate FiO2 07/11/17 18:45 105 19 105/56 (72) 96 07/11/17 18:40 105 18 105/58 (74) 96 07/11/17 18:35 104 16 104/59 (74) 96 07/11/17 18:30 104 18 104/56 (72) 94 07/11/17 18:25 104 16 105/56 (72) 95 07/11/17 18:20 104 16 105/59 (74) 94 07/11/17 18:15 104 16 106/56 (73) 95 07/11/17 18:10 105 18 108/59 (75) 98 07/11/17 18:10 105 07/11/17 18:05 106 22 105/59 (74) 95 07/11/17 18:05 106 07/11/17 18:00 106 07/11/17 18:00 106 17 106/59 (75) 96 07/11/17 18:00 99.6 07/11/17 17:35 109 21 104/64 (77) 96 07/11/17 17:30 109 25 106/67 (80) 93 07/11/17 17:25 108 24 110/69 (83) 96 07/11/17 17:20 107 25 99/64 (76) 85 07/11/17 17:15 104 23 113/62 (79) 86 07/11/17 17:10 104 16 108/55 (72) 97 07/11/17 17:05 104 16 108/55 (72) 97 07/11/17 17:00 104 16 108/55 (72) 97 07/11/17 16:55 104 16 107/56 (73) 97 07/11/17 16:50 105 16 108/58 (75) 97 07/11/17 16:45 107 17 108/58 (75) 97 07/11/17 16:40 107 16 107/59 (75) 97 07/11/17 16:35 107 20 108/60 (76) 97 07/11/17 16:30 108 17 106/59 (75) 96 07/11/17 16:25 106 29 111/61 (78) 85 07/11/17 16:20 106 20 106/57 (73) 97 07/11/17 16:15 106 16 105/58 (74) 97 07/11/17 16:10 105 16 108/55 (72) 98 07/11/17 16:05 106 16 107/56 (73) 97 07/11/17 16:00 40 07/11/17 16:00 106 07/11/17 16:00 105 16 107/56 (73) 98 07/11/17 15:39 98.8 109 18 107/57 (74) 97 07/11/17 15:02 96 40 07/11/17 15:00 104 20 98/56 (70) 95 07/11/17 14:55 104 22 101/55 (70) 95 07/11/17 14:50 103 16 98/54 (69) 94 07/11/17 14:45 103 18 97/54 (68) 96 07/11/17 14:40 103 19 99/55 (70) 96 07/11/17 14:35 102 16 102/59 (73) 94 07/11/17 14:30 102 16 101/55 (70) 95 07/11/17 14:25 103 16 101/58 (72) 95 07/11/17 14:20 103 16 97/55 (69) 94 07/11/17 14:15 103 16 98/52 (67) 95 07/11/17 14:10 104 19 97/53 (68) 96 07/11/17 14:05 104 17 97/55 (69) 95 07/11/17 14:00 105 07/11/17 14:00 108 21 102/58 (73) 96 07/11/17 13:55 107 16 104/59 (74) 99 07/11/17 13:50 109 26 103/58 (73) 94 07/11/17 13:45 110 19 108/58 (75) 94 07/11/17 13:40 111 29 110/59 (76) 94 07/11/17 13:35 109 17 106/59 (75) 95 07/11/17 13:25 109 20 104/56 (72) 95 07/11/17 13:20 109 22 103/57 (72) 95 07/11/17 13:15 108 16 106/56 (73) 95 07/11/17 13:10 108 16 106/57 (73) 95 07/11/17 13:05 108 16 105/56 (72) 96 07/11/17 13:00 110 19 106/58 (74) 96 07/11/17 13:00 108 07/11/17 12:55 111 26 105/56 (72) 95 07/11/17 12:50 112 17 103/56 (72) 95 07/11/17 12:45 111 27 103/59 (74) 94 07/11/17 12:40 110 16 102/59 (73) 95 07/11/17 12:35 110 21 103/55 (71) 95 07/11/17 12:30 110 16 104/58 (73) 94 07/11/17 12:26 112 25 116/55 (75) 88 07/11/17 12:25 111 29 88 07/11/17 12:20 110 23 105/55 (72) 94 07/11/17 12:15 109 20 103/56 (72) 94 07/11/17 12:10 109 16 104/56 (72) 94 07/11/17 12:05 110 16 102/56 (71) 94 07/11/17 12:00 101.1 111 23 103/57 (72) 94 07/11/17 12:00 40 07/11/17 11:55 111 26 100/59 (73) 94 07/11/17 11:50 111 23 105/56 (72) 95 07/11/17 11:45 109 16 104/56 (72) 96 07/11/17 11:45 109 16 104/56 (72) 96 07/11/17 11:40 109 16 104/57 (73) 96 07/11/17 11:35 108 16 103/56 (72) 95 07/11/17 11:30 107 17 102/57 (72) 96 07/11/17 11:25 108 18 100/56 (71) 98 07/11/17 11:21 94 40 07/11/17 11:20 107 23 101/56 (71) 94 07/11/17 11:15 107 20 106/56 (73) 95 07/11/17 11:10 108 21 105/58 (74) 95 07/11/17 11:05 108 23 107/58 (74) 93 07/11/17 11:00 108 23 104/57 (73) 95 07/11/17 10:55 105 16 106/56 (73) 96 07/11/17 10:50 105 16 103/56 (72) 96 07/11/17 10:45 107 18 104/56 (72) 96 07/11/17 10:40 108 16 104/58 (73) 96 07/11/17 10:35 105 21 100/55 (70) 97 07/11/17 10:30 106 21 101/55 (70) 97 07/11/17 10:25 104 16 102/58 (73) 96 07/11/17 10:20 104 15 102/56 (71) 95 07/11/17 10:15 104 16 101/57 (72) 95 07/11/17 10:10 104 16 100/57 (71) 96 07/11/17 10:05 104 16 102/57 (72) 95 07/11/17 10:00 105 16 102/56 (71) 95 07/11/17 10:00 104 07/11/17 09:55 105 16 102/57 (72) 95 07/11/17 09:50 105 16 102/56 (71) 95 07/11/17 09:50 105 16 102/56 (71) 95 07/11/17 09:45 105 17 101/56 (71) 94 07/11/17 09:40 105 17 100/55 (70) 94 07/11/17 09:35 105 17 102/56 (71) 94 07/11/17 09:30 105 16 102/56 (71) 95 07/11/17 09:25 105 17 102/57 (72) 95 07/11/17 09:20 105 16 102/57 (72) 95 07/11/17 09:15 105 16 102/56 (71) 96 07/11/17 09:10 106 16 101/56 (71) 95 07/11/17 09:05 107 16 101/55 (70) 95 07/11/17 09:00 107 16 102/56 (71) 95 07/11/17 08:55 107 17 103/56 (72) 95 07/11/17 08:50 107 17 104/56 (72) 95 07/11/17 08:45 107 16 102/56 (71) 95 07/11/17 08:40 107 17 102/57 (72) 94 07/11/17 08:35 107 17 104/59 (74) 95 07/11/17 08:34 96 40 07/11/17 08:30 107 17 101/56 (71) 96 07/11/17 08:25 107 19 99/56 (70) 97 07/11/17 08:20 107 17 102/55 (71) 97 07/11/17 08:15 104 17 101/56 (71) 98 07/11/17 08:10 107 18 102/58 (73) 97 07/11/17 08:05 109 21 103/59 (74) 97 07/11/17 08:00 40 07/11/17 07:59 106 32 93/53 (66) 91 07/11/17 07:55 104 17 91/52 (65) 94 07/11/17 07:50 105 19 99/57 (71) 98 07/11/17 07:45 106 17 108/65 (79) 97 07/11/17 07:40 103 18 99/57 (71) 97 07/11/17 07:35 103 16 98/56 (70) 97 07/11/17 07:30 103 16 100/56 (71) 96 07/11/17 07:25 103 16 98/56 (70) 96 07/11/17 07:20 103 16 100/56 (71) 96 07/11/17 07:15 102 17 98/56 (70) 96 07/11/17 07:10 102 17 98/55 (69) 95 07/11/17 07:05 102 15 97/55 (69) 94 07/11/17 07:00 103 16 99/58 (72) 95 07/11/17 07:00 105 07/11/17 07:00 99.9 07/11/17 06:00 102 07/11/17 04:20 108 24 102/59 (73) 89 07/11/17 04:15 106 19 104/58 (73) 95 07/11/17 04:10 107 16 106/56 (73) 97 07/11/17 04:05 107 17 106/58 (74) 96 07/11/17 04:00 106 07/11/17 04:00 108 16 103/59 (74) 96 07/11/17 04:00 40 07/11/17 03:55 107 17 104/62 (76) 96 07/11/17 03:50 104 16 102/58 (73) 96 07/11/17 03:45 104 16 101/60 (74) 96 07/11/17 03:40 105 16 101/61 (74) 97 07/11/17 03:40 105 16 101/61 (74) 97 07/11/17 03:35 106 17 101/60 (74) 97 07/11/17 03:35 96 Ventilator 07/11/17 03:35 106 17 101/60 (74) 97 07/11/17 03:32 97 40 07/11/17 03:30 107 19 105/58 (74) 96 07/11/17 03:30 107 19 105/58 (74) 96 07/11/17 03:25 105 16 101/60 (74) 96 07/11/17 03:25 105 16 101/60 (74) 96 07/11/17 03:20 105 16 102/59 (73) 96 07/11/17 03:20 105 16 102/59 (73) 96 07/11/17 03:15 107 16 103/59 (74) 96 07/11/17 03:15 107 16 103/59 (74) 96 07/11/17 03:10 109 16 100/56 (71) 96 07/11/17 03:10 109 16 100/56 (71) 96 07/11/17 03:05 109 17 97/54 (68) 93 07/11/17 03:05 109 17 97/54 (68) 93 07/11/17 03:00 114 17 76/48 (57) 87 07/11/17 03:00 114 17 76/48 (57) 87 07/11/17 02:45 135 19 104/59 (74) 92 07/11/17 02:45 135 19 104/59 (74) 92 07/11/17 02:45 126 100/59 07/11/17 02:30 152 19 118/70 (86) 98 07/11/17 02:30 152 19 118/70 (86) 98 07/11/17 02:15 166 18 125/69 (87) 95 07/11/17 02:15 166 18 125/69 (87) 95 07/11/17 02:10 166 16 120/68 (85) 96 07/11/17 02:00 160 07/11/17 01:45 108 102/64 07/11/17 01:30 106 92/62 07/11/17 01:15 100 90/60 07/11/17 01:00 100 90/60 07/11/17 00:00 106 07/11/17 00:00 97.9 106 16 101/59 (73) 86 07/11/17 00:00 40 07/10/17 23:44 98 Ventilator 07/10/17 23:39 98 40 07/10/17 23:00 104 16 104/60 (75) 97 07/10/17 22:00 105 07/10/17 22:00 108 16 103/57 (72) 97 07/10/17 21:00 104 16 104/57 (73) 97 07/10/17 20:45 108 16 102/56 (71) 96 07/10/17 20:30 108 17 102/56 (71) 94 07/10/17 20:23 108 16 95 07/10/17 20:15 106 17 101/58 (72) 97 07/10/17 20:00 40 07/10/17 20:00 102 07/10/17 20:00 104 17 102/57 (72) 97 07/10/17 19:53 98 40 07/10/17 19:45 104 17 103/58 (73) 99 I/O 07/10/17 07/10/17 07/10/17 07/11/17 07/11/17 07/11/17 07:00 15:00 23:00 07:00 15:00 23:00 Intake Total 882.9 ml 350 ml 845 ml 500 ml 500 ml 1000 ml Output Total 660 ml 603 ml 450 ml 450 ml Balance 222.9 ml 350 ml 242 ml 50 ml 500 ml 550 ml Intake Oral 0 ml IV Total 882.9 ml 350 ml 845 ml 500 ml 500 ml 1000 ml Output Urine Total 550 ml 600 ml 450 ml 450 ml Chest Tube Drainage Total 110 ml 3 ml 0 ml Result Diagram: 07/11/17 1055 07/11/17 1055 Objective Remarks GENERAL: SKIN: Warm and dry.on ventilator HEAD: Atraumatic. Normocephalic. EYES: Pupils equal and round. No scleral icterus. No injection or drainage. ENT: No nasal bleeding or discharge. Mucous membranes pink and moist. NECK: Trachea midline. No JVD. CARDIOVASCULAR: Regular rate and rhythm. RESPIRATORY: No accessory muscle use. Clear to auscultation. Breath sounds equal bilaterally. GASTROINTESTINAL: Abdomen soft, non-tender, nondistended. Hepatic and splenic margins not palpable. MUSCULOSKELETAL: Extremities without clubbing, cyanosis, or edema. No obvious deformities. NEUROLOGICAL: Awake and alert. No obvious cranial nerve deficits. Motor grossly within normal limits. Five out of 5 muscle strength in the arms and legs. Normal speech. PSYCHIATRIC: Appropriate mood and affect; insight and judgment normal. Assessment and Plan Assessment and Plan respiratory failure empyema chf ef 15% severe cachexia plan VENT SUPPORT ANTIBIOTICS THERAPY FOR CHF CT DRAINAGE OUTLOOK Harley Valdivia MD Jul 11, 2017 19:34
[2017-07-11] MEDS: LEVOFLOXACIN 750 MG PREMIX INJ 150 ML IV SCH (20:03)
[2017-07-12] VITALS (23 sets, daily range): BP systolic 90–107; BP diastolic 51–77; PULSE 96–160; RESP 16–26; TEMP 98.1–101.6; O2SAT 92–98
[2017-07-12] MEDS: fentaNYL 2,500 MCG/NS 250 ML IV PRN ×3 (00:13→17:31)
[2017-07-12] MEDS: RESP: ALBUTEROL 2.5 MG/IPRATROPIUM 0.5 MG NEB (SCH) NEB ×6 (00:55→20:47)
[2017-07-12] MEDS: DEXMEDETOMIDINE INJ 200 MCG in SODIUM CHLORIDE 0.9% INJ 50 ML IV PRN ×5 (01:19→21:40)
[2017-07-12] MEDS: SODIUM CHLOR 0.9% 1000 ML INJ 1,000 ML IV SCH ×2 (01:19→12:04)
[2017-07-12] MEDS: PROPYLTHIOURACIL 50 MG TAB PO SCH ×6 (04:00→20:00)
[2017-07-12] MEDS: INSULIN NovoLIN REGULAR SUPPLEMENTAL SCALE SQ SCH ×6 (04:00→20:00)
[2017-07-12 05:22] LABS: AUTOMATED NEUTROPHIL # 17.3 TH/MM3 (1.8-7.7); HEMATOCRIT 25.5 % (39.0-51.0); HEMO FLAGS DIFF FINAL; LYMPH % 8.9 % (9.0-44.0); LYMPHOCYTE # 1.7 TH/MM3 (1.0-4.8); MEAN CORPUSCULAR HEMOGLOBIN 30.5 PG (27.0-34.0); MEAN CORPUSCULAR HGB CONC 33.5 % (32.0-36.0); MONO % 2.2 % (0.0-8.0); NEUT % 88.9 % (16.0-70.0); PLATELET COUNT 354 TH/MM3 (150-450); RED CELL DISTRIBUTION WIDTH 15.5 % (11.6-17.2); WHITE BLOOD COUNT 19.4 TH/MM3 (4.0-11.0)
[2017-07-12] MEDS: HYDROCORTISONE SOD SUCCINATE 100 MG VIAL IV PUSH SCH ×3 (06:00→21:37)
[2017-07-12] MEDS: PROPRANOLOL HCL 10 MG TAB PO SCH ×3 (06:00→21:39)
[2017-07-12] MEDS: ARTIFICIAL TEARS OPTH SOLN 15 ML BTL EACH EYE SCH ×3 (06:00→21:38)
[2017-07-12 06:31] LABS: BICARBONATE 19.9 MEQ/L (21.0-32.0); MAGNESIUM 1.5 MG/DL (1.5-2.5)
[2017-07-12 06:52] LABS: CALCIUM-PROTEIN CORRECTED 8.5 MG/DL (8.5-10.1)
[2017-07-12] MEDS ORDERED: MIDAZOLAM 100 MG/100 ML INJ 100 ML IV PRN (07:00)
[2017-07-12] MEDS ORDERED: DILTIAZEM HCL 25 MG/5 ML (Bolus) IV PUSH STA (07:06)
[2017-07-12] MEDS: ASPIRIN 81 MG CHEW TAB CHEW SCH (08:19)
[2017-07-12] MEDS: SODIUM CHLORIDE 0.9% FLUSH 10 ML FLUSH IV FLUSH SCH ×3 (08:19→21:38)
[2017-07-12] MEDS: BENEPROTEIN POWDER 1 PACK G-TUBE SCH ×3 (08:19→16:13)
[2017-07-12] MEDS: MAGNESIUM OXIDE 400 MG TAB PO SCH (08:19)
[2017-07-12] MEDS: DOCUSATE SODIUM 50 MG/SENNA 8.6 MG TAB PO SCH ×2 (08:20→21:00)
[2017-07-12] MEDS: CHLORHEXIDINE 0.12% (ORAL KIT) 15 ML CUP MT SCH ×2 (08:27→21:39)
[2017-07-12] MEDS: REMOVE OLD PATCH T-DERMAL SCH (08:29)
[2017-07-12] MEDS: NICOTINE 14 MG/24 HR PATCH T-DERMAL SCH (08:29)
--- NOTE | 2017-07-12 12:49 | HHI.PR ---
Subjective Remarks on ventilator left chest tubes in place Objective Vital Signs Date Time Temp Pulse Resp B/P (MAP) Pulse Ox O2 Delivery O2 Flow Rate FiO2 07/12/17 12:00 98.1 103 16 92/52 (65) 93 07/12/17 12:00 40 07/12/17 12:00 103 07/12/17 12:00 98.1 07/12/17 11:34 93 40 07/12/17 10:00 104 16 93/54 (67) 94 07/12/17 10:00 104 07/12/17 09:30 107 17 90/54 (66) 94 07/12/17 09:00 110 18 90/52 (65) 93 07/12/17 08:30 145 18 107/64 (78) 97 07/12/17 08:00 160 26 107/77 (87) 98 07/12/17 08:00 152 07/12/17 08:00 40 07/12/17 08:00 99.9 07/12/17 07:50 95 40 07/12/17 06:00 129 07/12/17 04:00 100.0 105 23 103/64 (77) 98 07/12/17 04:00 40 07/12/17 04:00 105 07/12/17 03:49 97 40 07/12/17 02:00 109 07/12/17 00:55 95 40 07/12/17 00:00 101.6 104 20 101/55 (70) 93 07/12/17 00:00 104 07/12/17 00:00 40 07/11/17 22:00 106 07/11/17 20:49 95 40 07/11/17 20:00 101.7 105 16 105/57 (73) 94 07/11/17 20:00 105 07/11/17 20:00 40 07/11/17 18:45 105 19 105/56 (72) 96 07/11/17 18:40 105 18 105/58 (74) 96 07/11/17 18:35 104 16 104/59 (74) 96 07/11/17 18:30 104 18 104/56 (72) 94 07/11/17 18:25 104 16 105/56 (72) 95 07/11/17 18:20 104 16 105/59 (74) 94 07/11/17 18:15 104 16 106/56 (73) 95 07/11/17 18:10 105 18 108/59 (75) 98 07/11/17 18:10 105 07/11/17 18:05 106 22 105/59 (74) 95 07/11/17 18:05 106 07/11/17 18:00 106 07/11/17 18:00 106 17 106/59 (75) 96 07/11/17 18:00 99.6 07/11/17 17:35 109 21 104/64 (77) 96 07/11/17 17:30 109 25 106/67 (80) 93 07/11/17 17:25 108 24 110/69 (83) 96 07/11/17 17:20 107 25 99/64 (76) 85 07/11/17 17:15 104 23 113/62 (79) 86 07/11/17 17:10 104 16 108/55 (72) 97 07/11/17 17:05 104 16 108/55 (72) 97 07/11/17 17:00 104 16 108/55 (72) 97 07/11/17 16:55 104 16 107/56 (73) 97 07/11/17 16:50 105 16 108/58 (75) 97 07/11/17 16:45 107 17 108/58 (75) 97 07/11/17 16:40 107 16 107/59 (75) 97 07/11/17 16:35 107 20 108/60 (76) 97 07/11/17 16:30 108 17 106/59 (75) 96 07/11/17 16:25 106 29 111/61 (78) 85 07/11/17 16:20 106 20 106/57 (73) 97 07/11/17 16:15 106 16 105/58 (74) 97 07/11/17 16:10 105 16 108/55 (72) 98 07/11/17 16:05 106 16 107/56 (73) 97 07/11/17 16:00 40 07/11/17 16:00 106 07/11/17 16:00 105 16 107/56 (73) 98 07/11/17 15:39 98.8 109 18 107/57 (74) 97 07/11/17 15:02 96 40 07/11/17 15:00 104 20 98/56 (70) 95 07/11/17 14:55 104 22 101/55 (70) 95 07/11/17 14:50 103 16 98/54 (69) 94 07/11/17 14:45 103 18 97/54 (68) 96 07/11/17 14:40 103 19 99/55 (70) 96 07/11/17 14:35 102 16 102/59 (73) 94 07/11/17 14:30 102 16 101/55 (70) 95 07/11/17 14:25 103 16 101/58 (72) 95 07/11/17 14:20 103 16 97/55 (69) 94 07/11/17 14:15 103 16 98/52 (67) 95 07/11/17 14:10 104 19 97/53 (68) 96 07/11/17 14:05 104 17 97/55 (69) 95 07/11/17 14:00 105 07/11/17 14:00 108 21 102/58 (73) 96 07/11/17 13:55 107 16 104/59 (74) 99 07/11/17 13:50 109 26 103/58 (73) 94 07/11/17 13:45 110 19 108/58 (75) 94 07/11/17 13:40 111 29 110/59 (76) 94 07/11/17 13:35 109 17 106/59 (75) 95 07/11/17 13:25 109 20 104/56 (72) 95 07/11/17 13:20 109 22 103/57 (72) 95 07/11/17 13:15 108 16 106/56 (73) 95 07/11/17 13:10 108 16 106/57 (73) 95 07/11/17 13:05 108 16 105/56 (72) 96 07/11/17 13:00 110 19 106/58 (74) 96 07/11/17 13:00 108 07/11/17 12:55 111 26 105/56 (72) 95 07/11/17 12:50 112 17 103/56 (72) 95 I/O 07/11/17 07/11/17 07/11/17 07/12/17 07/12/17 07/12/17 07:00 15:00 23:00 07:00 15:00 23:00 Intake Total 500 ml 500 ml 1250 ml 1350 ml 250 ml Output Total 450 ml 450 ml 475 ml Balance 50 ml 500 ml 800 ml 875 ml 250 ml IV Total 500 ml 500 ml 1250 ml 1350 ml 250 ml Output Urine Total 450 ml 450 ml 325 ml Chest Tube Drainage Total 0 ml 150 ml # Bowel Movements 0 Result Diagram: 07/12/1742907/12/17429 Objective Remarks GENERAL: SKIN: Warm and dry.on ventilator HEAD: Atraumatic. Normocephalic. EYES: Pupils equal and round. No scleral icterus. No injection or drainage. ENT: No nasal bleeding or discharge. Mucous membranes pink and moist. NECK: Trachea midline. No JVD. CARDIOVASCULAR: Regular rate and rhythm. RESPIRATORY: No accessory muscle use. Clear to auscultation. Breath sounds equal bilaterally. GASTROINTESTINAL: Abdomen soft, non-tender, nondistended. Hepatic and splenic margins not palpable. MUSCULOSKELETAL: Extremities without clubbing, cyanosis, or edema. No obvious deformities. NEUROLOGICAL: Awake and alert. No obvious cranial nerve deficits. Motor grossly within normal limits. Five out of 5 muscle strength in the arms and legs. Normal speech. PSYCHIATRIC: Appropriate mood and affect; insight and judgment normal. Assessment and Plan Assessment and Plan respiratory failure empyema chf ef 15% severe cachexia plan VENT SUPPORT ANTIBIOTICS THERAPY FOR CHF CT DRAINAGE OUTLOOK [place] Harley Souza MD Jul 12, 2017 12:49
--- NOTE | 2017-07-12 15:59 | HHI.CCPN ---
Subjective Remarks/Hospital Course This is a 71-year-old male. Date of admission 07/06/2017. Date of consultation 07/07/2017. Past medical history includes chronic systolic heart failure ejection fraction 15%, moderate to severe pulmonary hypertension, ongoing tobaccoism, COPD, hypertension, Graves' disease on methimazole, chronic rivaroxaban use. Patient is in the health source of breath. CT pulmonary angiography revealed a loculated left-sided pleural effusion. Patient has been in the hospital service with consultation to infectious disease and pulmonology. Today, patient had 2 chest tubes placed in the left lung for moderate empyema. Glucose is currently 1 and LDH greater than 10,000 in sample pleural fluid. Postprocedure, patient became more short of breath. Follow chest x-ray revealed no obvious pneumothorax on the left. In discussion with patient, stated that he needed to be intubated and he agreed at that time. Patient was intubated using 20 mg etomidate and 50 milligrams rocuronium and a central line was placed 07/08: Remains on the ventilator and tachycardic. Noted elevated troponin. Not a candidate for anticoagulation due to large clots removed from left main bronchus overnight. We'll start on baby aspirin events see if tolerates. EKG follow-up pending. Noted Q waves in anteroseptal leads on admission. Repeat pending. 07/09: Remains on the ventilator. Currently full code. Tolerating tube feeds. Remains tachycardic. Switch methimazole to propylthiouracil and added hydrocortisone. Not a candidate for propranolol secondary to EF of 10%. 07/10: Plan is to withdrawal care patient to be sent home on hospice with chest tube placement on vasopressors to pass at home. With hospice. 07/11: No temperature taken overnight. Minimal output from chest tubes. Patient did not go home with hospice yesterday. Remains alternate code intubation only. No tube feeding. Subjective 07/12: Again minimal output from chest tubes. Hospice discuss with family tomorrow. Significant other wants him to go home to pass peacefully tomorrow. Objective Vital Signs Date Time Temp Pulse Resp B/P (MAP) Pulse Ox O2 Delivery O2 Flow Rate FiO2 07/12/17 15:35 94 40 07/12/17 15:00 97 07/12/17 12:00 98.1 16 92/52 (65) 07/11/17 03:35 Ventilator 07/09/17 09:14 4.00 Intake and Output 07/12/17 07/12/17 07/13/17 08:00 16:00 00:00 Intake Total 1350 ml 300 ml Output Total 475 ml Balance 875 ml 300 ml Result Diagram: 07/12/17 0430 07/12/17 0430 Other Results Microbiology Date/Time Source Procedure Growth Status 07/11/17 15:42 Blood Peripheral Aerobic Blood Culture - Preliminary NO GROWTH IN 1 DAY Resulted 07/11/17 15:42 Blood Peripheral Anaerobic Blood Culture - Preliminary NO GROWTH IN 1 DAY Resulted 07/07/17 15:05 Fluid Pleural Fluid Fungal Smear - Final NO FUNGAL ELEMENTS SEEN. Resulted 07/07/17 15:05 Fluid Pleural Fluid Fungal Culture Pending Resulted 07/11/17 14:12 Sputum Expectorated Sputum Gram Stain - Final Resulted 07/11/17 14:12 Sputum Expectorated Sputum Sputum Culture - Preliminary HEAVY GROWTH NORMAL RESPIRATORY JUNIOR... Resulted 07/11/17 15:27 Urine Clean Catch Urine Culture - Preliminary NO GROWTH IN 24 HOURS. Resulted Imaging Last Impressions Chest X-Ray 07/10/17 0600 Signed Impressions: Service Date/Time: Monday, July 10, 2017 04:27 - CONCLUSION: 1. There is no evidence of pneumothorax. 2. Increasing left-sided edema versus pneumonia Alessio Singh MD Chest Tube Insertion 07/07/17 0000 Signed Impressions: Service Date/Time: Friday, July 07, 2017 14:24 - CONCLUSION: 1. Uncomplicated CT-guided placement of 16 [place] pigtail chest tubes for treatment of loculated empyemas in the anterior and posterior inferior left hemithorax. Please see prior CT report for additional details. Fernando Diaz MD CT Angiography 07/06/17 0000 Signed Impressions: Service Date/Time: Thursday, July 06, 2017 20:36 - CONCLUSION: 1. No PE is identified. 2. As expected from the chest x-ray there is a pleural-parenchymal process for the cause of the shortness of breath and cough. There are findings indicating aspiration with partially cavitary consolidation in the left lower lobe. There is a moderate size loculated left pleural effusion with adjacent compressive atelectasis. Holden Myers MD Objective Remarks GENERAL: 71-year-old male, resting in bed in currently orotracheally intubated SKIN: Warm and dry. No rash HEAD: Atraumatic. Normocephalic. Large almanza EYES: Pupils equal and round about 3 mm bilaterally and reactive. No scleral icterus. No injection or drainage. ENT: No nasal bleeding or discharge. Mucous membranes pink and moist. NECK: Trachea midline. No JVD. CARDIOVASCULAR: Tachycardic, RR.. S1, S2. No S4. 2/6 pansystolic murmur RESPIRATORY: Diminished breath sounds left lower lobe.. 2 chest left-sided - 40 cm H2O -3 cc white pus/-2 cc serosanguineous output GASTROINTESTINAL: Abdomen soft, non-tender, nondistended. Cachectic. MUSCULOSKELETAL: Extremities with no peripheral edema NEUROLOGICAL: Currently orotracheally intubated. Arousable on sedation reduced. Cranial nerve II through XII are most intact. Moves to command all 4 extremities spontaneously. Procedures LEFT SIDE CHEST TUBES FOR EMPYEMA AND FLUID 07-07 Date of Insertion: Jul 08, 2017 Line: Central Venous Catheter Side: Right Location: Internal, Jugular A/P Assessment and Plan Neuro/Psych: Patient is currently on dexmedetomidine at 1.2 g per kilo per hour/fentanyl drips at 200 mg an hour for sedation/analgesia while intubated. Goal of RASS -2 Daily sedation vacation CV: History of atrial fibrillation currently normal sinus rhythm Congestive heart failure/chronic systolic ejection fraction 15% 2015 Hypertension Elevated troponin Patient is currently on phenylephrine drip at 20 per minute to maintain mean arterial pressure 65 Home medications include carvedilol 12.5 mg twice a day currently on hold Home medications furosemide 20 mg daily will be held. EKG admission revealed Q waves in anteroseptal leads. Will repeat check EKG today. 07/08 2-D echocardiogram EF less than 20%. Global hypokinesis. Consulted Dr. Lanza, cardiology. Appreciate recommendations Continue baby aspirin 81 mg daily. Not a chronic for systemic anticoagulation due to large thrombus/clot in left main bronchus removed 07/07 Resp: Acute hypoxemic respiratory failure COPD Left empyema PRVC 20/500///40 Ventilator bundle Albuterol/ipratropium aerosol every 4 hours with albuterol aerosols every 2 hours. Dyspnea Follow-up chest x-ray and ABG post intubation Continue budesonide 0.5/2 1 inhalation twice a day Pulmonary and ID following for empyema - gram-positive cocci Maintain chest tubes is -40 cm H2O. Minimal output from chest tubes GI: Hypoalbuminemia Started on tube feedings Jevity 1.5 goal 50 cc an hour. This is on hold due to removal of NG tube unable to replace Pantoprazole for GI prophylaxis Docusate sodium/senna for bowel regimen : [place] will be placed for accurate I's and O's in a critically ill patient Endo: Graves' disease/hyperthyroidism - early thyroid storm? Switch methimazole 10 mg every other day propylthiouracil 100 mg every 4 hours daily and add HC 100 mg every 8 hours. Unable to give PTU secondary unable to place NG tube - Not a candidate for propranolol secondary to EF of around 10% TSH 0.005. T3 and T4 both elevated. Sliding-scale insulin with Accu-Cheks to maintain euglycemia Renal: Creatinine currently within normal limits Monitor urine output Accurate I's and O's Heme: Leukocytosis Normocytic anemia Chronic rivaroxaban use Anticoagulation currently on hold. Resume when clinically indicated Monitor CBC daily. Follow trends ID: Blood cultures 07/06 no growth Cultures from left empyema gram-positive cocci - strep viridian Infectious disease following Currently on levofloxacin day #5 aztreonam discontinued MSK: PT evaluate and treat FEN: Hyponatremia Replace electrolytes as clinically indicated Access - Right IJ CVL day 5 placed 07/08 Prophylaxis - GI - pantoprazole - DVT - SCD/pharmacological prophylaxis held secondary to bleeding Level II follow-up Alejandro Telles MD Jul 12, 2017 15:59
[2017-07-12] MEDS: RESP: BUDESONIDE 0.5 MG/2 ML NEB NEB SCH (20:43)
[2017-07-12] MEDS: LEVOFLOXACIN 750 MG PREMIX INJ 150 ML IV SCH (21:37)
[2017-07-13] VITALS (14 sets, daily range): BP systolic 93–105; BP diastolic 53–70; PULSE 86–96; RESP 16–20; TEMP 96.7–99.2; O2SAT 92–97
[2017-07-13] MEDS: DEXMEDETOMIDINE INJ 400 MCG in SODIUM CHLORIDE 0.9% INJ 100 ML IV PRN ×2 (00:35→08:31)
[2017-07-13] MEDS: RESP: ALBUTEROL 2.5 MG/IPRATROPIUM 0.5 MG NEB (SCH) NEB ×5 (01:14→15:03)
[2017-07-13] MEDS: INSULIN NovoLIN REGULAR SUPPLEMENTAL SCALE SQ SCH ×5 (03:04→16:00)
[2017-07-13] MEDS: PROPYLTHIOURACIL 50 MG TAB PO SCH ×5 (03:04→16:00)
[2017-07-13] MEDS: fentaNYL 2,500 MCG/NS 250 ML IV PRN ×2 (03:05→14:18)
[2017-07-13] MEDS: SODIUM CHLOR 0.9% 1000 ML INJ 1,000 ML IV SCH (03:06)
[2017-07-13] MEDS: PHENYLEPHRINE INJ 160 MG in DEXTROSE 5% IN WATE 500 ML INJ 484 ML IV PRN ×2 (03:06)
[2017-07-13] MEDS: PROPRANOLOL HCL 10 MG TAB PO SCH (05:08)
[2017-07-13] MEDS: HYDROCORTISONE SOD SUCCINATE 100 MG VIAL IV PUSH SCH ×2 (05:08→14:18)
[2017-07-13] MEDS: ARTIFICIAL TEARS OPTH SOLN 15 ML BTL EACH EYE SCH ×2 (05:08→14:18)
[2017-07-13 05:57] LABS: AUTOMATED NEUTROPHIL # 20.9 TH/MM3 (1.8-7.7); HEMATOCRIT 28.9 % (39.0-51.0); LYMPH % 7.1 % (9.0-44.0); LYMPHOCYTE # 1.6 TH/MM3 (1.0-4.8); MEAN CELL VOLUME 91.7 FL (80.0-100.0); MEAN CORPUSCULAR HEMOGLOBIN 29.8 PG (27.0-34.0); MEAN CORPUSCULAR HGB CONC 32.5 % (32.0-36.0); MONO % 1.8 % (0.0-8.0); NEUT % 91.1 % (16.0-70.0); PLATELET COUNT 363 TH/MM3 (150-450); RED BLOOD COUNT 3.15 MIL/MM3 (4.50-5.90); RED CELL DISTRIBUTION WIDTH 15.8 % (11.6-17.2)
[2017-07-13 05:58] LABS: HEMO FLAGS AUTO DIFF
--- NOTE | 2017-07-13 06:12 | RADRPT ---
EXAM DATE/TIME: 07/13/2017 03:45 [facility] COMPARISON: CHEST SINGLE AP, July 10, 2017, 4:27. INDICATIONS : Short of breath. MEDICAL HISTORY : Congestive heart failure. SURGICAL HISTORY : None. ENCOUNTER: Subsequent ACUITY: 1 week PAIN SCORE: 0/10 LOCATION: Bilateral chest FINDINGS: A single view of the chest demonstrates the endotracheal tube and central line are in good position. There are 2 left-sided pigtail catheters. Diffuse pulmonary vascular congestion is unchanged. The ca rdiomediastinal contours are unremarkable. Osseous structures are intact. CONCLUSION: 2 pigtail catheters are in good position overlying the left lower lobe. ET tube in good position. Dinesh Ortiz MD on July 13, 2017 at 6:10 Board Certified Radiologist. This report was verified electronically.
[2017-07-13 06:52] LABS: BICARBONATE 19.9 MEQ/L (21.0-32.0); CALCIUM-PROTEIN CORRECTED 8.4 MG/DL (8.5-10.1); MAGNESIUM 1.5 MG/DL (1.5-2.5); POTASSIUM 3.6 MEQ/L (3.5-5.1); TOTAL BILIRUBIN ADULT 0.2 MG/DL (0.2-1.0)
[2017-07-13] MEDS: DOCUSATE SODIUM 50 MG/SENNA 8.6 MG TAB PO SCH (07:43)
[2017-07-13] MEDS: ASPIRIN 81 MG CHEW TAB CHEW SCH (07:43)
[2017-07-13] MEDS: MAGNESIUM OXIDE 400 MG TAB PO SCH (07:43)
[2017-07-13] MEDS: BENEPROTEIN POWDER 1 PACK G-TUBE SCH ×3 (07:43→16:13)
--- NOTE | 2017-07-13 07:43 | HHI.CCPN ---
Subjective Remarks/Hospital Course This is a 71-year-old male. Date of admission 07/06/2017. Date of consultation 07/07/2017. Past medical history includes chronic systolic heart failure ejection fraction 15%, moderate to severe pulmonary hypertension, ongoing tobaccoism, COPD, hypertension, Graves' disease on methimazole, chronic rivaroxaban use. Patient is in the health source of breath. CT pulmonary angiography revealed a loculated left-sided pleural effusion. Patient has been in the hospital service with consultation to infectious disease and pulmonology. Today, patient had 2 chest tubes placed in the left lung for moderate empyema. Glucose is currently 1 and LDH greater than 10,000 in sample pleural fluid. Postprocedure, patient became more short of breath. Follow chest x-ray revealed no obvious pneumothorax on the left. In discussion with patient, stated that he needed to be intubated and he agreed at that time. Patient was intubated using 20 mg etomidate and 50 milligrams rocuronium and a central line was placed 07/08: Remains on the ventilator and tachycardic. Noted elevated troponin. Not a candidate for anticoagulation due to large clots removed from left main bronchus overnight. We'll start on baby aspirin events see if tolerates. EKG follow-up pending. Noted Q waves in anteroseptal leads on admission. Repeat pending. 07/09: Remains on the ventilator. Currently full code. Tolerating tube feeds. Remains tachycardic. Switch methimazole to propylthiouracil and added hydrocortisone. Not a candidate for propranolol secondary to EF of 10%. 07/10: Plan is to withdrawal care patient to be sent home on hospice with chest tube placement on vasopressors to pass at home. With hospice. 07/11: No temperature taken overnight. Minimal output from chest tubes. Patient did not go home with hospice yesterday. Remains alternate code intubation only. No tube feeding. Subjective 07/12: Again minimal output from chest tubes. Hospice discuss with family tomorrow. Significant other wants him to go home to pass peacefully tomorrow. 09/12 Patient remains intubated, sedated with Versed, Precedex and Fentanyl drips. On Neosyn 50 mics. T:99.7 last night. Objective Vital Signs Date Time Temp Pulse Resp B/P (MAP) Pulse Ox O2 Delivery O2 Flow Rate FiO2 07/13/17 06:00 90 07/13/17 04:10 92 40 07/13/17 04:00 99.2 16 105/70 (82) 07/11/17 03:35 Ventilator 07/09/17 09:14 4.00 Intake and Output 07/13/17 07/13/17 07/14/17 08:00 16:00 00:00 Intake Total 1302 ml Output Total 280 ml Balance 1022 ml Result Diagram: 07/13/17 0345 07/13/17 0345 Other Results Laboratory Tests Test 07/13/17 03:45 White Blood Count 23.0 TH/MM3 Red Blood Count 3.15 MIL/MM3 Hemoglobin 9.4 GM/DL Hematocrit 28.9 % Mean Corpuscular Volume 91.7 FL Mean Corpuscular Hemoglobin 29.8 PG Mean Corpuscular Hemoglobin Concent 32.5 % Red Cell Distribution Width 15.8 % Platelet Count 363 TH/MM3 Mean Platelet Volume 8.5 FL Neutrophils (%) (Auto) 91.1 % Lymphocytes (%) (Auto) 7.1 % Monocytes (%) (Auto) 1.8 % Eosinophils (%) (Auto) 0.0 % Basophils (%) (Auto) 0.0 % Neutrophils # (Auto) 20.9 TH/MM3 Lymphocytes # (Auto) 1.6 TH/MM3 Monocytes # (Auto) 0.4 TH/MM3 Eosinophils # (Auto) 0.0 TH/MM3 Basophils # (Auto) 0.0 TH/MM3 CBC Comment AUTO DIFF Blood Urea Nitrogen 28 MG/DL Creatinine 0.50 MG/DL Random Glucose 114 MG/DL Total Protein 4.7 GM/DL Albumin 1.0 GM/DL Calcium Level 7.1 MG/DL Phosphorus Level 2.4 MG/DL Magnesium Level 1.5 MG/DL Alkaline Phosphatase 67 U/L Aspartate Amino Transf (AST/SGOT) 17 U/L Alanine Aminotransferase (ALT/SGPT) 18 U/L Total Bilirubin 0.2 MG/DL Sodium Level 140 MEQ/L Potassium Level 3.6 MEQ/L Chloride Level 110 MEQ/L Carbon Dioxide Level 19.9 MEQ/L Anion Gap 10 MEQ/L Estimat Glomerular Filtration Rate 164 ML/MIN Protein Corrected Calcium 8.4 MG/DL Imaging Last Impressions Chest X-Ray 07/13/17 0600 Signed Impressions: Service Date/Time: Thursday, July 13, 2017 03:45 - CONCLUSION: 2 pigtail catheters are in good position overlying the left lower lobe. ET tube in good position. Dinesh Ortiz MD Chest Tube Insertion 07/07/17 0000 Signed Impressions: Service Date/Time: Friday, July 07, 2017 14:24 - CONCLUSION: 1. Uncomplicated CT-guided placement of 16 [place]ian pigtail chest tubes for treatment of loculated empyemas in the anterior and posterior inferior left hemithorax. Please see prior CT report for additional details. Fernando Diaz MD CT Angiography 07/06/17 0000 Signed Impressions: Service Date/Time: Thursday, July 06, 2017 20:36 - CONCLUSION: 1. No PE is identified. 2. As expected from the chest x-ray there is a pleural-parenchymal process for the cause of the shortness of breath and cough. There are findings indicating aspiration with partially cavitary consolidation in the left lower lobe. There is a moderate size loculated left pleural effusion with adjacent compressive atelectasis. Holden Myers MD Objective Remarks GENERAL: 71-year-old male, resting in bed in currently orotracheally intubated SKIN: Warm and dry. No rash HEAD: Atraumatic. Normocephalic. Large almanza EYES: Pupils equal and round about 3 mm bilaterally and reactive. No scleral icterus. No injection or drainage. ENT: No nasal bleeding or discharge. Mucous membranes pink and moist. NECK: Trachea midline. No JVD. CARDIOVASCULAR: Tachycardic, RR.. S1, S2. No S4. 2/6 pansystolic murmur RESPIRATORY: Diminished breath sounds left lower lobe.. 2 chest left-sided - 40 cm H2O -3 cc white pus/-2 cc serosanguineous output GASTROINTESTINAL: Abdomen soft, non-tender, nondistended. Cachectic. MUSCULOSKELETAL: Extremities with no peripheral edema NEUROLOGICAL: Currently orotracheally intubated. Arousable on sedation reduced. Cranial nerve II through XII are most intact. Moves to command all 4 extremities spontaneously. Procedures LEFT SIDE CHEST TUBES FOR EMPYEMA AND FLUID 07-07 Date of Insertion: Jul 08, 2017 Line: Central Venous Catheter Side: Right Location: Internal, Jugular A/P Assessment and Plan Neuro/Psych: On Versed, Fentanyl and Precedex drips for sedation Goal of RASS -2 Daily sedation vacation CV: History of atrial fibrillation currently normal sinus rhythm Congestive heart failure/chronic systolic ejection fraction 15% 2016 Dilated Cardiomyopathy Hypertension Elevated troponin Wean off Neosyn -currently on 50 mics. Monitor HR and BP keep MAP>65mmHg 07/08 2-D echocardiogram EF less than 20%. Global hypokinesis. Cards is following- Dr. Lanza, Continue baby aspirin 81 mg daily. Not a chronic for systemic anticoagulation due to large thrombus/clot in left main bronchus removed 07/07 Resp: Acute hypoxemic respiratory failure COPD Left empyema PRVC 16/500/09/05/39 Ventilator bundle Albuterol/ipratropium aerosol every 4 hours with albuterol aerosols every 2 hours. Dyspnea Continue budesonide 0.5/2 1 inhalation twice a day Pulmonary and ID following for empyema -Strep Viridans Maintain chest tubes is -40 cm H2O. Minimal output from chest tubes GI: Hypoalbuminemia Started on tube feedings Jevity 1.5 goal 50 cc an hour. This is on hold due to removal of NG tube unable to replace Pantoprazole for GI prophylaxis Docusate sodium/senna for bowel regimen : Monitor renal function, electrolytes replacement as needed Endo: Graves' disease/hyperthyroidism - early thyroid storm? On propylthiouracil 100 mg every 4 hours daily and HC 100 mg every 8 hours. - Not a candidate for propranolol secondary to EF of around 10% TSH 0.005. T3 and T4 both elevated. Sliding-scale insulin with Accu-Cheks to maintain euglycemia Heme: Leukocytosis Normocytic anemia Chronic rivaroxaban use Anticoagulation currently on hold. Resume when clinically indicated Monitor CBC daily. Follow trends ID: Blood cultures 07/06 no growth Cultures from left empyema gram-positive cocci - strep viridian Infectious disease following Currently on levofloxacin, off Aztreonam and Vanco per ID. Check BC x 2 sets today. Monitor for signs of infections ( Fever, WBC) MSK: PT evaluate and treat Access - Right IJ CVL placed 07/08 Prophylaxis - GI - pantoprazole - DVT - SCD/pharmacological prophylaxis held secondary to bleeding Level III follow-up Felicia Key MD Jul 13, 2017 07:43
[2017-07-13] MEDS ORDERED: POTASSIUM CHLOR 20 MEQ PREMIX 100 ML IV PRN ×2 (07:45)
[2017-07-13] MEDS ORDERED: MAGNESIUM SULFATE INJ 4 GM in SODIUM CHLORIDE 0.9% INJ 92 ML IV PRN (07:45)
[2017-07-13] MEDS ORDERED: POTASSIUM PHOSPHATE MONOBASIC 500 MG TAB PO/TUBE PRN (07:45)
[2017-07-13] MEDS ORDERED: POTASSIUM PHOSPHATE INJ 30 MMOL in SODIUM CHLOR 0.9% 250 ML INJ 250 ML IV PRN (07:45)
[2017-07-13] MEDS ORDERED: POTASSIUM PHOSPHATE MONOBASIC 500 MG TAB PO PRN (07:45)
[2017-07-13] MEDS ORDERED: SODIUM PHOSPHATE INJ 30 MMOL in SODIUM CHLOR 0.9% 250 ML INJ 240 ML IV PRN (07:45)
[2017-07-13] MEDS ORDERED: MAGNESIUM SULFATE INJ 2 GM in SODIUM CHLORIDE 0.9% INJ 96 ML IV PRN (07:45)
[2017-07-13] MEDS ORDERED: POTASSIUM CHLORIDE 25 MEQ EFFERVESCENT TAB PO PRN (07:45)
[2017-07-13] MEDS ORDERED: POTASSIUM CHLOR 40 MEQ PREMIX 100 ML IV PRN ×2 (07:45)
[2017-07-13] MEDS ORDERED: MAGNESIUM OXIDE 400 MG TAB PO PRN (07:45)
[2017-07-13] MEDS: RESP: BUDESONIDE 0.5 MG/2 ML NEB NEB SCH (08:08)
[2017-07-13] MEDS: REMOVE OLD PATCH T-DERMAL SCH (08:28)
[2017-07-13] MEDS: NICOTINE 14 MG/24 HR PATCH T-DERMAL SCH (08:28)
[2017-07-13] MEDS: SODIUM CHLORIDE 0.9% FLUSH 10 ML FLUSH IV FLUSH SCH ×2 (08:41)
[2017-07-13] MEDS: CHLORHEXIDINE 0.12% (ORAL KIT) 15 ML CUP MT SCH (08:41)
[2017-07-13 10:30] LABS: BANDS 6 % (0-6); CORRECTED NUCLEATED RBC 1 /100 WBC (0-0); METAMYELOCYTES 2 % (0-1); NEUTROPHIL # MANUAL DIFF 22.5 TH/MM3 (1.8-7.7); POLYS (SEG NEUTROPHILS) 90 % (16-70); WBC DIFF SAMPLE 100
[2017-07-13 10:31] LABS: PLATELET ESTIMATE SMEAR NORMAL (NORMAL); PLATELET MORPHOLOGY NORMAL (NORMAL); SCAN/DIFF FINAL DIFF MANUAL; TOXIC GRANULATION 2+ (NORMAL)
--- NOTE | 2017-07-13 13:53 | HHI.HCPN ---
Reason for visit a. To assist with evaluation and management of symptoms including: Dyspnea , pain b. To assist medical decision maker(s) with: better understanding of current medical conditions; weighing benefits/burdens of medical treatment options; making medical treatment decisions. . Subjective/Interval History INTERVAL NOTE: The patient remains tachycardic, hypotensive, still on 250 mcg fentanyl. The white count is back up to 23,000. He is unresponsive. Some question has been raised about the legitimacy of the HCS and living will forms, and hospital legal is reviewing them. However, discussion by hospice with both the current health care surrogate Lidia and with the patient's brother/ only family finds that there are goals are in agreement. A plan is in place to transfer the patient to a hospice Care Center for withdrawal of life support to allow natural . . . Advance Directives Living Will: Copy in medical record Health Care Surrogate: Copy in medical record Advance Directive Specifics Date completed: 07/04/17 . Health Care Surrogate(s): Longtime girlfriend Lidia Cowan . Documented care wishes: The patient's living will that he reportedly executed last week says that he would not want to be kept alive artificially if he had a terminal or end-stage condition, and that he would not want artificial nutrition and hydration in that situation. . Significant change in goals: The patient's significant other/HCS and the patient's brother have reportedly both requested transfer to hospice Care center for withdrawal of life support to allow natural . Objective Vital Signs Date Time Temp Pulse Resp B/P (MAP) Pulse Ox O2 Delivery O2 Flow Rate FiO2 07/13/17 12:00 97.6 89 18 93/53 (66) 92 07/13/17 12:00 89 07/13/17 11:25 95 50 07/13/17 10:00 87 07/13/17 08:09 97 50 07/13/17 08:00 88 07/13/17 08:00 96.7 88 20 99/57 (71) 95 07/13/17 06:00 90 07/13/17 04:10 92 40 07/13/17 04:00 99.2 90 16 105/70 (82) 97 07/13/17 04:00 40 07/13/17 04:00 90 07/13/17 03:06 93 107/61 07/13/17 02:00 96 07/13/17 01:15 92 40 07/13/17 00:00 98.8 92 16 95/59 (71) 93 07/13/17 00:00 40 07/13/17 00:00 92 07/12/17 22:00 96 07/12/17 20:30 92 40 07/12/17 20:00 99.7 96 17 98/56 (70) 93 07/12/17 20:00 96 07/12/17 20:00 40 07/12/17 18:00 96 07/12/17 16:00 96 07/12/17 16:00 99.6 96 16 93/51 (65) 93 07/12/17 16:00 40 07/12/17 15:35 94 40 07/12/17 15:00 97 07/12/17 14:30 97 07/12/17 14:00 98 Intake & Output 07/13/17 07/13/17 07:00 19:00 Intake Total 1354 ml 492 ml Output Total 280 ml Balance 1074 ml 492 ml IV Total 1354 ml 492 ml Output Urine Total 250 ml Chest Tube Drainage Total 30 ml # Bowel Movements 0 Physical Exam CONSTITUTIONAL/GENERAL: This is a weak, cachectic patient, mechanically ventilated, in no apparent distress. TUBES/LINES/DRAINS: ET tube, right IJ line, Norton catheter, 2 chest tubes from the left chest CARDIOVASCULAR: Irregular rhythm, without murmurs, gallops, or rubs. No JVD. Peripheral pulses quite diminished. RESPIRATORY/CHEST: Symmetric, unlabored respirations on the ventilator. Diminished breath sounds on the left, scattered rhonchi. GASTROINTESTINAL: Abdomen soft, non-tender, nondistended. No hepato-splenomegaly , or palpable masses. No guarding. Bowel sounds present. MUSCULOSKELETAL: Extremities without clubbing, cyanosis, or edema. No joint tenderness or effusion noted. No calf tenderness. No mottling or clubbing. NEUROLOGICAL: Occasionally opens eyes when stimulated PSYCHIATRIC: Unable to evaluate due to clinical condition . Diagnostic Tests Laboratory Laboratory Tests Test 07/11/17 10:55 07/11/17 15:27 07/12/17 04:30 07/13/17 03:45 White Blood Count 15.5 TH/MM3 (4.0-11.0) 19.4 TH/MM3 (4.0-11.0) 23.0 TH/MM3 (4.0-11.0) Red Blood Count 2.89 MIL/MM3 (4.50-5.90) 2.80 MIL/MM3 (4.50-5.90) 3.15 MIL/MM3 (4.50-5.90) Hemoglobin 8.5 GM/DL (13.0-17.0) 8.5 GM/DL (13.0-17.0) 9.4 GM/DL (13.0-17.0) Hematocrit 26.2 % (39.0-51.0) 25.5 % (39.0-51.0) 28.9 % (39.0-51.0) Mean Corpuscular Volume 90.6 FL (80.0-100.0) 91.0 FL (80.0-100.0) 91.7 FL (80.0-100.0) Mean Corpuscular Hemoglobin 29.6 PG (27.0-34.0) 30.5 PG (27.0-34.0) 29.8 PG (27.0-34.0) Mean Corpuscular Hemoglobin Concent 32.7 % (32.0-36.0) 33.5 % (32.0-36.0) 32.5 % (32.0-36.0) Red Cell Distribution Width 15.2 % (11.6-17.2) 15.5 % (11.6-17.2) 15.8 % (11.6-17.2) Platelet Count 389 TH/MM3 (150-450) 354 TH/MM3 (150-450) 363 TH/MM3 (150-450) Mean Platelet Volume 7.8 FL (7.0-11.0) 8.4 FL (7.0-11.0) 8.5 FL (7.0-11.0) Neutrophils (%) (Auto) 91.3 % (16.0-70.0) 88.9 % (16.0-70.0) 91.1 % (16.0-70.0) Lymphocytes (%) (Auto) 7.1 % (9.0-44.0) 8.9 % (9.0-44.0) 7.1 % (9.0-44.0) Monocytes (%) (Auto) 1.5 % (0.0-8.0) 2.2 % (0.0-8.0) 1.8 % (0.0-8.0) Eosinophils (%) (Auto) 0.0 % (0.0-4.0) 0.0 % (0.0-4.0) 0.0 % (0.0-4.0) Basophils (%) (Auto) 0.1 % (0.0-2.0) 0.0 % (0.0-2.0) 0.0 % (0.0-2.0) Neutrophils # (Auto) 14.1 TH/MM3 (1.8-7.7) 17.3 TH/MM3 (1.8-7.7) 20.9 TH/MM3 (1.8-7.7) Lymphocytes # (Auto) 1.1 TH/MM3 (1.0-4.8) 1.7 TH/MM3 (1.0-4.8) 1.6 TH/MM3 (1.0-4.8) Monocytes # (Auto) 0.2 TH/MM3 (0-0.9) 0.4 TH/MM3 (0-0.9) 0.4 TH/MM3 (0-0.9) Eosinophils # (Auto) 0.0 TH/MM3 (0-0.4) 0.0 TH/MM3 (0-0.4) 0.0 TH/MM3 (0-0.4) Basophils # (Auto) 0.0 TH/MM3 (0-0.2) 0.0 TH/MM3 (0-0.2) 0.0 TH/MM3 (0-0.2) CBC Comment AUTO DIFF DIFF FINAL AUTO DIFF Differential Comment AUTO DIFF CONFIRMED FINAL DIFF MANUAL Platelet Estimate NORMAL (NORMAL) NORMAL (NORMAL) Platelet Morphology Comment NORMAL (NORMAL) NORMAL (NORMAL) Red Cell Morphology Comment NORMAL (NORMAL) NORMAL (NORMAL) Blood Urea Nitrogen 28 MG/DL (7-18) 30 MG/DL (7-18) 28 MG/DL (7-18) Creatinine 0.57 MG/DL (0.60-1.30) 0.64 MG/DL (0.60-1.30) 0.50 MG/DL (0.60-1.30) Random Glucose 97 MG/DL (74-106) 104 MG/DL (74-106) 114 MG/DL (74-106) Total Protein 5.1 GM/DL (6.4-8.2) 4.8 GM/DL (6.4-8.2) 4.7 GM/DL (6.4-8.2) Albumin 1.1 GM/DL (3.4-5.0) 1.0 GM/DL (3.4-5.0) Calcium Level 7.6 MG/DL (8.5-10.1) 7.2 MG/DL (8.5-10.1) 7.1 MG/DL (8.5-10.1) Phosphorus Level 2.1 MG/DL (2.5-4.9) 2.0 MG/DL (2.5-4.9) 2.4 MG/DL (2.5-4.9) Magnesium Level 1.5 MG/DL (1.5-2.5) 1.5 MG/DL (1.5-2.5) 1.5 MG/DL (1.5-2.5) Alkaline Phosphatase 88 U/L (45-117) 67 U/L (45-117) Aspartate Amino Transf (AST/SGOT) 17 U/L (15-37) 17 U/L (15-37) Alanine Aminotransferase (ALT/SGPT) 17 U/L (12-78) 18 U/L (12-78) Total Bilirubin 0.2 MG/DL (0.2-1.0) 0.2 MG/DL (0.2-1.0) Sodium Level 137 MEQ/L (136-145) 139 MEQ/L (136-145) 140 MEQ/L (136-145) Potassium Level 3.8 MEQ/L (3.5-5.1) 4.0 MEQ/L (3.5-5.1) 3.6 MEQ/L (3.5-5.1) Chloride Level 106 MEQ/L (98-107) 109 MEQ/L (98-107) 110 MEQ/L (98-107) Carbon Dioxide Level 22.7 MEQ/L (21.0-32.0) 19.9 MEQ/L (21.0-32.0) 19.9 MEQ/L (21.0-32.0) Anion Gap 8 MEQ/L (5-15) 10 MEQ/L (5-15) 10 MEQ/L (5-15) Estimat Glomerular Filtration Rate 141 ML/MIN (>89) 124 ML/MIN (>89) 164 ML/MIN (>89) Urine Color YELLOW (YELLW/STRAW) Urine Turbidity CLOUDY (CLEAR) Urine pH 5.5 (5.0-8.5) Urine Specific [place] 1.023 (1.002-1.035) Urine Protein 30 mg/dL (NEG-TRACE) Urine Glucose (UA) NEG mg/dL (NEG) Urine Ketones TRACE mg/dL (NEG) Urine Occult Blood MOD (NEG) Urine Nitrite NEG (NEG) Urine Bilirubin NEG (NEG) Urine Urobilinogen LESS THAN 2.0 MG/DL (LESS Urine Leukocyte Esterase LARGE (NEG) Urine RBC 177 /hpf (0-3) Urine WBC 156 /hpf (0-5) Urine Squamous Epithelial Cells 2 /hpf (0-5) Urine Bacteria FEW /hpf (NONE) Urine Hyaline Casts 20 /lpf (RARE) Urine Mucus FEW /lpf (OCC) Microscopic Urinalysis Comment CATH-CULTURE IND Protein Corrected Calcium 8.5 MG/DL (8.5-10.1) 8.4 MG/DL (8.5-10.1) Differential Total Cells Counted 100 Neutrophils % (Manual) 90 % (16-70) Band Neutrophils % 6 % (0-6) Lymphocytes % 2 % (9-44) Neutrophils # (Manual) 22.5 TH/MM3 (1.8-7.7) Metamyelocytes 2 % (0-1) Nucleated Red Blood Cells 1 /100 WBC (0-0) Toxic Granulation 2+ (NORMAL) Test 07/13/17 12:26 Result Diagram: 07/13/17 0345 07/13/17 0345 Microbiology Microbiology Date/Time Source Procedure Growth Status 07/13/17 10:30 Blood Peripheral Aerobic Blood Culture Pending Received 07/13/17 10:30 Blood Peripheral Anaerobic Blood Culture Pending Received 07/13/17 10:20 Blood Peripheral Aerobic Blood Culture Pending Received 07/13/17 10:20 Blood Peripheral Anaerobic Blood Culture Pending Received 07/11/17 15:42 Blood Peripheral Aerobic Blood Culture - Preliminary NO GROWTH IN 2 DAYS Resulted 07/11/17 15:42 Blood Peripheral Anaerobic Blood Culture - Preliminary NO GROWTH IN 2 DAYS Resulted 07/11/17 14:56 Blood Peripheral Aerobic Blood Culture - Preliminary NO GROWTH IN 2 DAYS Resulted 07/11/17 14:56 Blood Peripheral Anaerobic Blood Culture - Preliminary NO GROWTH IN 2 DAYS Resulted 07/11/17 14:12 Sputum Expectorated Sputum Gram Stain - Final Complete 07/11/17 14:12 Sputum Expectorated Sputum Sputum Culture - Final HEAVY GROWTH NORMAL RESPIRATORY JUNIOR Complete 07/11/17 15:27 Urine Clean Catch Urine Culture - Final NO GROWTH IN 48 HOURS. Complete Imaging Last Impressions Chest X-Ray 07/13/17 0600 Signed Impressions: Service Date/Time: Thursday, July 13, 2017 03:45 - CONCLUSION: 2 pigtail catheters are in good position overlying the left lower lobe. ET tube in good position. Dinesh Ortiz MD Chest Tube Insertion 07/07/17 0000 Signed Impressions: Service Date/Time: Friday, July 07, 2017 14:24 - CONCLUSION: 1. Uncomplicated CT-guided placement of 16 [place] pigtail chest tubes for treatment of loculated empyemas in the anterior and posterior inferior left hemithorax. Please see prior CT report for additional details. Fernando Diaz MD CT Angiography 07/06/17 0000 Signed Impressions: Service Date/Time: Thursday, July 06, 2017 20:36 - CONCLUSION: 1. No PE is identified. 2. As expected from the chest x-ray there is a pleural-parenchymal process for the cause of the shortness of breath and cough. There are findings indicating aspiration with partially cavitary consolidation in the left lower lobe. There is a moderate size loculated left pleural effusion with adjacent compressive atelectasis. Holden Myers MD Procedures BiPAP 07/06/17 INTUBATION 07/07/17 Right IJ line 07/07/17 Bronchoscopy 07/07/17 . Assessment and Plan Disease Oriented Problem List: (1) respiratory failure (2) end-stage COPD (3) cachexia/malnutrition (4) CHF, with EF 15-20% in November 2015 (5) s/p suctioning of clots from bronchi 07/07/17 (6) empyema left chest (7) chronic atrial fibrillation, anticoagulated on Route of (8) history of Graves' disease (9) anemia (10) hypertension Symptom Scale: (1) pain 0-10 Scale: Unable to quantify (2) dyspnea 0-10 Scale: Unable to quantify Pertinent Non-Medical Issues Psychosocial: Never , disabled for 30 years due to COPD, girlfriend Lidia 9 years, 2 children that he has not seen since they were very young, and he has had no knowledge of their names or locations. Spiritual: He has not been spiritual or mandaen, the girlfriend would like a landmen to visit Legal: The patient lacks capacity for decision-making, and it is very unlikely that he will regain capacity. He has designated his longtime girlfriend Lidia as healthcare surrogate in a living will and HCS form that appears to be properly executed about a week ago. Ethical issues impacting care: None . Important Contacts HCS/girlfriend Lidia Cowan [phone], and [phone] Brother: Jac Alvarenga: Home [phone], cell: [phone] . Prognosis This patient is terminal. He has underlying end-stage heart and end-stage lung conditions in the face of cachexia/malnutrition, and now with pneumonia, respiratory failure, and empyema/sepsis. He is appropriate for hospice services if the goals become comfort oriented. . Code Status: Alternative Code (intubation only) Plan * ALTERNATE CODE - intubation only * DECISION-MAKING: The patient lacks capacity for decision-making, and he will not regain capacity. He has designated his longtime girlfriend Lidia as healthcare surrogate in a living will and HCS form, and the patient's only family (his brother) has also expressed his wishes for comfort care and withdrawal of life support. * GOALS: The patient's longtime girlfriend Lidia (who is the reported healthcare surrogate) wants the patient to go to the hospice Care Center for withdrawal of life support to allow natural . The patient's brother shares the same goals.. * SYMPTOMS: Patient's dyspnea has been fairly profound, and he is now mechanically ventilated and on some fentanyl. With adequate doses of fentanyl and Precedex, the patient does not seem to be suffering as much. * Palliative Care will continue to follow the patient during this hospitalization. . Time Spent Total Floor Time (mins): 29 Face to Face Time (mins): 12 >50% Counseling/Coord of Care: Yes Attestation To help prompt me to consider important information that might be impacting today's encounter and assessment, information from prior notes written by myself or my colleagues may have been "brought forward" into today's note. My signature on this note, however, is an attestation that I personally performed the exam, history, and/or decision-making noted today, and, unless otherwise indicated, the interactions with patient, family, and staff as well as the review of records all occurred today. I also attest that the listed assessment and stated plan reflect my best clinical judgment today based on the combination of historical information, prior notes, and today's exam/ interactions. When time spent is documented, it refers only to time spent today by the signer, or if indicated, combined time spent today by collaborating physician/nurse practitioner. Effie Harvey MD Jul 13, 2017 13:53
--- NOTE | 2017-07-13 18:10 | HHI.PR ---
Subjective Remarks on ventilator left chest tubes in place Objective Vital Signs Date Time Temp Pulse Resp B/P (MAP) Pulse Ox O2 Delivery O2 Flow Rate FiO2 07/13/17 16:00 50 07/13/17 16:00 87 07/13/17 16:00 97.8 87 16 96/54 (68) 94 07/13/17 15:03 93 50 07/13/17 14:00 86 07/13/17 12:00 50 07/13/17 12:00 97.6 89 18 93/53 (66) 92 07/13/17 12:00 89 07/13/17 11:25 95 50 07/13/17 10:00 87 07/13/17 08:09 97 50 07/13/17 08:00 88 07/13/17 08:00 96.7 88 20 99/57 (71) 95 07/13/17 08:00 40 07/13/17 06:00 90 07/13/17 04:10 92 40 07/13/17 04:00 99.2 90 16 105/70 (82) 97 07/13/17 04:00 40 07/13/17 04:00 90 07/13/17 03:06 93 107/61 07/13/17 02:00 96 07/13/17 01:15 92 40 07/13/17 00:00 98.8 92 16 95/59 (71) 93 07/13/17 00:00 40 07/13/17 00:00 92 07/12/17 22:00 96 07/12/17 20:30 92 40 07/12/17 20:00 99.7 96 17 98/56 (70) 93 07/12/17 20:00 96 07/12/17 20:00 40 I/O 07/12/17 07/12/17 07/12/17 07/13/17 07/13/17 07/13/17 07:00 15:00 23:00 07:00 15:00 23:00 Intake Total 1350 ml 300 ml 302 ml 1302 ml 492 ml 708 ml Output Total 475 ml 600 ml 280 ml 450 ml Balance 875 ml 300 ml -298 ml 1022 ml 492 ml 258 ml IV Total 1350 ml 300 ml 302 ml 1302 ml 492 ml 708 ml Output Urine Total 325 ml 550 ml 250 ml 450 ml Chest Tube Drainage Total 150 ml 50 ml 30 ml # Bowel Movements 0 0 0 Result Diagram: 07/13/17 0345 07/13/17 0345 Objective Remarks GENERAL: SKIN: Warm and dry.on ventilator HEAD: Atraumatic. Normocephalic. EYES: Pupils equal and round. No scleral icterus. No injection or drainage. ENT: No nasal bleeding or discharge. Mucous membranes pink and moist. NECK: Trachea midline. No JVD. CARDIOVASCULAR: Regular rate and rhythm. RESPIRATORY: No accessory muscle use. Clear to auscultation. Breath sounds equal bilaterally. GASTROINTESTINAL: Abdomen soft, non-tender, nondistended. Hepatic and splenic margins not palpable. MUSCULOSKELETAL: Extremities without clubbing, cyanosis, or edema. No obvious deformities. NEUROLOGICAL: Awake and alert. No obvious cranial nerve deficits. Motor grossly within normal limits. Five out of 5 muscle strength in the arms and legs. Normal speech. PSYCHIATRIC: Appropriate mood and affect; insight and judgment normal. Assessment and Plan Assessment and Plan respiratory failure empyema chf ef 15% severe cachexia plan VENT SUPPORT ANTIBIOTICS THERAPY FOR CHF CT D[facility] for hospice care Harley Souza MD Jul 13, 2017 18:10
== END 2017-07-13 18:35 | disposition hospice, inpatient (51) | DRG 166 ==
LOC: NEPE 18:38 → NEDA 22:36 → HIMW 07-07 01:50
PROVIDERS: ADMIT Internal Medicine Critical Care Medicine; ATTEND Internal Medicine Critical Care Medicine
PROC: 5A09357 Assistance with Respiratory Ventilation, Less than 24 Consecutive Hours, Continuous Positive Airway Pressure (ICD-10-PCS; principal; 2017-07-06)
PROC: 0B9J8ZZ Drainage of Left Lower Lung Lobe, Via Natural or Artificial Opening Endoscopic (ICD-10-PCS; 2017-07-07)
PROC: 5A1955Z Respiratory Ventilation, Greater than 96 Consecutive Hours (ICD-10-PCS; 2017-07-07)
PROC: 05HM33Z Insertion of Infusion Device into Right Internal Jugular Vein, Percutaneous Approach (ICD-10-PCS; 2017-07-07)
PROC: 0BH17EZ Insertion of Endotracheal Airway into Trachea, Via Natural or Artificial Opening (ICD-10-PCS; 2017-07-07)
PROC: 0BC78ZZ Extirpation of Matter from Left Main Bronchus, Via Natural or Artificial Opening Endoscopic (ICD-10-PCS; 2017-07-07)
PROC: 0BC48ZZ Extirpation of Matter from Right Upper Lobe Bronchus, Via Natural or Artificial Opening Endoscopic (ICD-10-PCS; 2017-07-07)
PROC: 0BC58ZZ Extirpation of Matter from Right Middle Lobe Bronchus, Via Natural or Artificial Opening Endoscopic (ICD-10-PCS; 2017-07-07)
PROC: 05HM33Z Insertion of Infusion Device into Right Internal Jugular Vein, Percutaneous Approach (ICD-10-PCS; 2017-07-07)
PROC: 0W9B30Z Drainage of Left Pleural Cavity with Drainage Device, Percutaneous Approach (ICD-10-PCS; 2017-07-07)
PROC: 0W9B30Z Drainage of Left Pleural Cavity with Drainage Device, Percutaneous Approach (ICD-10-PCS; 2017-07-07)
PROC: 0T9B70Z Drainage of Bladder with Drainage Device, Via Natural or Artificial Opening (ICD-10-PCS; 2017-07-09)
DX: J86.9 Pyothorax without fistula (principal); J69.0 Pneumonitis due to inhalation of food and vomit; J96.21 Acute and chronic respiratory failure with hypoxia; R64 Cachexia; E46 Unspecified protein-calorie malnutrition; I42.0 Dilated cardiomyopathy; I50.22 Chronic systolic (congestive) heart failure; I11.0 Hypertensive heart disease with heart failure; I48.2 Chronic atrial fibrillation; E87.1 Hypo-osmolality and hyponatremia; J96.22 Acute and chronic respiratory failure with hypercapnia; R04.2 Hemoptysis; J98.11 Atelectasis; I27.20 Pulmonary hypertension, unspecified; F12.90 Cannabis use, unspecified, uncomplicated; F17.210 Nicotine dependence, cigarettes, uncomplicated; J44.9 Chronic obstructive pulmonary disease, unspecified; Z99.81 Dependence on supplemental oxygen; E05.00 Thyrotoxicosis with diffuse goiter without thyrotoxic crisis or storm; R74.8 Abnormal levels of other serum enzymes; D64.9 Anemia, unspecified; Z82.49 Family history of ischemic heart disease and other diseases of the circulatory system; Z51.5 Encounter for palliative care; Z86.711 Personal history of pulmonary embolism; I25.10 Atherosclerotic heart disease of native coronary artery without angina pectoris
CPT/HCPCS: 31500; 31624; 32557; 36556; 36600; 71010; 71275; 76937; 80048; 80053; 80061; 81001; 82140; 82150; 82248; 82533; 82550; 82805; 82945; 82948; 83036; 83605; 83615; 83690; 83735; 83880; 83930; 83935; 83986; 84100; 84155; 84157; 84439; 84443; 84481; 84484; 84550; 85007; 85025; 85027; 85384; 85610; 85730; 87015; 87040; 87070; 87086; 87102; 87116; 87186; 87205; 87206; 87641; 89051; 93005; 93308; 94002; 94003; 94640; 94664; 96365; C1729; C1769; J0131; J1720; J1817; J1956; J2250; J2370; J2920; J3010; J3370; J3475; J7030; J7040; J7050; J7060; J7626; Q9967